=== PATIENT | male | born 1935 | race Caucasian/White ===

== ENCOUNTER 2017-05-19 14:38 | Inpatient (IN) | payer MEDICARE, OTHER ==
[~2017-05-19] VITALS: Ht 180.3 cm; Wt 90.3 kg
[2017-05-19] MEDS ORDERED: 0.9 % SODIUM CHLORIDE 10 ML DISP.SYRIN. IV PRN (15:15)
--- NOTE | 2017-05-19 15:24 | PHYS DOC ---
Past History Past Medical History: CAD, Dementia, Diabetes, High Cholesterol, Hypertension Past Surgical History: Other Additional Past Surgical Histo: AICD and pacemaker placement Alcohol Use: None Drug Use: None Adult General Chief Complaint Chief Complaint: FEVER HPI HPI This patient is a pleasant 81-year-old male with a history of diabetes, hyperlipidemia, hypertension, prior heart disease requiring pacemaker placement and dementia who presents with changes in mental status with subjective low- grade fevers at home according to family. Her last several months patient has had intermittent changes in mental status when he gets confused and starts having chills and developed a fever. He's been treated for pneumonia over last several months at a hospital facility and was sent over here today by his primary care doctor for evaluation secondary to chills decreased energy, increased sleeping, and decreased oral intake. Patient denies any UTI symptoms, abdominal pain, chest pain but has had some intermittent diarrheal stools although not new for him is becoming more frequent. Patient was exposed to children yesterday in the home with URI symptoms of cough and nose congestion of which he does not complain of that at this time. There've been no change in medications, no trauma, patient just feels unwell generally weak without appetite or energy. He denies any specific focal neurologic deficits, problems speaking with problems memory or changes in vision. Review of Systems Review of Systems Constitutional: Patient has suffered from fusion chills or last day. Eyes: Denies change in visual acuity, redness, or eye pain [] HENT: Denies nasal congestion or sore throat [] Respiratory: Denies cough or shortness of breath [] Cardiovascular: No additional information not addressed in HPI [] GI: Denies abdominal pain, vomiting, bloody stools or constipation but does complains of decreased appetite with nausea [] : Denies dysuria or hematuria [] Musculoskeletal: Denies back pain or joint pain [] Integument: Denies rash or skin lesions [] Neurologic: He does complain of a frontal headache not worsened life and sudden onset with generalized weakness but no sensory or focal changes.[] All other systems were reviewed and found to be within normal limits, except as documented in this note. Current Medications Current Medications Current Medications Medications (Trade) Dose Ordered Sig/Shira Start Time Stop Time Status Last Admin Dose Admin Sodium Chloride 2,250 ml @ 2,250 mls/hr Q1H 05/19/17 15:08 UNV Sodium Chloride (Normal Saline Flush) 10 ml QSHIFT PRN 05/19/17 15:15 UNV Physical Exam Physical Exam Of the patient's vital signs on the record patient is [place] hypertensive with borderline fever of 99.5. Constitutional: Well developed, well nourished, he seems tired but nontoxic in appearance he is pale but nondiaphoretic. HENT: Normocephalic, atraumatic, bilateral external ears normal, oropharynx is very dry with no evidence of oral lesions no erythema, no oral exudates, nose normal. [] Eyes: PERRLA, EOMI, conjunctiva normal, no discharge. [] Neck: Normal range of motion, no tenderness, supple, no stridor. [] Cardiovascular:Heart rate regular rhythm, no murmur [] Lungs & Thorax: Bilateral breath sounds clear to auscultation [] Abdomen: Bowel sounds normal, soft, no tenderness, no masses, no pulsatile masses. [] Skin: Warm, dry, no erythema, no rash. [] Back: No tenderness, Extremities: No tenderness, no cyanosis, no clubbing, ROM intact, no edema. [] Neurologic: Alert and oriented X 3, normal motor function, normal sensory function, no focal deficits noted. Patient is responsive able answer yes or no questions with no focal neurologic deficits. [] Psychologic: Patient seems tired and has a blunted affect but normal judgment Patient's stroke scale is only 1 second 2 being somewhat sedated 1 a score to 1 1a. Level of consciousness: 0 = Alert; keenly responsive. 1 = Not alert; but arousable by minor stimulation to obey, answer, or respond. 2 = Not alert; requires repeated stimulation to attend, or is obtunded and requires strong or painful stimulation to make movements (not stereotyped). 3 = Responds only with reflex motor or autonomic effects or totally unresponsive , flaccid, and areflexic. 1b. LOC questions: 0 = Answers both questions correctly. 1 = Answers one question correctly. 2 = Answers neither question correctly. 1c. LOC commands: 0 = Performs both tasks correctly. 1 = Performs one task correctly. 2 = Performs neither task correctly. 2. Best gaze: 0 = Normal. 1 = Partial gaze palsy; gaze is abnormal in one or both eyes, but forced deviation or total gaze paresis is not present. 2 = Forced deviation, or total gaze paresis not overcome by the oculocephalic maneuver. 3. Visual: 0 = No visual loss. 1 = Partial hemianopia. 2 = Complete hemianopia. 3 = Bilateral hemianopia (blind including cortical blindness). 4. Facial palsy: 0 = Normal symmetrical movements. 1 = Minor paralysis (flattened nasolabial fold, asymmetry on smiling). 2 = Partial paralysis (total or near-total paralysis of lower face). 3 = Complete paralysis of one or both sides (absence of facial movement in the upper and lower face). 5. Motor arm: 0 = No drift; limb holds 90 (or 45) degrees for full 10 seconds. 1 = Drift; limb holds 90 (or 45) degrees, but drifts down before full 10 seconds ; does not hit bed or other support. 2 = Some effort against gravity; limb cannot get to or maintain (if cued) 90 ( or 45) degrees, drifts down to bed, but has some effort against gravity. 3 = No effort against gravity; limb falls. 4 = No movement. UN = Amputation or joint fusion, explain: 5a. Left arm 5b. Right arm 6. Motor le = No drift; leg holds 30-degree position for full 5 seconds. 1 = Drift; leg falls by the end of the 5-second period but does not hit bed. 2 = Some effort against gravity; leg falls to bed by 5 seconds, but has some effort against gravity. 3 = No effort against gravity; leg falls to bed immediately. 4 = No movement. UN = Amputation or joint fusion, explain: 6a. Left leg 6b. Right leg 7. Limb ataxia: 0 = Absent. 1 = Present in one limb. 2 = Present in two limbs. UN = Amputation or joint fusion 8. Sensory: 0 = Normal; no sensory loss. 1 = Zfnk-kf-lubaurnd sensory loss; patient feels pinprick is less sharp or is dull on the affected side; or there is a loss of superficial pain with pinprick , but patient is aware of being touched. 2 = Severe to total sensory loss; patient is not aware of being touched in the face, arm, and leg. 9. Best language: 0 = No aphasia; normal. 1 = Ispf-ma-qapvxbni aphasia; some obvious loss of fluency or facility of comprehension, without significant limitation on ideas expressed or form of expression. Reduction of speech and/or comprehension, however, makes conversation about provided materials difficult or impossible. For example, in conversation about provided materials, examiner can identify picture or naming card content from patient's response. 2 = Severe aphasia; all communication is through fragmentary expression; great need for inference, questioning, and guessing by the listener. Range of information that can be exchanged is limited; listener carries burden of communication. Examiner cannot identify materials provided from patient response. 3 = Mute, global aphasia; no usable speech or auditory comprehension. 10. Dysarthria: 0 = Normal. 1 = Mchb-xp-crjepsmw dysarthria; patient slurs at least some words and, at worst , can be understood with some difficulty. 2 = Severe dysarthria; patient's speech is so slurred as to be unintelligible in the absence of or out of proportion to any dysphasia, or is mute/anarthric. UN = Intubated or other physical barrier, explain: 11. Extinction and inattention (formerly neglect): 0 = No abnormality. 1 = Visual, tactile, auditory, spatial, or personal inattention or extinction to bilateral simultaneous stimulation in one of the sensory modalities. 2 = Profound luzmaria-inattention or extinction to more than one modality; does not recognize own hand or orients to only one side of space. Current Patient Data Lab Results Laboratory Tests Test 05/19/17 15:10 05/19/17 15:35 White Blood Count 11.5 x10^3/uL (4.0-11.0) H Red Blood Count 5.45 x10^6/uL (4.30-5.70) Hemoglobin 16.3 g/dL (13.0-17.5) Hematocrit 48.8 % (39.0-53.0) Mean Corpuscular Volume 90 fL (79-100) Mean Corpuscular Hemoglobin 30 pg (25-35) Mean Corpuscular Hemoglobin Concent 34 g/dL (31-37) Red Cell Distribution Width 14.6 % (11.5-14.5) H Platelet Count 135 x10^3/uL (140-400) L Neutrophils (%) (Auto) 92 % (31-73) H Lymphocytes (%) (Auto) 5 % (24-48) L Monocytes (%) (Auto) 3 % (0-9) Eosinophils (%) (Auto) 0 % (0-3) Basophils (%) (Auto) 0 % (0-3) Neutrophils # (Auto) 10.5 x10^3uL (1.8-7.7) H Lymphocytes # (Auto) 0.6 x10^3/uL (1.0-4.8) L Monocytes # (Auto) 0.3 x10^3/uL (0.0-1.1) Eosinophils # (Auto) 0.0 x10^3/uL (0.0-0.7) Basophils # (Auto) 0.0 x10^3/uL (0.0-0.2) Lactic Acid Level 1.3 mmol/L (0.4-2.0) Sodium Level 140 mmol/L (136-145) Potassium Level 5.2 mmol/L (3.5-5.1) H Chloride Level 103 mmol/L (98-107) Carbon Dioxide Level 29 mmol/L (21-32) Anion Gap 8 (6-14) Blood Urea Nitrogen 17 mg/dL (8-26) Creatinine 1.4 mg/dL (0.7-1.3) H Estimated GFR (Cockcroft-Gault) 48.6 BUN/Creatinine Ratio 12 (6-20) Glucose Level 172 mg/dL (70-99) H Calcium Level 8.8 mg/dL (8.5-10.1) Magnesium Level 1.8 mg/dL (1.8-2.4) Total Bilirubin 0.6 mg/dL (0.2-1.0) Aspartate Amino Transferase (AST) 38 U/L (15-37) H Alanine Aminotransferase (ALT) 38 U/L (16-63) Alkaline Phosphatase 81 U/L (46-116) Creatine Kinase 76 U/L (39-308) Creatine Kinase MB (Mass) 0.7 ng/mL (0.0-3.6) Creatine Kinase MB Relative Index 0.9 % (0-4) Troponin I Quantitative < 0.017 ng/mL (0-0.055) HI-Mjz-E-Type Natriuretic Peptide 95 pg/mL (0-449) Total Protein 7.0 g/dL (6.4-8.2) Albumin 3.8 g/dL (3.4-5.0) Albumin/Globulin Ratio 1.2 (1.0-1.7) Amylase Level 40 U/L (25-115) Lipase 43 U/L (73-393) L Influenza Type A (Rapid) Negative (NEGATIVE) Influenza Type B (Rapid) Negative (NEGATIVE) EKG EKG []EKG read by me 4:02 PM 05/19/2017 this is normal sinus rhythm with a heart rate of 66 a P wave there were QRS is sinus rhythm but his SC interval elongated at 326 which is significant. Patient's QRS width is 86 which is normal , QTc is 440 which is normal, patient has T-wave abnormality with T-wave inversion in lateral leads of V4 V5 V6 Radiology/Procedures Radiology/Procedures [] [place] [address] IMAGING REPORT Signed PATIENT: MURIEL GOETZ ACCOUNT: [id number] : 1935 LOCATION: ER AGE: 81 SEX: M EXAM STATUS: REG ER ORD. PHYSICIAN: SEBASTIAN WORRELL MD REASON: mental status changes PROCEDURE: CT HEAD WO CONTRAST Clinical Indication: Mental status change. 81-year-old. Technique: Study is dated May 19, 2017. CT images of the head were obtained from the skull base to the vertex without IV contrast. Comparison is from December 15, 2008. One or more of the following individualized dose reduction techniques were utilized for this examination: 1. Automated exposure control 2. Adjustment of the mA and/or kV according to patient size 3. Use of iterative reconstruction technique Findings: There is diffuse, symmetric prominence of the ventricles and subarachnoid spaces consistent with age-related parenchymal volume loss. There are areas of scattered decreased attenuation in the supratentorial white matter. While nonspecific, findings are likely secondary to small vessel ischemic disease. There is no hemorrhage, extraaxial fluid collection, mass, or midline shift. There is no large vascular distribution infarct. The posterior fossa and brain stem are unremarkable. Orbits are normal. The visualized paranasal sinuses are clear. There is no skull fracture appreciated on bone level images. Impression: No acute intracranial findings. Brain parenchymal volume loss and probable small vessel ischemic disease. DICTATED AND SIGNED BY: REYES KINCAID MD DATE: 05/19/171533 CC: SEBASTIAN WORRELL MD; JENNIFER RANKIN MD ~ IMAGING REPORT Signed PATIENT: MURIEL GOETZ ACCOUNT: [id number] : 1935 LOCATION: ER AGE: 81 SEX: M EXAM STATUS: REG ER ORD. PHYSICIAN: SEBASTIAN WORRELL MD REASON: altered mental status fever PROCEDURE: PORTABLE CHEST 1V Portable chest, 05/19/2017: History: Altered mental status, fever Comparison is made to a study from 10/16/2009. A left-sided transvenous pacemaker has been inserted with 2 leads extending into the right heart. The heart size is normal. There is calcific plaquing of the aorta. The pulmonary vascularity is normal. No pulmonary infiltrates are seen. There is no evidence of pleural fluid. IMPRESSION: No acute cardiopulmonary abnormality is detected. DICTATED AND SIGNED BY: VANIA GALVAN MD DATE: 05/19/171540 CC: SEBASTIAN WORRELL MD; JENNIFER RANKIN MD ~ Course & Med Decision Making Course & Med Decision Making Pertinent Labs and Imaging studies reviewed. (See chart for details) []lMy syncope and weakness differential includes but not limited to: Neurally mediated vasovagal syncope, situational syncope, cardiac sinus syncope , orthostatic hypertension, medications, psychiatric interventions, neurologic syncope, cardiogenic syncopal B, to include organic heart disease congestive heart failure, cardiac dysrhythmia, seizure disorder, stroke or transient ischemic attack, bradycardia dysrhythmias, tachycardia dysrhythmias, PT, V. fib V. fib, cardiac abnormalities like first degree secondary third-degree AV blocks , prolonged QT, hypertrophic Tigre myopathy, severe pulmonic stenosis, pulmonary arterial hypertension, atrial myxomas, aortic stenosis, valvular failure, alcohol consumption, adrenal insufficiency, drug effects from things like antidepressants, antihypertensive agents like beta blockers, vasodilators including calcium channel blockers and nitrates, autonomic insufficiency. Patient presents with generalized weakness and subjective fevers at home greater 100.4 been known to be septic from various sources infection from bladder to lung. He's had sick contacts at home with exposed to grandchildren with URI-like symptoms. We will be screening for fluids, cardiac disease, stroke , pneumonia, UTI, and other source of infection. Patient did mention that he had no appetite had some loose stools so produces stool we will screen for C. difficile colitis and other infectious etiologies of diarrhea. At this point he has not produced a stool and we have not seen evidence of diarrhea. Patient has no fever at this point in time the patient was given extra fluids to include 30 mL/kg bolus to make sure that his dehydration was corrected. Patient's BUN/ creatinine are elevated on this particular admission. Patient has negative troponin, negative influenza screen at this time. Patient is afebrile. Patient is a white count 11.5 with a neutrophil predominance of 92%. His chest x-ray and CT scan of his head were reviewed by me read by radiology no acute finding in determining to his altered mental status. Senior Backup Administrator note: Medical Social Consultant hospitalist Senior Backup Administrator called at of the service internal medicine service called initially for 430 p.m. Consult called back at 431 pm Discussed the case I presented and they agreed with admission. Time of acceptance [id number] "I have assessed this patient clinically and believe that their condition requires an admission to the hospital. After consulting the admitting physician about this case, they have asked that I admit this patient to their service as an inpatient based on the clinical presentation and my impression." Dragon Disclaimer Dragon Disclaimer This electronic medical record was generated, in whole or in part, using a voice recognition dictation system. Departure Departure: Impression: Primary Impression: Mental status change Additional Impression: Fever Disposition: 09 ADMITTED INPATIENT Admitting Physician: Corine sEtevez Condition: GUARDED Referrals: JENNIFER RANKIN MD (PCP) Problem Qualifiers SEBASTIAN WORRELL MD May 19, 2017 15:24
--- NOTE | 2017-05-19 15:37 | RAD ---
Clinical Indication: Mental status change. 81-year-old. Technique: Study is dated May 19, 2017. CT images of the head were obtained from the skull base to the vertex without IV contrast. Comparison is from December 15, 2008. One or more of the following individualized dose reduction techniques were utilized for this examination: 1. Automated exposure control 2. Adjustment of the mA and/or kV according to patient size 3. Use of iterative reconstruction technique Findings: There is diffuse, symmetric prominence of the ventricles and subarachnoid spaces consistent with age-related parenchymal volume loss. There are areas of scattered decreased attenuation in the supratentorial white matter. While nonspecific, findings are likely secondary to small vessel ischemic disease. There is no hemorrhage, extraaxial fluid collection, mass, or midline shift. There is no large vascular distribution infarct. The posterior fossa and brain stem are unremarkable. Orbits are normal. The visualized paranasal sinuses are clear. There is no skull fracture appreciated on bone level images. Impression: No acute intracranial findings. Brain parenchymal volume loss and probable small vessel ischemic disease.
[2017-05-19 15:38] LABS: BASO % 0 % (0-3); EOS % 0 % (0-3); HEMATOCRIT 48.8 % (39.0-53.0); HEMOGLOBIN 16.3 g/dL (13.0-17.5); LYMPH # 0.6 x10^3/uL (1.0-4.8); LYMPH % 5 % (24-48); MEAN CORPUSCULAR HEMOGLOBIN 30 pg (25-35); MEAN CORPUSCULAR HGB CONC 34 g/dL (31-37); MEAN CORPUSCULAR VOLUME 90 fL (79-100); MONO # 0.3 x10^3/uL (0.0-1.1); MONO % 3 % (0-9); NEUT # 10.5 x10^3uL (1.8-7.7); NEUT % 92 % (31-73); PLATELET COUNT 135 x10^3/uL (140-400); RED BLOOD COUNT 5.45 x10^6/uL (4.30-5.70); RED CELL DISTRIBUTION WIDTH 14.6 % (11.5-14.5); WHITE BLOOD COUNT 11.5 x10^3/uL (4.0-11.0)
[2017-05-19] MEDS: IV NORMAL SALINE 1,000ML 2,250 ML IV SCH ×4 (15:40→21:58)
--- NOTE | 2017-05-19 15:44 | RAD ---
Portable chest, 05/19/2017: History: Altered mental status, fever Comparison is made to a study from 10/16/2009. A left-sided transvenous pacemaker has been inserted with 2 leads extending into the right heart. The heart size is normal. There is calcific plaquing of the aorta. The pulmonary vascularity is normal. No pulmonary infiltrates are seen. There is no evidence of pleural fluid. IMPRESSION: No acute cardiopulmonary abnormality is detected.
--- NOTE | 2017-05-19 15:47 | EKG ---
[address] [address] Test Date: 2017-05-19 Test Time: 16:02:04 Pat Name: MURIEL GOETZ Department: Room: Gender: M Nature Photographer: ANALILIA : 1935 Requested By: SEBASTIAN WORRELL Order Number: [id number] Reading MD: Nolan Heaton MD Measurements Intervals Elizabeth Rate: 66 P: 31 VA: 326 QRS: -13 QRSD: 86 T: -26 QT: 426 QTc: 448 Interpretive Statements SINUS RHYTHM PROLONGED VA INTERVAL NON-SPECIFIC ST/T CHANGES Electronically Signed On 05-26-2017 14:06:07 DRYWALL STRIPPER by Nolan Heaton MD
[2017-05-19 16:09] LABS: INFLUENZA A PATIENT NEGATIVE (NEGATIVE); INFLUENZA B PATIENT NEGATIVE (NEGATIVE)
[2017-05-19] MEDS ORDERED: ACETAMINOPHEN 325 MG TABLET PO PRN (16:30)
[2017-05-19] MEDS ORDERED: ONDANSETRON PF 4 MG/2 ML VIAL. IV PRN (16:30)
[2017-05-19 16:32] LABS: ALBUMIN 3.8 g/dL (3.4-5.0); ALBUMIN/GLOBULIN RATIO 1.2 (1.0-1.7); CALCIUM 8.8 mg/dL (8.5-10.1); CREATININE 1.4 mg/dL (0.7-1.3); GFR 48.6; MAGNESIUM 1.8 mg/dL (1.8-2.4); POTASSIUM 5.2 mmol/L (3.5-5.1); TOTAL BILIRUBIN 0.6 mg/dL (0.2-1.0)
[2017-05-19 19:15] VITALS: BP 98/62
[2017-05-19 19:33] LABS: BACTERIA,URINE 0 /HPF (0-FEW); BILIRUBIN,URINE NEG (NEG); CLARITY,URINE CLEAR; COLOR,URINE YELLOW; GLUCOSE,URINE NEG (NEG); NITRITE,URINE NEG (NEG); RBC,URINE RARE /HPF (0-2); SQUAMOUS EPITHELIAL CELL,UR FEW /LPF; UROBILINOGEN,URINE 0.2 mg/dL (0.2 mg/dL); WBC,URINE OCC /HPF (0-4)
[2017-05-19] MEDS ORDERED: DONE10TA7 PO (20:08)
[2017-05-19] MEDS ORDERED: DICY10CA3 PO (20:08)
[2017-05-19] MEDS ORDERED: ALBU90AE IH (20:08)
[2017-05-19] MEDS ORDERED: INSU200I SQ (20:08)
[2017-05-19] MEDS ORDERED: ONDA4TAB12 PO (20:08)
[2017-05-19] MEDS ORDERED: SIMV10TA3 PO (20:08)
[2017-05-19] MEDS ORDERED: CHOL4POW2 PO (20:08)
[2017-05-19] MEDS ORDERED: LISI10TA2 PO (20:08)
[2017-05-19] MEDS ORDERED: GABA-586 PO (20:08)
[2017-05-19] MEDS ORDERED: MEMA1CAP3 PO (20:08)
[2017-05-19] MEDS ORDERED: ASPI-630 PO (20:08)
[2017-05-19] MEDS ORDERED: OMEP40CA5 PO (20:08)
[2017-05-19] MEDS ORDERED: CHOL10003 PO (20:08)
[2017-05-19] MEDS ORDERED: INSU100I13 SQ (20:08)
[2017-05-19] MEDS: INSULIN DETEMIR 300 UNITS/3 ML INSULN.PEN. SQ SCH (21:04)
[2017-05-19 22:23] VITALS: BP 118/58
[2017-05-19] MEDS ORDERED: PNEUMOCOCCAL VAX SCREEN. MC PRN (22:30)
[2017-05-20] MEDS: IV NORMAL SALINE 1,000ML 1,000 ML IV SCH ×2 (01:36→04:57)
[2017-05-20 05:07] VITALS: BP 137/63
[2017-05-20 08:21] LABS: BASO # 0.1 x10^3/uL (0.0-0.2); BASO % 1 % (0-3); EOS # 0.1 x10^3/uL (0.0-0.7); EOS % 1 % (0-3); HEMATOCRIT 42.1 % (39.0-53.0); LYMPH % 19 % (24-48); MEAN CORPUSCULAR HEMOGLOBIN 30 pg (25-35); MEAN CORPUSCULAR HGB CONC 33 g/dL (31-37); MEAN CORPUSCULAR VOLUME 90 fL (79-100); MONO # 0.2 x10^3/uL (0.0-1.1); MONO % 3 % (0-9); NEUT # 3.8 x10^3uL (1.8-7.7); NEUT % 75 % (31-73); PLATELET COUNT 116 x10^3/uL (140-400); RED BLOOD COUNT 4.69 x10^6/uL (4.30-5.70); RED CELL DISTRIBUTION WIDTH 14.3 % (11.5-14.5)
[2017-05-20 08:37] LABS: ALBUMIN 2.9 g/dL (3.4-5.0); ALBUMIN/GLOBULIN RATIO 0.9 (1.0-1.7); GFR 71.7; MAGNESIUM 1.9 mg/dL (1.8-2.4); POTASSIUM 4.1 mmol/L (3.5-5.1); TOTAL BILIRUBIN 0.5 mg/dL (0.2-1.0); TOTAL PROTEIN 6.1 g/dL (6.4-8.2)
[2017-05-20 10:14] VITALS: BP 167/79
[2017-05-20] MEDS ORDERED: NON FORMULARY ITEM (Albuterol Sulfate (Proair Respiclick) 2 PUFF) IH PRN (11:00)
[2017-05-20] MEDS ORDERED: ONDANSETRON ODT 4 MG TAB.RAPDIS PO PRN (11:00)
[2017-05-20] MEDS ORDERED: INSULIN ASPART 300 UNITS/3 ML INSULN.PEN SQ SCH (11:30)
[2017-05-20] MEDS ORDERED: ALBUTEROL SULFATE 2.5 MG/3 ML NEBU. NEB PRN (11:30)
[2017-05-20] MEDS ORDERED: DONEPEZIL HCL 10 MG TABLET PO SCH ×2 (11:30→21:00)
[2017-05-20] MEDS: ASPIRIN 81 MG TAB.CHEW PO SCH (12:43)
[2017-05-20] MEDS: MEMANTINE 10 MG TABLET. PO SCH ×2 (12:44→20:04)
[2017-05-20] MEDS: DICYCLOMINE HCL 10 MG CAPSULE PO SCH ×3 (12:44→20:04)
[2017-05-20] MEDS: LISINOPRIL 10 MG TABLET PO SCH (12:45)
[2017-05-20] MEDS: PANTOPRAZOLE 40 MG TABLET. PO SCH (12:45)
[2017-05-20] MEDS: SIMVASTATIN 10 MG TABLET PO SCH (12:46)
[2017-05-20] MEDS: CHOLECALCIFEROL (VITAMIN D3) 1,000 UNIT TABLET PO SCH (12:46)
[2017-05-20] MEDS: GABAPENTIN 300 MG CAPSULE. PO SCH ×2 (13:56→20:04)
[2017-05-20] MEDS: CHOLESTYRAMINE/ASPARTAME 4 GM PACKET PO SCH (13:56)
[2017-05-20 14:52] VITALS: BP 159/74
[2017-05-20] MEDS: INSULIN ASPART 300 UNITS/3 ML INSULN.PEN SQ SCH (17:13)
[2017-05-20 19:17] VITALS: BP 136/74
--- NOTE | 2017-05-20 19:48 | HP ---
ADMIT DATE: 05/19/2017 REASON FOR ADMISSION: This is an 81-year-old gentleman who has had repeated admissions to the hospital for fever, altered mental status, diarrhea, chills. I discussed his case with Dr. Lucero, his primary care physician as well as reviewed his records from his admissions at [facility]. His last admission was on 05/06/2017. On this admission, he presented to the Emergency Room after stated that he just was not acting right. They felt he had a fever, although was not taken. He does have intermittent problems with confusion and agitation and some memory lapse. He has also had some admissions for pneumonia in the past. PAST MEDICAL HISTORY: Multiple admissions for diarrhea ____ poorly controlled diabetes and in 07/2016, he did have enteropathogenic E. coli that was in his stool and in 03/2017, he also had a Cryptosporidium. Recent stool cultures in 04/28/2017 were all negative. Other medical problems include pacemaker, hypertension, type 2 diabetes, hyperlipidemia, COPD, sleep apnea, skin cancer, BPH, diabetic nephropathy, history of sick sinus syndrome requiring pacemaker, encephalopathy, dementia, chronic intermittent diarrhea. ALLERGIES: BEE STINGS. MEDICATIONS: Reviewed and are available on the MAR. The patient does take some of these medicines on an empty stomach. There also is a combination of ____ as well as regular ____ prescribed, which may also be contributing to his pain in stomach, nausea and vomiting. SOCIAL HISTORY: The patient is . He is an ex-smoker, quit in 1992. He has not had any alcohol, generally since 1993. Served in the for 26 years, worked for the [employer] for 20 years, worked at [employer] for 8 years. FAMILY STRESSORS: Significant. He and his live in a very small house with one operating bedroom. Their daughter who is in her 50s, lives in another room and their granddaughter who has a 4-month-old and a 4- and 5-year-old sleeps on the couch. relates this is very stressful for him and his symptoms seem to get worse when the granddaughter who is somewhat volatile starts yelling and carrying on. They are torn between asking her to leave and keeping her in their home as they are very devoted to her. She does not have a job and they are not too fund of her current boyfriend who is the father of a 4-month-old. REVIEW OF SYSTEMS: Positive for intermittent fevers, chills, feeling cold, fluctuating blood sugars, intermittent diarrhea. Denies sore throat. Denies current diarrhea. No issues with urination. Weight is fluctuating, had lost 10 pounds and then has gained it back, and intermittent bouts of weakness. OBJECTIVE: VITAL SIGNS: Blood pressure was 137/63, pulse of 59, temperature 97.4, pulse ox was 94% on the CPAP, was 91% on room air. GENERAL: The patient is alert. HEENT: He is extremely hard of hearing. His eyes are clear. Nose is patent. Tongue is slightly dry. He has some mucous in the posterior pharynx. NECK: Supple. LUNGS: Clear. CARDIOVASCULAR: Regular rhythm and rate. Telemetry shows a paced rhythm. ABDOMEN: Soft. Bowel sounds are positive, nontender, no masses palpated. EXTREMITIES: Without edema. NEUROLOGIC: Mental Status: Cognitive Status: The patient is somewhat of a poor historian, some due to his hearing and some due to inability to recall. There are no gross tremors noted. His cranial nerves were intact except for the hearing. LABORATORY DATA: Review of other labs from his previous hospitalizations reveal ABGs, he has 5 ABGs from different times going back to 2011 showing hypoxemia on all ABGs with some hypercarbia as well. Also on review, he has had intermittent elevated lactic acids. Laboratories here: Chemistry profile, essentially normal. Glucose is ranging from 126 to 190. CBC: Initial elevated white blood count of 11.5 without a left shift and platelet count 35,000. Urinalysis is negative. Flu is negative. IMAGING DATA: Head CT: No acute intracranial findings. ASSESSMENT: 1. Recurrent fever, chills, and altered mental status, suspect intermittent hypoxia. 2. Obstructive sleep apnea. 3. History of Cryptosporidium and enterogenic Escherichia coli in the stool. He is not currently having diarrhea and the 04/28/2017 cultures were negative. 4. Extreme social stressors. I believe this is contributing to his overall mental and physical state. 5. Suspect irritable bowel syndrome related to extreme stress. 6. Type 2 diabetes with intermittent hyperglycemia. 7. Also, he has a history of gastroparesis. 8. Pacemaker status. PLAN: IV fluids. Decrease the dose of the Aricept, so that he only gets 10 mg daily. The patient may benefit from some Librax if he continues to be still having the gastrointestinal symptoms. He does have an appointment with a television tube inspector on 06/18/2017. I will discuss that with Dr. Lucero. We will monitor his saturations too during his hospitalization. THAD SOSA DO DR: SHALONDA/ana maria JOB#: [id number] / [id number]
[2017-05-20] MEDS: INSULIN DETEMIR 300 UNITS/3 ML INSULN.PEN. SQ SCH (20:09)
[2017-05-20 23:00] VITALS: BP 159/75
[2017-05-21 05:12] VITALS: BP 164/75
[2017-05-21 06:07] LABS: BASO % 1 % (0-3); EOS # 0.1 x10^3/uL (0.0-0.7); EOS % 2 % (0-3); HEMATOCRIT 39.6 % (39.0-53.0); HEMOGLOBIN 13.4 g/dL (13.0-17.5); LYMPH # 0.9 x10^3/uL (1.0-4.8); LYMPH % 22 % (24-48); MEAN CORPUSCULAR HEMOGLOBIN 30 pg (25-35); MEAN CORPUSCULAR HGB CONC 34 g/dL (31-37); MEAN CORPUSCULAR VOLUME 90 fL (79-100); MONO # 0.2 x10^3/uL (0.0-1.1); MONO % 5 % (0-9); NEUT % 71 % (31-73); PLATELET COUNT 113 x10^3/uL (140-400); RED BLOOD COUNT 4.41 x10^6/uL (4.30-5.70); RED CELL DISTRIBUTION WIDTH 14.4 % (11.5-14.5); WHITE BLOOD COUNT 4.3 x10^3/uL (4.0-11.0)
[2017-05-21 06:13] LABS: ALBUMIN 2.9 g/dL (3.4-5.0); ALBUMIN/GLOBULIN RATIO 0.9 (1.0-1.7); CALCIUM 8.2 mg/dL (8.5-10.1); GFR 71.7; MAGNESIUM 1.8 mg/dL (1.8-2.4); POTASSIUM 4.4 mmol/L (3.5-5.1); TOTAL BILIRUBIN 0.3 mg/dL (0.2-1.0); TOTAL PROTEIN 6.1 g/dL (6.4-8.2)
[2017-05-21] MEDS: INSULIN ASPART 300 UNITS/3 ML INSULN.PEN SQ SCH ×2 (08:18→12:06)
[2017-05-21] MEDS: GABAPENTIN 300 MG CAPSULE. PO SCH ×2 (08:20→14:41)
[2017-05-21] MEDS: ASPIRIN 81 MG TAB.CHEW PO SCH (08:20)
[2017-05-21] MEDS: DICYCLOMINE HCL 10 MG CAPSULE PO SCH ×2 (08:21→12:04)
[2017-05-21] MEDS: PANTOPRAZOLE 40 MG TABLET. PO SCH (08:21)
[2017-05-21] MEDS: LISINOPRIL 10 MG TABLET PO SCH (08:21)
[2017-05-21] MEDS: MEMANTINE 10 MG TABLET. PO SCH (08:21)
[2017-05-21] MEDS: SIMVASTATIN 10 MG TABLET PO SCH (08:21)
[2017-05-21] MEDS: CHOLECALCIFEROL (VITAMIN D3) 1,000 UNIT TABLET PO SCH (08:21)
[2017-05-21] MEDS ORDERED: NON FORMULARY ITEM (Memantine HCl/Donepezil HCl (Namzaric 28 mg-10 mg Capsule) 1 EACH) PO SCH (09:00)
[2017-05-21] MEDS: CHOLESTYRAMINE/ASPARTAME 4 GM PACKET PO SCH (09:54)
[2017-05-21 10:33] VITALS: BP 122/72
[2017-05-21] MEDS ORDERED: INSULIN ASPART 300 UNITS/3 ML INSULN.PEN SQ ONE (12:00)
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
--- NOTE | 2017-06-05 15:06 | CARD ---
MR#: [id number] Date of Study: 05/21/2017 Ordering Physician: THAD SOSA, Referring Physician: Rajan DUNHAM: Lawrence Caraballo [facility] APPROVED REPORT EXAM: Two-dimensional and M-mode echocardiogram with Doppler and color Doppler. Other Information Quality : GoodTechnically LimitedFairHR: 60bpm INDICATION Murmur 2D DIMENSIONS RVDd3.5 (2.9-3.5cm)Left Atrium(2D)3.7 (1.6-4.0cm) IVSd1.3 (0.7-1.1cm)Aortic Root(2D)3.4 (2.0-3.7cm) LVDd4.7 (3.9-5.9cm)LVOT Diameter2.2 (1.8-2.4cm) PWd1.4 (0.7-1.1cm)LVDs3.3 (2.5-4.0cm) FS (%) 29.0 %SV57.3 ml LVEF(%)55.6 (>50%) Aortic Valve AoV Peak Simon.96.7cm/sAoV VTI23.3cm AO Peak GR.3.7mmHgLVOT Peak Simon.70.6cm/s AO Mean GR.2mmHgAVA (VMAX)2.89cm2 Mitral Valve MV E Xrjllndd00.6cm/sMV DECEL SEXB928ii MV A Ilckuxhh46.6cm/sE/A Ratio0.7 Pulmonary Valve PV Peak Dufnmyya433.3cm/sPV Peak Grad.5mmHg Tricuspid Valve TR P. Whgugoez538nm/sTR Peak Gr.21mmHg Pulmonary Vein S1 Hjitddpn37.5cm/sD2 Exdedgzc80.7cm/s LEFT VENTRICLE The left ventricle is normal size. There is mild concentric left ventricular hypertrophy. Proximal se ptal thickening is noted. The left ventricular systolic function is normal and the ejection fraction is within normal range. There is normal LV segmental wall motion. Transmitral Doppler flow pattern is Grade I-abnormal relaxation pattern. RIGHT VENTRICLE The right ventricle is normal size. The right ventricular systolic function is normal. ATRIA The left atrium size is normal. The right atrium size is normal. There is a catheter/pacemaker lead s een in the right atrium. The interatrial septum is intact with no evidence for an atrial septal defec t or patent foramen ovale as noted on 2-D or Doppler imaging. AORTIC VALVE The aortic valve is thickened but opens well. Doppler and Color Flow revealed trace aortic regurgitat ion. There is no significant aortic valvular stenosis. There is no aortic valvular vegetation. MITRAL VALVE Mitral annular calcification is mild. The mitral valve is calcified but opens well. There is no evide nce of mitral valve prolapse. There is no mitral valve stenosis. Doppler and Color-flow revealed trac e to mild mitral regurgitation. TRICUSPID VALVE The tricuspid valve leaflets are thickened , but open well. Doppler and Color Flow revealed mild tric uspid regurgitation. There is no tricuspid valve prolapse or vegetation. There is no tricuspid valve stenosis. PULMONIC VALVE The pulmonary valve is normal in structure and function. Doppler and Color Flow revealed trace pulmon ic valvular regurgitation. There is no pulmonic valvular stenosis. GREAT VESSELS The aortic root is normal in size. IVC could not be visualized. PERICARDIAL EFFUSION There is no pleural effusion. There is no evidence of significant pericardial effusion. Critical Notification Critical Value: No <Conclusion> The left ventricular systolic function is normal and the ejection fraction is within normal range. EF is calculated to be 55-60%. Transmitral Doppler flow pattern is Grade I-abnormal relaxation pattern. The right ventricular systolic function is normal. Doppler and Color Flow revealed trace aortic regurgitation. There is no evidence of significant pericardial effusion. Signed by : Abrahan Oconnell, Electronically Approved : 06/05/2017 15:06:14
== END 2017-05-21 14:42 | disposition home or self-care (01) | DRG 682 ==
LOC: ER 14:38 → 1 SOUTH 17:25
PROVIDERS: ADMIT Family Medicine; ATTEND Family Medicine
PROC: 5A09357 Assistance with Respiratory Ventilation, Less than 24 Consecutive Hours, Continuous Positive Airway Pressure (ICD-10-PCS; principal; 2017-05-19)
PROC: 5A09357 Assistance with Respiratory Ventilation, Less than 24 Consecutive Hours, Continuous Positive Airway Pressure (ICD-10-PCS; 2017-05-20)
DX: N17.0 Acute kidney failure with tubular necrosis (principal); G93.41 Metabolic encephalopathy; E11.21 Type 2 diabetes mellitus with diabetic nephropathy; D69.6 Thrombocytopenia, unspecified; E11.65 Type 2 diabetes mellitus with hyperglycemia; E86.0 Dehydration; K58.0 Irritable bowel syndrome with diarrhea; J44.9 Chronic obstructive pulmonary disease, unspecified; R41.82 Altered mental status, unspecified; F43.9 Reaction to severe stress, unspecified; E78.5 Hyperlipidemia, unspecified; F03.90 Unspecified dementia, unspecified severity, without behavioral disturbance, psychotic disturbance, mood disturbance, and anxiety; G47.33 Obstructive sleep apnea (adult) (pediatric); I10 Essential (primary) hypertension; D72.829 Elevated white blood cell count, unspecified; I25.10 Atherosclerotic heart disease of native coronary artery without angina pectoris; N40.0 Benign prostatic hyperplasia without lower urinary tract symptoms; Z85.828 Personal history of other malignant neoplasm of skin; Z87.01 Personal history of pneumonia (recurrent); Z87.891 Personal history of nicotine dependence; Z95.0 Presence of cardiac pacemaker; Z91.030 Bee allergy status; Z79.4 Long term (current) use of insulin
CPT/HCPCS: 36415; 70450; 71010; 80053; 80061; 81001; 82150; 82553; 82947; 83605; 83690; 83735; 83880; 84443; 84484; 85025; 87040; 87641; 87804; 93005; 93306; 94620; J1815; Q0162; 99285-25; J7030

== ENCOUNTER 2017-06-05 16:16 | Inpatient (IN) | payer MEDICARE, OTHER ==
[~2017-06-05] VITALS: Ht 180.3 cm; Wt 89.4 kg
[~2017-06-05 16:16] MED LIST: ALBU90AE IH; ASPI-630 PO; CHOL10003 PO; CHOL4POW2 PO; DICY10CA3 PO; DONE10TA7 PO; GABA-586 PO; INSU100I13 SQ; INSU200I SQ; LISI10TA2 PO; MEMA1CAP3 PO; OMEP40CA5 PO; ONDA4TAB12 PO; SIMV10TA3 PO
[2017-06-05] MEDS ORDERED: IV NORMAL SALINE 500ML 500 ML IV ONE (16:30)
--- NOTE | 2017-06-05 16:34 | PHYS DOC ---
Past History Past Medical History: CAD, Dementia, Diabetes, High Cholesterol, Hypertension Past Surgical History: Other Additional Past Surgical Histo: AICD and pacemaker placement Alcohol Use: None Drug Use: None Adult General HPI HPI Patient is a 20-year-old with a history of diabetes is brought in for evaluation to the emergency department secondary to be more sleepy, less active than usual, generalized weakness. Patient is answering questions but acting sleepy. patient denies any pain, rashes, fevers, vomiting, diarrhea. EMS was called to assist on getting the patient the car because he was so weak, patient was on his way to the emergency department for evaluation. In the emergency department the patient was found to be febrile. Review of Systems Review of Systems Constitutional: Denies fever or chills [] Eyes: Denies change in visual acuity, redness, or eye pain [] HENT: Denies nasal congestion or sore throat [] Respiratory: Denies cough or shortness of breath [] Cardiovascular: No additional information not addressed in HPI [] GI: Denies abdominal pain, nausea, vomiting, bloody stools or diarrhea [] : Denies dysuria or hematuria [] Musculoskeletal: Denies back pain or joint pain [] Integument: Denies rash or skin lesions [] Neurologic: Denies headache, focal weakness or sensory changes [] Endocrine: Denies polyuria or polydipsia [] All other systems were reviewed and found to be within normal limits, except as documented in this note. Current Medications Current Medications Current Medications Medications (Trade) Dose Ordered Sig/Shira Start Time Stop Time Status Last Admin Dose Admin Acetaminophen (Tylenol) 650 mg 1X ONCE 06/05/17 16:45 06/05/17 16:46 UNV Ibuprofen (Motrin) 400 mg 1X ONCE 06/05/17 16:45 06/05/17 16:46 UNV Sodium Chloride 500 ml @ 0 mls/hr 1X ONCE 06/05/17 16:30 06/05/17 16:31 UNV Allergies Allergies Allergies Coded Allergies Type Severity Reaction Last Updated Verified I S O L A T I O N *CONTACT* Allergy Unknown 05/20/17 Yes NKMA Allergy Unknown 05/20/17 Yes Physical Exam Physical Exam Constitutional: Well developed, well nourished, no acute distress, non-toxic appearance. [] HENT: Normocephalic, atraumatic, bilateral external ears normal, oropharynx moist, no oral exudates, nose normal. [] Eyes: PERRLA, EOMI, conjunctiva normal, no discharge. [] Neck: Normal range of motion, no tenderness, supple, no stridor. [] Cardiovascular:Heart rate regular rhythm, no murmur [] Lungs & Thorax: Bilateral breath sounds clear to auscultation [] Abdomen: Bowel sounds normal, soft, no tenderness, no masses, no pulsatile masses. [] Skin: Warm, dry, no erythema, no rash. [] Back: No tenderness, no CVA tenderness. [] Extremities: No tenderness, no cyanosis, no clubbing, ROM intact, no edema. [] Neurologic: Alert and oriented X 3, normal motor function, normal sensory function, no focal deficits noted. [] Psychologic: Affect normal, judgement normal, mood normal. [] EKG EKG 1650 SR, no stemi, 72[] Radiology/Procedures Radiology/Procedures CXR: right basilar infiltrate[] Course & Med Decision Making Course & Med Decision Making Pertinent Labs and Imaging studies reviewed. (See chart for details) 1749 pt in nad, resting comfortably [] Dragon Disclaimer Dragon Disclaimer This electronic medical record was generated, in whole or in part, using a voice recognition dictation system. Departure Departure: Impression: Primary Impression: Pneumonia Additional Impressions: Dehydration Thrombocytopenia Weakness Disposition: ADMITTED INPATIENT Admitting Physician: Ezio Tucrios Condition: STABLE Referrals: JENNIFER RANKIN MD (PCP) Problem Qualifiers Dez AVILA MD Jun 05, 2017 16:34
--- NOTE | 2017-06-05 16:45 | RAD ---
Portable chest, 06/05/2017: History: Pneumonia Comparison is made to a study from 05/19/2017. A left-sided transvenous pacemaker is in place with 2 leads extending into the right heart. The heart size is normal. There is calcific plaquing of aorta. There is minimal right basilar infiltrate. The left lung is clear. There is no evidence of pleural fluid. IMPRESSION: Minimal right basilar infiltrate compatible with pneumonia.
[2017-06-05] MEDS ORDERED: ACETAMINOPHEN 325 MG TABLET PO ONE (17:00)
[2017-06-05] MEDS ORDERED: IBUPROFEN 400 MG TABLET. PO ONE (17:00)
[2017-06-05 17:08] LABS: BASO % 1 % (0-3); EOS % 1 % (0-3); HEMATOCRIT 47.4 % (39.0-53.0); HEMOGLOBIN 15.8 g/dL (13.0-17.5); LYMPH # 0.3 x10^3/uL (1.0-4.8); LYMPH % 7 % (24-48); MEAN CORPUSCULAR HEMOGLOBIN 30 pg (25-35); MEAN CORPUSCULAR HGB CONC 33 g/dL (31-37); MEAN CORPUSCULAR VOLUME 90 fL (79-100); MONO # 0.3 x10^3/uL (0.0-1.1); MONO % 7 % (0-9); NEUT # 3.3 x10^3uL (1.8-7.7); NEUT % 84 % (31-73); PLATELET COUNT 108 x10^3/uL (140-400); RED BLOOD COUNT 5.26 x10^6/uL (4.30-5.70); RED CELL DISTRIBUTION WIDTH 14.6 % (11.5-14.5); WHITE BLOOD COUNT 3.9 x10^3/uL (4.0-11.0)
[2017-06-05 17:25] LABS: ALBUMIN 3.9 g/dL (3.4-5.0); ALBUMIN/GLOBULIN RATIO 1.1 (1.0-1.7); CALCIUM 9.3 mg/dL (8.5-10.1); CREATININE 1.3 mg/dL (0.7-1.3); POTASSIUM 4.6 mmol/L (3.5-5.1); TOTAL BILIRUBIN 0.7 mg/dL (0.2-1.0); TOTAL PROTEIN 7.6 g/dL (6.4-8.2)
--- NOTE | 2017-06-05 17:29 | EKG ---
[address] [address] Test Date: 2017-06-05 Test Time: 16:49:53 Pat Name: MURIEL GOETZ Department: Room: Gender: M Field Trainer: ANALILIA : 1935 Requested By: Dez AVILA Order Number: [id number] Reading MD: Gaurav Bacon Measurements Intervals Maybee Rate: 72 P: -9 KY: 284 QRS: -16 QRSD: 94 T: -5 QT: 306 QTc: 336 Interpretive Statements SINUS RHYTHM PROLONGED [place] INTERVAL LEFTWARD AXIS T ABNORMALITY IN ANTEROLATERAL LEADS ABNORMAL ECG Electronically Signed On 06-12-2017 9:31:23 HOLIDAY DETECTOR OPERATOR by Gaurav Bacon
[2017-06-05] MEDS ORDERED: ONDANSETRON PF 4 MG/2 ML VIAL. IV PRN (18:00)
[2017-06-05] MEDS ORDERED: cefTRIAXone IV Push 1 GM VIAL. IVP ONE (18:00)
[2017-06-05] MEDS ORDERED: AZITHROMYCIN 500 MG in IV NORMAL SALINE 250ML 250 ML IV ONE (18:00)
[2017-06-05 18:06] LABS: BACTERIA,URINE 0 /HPF (0-FEW); BILIRUBIN,URINE NEG (NEG); CLARITY,URINE CLEAR; COLOR,URINE YELLOW; GLUCOSE,URINE NEG (NEG); NITRITE,URINE NEG (NEG); RBC,URINE 0 /HPF (0-2); SQUAMOUS EPITHELIAL CELL,UR OCC /LPF; UROBILINOGEN,URINE 1 mg/dL (0.2 mg/dL); WBC,URINE OCC /HPF (0-4)
[2017-06-05 18:09] LABS: INFLUENZA A PATIENT POSITIVE (NEGATIVE); INFLUENZA B PATIENT NEGATIVE (NEGATIVE)
[2017-06-05] MEDS ORDERED: AZITHROMYCIN 500 MG VIAL. IV ONE (19:04)
[2017-06-05] MEDS ORDERED: IV NORMAL SALINE 250ML 250 ML ONE (19:04)
[2017-06-05 20:51] VITALS: BP 85/54
[2017-06-05] MEDS ORDERED: INSU100V31 SQ (20:55)
[2017-06-05] MEDS ORDERED: DEXTROSE 50% 25 GM / 50ML DISP.SYRIN. IV PRN (21:15)
[2017-06-05] MEDS: INSULIN DETEMIR 300 UNITS/3 ML INSULN.PEN. SQ SCH (21:41)
[2017-06-05] MEDS: IV NORMAL SALINE 1,000ML 1,000 ML IV SCH (21:42)
[2017-06-05] MEDS: OSELTAMIVIR 75 MG CAPSULE PO SCH (21:43)
[2017-06-05 23:40] VITALS: BP 94/53
[2017-06-06] VITALS (18 sets, daily range): BP systolic 93–180; BP diastolic 44–71
[2017-06-06] MEDS: IV NORMAL SALINE 1,000ML 1,000 ML IV SCH ×3 (05:09→19:39)
[2017-06-06 06:59] LABS: CALCIUM 8.1 mg/dL (8.5-10.1); CREATININE 1.2 mg/dL (0.7-1.3); GFR 58.1; POTASSIUM 4.5 mmol/L (3.5-5.1)
[2017-06-06 07:05] LABS: BASO % 1 % (0-3); EOS % 1 % (0-3); HEMOGLOBIN 13.9 g/dL (13.0-17.5); LYMPH # 0.2 x10^3/uL (1.0-4.8); LYMPH % 7 % (24-48); MEAN CORPUSCULAR HEMOGLOBIN 30 pg (25-35); MEAN CORPUSCULAR HGB CONC 33 g/dL (31-37); MEAN CORPUSCULAR VOLUME 90 fL (79-100); MONO # 0.2 x10^3/uL (0.0-1.1); MONO % 7 % (0-9); NEUT % 85 % (31-73); PLATELET COUNT 90 x10^3/uL (140-400); RED BLOOD COUNT 4.66 x10^6/uL (4.30-5.70); RED CELL DISTRIBUTION WIDTH 14.4 % (11.5-14.5); WHITE BLOOD COUNT 3.5 x10^3/uL (4.0-11.0)
[2017-06-06] MEDS: OSELTAMIVIR 75 MG CAPSULE PO SCH ×2 (08:35→20:43)
[2017-06-06] MEDS: INSULIN ASPART 300 UNITS/3 ML INSULN.PEN SQ SCH ×4 (08:38→20:44)
[2017-06-06] MEDS: IPRATRPIUM/ALBUTEROL 0.5/2.5MG 3 ML NEBU. NEB SCH ×3 (10:22→21:12)
[2017-06-06] MEDS: ENOXAPARIN 40 MG/0.4 ML DISP.SYRIN. SQ SCH (10:48)
[2017-06-06] MEDS: AZITHROMYCIN 500 MG in IV NORMAL SALINE 250ML 250 ML IV SCH (10:48)
--- NOTE | 2017-06-06 10:54 | HP ---
ADMIT DATE: 06/05/2017 REASON FOR ADMISSION: Increased somnolence, weakness. HISTORY OF PRESENT ILLNESS: The family noticed this and EMS was called to assist to get the patient in the car because he was so weak. On arriving to the Emergency Room, the patient did have a fever. PAST MEDICAL HISTORY: The patient had an admission in early May for altered mental status and chills and diarrhea. At the time, his discharge diagnosis was viral illness. Other problems include extreme social stressors at home, irritable bowel syndrome, type 2 diabetes, intermittent history of hypoxia, pacemaker status, mild thrombocytopenia. ALLERGIES: BEE STINGS. MEDICATIONS: Reviewed and are available on the MAR. SOCIAL HISTORY: The patient is . He is an ex-smoker, quit in 1992. He has had no alcohol since 1993. 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 Family stressors were significant at the last admission as he has his daughter as well as his granddaughter and grandchildren staying in the home with them. They do not have an update as he is not able to stay awake long enough to answer questions. REVIEW OF SYSTEMS: Unable to obtain due to the patient's somnolence. OBJECTIVE: VITAL SIGNS: Blood pressure this morning 120/52, pulse 64, temperature 98.6, O2 sat was 89% on 1 liter, temperature in the Emergency Room was 100.1. GENERAL: Elderly 81-year-old who is significantly tired and impaired. Also noted that he was up most of the night in the Emergency Room. HEENT: Hearing, is mildly hard of hearing. Eyes, slightly bloodshot. Nose was patent. Throat was clear. No injection of the posterior pharynx. NECK: Supple. LUNGS: With some coarse breath sounds, diffuse scattered wheezes. CARDIOVASCULAR: Regular rhythm and rate. ABDOMEN: Soft, slightly tender, no masses palpated. Bowel sounds were positive. EXTREMITIES: Without edema. LABORATORY DATA: CBC is low, white count of 3.5, 90 platelet count, 85% neutrophils. Urinalysis is negative. Chemistry: Normal potassium, BUN 14, creatinine 1.2. Influenza positive for influenza A. Chest x-ray with right basilar infiltrate. ASSESSMENT: 1. Positive influenza A. 2. Right basilar infiltrate. 3. Mild thrombocytopenia. 4. Acute respiratory failure. We will need increase in his oxygen. 5. One episode of low blood pressure now is normalized. 6. Type 2 diabetes. We will monitor. PLAN: Started on Tamiflu, antibiotics, oxygen, breathing treatments. THAD SOSA DO DR: SHALONDA/ana maria JOB#: [id number] / [id number]
[2017-06-06] MEDS ORDERED: ACETAMINOPHEN 650 MG SUPP.RECT. PR PRN (11:00)
[2017-06-06] MEDS ORDERED: ACETAMINOPHEN 650 MG SUPP.RECT. PR ONE (11:00)
[2017-06-06] MEDS: cefTRIAXone IV Push 1 GM VIAL. IVP SCH (12:33)
[2017-06-06] MEDS ORDERED: IPRATRPIUM/ALBUTEROL 0.5/2.5MG 3 ML NEBU. NEB SCH (14:00)
[2017-06-06] MEDS: INSULIN DETEMIR 300 UNITS/3 ML INSULN.PEN. SQ SCH (20:44)
[2017-06-07] VITALS (17 sets, daily range): BP systolic 102–185; BP diastolic 47–77
[2017-06-07] MEDS: IV NORMAL SALINE 1,000ML 1,000 ML IV SCH ×2 (01:20→07:54)
[2017-06-07] MEDS: IPRATRPIUM/ALBUTEROL 0.5/2.5MG 3 ML NEBU. NEB SCH ×3 (05:07→19:54)
[2017-06-07 07:12] LABS: BASO % 1 % (0-3); EOS % 0 % (0-3); HEMATOCRIT 41.2 % (39.0-53.0); HEMOGLOBIN 13.6 g/dL (13.0-17.5); LYMPH # 0.6 x10^3/uL (1.0-4.8); LYMPH % 19 % (24-48); MEAN CORPUSCULAR HEMOGLOBIN 30 pg (25-35); MEAN CORPUSCULAR HGB CONC 33 g/dL (31-37); MEAN CORPUSCULAR VOLUME 91 fL (79-100); MONO # 0.2 x10^3/uL (0.0-1.1); MONO % 7 % (0-9); NEUT # 2.3 x10^3uL (1.8-7.7); NEUT % 73 % (31-73); PLATELET COUNT 77 x10^3/uL (140-400); RED BLOOD COUNT 4.54 x10^6/uL (4.30-5.70); RED CELL DISTRIBUTION WIDTH 14.9 % (11.5-14.5); WHITE BLOOD COUNT 3.2 x10^3/uL (4.0-11.0)
[2017-06-07 07:24] LABS: ALBUMIN 2.7 g/dL (3.4-5.0); ALBUMIN/GLOBULIN RATIO 0.9 (1.0-1.7); CALCIUM 7.6 mg/dL (8.5-10.1); CREATININE 1.1 mg/dL (0.7-1.3); GFR 64.2; POTASSIUM 3.9 mmol/L (3.5-5.1); TOTAL BILIRUBIN 0.3 mg/dL (0.2-1.0); TOTAL PROTEIN 5.7 g/dL (6.4-8.2)
[2017-06-07] MEDS: INSULIN ASPART 300 UNITS/3 ML INSULN.PEN SQ SCH ×4 (08:06→21:00)
[2017-06-07] MEDS: OSELTAMIVIR 75 MG CAPSULE PO SCH ×2 (08:30→20:55)
--- NOTE | 2017-06-07 08:39 | RAD ---
Chest radiograph 06/07/2017 9:33 AM Indication: Cough, pneumonia Comparison: Chest radiograph 06/05/2017 Technique: Single portable upright frontal view of the chest is provided. Findings: Cardiomediastinal silhouette is similar in appearance. Left chest wall cardiac device is identified with leads projecting over the right atrium and right ventricle. There are low lung volumes. There is mixed interstitial and alveolar airspace disease the left lung base suspicious for pulmonary infiltrate. No pleural effusions, pulmonary vascular congestion or pneumothorax. Impression: Increased airspace density at the left lung base is suspicious for pulmonary infiltrate. Recommend short-term follow-up chest radiograph in 4-6 weeks to ensure resolution.
[2017-06-07] MEDS: LACTOBACILLUS RHAMNOSUS GG 1 CAPSULE. PO SCH ×2 (08:44→20:55)
[2017-06-07] MEDS: ENOXAPARIN 40 MG/0.4 ML DISP.SYRIN. SQ SCH (09:53)
[2017-06-07] MEDS: AZITHROMYCIN 500 MG in IV NORMAL SALINE 250ML 250 ML IV SCH (09:53)
[2017-06-07] MEDS: cefTRIAXone IV Push 1 GM VIAL. IVP SCH (10:53)
[2017-06-07] MEDS: IV RINGERS SOLUTION,LACTATED 1,000 ML IV SCH ×2 (11:58→21:00)
[2017-06-07] MEDS: INSULIN DETEMIR 300 UNITS/3 ML INSULN.PEN. SQ SCH (21:05)
[2017-06-08] MEDS: IPRATRPIUM/ALBUTEROL 0.5/2.5MG 3 ML NEBU. NEB SCH ×3 (05:17→20:40)
[2017-06-08 06:04] VITALS: BP 138/71
[2017-06-08] MEDS: IV RINGERS SOLUTION,LACTATED 1,000 ML IV SCH ×2 (06:10→17:00)
[2017-06-08 06:16] LABS: BASO % 1 % (0-3); EOS # 0.1 x10^3/uL (0.0-0.7); EOS % 2 % (0-3); HEMATOCRIT 41.3 % (39.0-53.0); HEMOGLOBIN 13.6 g/dL (13.0-17.5); LYMPH # 0.7 x10^3/uL (1.0-4.8); LYMPH % 23 % (24-48); MEAN CORPUSCULAR HEMOGLOBIN 30 pg (25-35); MEAN CORPUSCULAR HGB CONC 33 g/dL (31-37); MEAN CORPUSCULAR VOLUME 90 fL (79-100); MONO # 0.1 x10^3/uL (0.0-1.1); MONO % 5 % (0-9); NEUT # 2.2 x10^3uL (1.8-7.7); NEUT % 70 % (31-73); PLATELET COUNT 90 x10^3/uL (140-400); RED BLOOD COUNT 4.61 x10^6/uL (4.30-5.70); RED CELL DISTRIBUTION WIDTH 14.6 % (11.5-14.5); WHITE BLOOD COUNT 3.2 x10^3/uL (4.0-11.0)
[2017-06-08 06:25] LABS: ALBUMIN 2.9 g/dL (3.4-5.0); ALBUMIN/GLOBULIN RATIO 0.8 (1.0-1.7); CALCIUM 8.2 mg/dL (8.5-10.1); CREATININE 0.9 mg/dL (0.7-1.3); POTASSIUM 3.9 mmol/L (3.5-5.1); TOTAL BILIRUBIN 0.4 mg/dL (0.2-1.0); TOTAL PROTEIN 6.4 g/dL (6.4-8.2)
[2017-06-08] MEDS: INSULIN ASPART 300 UNITS/3 ML INSULN.PEN SQ SCH ×4 (07:30→21:00)
[2017-06-08] MEDS: LACTOBACILLUS RHAMNOSUS GG 1 CAPSULE. PO SCH ×2 (08:51→21:01)
[2017-06-08] MEDS: AZITHROMYCIN 500 MG in IV NORMAL SALINE 250ML 250 ML IV SCH (08:52)
[2017-06-08] MEDS: ENOXAPARIN 40 MG/0.4 ML DISP.SYRIN. SQ SCH (08:52)
[2017-06-08] MEDS: OSELTAMIVIR 75 MG CAPSULE PO SCH ×2 (08:52→21:01)
--- NOTE | 2017-06-08 10:55 | PN ---
DATE: 06/07/2017 CURRENT PROBLEMS: 1. Influenza type A. 2. Right basilar infiltrate. 3. Mild thrombocytopenia. 4. Acute hypoxic respiratory failure. 5. Hypotension, now resolved. 6. Type 2 diabetes. SUBJECTIVE: The patient is doing remarkably better today. He is sitting up. He does not remember what happened in the last 2 days. He is able to eat now, still requiring some oxygen. Overall, he is doing much, much better. OBJECTIVE: VITAL SIGNS: Blood pressure 112/51, pulse 63, respirations 18, pulse ox 95% on 4 liters. GENERAL: Color is better. NECK: Supple. LUNGS: Actually clear. CARDIOVASCULAR: Regular rhythm and rate. He has pacemaker. ABDOMEN: Soft and nontender. EXTREMITIES: Without edema. LABORATORY DATA: Consistently low white count 3.2 consistent with influenza, platelet count 77,000. Chemistry: Sodium 146, chloride 111, albumin 2.7. PLAN: Switch IV fluids to lactated Ringer's. Continue IV antibiotics and we will monitor closely. THAD SOSA DO DR: SHALONDA/ana maria JOB#: [id number] / [id number]
[2017-06-08] MEDS: cefTRIAXone IV Push 1 GM VIAL. IVP SCH (11:35)
[2017-06-08 11:39] VITALS: BP 182/81
[2017-06-08 15:23] VITALS: BP 185/83
[2017-06-08 20:05] VITALS: BP 181/80
[2017-06-08] MEDS: INSULIN DETEMIR 300 UNITS/3 ML INSULN.PEN. SQ SCH (21:05)
[2017-06-08 22:28] VITALS: BP 183/77
--- NOTE | 2017-06-08 23:04 | PN ---
DATE: 06/08/2017 Note that the progress note from yesterday is not in the chart, but has been dictated. CURRENT PROBLEMS: 1. Influenza A. 2. Right basilar infiltrate. 3. Mild thrombocytopenia. 4. Acute hypoxic respiratory failure. 5. Hypotension, resolved. 6. Type 2 diabetes. 7. Weakness. 8. Chronic kidney disease, stage 3. SUBJECTIVE: The patient is doing much better today. We were very worried about him and almost thought that he might not survive this influenza. He spent a day in the ICU because of a high fever and hypoxia, but has really pulled out of it. He is feeling much better. I do feel that he could benefit from a swing bed or rehabilitation at some nursing facility. OBJECTIVE: VITAL SIGNS: Blood pressure 138/71, pulse 81, respirations 18, temperature 98, pulse ox has varied from 97% on 3 liters to 94% on 3 liters with one low of 91% on 3 liters. He does have sleep apnea and should be on CPAP. GENERAL: Color much better today. Tongue moist. He is alert, appropriate. NECK: Supple. LUNGS: With some coarse breath sounds, otherwise clear. CARDIOVASCULAR: Regular rhythm and rate. ABDOMEN: Soft, nontender. EXTREMITIES: Without edema. LABORATORY DATA: Chemistry profile normal with exception of the 2.9 albumin. CBC still has a low white count of 3.2, platelet count of 90,000, chronic. PLAN: Possibly swing bed tomorrow. Monitor blood sugars. Continue IV antibiotics for now and he is still on his Tamiflu. THAD SOSA DO DR: SHALONDA/ana maria JOB#: [id number] / [id number]
[2017-06-09 04:24] VITALS: BP 162/85
[2017-06-09] MEDS: IPRATRPIUM/ALBUTEROL 0.5/2.5MG 3 ML NEBU. NEB SCH ×2 (05:41→09:27)
[2017-06-09 06:28] LABS: BASO % 1 % (0-3); EOS # 0.1 x10^3/uL (0.0-0.7); EOS % 3 % (0-3); HEMATOCRIT 42.1 % (39.0-53.0); HEMOGLOBIN 14.1 g/dL (13.0-17.5); LYMPH # 0.5 x10^3/uL (1.0-4.8); LYMPH % 22 % (24-48); MEAN CORPUSCULAR HEMOGLOBIN 30 pg (25-35); MEAN CORPUSCULAR HGB CONC 34 g/dL (31-37); MEAN CORPUSCULAR VOLUME 89 fL (79-100); MONO # 0.2 x10^3/uL (0.0-1.1); MONO % 6 % (0-9); NEUT # 1.7 x10^3uL (1.8-7.7); NEUT % 68 % (31-73); PLATELET COUNT 91 x10^3/uL (140-400); RED BLOOD COUNT 4.76 x10^6/uL (4.30-5.70); RED CELL DISTRIBUTION WIDTH 14.4 % (11.5-14.5); WHITE BLOOD COUNT 2.5 x10^3/uL (4.0-11.0)
[2017-06-09 06:34] LABS: ALBUMIN 3.1 g/dL (3.4-5.0); ALBUMIN/GLOBULIN RATIO 0.9 (1.0-1.7); CALCIUM 8.6 mg/dL (8.5-10.1); CREATININE 0.8 mg/dL (0.7-1.3); GFR 92.8; MAGNESIUM 1.7 mg/dL (1.8-2.4); POTASSIUM 3.8 mmol/L (3.5-5.1); TOTAL BILIRUBIN 0.4 mg/dL (0.2-1.0); TOTAL PROTEIN 6.6 g/dL (6.4-8.2)
[2017-06-09] MEDS: LACTOBACILLUS RHAMNOSUS GG 1 CAPSULE. PO SCH (07:58)
[2017-06-09] MEDS: OSELTAMIVIR 75 MG CAPSULE PO SCH (07:59)
[2017-06-09] MEDS: INSULIN ASPART 300 UNITS/3 ML INSULN.PEN SQ SCH ×2 (08:08→12:15)
[2017-06-09] MEDS ORDERED: AZITHROMYCIN 250 MG TABLET. PO SCH (09:00)
[2017-06-09] MEDS: ENOXAPARIN 40 MG/0.4 ML DISP.SYRIN. SQ SCH (09:35)
[2017-06-09] MEDS: cefTRIAXone IV Push 1 GM VIAL. IVP SCH (11:20)
[2017-06-09 13:03] VITALS: BP 134/65
--- NOTE | 2017-06-10 10:58 | DS ---
DATE OF DISCHARGE: 06/09/2017 HOSPITAL COURSE: The patient is an 81-year-old male patient who was admitted on 06/05/2017 with increased somnolence and weakness. He apparently was so weak and by the time he arrived to the Emergency Room, he was found to be febrile and he was diagnosed with influenza A and right basilar infiltrate, and was basically started on Tamiflu as well as azithromycin and ceftriaxone. He apparently was extremely unstable and hypertensive and at one point in time, the treating physician was doubtful that the patient will get better, however, the patient did then pull through and did very well, and a decision was made to discharge him to swing bed to continue with antibiotic, Tamiflu and to start the process of physical and occupational therapy. PHYSICAL EXAMINATION: GENERAL: When I saw him this morning, he looked well and was clearly in no apparent respiratory distress, slightly pale, but no jaundice, cyanosis, or thyromegaly. No jugular venous distension. No limb edema. VITAL SIGNS: His heart rate was 66, blood pressure 134/65, temperature was 98.5, respiratory rate 20, and oxygen saturation was 92% on 2 liters of oxygen. HEAD, EYES, EARS, NOSE AND THROAT: Showed normocephalic, atraumatic. NECK: Supple. HEART: Showed normal first and second heart sounds. No gallop, rub or murmur. CHEST: Clear to auscultation. No crepitation or rhonchi. ABDOMEN: Distended, soft, nontender. No guarding or rigidity. No organomegaly. All hernial orifices intact. Bowel sounds normal. NEUROLOGIC: He was hard of hearing. Otherwise, cranial nerves are intact. EXTREMITIES: He moves extremities without difficulty, ambulates with a walker with assistance. His intake this morning over the last 24 hours was 1850, output was 4150. LABORATORY AND DIAGNOSTIC DATA: His lab work as of this morning showed a white cell count of 2500, hemoglobin 14, hematocrit 42, MCV 89 and platelet count of 91,000. His chemistry showed a serum sodium 144, potassium 3.8, chloride 105, bicarbonate 32, anion gap of 7, BUN 8, creatinine 0.8, estimated GFR was 93 mL per minute, his glucose 197, calcium was 8.56, and magnesium was 1.7. Total bilirubin, AST, ALT, alkaline phosphatase were normal. Total protein was 6.6 and albumin 3.1. Urinalysis was unremarkable. Nasal screen for MRSA by PCR was negative and the influenza A was positive, influenza B was negative. His chest x-ray showed that the patient has increased airspace density at the left lung base suspicious for pulmonary infiltrate. DISCHARGE MEDICATIONS: The patient was discharged to swing bed to continue on azithromycin 500 mg daily, lactobacillus ceruminosis 1 capsule twice a day, Tylenol 650 mg every 6 hours, ceftriaxone 1 g IV daily, Lovenox 40 mg subcutaneous daily, albuterol/Atrovent t.i.d., insulin sliding scale, detemir insulin 30 units at bedtime and oseltamivir (Tamiflu) 75 mg p.o. b.i.d. FINAL DISCHARGE DIAGNOSES: 1. Influenza A. 2. Right basilar infiltrate. 3. Mild thrombocytopenia. 4. Acute hypoxic respiratory failure. 5. Hypotension, resolved. 6. Type 2 diabetes. 7. Weakness and debility. 8. Chronic kidney disease, stage 3. JORGE BRAVO MD DR: SANDRA/ana maria JOB#: [id number] / [id number]
== END 2017-06-09 14:08 | disposition swing bed (61) | DRG 177 ==
LOC: ER 16:16 → 1 SOUTH 18:33 → ICU 06-06 11:47 → 1 SOUTH 06-07 15:42
PROVIDERS: ADMIT Family Medicine; ATTEND Family Medicine
DX: J69.0 Pneumonitis due to inhalation of food and vomit (principal); J96.01 Acute respiratory failure with hypoxia; I95.9 Hypotension, unspecified; D69.6 Thrombocytopenia, unspecified; E11.22 Type 2 diabetes mellitus with diabetic chronic kidney disease; E86.0 Dehydration; F03.90 Unspecified dementia, unspecified severity, without behavioral disturbance, psychotic disturbance, mood disturbance, and anxiety; J10.00 Influenza due to other identified influenza virus with unspecified type of pneumonia; N18.3 Chronic kidney disease, stage 3 (moderate); K58.9 Irritable bowel syndrome, unspecified; H91.90 Unspecified hearing loss, unspecified ear; I12.9 Hypertensive chronic kidney disease with stage 1 through stage 4 chronic kidney disease, or unspecified chronic kidney disease; I25.10 Atherosclerotic heart disease of native coronary artery without angina pectoris; Z87.891 Personal history of nicotine dependence; Z95.0 Presence of cardiac pacemaker; Z91.030 Bee allergy status
CPT/HCPCS: 36415; 71010; 80048; 80053; 81001; 82947; 83605; 83735; 84484; 85025; 87040; 87641; 87804; 93005; 94640; 94760; 96360; J0456; J0696; J1650; J1815; J7040; J7050; J7120; J7620; 97110; 97530; 99285-25; J7030

== ENCOUNTER 2017-06-09 15:12 | Inpatient (IN) | payer MEDICARE, OTHER ==
[~2017-06-09] VITALS: Ht 180.3 cm; Wt 81.7 kg
[~2017-06-09 15:12] MED LIST changes: +INSU100V31 SQ
[2017-06-09 15:17] VITALS: BP 162/75
[2017-06-09] MEDS ORDERED: NON FORMULARY ITEM (Albuterol Sulfate (Proair Respiclick) 2 PUFF) IH PRN (17:00)
[2017-06-09] MEDS ORDERED: DEXTROSE 50% 25 GM / 50ML DISP.SYRIN. IV PRN ×2 (17:15)
[2017-06-09] MEDS ORDERED: ACETAMINOPHEN 325 MG TABLET PO PRN (17:15)
[2017-06-09] MEDS: INSULIN ASPART 300 UNITS/3 ML INSULN.PEN SQ SCH ×2 (17:30→21:27)
[2017-06-09 17:39] VITALS: BP 146/72
[2017-06-09] MEDS ORDERED: ALBUTEROL SULFATE 2.5 MG/3 ML NEBU. NEB PRN (17:45)
--- NOTE | 2017-06-09 18:02 | NUR ---
NSG NOTE; SWING BED ADMISSION PT SWITCHED TO SWING BED STATUS
[2017-06-09] MEDS: IPRATRPIUM/ALBUTEROL 0.5/2.5MG 3 ML NEBU. NEB SCH (20:06)
[2017-06-09] MEDS: OSELTAMIVIR 75 MG CAPSULE PO SCH (21:21)
[2017-06-09] MEDS: MEMANTINE 10 MG TABLET. PO SCH (21:21)
[2017-06-09] MEDS: GABAPENTIN 300 MG CAPSULE. PO SCH (21:21)
[2017-06-09] MEDS: ONDANSETRON ODT 4 MG TAB.RAPDIS PO PRN (21:22)
[2017-06-09] MEDS: LACTOBACILLUS RHAMNOSUS GG 1 CAPSULE. PO SCH (21:22)
[2017-06-09] MEDS: DICYCLOMINE HCL 10 MG CAPSULE PO SCH (21:23)
[2017-06-09] MEDS: INSULIN DETEMIR 300 UNITS/3 ML INSULN.PEN. SQ SCH (21:26)
--- NOTE | 2017-06-09 23:00 | NUR ---
Swing Bed Admission Patient Handbook for Residential given to patient. Nursing Problem: Pt admitted 06/05/17 from Home with Resp Distress, LLL pneumonia & + Flu A. Pt received Tamiflu, Zithromax & Rocephin since admit. Pt does not wear O2 at home but is still needing oxygen to keep sats >92%, pt uses CPAP at HS only. Pt working with PT/OT for strength and conditioning and IV antibiotic therapy. Cognitive/Behavioral: Pt is A&O x4, occasional forgetful. Pt is also ABSENTEE-SHAWNEE. Pt awake in bed visiting with at change of shift. Pt is pleasant with assessment and cares. Pt stated that he likes his "new WARMER room." Pain: Currently denies pain Respiratory Status: Pt still needing 2L of O2 NC. RT treatments TID. Pt with coarse and diminished breath sounds. non-productive cough is less than the night before per pt report. CPAP at bedside but not wearing tonight. Pt with LLL pneumonia. + Flu A, in droplet precautions, receiving Tamiflu. Skin: Skin is intact. Bowel/Bladder Continence: Pt is cont of B&B. Pt uses urinal independently, clear yellow urine noted. LBM reported as 06/08/17. ADL Functional Status: Pt ambulates in room with walker and supervision. Pt able to use urinal independently. Pt takes medications whole. Pt eats independently with set-up help. Pt able to dress independently with set-up help. Fall(s) prior to admission? No Admitted from? Pt lives at home with -[place]. Also living in the house is his daughter and grandchildren.
[2017-06-10 05:27] VITALS: BP 154/74
[2017-06-10] MEDS: IPRATRPIUM/ALBUTEROL 0.5/2.5MG 3 ML NEBU. NEB SCH ×4 (05:32→20:24)
[2017-06-10] MEDS: DONEPEZIL HCL 10 MG TABLET PO SCH (07:50)
[2017-06-10] MEDS: CHOLESTYRAMINE/ASPARTAME 4 GM PACKET PO SCH (07:50)
[2017-06-10] MEDS: LISINOPRIL 10 MG TABLET PO SCH (07:50)
[2017-06-10] MEDS: OSELTAMIVIR 75 MG CAPSULE PO SCH (07:51)
[2017-06-10] MEDS: ASPIRIN 81 MG TAB.CHEW PO SCH (07:51)
[2017-06-10] MEDS: AZITHROMYCIN 250 MG TABLET. PO SCH (07:51)
[2017-06-10] MEDS: LACTOBACILLUS RHAMNOSUS GG 1 CAPSULE. PO SCH ×2 (07:51→20:22)
[2017-06-10] MEDS: SIMVASTATIN 10 MG TABLET PO SCH (07:51)
[2017-06-10] MEDS: CHOLECALCIFEROL (VITAMIN D3) 1,000 UNIT TABLET PO SCH (07:51)
[2017-06-10] MEDS: DICYCLOMINE HCL 10 MG CAPSULE PO SCH ×4 (07:51→20:23)
[2017-06-10] MEDS: MEMANTINE 10 MG TABLET. PO SCH ×2 (07:51→20:23)
[2017-06-10] MEDS: GABAPENTIN 300 MG CAPSULE. PO SCH ×3 (07:51→20:23)
[2017-06-10] MEDS: PANTOPRAZOLE 40 MG TABLET. PO SCH (07:51)
[2017-06-10] MEDS: INSULIN ASPART 300 UNITS/3 ML INSULN.PEN SQ SCH ×4 (07:55→20:26)
--- NOTE | 2017-06-10 08:40 | NUR ---
Swing bed nursing note: Nursing problem: PT admitted on 06/05/17 from home for respiratory distress.PT was found to have pneumonia and influenza. Pt was started on a tamiflu for influenza and rocephin/zithromax for pneumonia. Pt still reliant on Oxygen therapy at this time. Will try to titrate off oxygen when available. Cognitive/behavioral: PT is compliant with care and under PT/OT supervision. PT is alert and oriented x 4. PT has to be encouraged to wake up, and get dressed. PT is encouraged by PT/OT to use restroom and not urinal, and perform all hygiene on own. Pain: Pt has no complaints of pain at this time. PT has PRN medications if needed. Respirator status. PT is Receiving breathing treatments 4 times per day, and still reliant on Oxygen therapy. PT is on 2L NC. Skin: Pt skin is intact with some minor bruising and chronic skin issues. ADL: PT is a stand by assist and can perform most ADL with minimal assistance. PT is able to feed himself, and dress easily. PT ambulated with stand by assistance.PT was complaint with medications and stated that he is starting to feel better. Thalia Watters TELEVISION ENGINEER CMSRN [facility]-
[2017-06-10] MEDS: ENOXAPARIN 40 MG/0.4 ML DISP.SYRIN. SQ SCH (12:02)
[2017-06-10] MEDS: cefTRIAXone IV Push 1 GM VIAL. IVP SCH (12:02)
[2017-06-10 15:58] VITALS: BP 125/57
[2017-06-10] MEDS: ONDANSETRON ODT 4 MG TAB.RAPDIS PO PRN (20:23)
[2017-06-10] MEDS: INSULIN DETEMIR 300 UNITS/3 ML INSULN.PEN. SQ SCH (20:25)
--- NOTE | 2017-06-11 00:03 | NUR ---
Swing bed nursing note: Nursing problem: PT admitted on 06/05/17 from home for respiratory distress.PT was found to have pneumonia and influenza. Pt was started on a tamiflu for influenza and rocephin/zithromax for pneumonia. Pt still reliant on Oxygen therapy at this time. Will try to titrate off oxygen when available. Cognitive/behavioral: PT is compliant with care and under PT/OT supervision. PT is alert and oriented x 4. Patient is cooperative. Patient's family were involved in care and visit him at bed side. Pain: Pt has no complaints of pain at this time. PT has PRN medications if needed. Respirator status. PT was observed with productive cough . Nurse gave breathing treatment as ordered by MD. Patient tolerated well. No shortness of breath when performing ADL's. He is still reliant on Oxygen therapy. PT is on 2L NC. Skin: Pt skin is intact with some minor bruising and chronic skin issues. ADL: PT is a stand by assist and can perform most ADL with minimal assistance or independently . PT is able to feed himself, and dress easily. PT ambulates by himself with walker. PT was complaint with medications. Patient is pleased that he is improving.
[2017-06-11] MEDS: IPRATRPIUM/ALBUTEROL 0.5/2.5MG 3 ML NEBU. NEB SCH ×4 (05:20→21:02)
[2017-06-11 05:35] VITALS: BP 116/60
[2017-06-11] MEDS: LACTOBACILLUS RHAMNOSUS GG 1 CAPSULE. PO SCH ×2 (08:02→21:21)
[2017-06-11] MEDS: DICYCLOMINE HCL 10 MG CAPSULE PO SCH ×4 (08:02→21:21)
[2017-06-11] MEDS: CHOLECALCIFEROL (VITAMIN D3) 1,000 UNIT TABLET PO SCH (08:02)
[2017-06-11] MEDS: ASPIRIN 81 MG TAB.CHEW PO SCH (08:03)
[2017-06-11] MEDS: DONEPEZIL HCL 10 MG TABLET PO SCH (08:03)
[2017-06-11] MEDS: MEMANTINE 10 MG TABLET. PO SCH ×2 (08:04→21:21)
[2017-06-11] MEDS: AZITHROMYCIN 250 MG TABLET. PO SCH (08:05)
[2017-06-11] MEDS: GABAPENTIN 300 MG CAPSULE. PO SCH ×3 (08:05→21:21)
[2017-06-11] MEDS: SIMVASTATIN 10 MG TABLET PO SCH (08:05)
[2017-06-11] MEDS: LISINOPRIL 10 MG TABLET PO SCH (08:05)
[2017-06-11] MEDS: PANTOPRAZOLE 40 MG TABLET. PO SCH (08:06)
[2017-06-11] MEDS: INSULIN ASPART 300 UNITS/3 ML INSULN.PEN SQ SCH ×4 (08:13→21:25)
[2017-06-11] MEDS: CHOLESTYRAMINE/ASPARTAME 4 GM PACKET PO SCH (09:12)
[2017-06-11] MEDS: ENOXAPARIN 40 MG/0.4 ML DISP.SYRIN. SQ SCH (09:57)
[2017-06-11] MEDS: cefTRIAXone IV Push 1 GM VIAL. IVP SCH (11:30)
[2017-06-11 16:35] VITALS: BP 136/70
[2017-06-11] MEDS: ONDANSETRON ODT 4 MG TAB.RAPDIS PO PRN (17:14)
--- NOTE | 2017-06-11 19:49 | NUR ---
Swing Bed Nursing Note Patient Handbook for [facility] given to patient. Nursing Problem: Patient working with PT/OT on regaining strength in preparation to return home. Cognitive/Behavioral: Patient is alert and oriented. Patient refused therapy due to complaints of not feeling well. Pain: Patient denies pain. Respiratory Status: Patient is on 2L oxygen via nasal canula. Patient continues to cough occasionally. Skin: Patient's skin is intact. Bowel/Bladder Continence: Patient is continent of bowel and bladder. ADL Functional Status: Patient needs some set-up and assistance transferring and walking with the walker. He uses the toilet. He feeds himself with minimal set-up.
[2017-06-11] MEDS: INSULIN DETEMIR 300 UNITS/3 ML INSULN.PEN. SQ SCH (21:24)
[2017-06-11 22:36] VITALS: BP 182/80
[2017-06-11 23:57] VITALS: BP 123/61
--- NOTE | 2017-06-12 00:54 | NUR ---
Swing bed nursing note: Nursing problem: PT admitted on 06/05/17 from home for respiratory distress.PT was found to have pneumonia and influenza. Pt was started on a tamiflu for influenza and rocephin/zithromax for pneumonia. Pt still reliant on Oxygen therapy at this time. Will try to titrate off oxygen when available. Cognitive/behavioral: PT is compliant with care and under PT/OT supervision. PT is alert and oriented x 4. Patient is cooperative. Patient is pleasant and interactive with staff this evening. Pain: Pt was given PRN tylenol for complains of pain of generalized aches. Respirator status. PT was observed with productive cough . Patient tolerating breathing treatment given by RT. No shortness of breath when performing ADL's. He is still reliant on Oxygen therapy. PT is on 2L NC. Skin: Pt skin is intact with some minor bruising and chronic skin issues. Skin was observed dry and flacking. ADL: PT is a stand by assist and can perform most ADL with minimal assistance or independently . PT is able to feed himself, and dress easily. PT ambulates by himself with walker. PT was complaint with medications. Patient is pleased that he is improving.
[2017-06-12 05:25] VITALS: BP 117/70
[2017-06-12] MEDS: IPRATRPIUM/ALBUTEROL 0.5/2.5MG 3 ML NEBU. NEB SCH ×4 (05:48→21:46)
[2017-06-12] MEDS: PANTOPRAZOLE 40 MG TABLET. PO SCH (08:04)
[2017-06-12] MEDS: DICYCLOMINE HCL 10 MG CAPSULE PO SCH ×4 (08:04→21:24)
[2017-06-12] MEDS: MEMANTINE 10 MG TABLET. PO SCH ×2 (08:05→21:13)
[2017-06-12] MEDS: LACTOBACILLUS RHAMNOSUS GG 1 CAPSULE. PO SCH ×2 (08:05→21:13)
[2017-06-12] MEDS: SIMVASTATIN 10 MG TABLET PO SCH (08:05)
[2017-06-12] MEDS: LISINOPRIL 10 MG TABLET PO SCH (08:05)
[2017-06-12] MEDS: ASPIRIN 81 MG TAB.CHEW PO SCH (08:05)
[2017-06-12] MEDS: DONEPEZIL HCL 10 MG TABLET PO SCH (08:05)
[2017-06-12] MEDS: CHOLECALCIFEROL (VITAMIN D3) 1,000 UNIT TABLET PO SCH (08:05)
[2017-06-12] MEDS: AZITHROMYCIN 250 MG TABLET. PO SCH (08:06)
[2017-06-12] MEDS: GABAPENTIN 300 MG CAPSULE. PO SCH ×3 (08:06→21:13)
[2017-06-12] MEDS: INSULIN ASPART 300 UNITS/3 ML INSULN.PEN SQ SCH ×4 (08:11→21:00)
[2017-06-12] MEDS: CHOLESTYRAMINE/ASPARTAME 4 GM PACKET PO SCH (10:06)
[2017-06-12] MEDS: ENOXAPARIN 40 MG/0.4 ML DISP.SYRIN. SQ SCH (10:08)
[2017-06-12 11:00] VITALS: BP 129/74
[2017-06-12] MEDS: ONDANSETRON ODT 4 MG TAB.RAPDIS PO PRN (12:16)
[2017-06-12] MEDS: cefTRIAXone IV Push 1 GM VIAL. IVP SCH (12:18)
--- NOTE | 2017-06-12 14:22 | NUR ---
Swing bed nursing note: Nursing problem: Pt admitted on 06/05/17 from home for respiratory distress. Pt was found to have pneumonia and influenza. Pt was started on a Tamiflu for influenza and Rocephin/Zithromax for pneumonia. Pt still reliant on Oxygen therapy at this time. Will try to titrate off oxygen when available. Cognitive/behavioral: Pt is compliant with care and under PT/OT supervision. Pt is alert and oriented x 4. Pt is cooperative, pleasant, and interactive with staff this shift. Pain: Pt denies any pain at this time. Respirator status. Pt has a productive cough . Patient tolerating breathing treatments given by RT. No shortness of breath when performing ADLs. He is still reliant on Oxygen therapy. Pt is on 2L NC. Skin: Pt skin is intact with some minor bruising and chronic skin issues. Skin was observed dry and flaking. ADL: Pt is a stand by assist and can perform most ADL with minimal assistance or independently . Pt is able to feed himself, and dress easily. Pt ambulates by himself with walker. Pt was complaint with medications. Pt is pleased that he is improving.
[2017-06-12 19:52] VITALS: BP 137/62
[2017-06-12] MEDS: INSULIN DETEMIR 300 UNITS/3 ML INSULN.PEN. SQ SCH (21:25)
[2017-06-13 05:36] VITALS: BP 125/76
[2017-06-13] MEDS: IPRATRPIUM/ALBUTEROL 0.5/2.5MG 3 ML NEBU. NEB SCH ×4 (06:00→22:09)
[2017-06-13] MEDS: INSULIN ASPART 300 UNITS/3 ML INSULN.PEN SQ SCH ×4 (07:30→21:44)
[2017-06-13] MEDS: ONDANSETRON ODT 4 MG TAB.RAPDIS PO PRN (08:17)
[2017-06-13] MEDS: CHOLESTYRAMINE/ASPARTAME 4 GM PACKET PO SCH (09:14)
[2017-06-13] MEDS: ENOXAPARIN 40 MG/0.4 ML DISP.SYRIN. SQ SCH (09:15)
[2017-06-13] MEDS: PANTOPRAZOLE 40 MG TABLET. PO SCH (09:15)
[2017-06-13] MEDS: AZITHROMYCIN 250 MG TABLET. PO SCH (09:15)
[2017-06-13] MEDS: SIMVASTATIN 10 MG TABLET PO SCH (09:16)
[2017-06-13] MEDS: GABAPENTIN 300 MG CAPSULE. PO SCH ×3 (09:16→21:48)
[2017-06-13] MEDS: DICYCLOMINE HCL 10 MG CAPSULE PO SCH ×4 (09:16→21:47)
[2017-06-13] MEDS: CHOLECALCIFEROL (VITAMIN D3) 1,000 UNIT TABLET PO SCH (09:16)
[2017-06-13] MEDS: ASPIRIN 81 MG TAB.CHEW PO SCH (09:17)
[2017-06-13] MEDS: MEMANTINE 10 MG TABLET. PO SCH ×2 (09:17→21:48)
[2017-06-13] MEDS: DONEPEZIL HCL 10 MG TABLET PO SCH (09:17)
[2017-06-13] MEDS: LACTOBACILLUS RHAMNOSUS GG 1 CAPSULE. PO SCH ×2 (09:17→21:48)
[2017-06-13] MEDS: LISINOPRIL 10 MG TABLET PO SCH (09:17)
[2017-06-13] MEDS: cefTRIAXone IV Push 1 GM VIAL. IVP SCH (12:42)
[2017-06-13 18:36] VITALS: BP 136/77
[2017-06-13] MEDS: INSULIN DETEMIR 300 UNITS/3 ML INSULN.PEN. SQ SCH (21:46)
--- NOTE | 2017-06-13 22:24 | HP ---
ADMIT DATE: 06/09/2017 HISTORY OF PRESENT ILLNESS: The patient is an 81-year-old male patient, who was seen today as he was still complaining of chest congestion, cough with whitish to yellowish sputum. He denied any chest pain. Denied any chills, rigors or fever. He has actually continued to be treated with IV antibiotics for his community-acquired pneumonia and he was admitted to swing bed. The patient was admitted on 06/05/2017 with increased somnolence, weakness and basically the patient was brought to the emergency medical services because the patient was so weak. On arriving, he did have a fever and was basically diagnosed with influenza A, right basilar infiltrate, mild thrombocytopenia, acute hypoxic respiratory failure and type 2 diabetes and he was treated with IV antibiotic, Tamiflu and was admitted to swing bed for further rehabilitation. PAST MEDICAL HISTORY: Significant for multiple admissions for altered mental status and diarrhea. He is known to have type 2 diabetes, mild thrombocytopenia, chronic hypoxic respiratory failure, has had a pacemaker placed. PAST SURGICAL HISTORY: Pacemaker placement. ALLERGIES: BEE STINGS. MEDICATIONS: Reviewed and are available on AUG. SOCIAL HISTORY: The patient is . He is an ex-smoker, quit in 1992, had no alcohol since 1993. Served in the for 26 years, worked for the [employer] for 20 years and worked at [employer] for 8 years. REVIEW OF SYSTEMS: As per history of present illness. PHYSICAL EXAMINATION GENERAL: When I saw him today, he was resting, slightly propped up in bed, in no apparent distress. No pallor, jaundice, cyanosis, or thyromegaly. No jugular venous distension. No limb edema. VITAL SIGNS: Her heart rate was 60, blood pressure 125/76, temperature was 98.8, respiratory rate was 14 and oxygen saturation was 93% on 2 liters of oxygen. HEENT: Showed normocephalic, atraumatic. NECK: Supple. HEART: Showed normal first and second heart sounds with no gallop, rub or murmur. CHEST: Clear to auscultation. No crepitation or rhonchi. ABDOMEN: Distended, soft, nontender. NEUROLOGIC: He is awake, alert, responding appropriately. Cranial nerves intact. EXTREMITIES: He moves extremities without difficulty. He apparently ambulates with a walker. LABORATORY DATA: His most recent laboratory showed that his blood sugar is still suboptimally controlled. ASSESSMENT AND PLAN: Given that he continued to complain of congestion and cough, I will arrange for him to have a chest x-ray, PA and lateral view and also repeat his labs and we will decide on further management accordingly. JORGE BRAVO MD DR: SANDRA/ana maria JOB#: [id number] / [id number]
--- NOTE | 2017-06-14 05:37 | NUR ---
Swing bed nursing note: Nursing problem: Pt admitted on 06/05/17 from home for respiratory distress. Pt was found to have pneumonia and influenza. Pt was started on a Tamiflu for influenza and Rocephin/Zithromax for pneumonia. Cognitive/behavioral: Pt is compliant with care and under PT/OT supervision. Pt is alert and oriented x 4. Pt is cooperative, pleasant, and interactive with staff. Pain: Pt denies any pain during this shift. Respirator status. Pt has a productive cough . Patient tolerating breathing treatments given by RT. No shortness of breath when performing ADLs. He is still reliant on Oxygen therapy. Pt is on 2L NC. Skin: Pt skin is intact with some minor bruising and chronic skin issues. Skin was observed dry and flaking. ADL: Pt is a stand by assist and can perform most ADL with minimal assistance or independently . Pt is able to feed himself, and dress easily. Pt ambulates by himself with walker. Continent of bowel and bladder. LBM 06/13/17. Pt has been complaint with medications. Pt. is a diabetic HS blood glucose was 314. Pt is pleased that he is improving. No acute distress noted this shift.//
[2017-06-14 05:45] VITALS: BP 113/61
[2017-06-14] MEDS: IPRATRPIUM/ALBUTEROL 0.5/2.5MG 3 ML NEBU. NEB SCH ×3 (05:55→15:39)
[2017-06-14] MEDS: INSULIN ASPART 300 UNITS/3 ML INSULN.PEN SQ SCH ×2 (07:30→12:07)
[2017-06-14 07:41] LABS: HEMOGLOBIN 13.1 g/dL (13.0-17.5); RED BLOOD COUNT 4.48 x10^6/uL (4.30-5.70); RED CELL DISTRIBUTION WIDTH 14.2 % (11.5-14.5); WHITE BLOOD COUNT 3.8 x10^3/uL (4.0-11.0)
[2017-06-14 07:44] LABS: ALBUMIN 2.9 g/dL (3.4-5.0); ALBUMIN/GLOBULIN RATIO 0.8 (1.0-1.7); CALCIUM 8.7 mg/dL (8.5-10.1); GFR 71.7; POTASSIUM 3.7 mmol/L (3.5-5.1); TOTAL BILIRUBIN 0.3 mg/dL (0.2-1.0); TOTAL PROTEIN 6.5 g/dL (6.4-8.2)
[2017-06-14] MEDS: AZITHROMYCIN 250 MG TABLET. PO SCH (09:28)
[2017-06-14] MEDS: CHOLESTYRAMINE/ASPARTAME 4 GM PACKET PO SCH (09:28)
[2017-06-14] MEDS: GABAPENTIN 300 MG CAPSULE. PO SCH ×2 (09:28→14:11)
[2017-06-14] MEDS: DICYCLOMINE HCL 10 MG CAPSULE PO SCH ×2 (09:28→12:05)
[2017-06-14] MEDS: SIMVASTATIN 10 MG TABLET PO SCH (09:28)
[2017-06-14] MEDS: LACTOBACILLUS RHAMNOSUS GG 1 CAPSULE. PO SCH (09:29)
[2017-06-14] MEDS: DONEPEZIL HCL 10 MG TABLET PO SCH (09:29)
[2017-06-14] MEDS: LISINOPRIL 10 MG TABLET PO SCH (09:29)
[2017-06-14] MEDS: MEMANTINE 10 MG TABLET. PO SCH (09:29)
[2017-06-14] MEDS: PANTOPRAZOLE 40 MG TABLET. PO SCH (09:29)
[2017-06-14] MEDS: ASPIRIN 81 MG TAB.CHEW PO SCH (09:29)
[2017-06-14] MEDS: CHOLECALCIFEROL (VITAMIN D3) 1,000 UNIT TABLET PO SCH (09:30)
[2017-06-14] MEDS: ENOXAPARIN 40 MG/0.4 ML DISP.SYRIN. SQ SCH (09:30)
[2017-06-14] MEDS: cefTRIAXone IV Push 1 GM VIAL. IVP SCH (12:05)
[2017-06-14] MEDS ORDERED: ALBUTEROL SULFATE 2.5 MG/3 ML NEBU. NEB PRN (13:45)
--- NOTE | 2017-06-14 13:54 | RAD ---
PA and lateral views of the chest were obtained. History: Worsening dyspnea cough and congestion Comparison: June 07, 2017 The heart appears normal size. The pulmonary vessels are top normal in size. Left sided pacemaker is again seen. There is patchy and linear opacities in the lung bases left worse than right. Impression: Bilateral infiltrates could be atypical pneumonia or CHF and appears slightly worse than in the prior study.
[2017-06-14 14:38] VITALS: BP 152/65
--- NOTE | 2017-06-14 15:47 | RAD ---
Chest CT scan without contrast: Indication: Worsening cough congestion and dyspnea. Comparison: None. Procedure: Axial images are obtained of the chest without contrast material. Findings: There is patchy opacities in the lower lobes bilaterally. There is a pulmonary nodule in the right in the major fissure that measures 12 mm x 8 mm. There is significant coronary artery cast cases. Discussed patient's within the wall of the thoracic aorta without aneurysm. There is no lymphadenopathy. Impression: 1. Bilateral lower lobe infiltrates suggests pneumonia. Recommend follow-up chest x-ray to complete resolution. 2. Significant coronary artery disease and left-sided pacemaker. PQRS Compliance Statement: One or more of the following individualized dose reduction techniques were utilized for this examination: 1. Automated exposure control 2. Adjustment of the mA and/or kV according to patient size 3. Use of iterative reconstruction technique
== END 2017-06-14 16:14 | disposition short-term general hospital (02) | DRG 193 ==
LOC: 1 SOUTH 15:12
PROVIDERS: ADMIT Internal Medicine; ATTEND Internal Medicine
DX: J10.00 Influenza due to other identified influenza virus with unspecified type of pneumonia (principal); J96.21 Acute and chronic respiratory failure with hypoxia; D69.6 Thrombocytopenia, unspecified; E11.9 Type 2 diabetes mellitus without complications; Z87.891 Personal history of nicotine dependence; Z95.0 Presence of cardiac pacemaker; Z91.030 Bee allergy status
CPT/HCPCS: 36415; 71046; 71250; 80053; 82947; 83036; 85027; 94640; 94760; J0456; J0696; J1650; J7620; Q0162; 97110; 97116; 97530; 97535

== ENCOUNTER 2017-06-14 16:10 | Inpatient (IN) | payer MEDICARE, OTHER ==
[~2017-06-14] VITALS: Ht 180.3 cm; Wt 83.2 kg
[2017-06-14] MEDS ORDERED: INSULIN ASPART 300 UNITS/3 ML INSULN.PEN SQ SCH ×2 (16:40→17:30)
[2017-06-14] MEDS ORDERED: ONDANSETRON ODT 4 MG TAB.RAPDIS PO PRN (16:45)
[2017-06-14] MEDS ORDERED: ALBUTEROL SULFATE 2.5 MG/3 ML NEBU. NEB PRN ×2 (16:45)
[2017-06-14] MEDS ORDERED: DEXTROSE 50% 25 GM / 50ML DISP.SYRIN. IV PRN (16:45)
[2017-06-14] MEDS ORDERED: NON FORMULARY ITEM (Albuterol Sulfate (Proair Respiclick) 2 PUFF) IH PRN (16:45)
[2017-06-14] MEDS ORDERED: ACETAMINOPHEN 325 MG TABLET PO PRN (16:45)
[2017-06-14 17:48] VITALS: BP 138/69
--- NOTE | 2017-06-14 18:35 | NUR ---
Patient status changed from swing bed to inpatient due to current pneumonia and need for IV antibiotics.
[2017-06-14 19:39] VITALS: BP 136/69
[2017-06-14] MEDS: IPRATRPIUM/ALBUTEROL 0.5/2.5MG 3 ML NEBU. NEB SCH (19:55)
[2017-06-14] MEDS: GABAPENTIN 300 MG CAPSULE. PO SCH (20:14)
[2017-06-14] MEDS: LACTOBACILLUS RHAMNOSUS GG 1 CAPSULE. PO SCH (20:14)
[2017-06-14] MEDS: MEMANTINE 10 MG TABLET. PO SCH (20:15)
[2017-06-14] MEDS: DICYCLOMINE HCL 10 MG CAPSULE PO SCH (20:15)
[2017-06-14] MEDS ORDERED: INSULIN DETEMIR 300 UNITS/3 ML INSULN.PEN. SQ SCH (21:00)
[2017-06-14] MEDS ORDERED: LACTOBACILLUS RHAMNOSUS GG 1 CAPSULE. PO SCH (21:00)
[2017-06-14] MEDS ORDERED: PIPERACILLIN/TAZOBACTAM 3.375 GM in IV NORMAL SALINE 50ML 50 ML IV SCH (22:00)
[2017-06-14] MEDS: INSULIN DETEMIR 300 UNITS/3 ML INSULN.PEN. SQ SCH (22:09)
[2017-06-14] MEDS: PIPERACILLIN/TAZO IV Push 3.375 GM VIAL. IVP SCH (22:12)
[2017-06-14 23:02] VITALS: BP 137/74
[2017-06-15] VITALS (7 sets, daily range): BP systolic 117–152; BP diastolic 53–74
[2017-06-15] MEDS: IPRATRPIUM/ALBUTEROL 0.5/2.5MG 3 ML NEBU. NEB SCH ×4 (05:33→20:07)
[2017-06-15] MEDS: PIPERACILLIN/TAZO IV Push 3.375 GM VIAL. IVP SCH ×3 (05:50→22:07)
[2017-06-15] MEDS: DICYCLOMINE HCL 10 MG CAPSULE PO SCH ×4 (07:34→21:03)
[2017-06-15] MEDS: INSULIN ASPART 300 UNITS/3 ML INSULN.PEN SQ SCH ×3 (07:39→16:41)
[2017-06-15 07:58] LABS: BASO % 1 % (0-3); EOS # 0.1 x10^3/uL (0.0-0.7); EOS % 3 % (0-3); HEMATOCRIT 42.2 % (39.0-53.0); HEMOGLOBIN 13.8 g/dL (13.0-17.5); LYMPH # 0.7 x10^3/uL (1.0-4.8); LYMPH % 19 % (24-48); MEAN CORPUSCULAR HEMOGLOBIN 29 pg (25-35); MEAN CORPUSCULAR HGB CONC 33 g/dL (31-37); MEAN CORPUSCULAR VOLUME 89 fL (79-100); MONO # 0.2 x10^3/uL (0.0-1.1); MONO % 5 % (0-9); NEUT # 2.5 x10^3uL (1.8-7.7); NEUT % 71 % (31-73); PLATELET COUNT 138 x10^3/uL (140-400); RED BLOOD COUNT 4.72 x10^6/uL (4.30-5.70); RED CELL DISTRIBUTION WIDTH 14.2 % (11.5-14.5); WHITE BLOOD COUNT 3.5 x10^3/uL (4.0-11.0)
[2017-06-15 08:09] LABS: ALBUMIN/GLOBULIN RATIO 0.8 (1.0-1.7); CALCIUM 8.4 mg/dL (8.5-10.1); CREATININE 1.1 mg/dL (0.7-1.3); GFR 64.2; MAGNESIUM 1.9 mg/dL (1.8-2.4); POTASSIUM 4.3 mmol/L (3.5-5.1); TOTAL BILIRUBIN 0.5 mg/dL (0.2-1.0); TOTAL PROTEIN 6.9 g/dL (6.4-8.2)
[2017-06-15 08:25] LABS: INFLUENZA A PATIENT NEGATIVE (NEGATIVE); INFLUENZA B PATIENT NEGATIVE (NEGATIVE)
[2017-06-15] MEDS ORDERED: NON FORMULARY ITEM (Memantine HCl/Donepezil HCl (Namzaric 28 mg-10 mg Capsule) 1 EACH) PO SCH (09:00)
[2017-06-15] MEDS: LACTOBACILLUS RHAMNOSUS GG 1 CAPSULE. PO SCH ×2 (09:02→21:03)
[2017-06-15] MEDS: PANTOPRAZOLE 40 MG TABLET. PO SCH (09:02)
[2017-06-15] MEDS: LISINOPRIL 10 MG TABLET PO SCH (09:02)
[2017-06-15] MEDS: ASPIRIN 81 MG TAB.CHEW PO SCH (09:02)
[2017-06-15] MEDS: MEMANTINE 10 MG TABLET. PO SCH ×2 (09:02→21:03)
[2017-06-15] MEDS: DONEPEZIL HCL 10 MG TABLET PO SCH (09:02)
[2017-06-15] MEDS: GABAPENTIN 300 MG CAPSULE. PO SCH ×3 (09:02→21:03)
[2017-06-15] MEDS: CHOLECALCIFEROL (VITAMIN D3) 1,000 UNIT TABLET PO SCH (09:03)
[2017-06-15] MEDS: SIMVASTATIN 10 MG TABLET PO SCH (09:03)
[2017-06-15] MEDS: CHOLESTYRAMINE/ASPARTAME 4 GM PACKET PO SCH (09:54)
[2017-06-15] MEDS: ENOXAPARIN 40 MG/0.4 ML DISP.SYRIN. SQ SCH (10:00)
--- NOTE | 2017-06-15 13:34 | HP ---
ADMIT DATE: 06/14/2017 HISTORY OF PRESENT ILLNESS: This is an 81-year-old male who is on the swing bed for [facility] and has been there for over a week and has been doing well except that yesterday he became a little bit hypoxic and was generally not feeling well and found to have pneumonia and admitted for pneumonia. PAST MEDICAL HISTORY: Recent admission for influenza then to [facility], also admitted in 05/2017 for altered mental status with chills and diarrhea. The patient also has irritable bowel, type 2 diabetes, pacemaker, coronary artery disease, intermittent history of hypoxia, mild thrombocytopenia. ALLERGIES: BEE STINGS. MEDICATIONS: Reviewed and are available on the MAR. SOCIAL HISTORY: The patient is . Ex-smoker, quit in 1992. No alcohol since 1993, service for 26 years, worked in the [employer] for 20 years and worked on [employer] for 8 years, also has significant family stressors with multiple family generations living in the home and a recent diagnosis of neuroblastoma in a 4-month-old granddaughter. REVIEW OF SYSTEMS: The patient states he generally is not feeling as well as normal. Denies a sore throat, intermittent cough, mild shortness of breath, no chest pain. OBJECTIVE: VITAL SIGNS: Blood pressure 138/71, pulse 77, pulse ox is 92% on 3 liters. GENERAL: The patient is mildly hard of hearing. HEENT: Eyes were clear. Nose was patent. Throat was clear in the posterior pharynx. Tongue was moist. NECK: Supple, without adenopathy. LUNGS: Clear to auscultation. CARDIOVASCULAR: Regular rhythm and rate with a 2/6 systolic murmur. ABDOMEN: Soft. Bowel sounds positive, nontender. EXTREMITIES: Without edema. IMAGING: CT of the chest done yesterday shows bilateral lower lobe infiltrates and coronary artery disease with a left-sided pacemaker. LABORATORY DATA: Glucose is in the 300s, albumin 3. White blood cell count 3.5, platelet count 138,000 that has gone up some. His repeat flu is negative. ASSESSMENT: 1. Hospital-acquired pneumonia, questionable etiology, have to suspect aspiration at this point. 2. Recent history of influenza A. 3. Type 2 diabetes with hyperglycemia. Insulin has been adjusted by Dr. Nuñez. 4. Acute hypoxic respiratory failure. 5. Coronary artery disease. PLAN: IV antibiotics, breathing treatments, supportive care. THAD SOSA DO DR: Yanci JOB#: [id number] / [id number]
--- NOTE | 2017-06-15 13:54 | PDOC2 ---
LUCI MARINELLI P[employer]ER[employer]ARD BOXES ESTIMATOR 06/15/17 1354: CONSULT Date of Admission DATE: 06/15/17 TIME: 13:37 Reason for Consult: CAD History of Present Illness Mr Tee is an 81 year old male who was initially admitted in late May with influenza A, he was subsequently transferred to [facility] for rehab, was thought to have aspirated and is now readmitted with pneumonia. His CT chest revealed significant coronary artery disease so consult was called. He denies any chest pain or discomfort. He reports some increased dyspnea over the last couple weeks. He denies congestive symptoms or edema. He denies palpitations, lightheadedness or syncope. He does report difficulty with an unstable gait. Past Medical History Multiple admissions for diarrhea and poorly controlled diabetes in 2016. Enteropathogenic E. coli in his stool in early 2016 and Cryptosporidium in March, pacemaker, hypertension, type 2 diabetes, hyperlipidemia, COPD, sleep apnea, skin cancer, BPH, diabetic nephropathy, history of sick sinus syndrome requiring pacemaker, encephalopathy, dementia, chronic intermittent diarrhea. He has had recent admissions for viral illnesses and influenza a. Past Surgical History pacemaker placement Family History NC due to age Social History The patient is . He is an ex-smoker, quit in 1992. He has had no alcohol since 1993. 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 He has daughters and grandchildren living with him. Current Medications Current Medications Insulin Aspart (NovoLOG) 6 units TIDAC SQ ; Start 06/14/17 at 16:40; Stop at 17:34; Status DC Insulin Detemir (Levemir) 40 units QHS SQ ; Start 06/14/17 at 21:00; Stop at 21:00; Status DC Linezolid 300 ml @ 300 mls/hr Q12H IV Last administered on 06/15/17at 05:50; Start 06/14/17 at 18:00 Piperacillin Sod/ Tazobactam Sod 3.375 gm/Sodium Chloride 50 ml @ 100 mls/hr Q8HRS IV ; Start 06/14/17 at 22:00; Status UNV Levofloxacin/ Dextrose 100 ml @ 100 mls/hr Q24H IV Last administered on at 18:52; Start 06/14/17 at 17:00 Piperacillin Sod/ Tazobactam Sod (Zosyn) 3.375 gm Q8HRS IVP Last administered on 06/15/17at 05:50; Start 06/14/17 at 22:00 Aspirin (Children'S Aspirin) 81 mg DAILY PO Last administered on 06/15/17at 09:02 ; Start 06/15/17 at 09:00 Vitamin D (Vitamin D3) 1,000 unit DAILY PO Last administered on 06/15/17at 09:03 ; Start 06/15/17 at 09:00 Dicyclomine HCl (Bentyl) 10 mg QIDACHS PO Last administered on 06/15/17 12:01; Start 06/14/17 at 21:00 Gabapentin (Neurontin) 300 mg TID PO Last administered on 06/15/17 09:02; Start 06/14/17 at 21:00 Lisinopril (Prinivil) 10 mg DAILY PO Last administered on 06/15/17at 09:02; Start 06/15/17 at 09:00 Ondansetron HCl (Zofran Odt) 4 mg PRN Q8HRS PRN PO NAUSEA; Start 06/14/17 at 16: 45 Simvastatin (Zocor) 10 mg DAILY PO Last administered on 06/15/17at 09:03; Start 06/15/17 at 09:00 Non-Formulary Medication 2 puff PRN Q6HRS PRN IH WHEEZING; Start 06/14/17 at 16: 45; Status UNV Cholestyramine Resin (Questran Light) 4 gm DAILY PO Last administered on at 09:54; Start 06/15/17 at 09:00 Non-Formulary Medication 1 each DAILY PO ; Start 06/15/17 at 09:00; Status UNV Pantoprazole Sodium (Protonix) 40 mg DAILY PO Last administered on 06/15/17at 09: 02; Start 06/15/17 at 09:00 Lactobacillus Rhamnosus (Culturelle) 1 cap BID PO Last administered on at 09:02; Start 06/14/17 at 21:00 Albuterol Sulfate (Ventolin) 2.5 mg PRN Q6HRS PRN NEB WHEEZING; Start 06/14/17 at 16:45; Stop 06/14/17 at 16:53; Status DC Acetaminophen (Tylenol) 650 mg PRN Q4HRS PRN PO PAIN / TEMP; Start 06/14/17 at 16:45 Albuterol Sulfate (Ventolin) 2.5 mg PRN Q2HR PRN NEB SHORTNESS OF BREATH; Start 06/14/17 at 16:45 Dextrose 12.5 gm PRN Q15MIN PRN IV SEE COMMENTS; Start 06/14/17 at 16:45 Enoxaparin Sodium (Lovenox) 40 mg Q24H SQ Last administered on 06/15/17at 10:00; Start 06/15/17 at 10:00 Albuterol/ Ipratropium (Duoneb) 3 ml RTQID NEB Last administered on 06/15/17at 11 :49; Start 06/14/17 at 20:00 Lactobacillus Rhamnosus (Culturelle) 1 cap BID PO ; Start 06/14/17 at 21:00; Status UNV Donepezil HCl (Aricept) 10 mg DAILY PO Last administered on 06/15/17at 09:02; Start 06/15/17 at 09:00 Memantine (Namenda) 10 mg BID PO Last administered on 06/15/17at 09:02; Start 06/14/17 at 21:00 Insulin Aspart (NovoLOG) 16 units TIDAC SQ ; Start 06/14/17 at 17:30; Stop at 17:37; Status DC Insulin Detemir (Levemir) 30 units QHS SQ Last administered on 06/14/17at 22:09; Start 06/14/17 at 21:00 Insulin Aspart (NovoLOG) 15 units TIDAC SQ Last administered on 06/15/17at 12:10 ; Start 06/15/17 at 07:30 Active Scripts Active Reported Simvastatin 10 Mg Tablet 10 Mg PO DAILY LAST DOSE GIVEN: DATE:TODAY TIME:AM NEXT DOSE DUE: DATE:TOMORROW TIME:AM Ondansetron Odt (Ondansetron) 4 Mg Tab.rapdis 4 Mg PO PRN Q8HRS PRN NOT GIVEN TODAY IN HOSPITAL. NEXT DOSE DUE: DATE:TODAY TIME:IF AND WHEN NEEDED Omeprazole 40 Mg Capsule.dr 40 Mg PO DAILY LAST DOSE GIVEN: DATE:TODAY TIME:AM NEXT DOSE DUE: DATE:TOMORROW TIME:AM Namzaric 28 mg-10 mg Capsule (Memantine HCl/Donepezil HCl) 1 Each Cap.spr.24 1 Each PO DAILY LAST DOSE GIVEN: DATE:TODAY TIME:AM NEXT DOSE DUE: DATE:TOMORR TIME:AM Lisinopril 10 Mg Tablet 10 Mg PO DAILY LAST DOSE GIVEN: DATE:TODAY TIME:AM NEXT DOSE DUE: DATE:TOMORROW TIME:AM Gabapentin 300 Mg Capsule 300 Mg PO TID LAST DOSE GIVEN: DATE: TIME:AFTERNOON NEXT DOSE DUE: DATE:TONIGHT TIME:BEDTIME Dicyclomine Hcl 10 Mg Capsule 10 Mg PO QIDACHS LAST DOSE GIVEN: DATE: TIME:LUNCH NEXT DOSE DUE: DATE:TONIGHT TIME:DINNER Cholestyramine Packet (Cholestyramine (With Sugar)) 4 Gm Powd.pack 4 Gm PO DAILY LAST DOSE GIVEN: DATE: TIME:AM NEXT DOSE DUE: DATE:TOMORR TIME:AM Vitamin D3 (Cholecalciferol (Vitamin D3)) 1,000 Unit Tablet 1,000 Unit PO DAILY LAST DOSE GIVEN: DATE: TIME:AM NEXT DOSE DUE: DATE:TOMORR TIME:AM Aspirin 81 Mg Tab.chew 81 Mg PO DAILY LAST DOSE GIVEN: DATE:TODAY TIME:AM NEXT DOSE DUE: DATE:TOMORROW TIME:AM Proair Respiclick (Albuterol Sulfate) 90 Mcg Aer.pow.ba 2 Puff IH PRN Q6HRS PRN NOT GIVEN IN THE HOSPITAL NEXT DOSE DUE: DATE:TODAY IF AND WHEN NEEDED Allergies: Coded Allergies: NKMA (Verified Allergy, Unknown, 05/20/17) Review of System as per hPI General: Alert, Oriented X3, Cooperative, No acute distress HEENT: Atraumatic, EOMI, Mucous membr. moist/pink Lungs: Other (decreased bases bilaterally) Heart: Regular rate, Normal S1, Normal S2, Other (no significant murmurs, no gallops, clicks or rubs) Abdomen: Normal bowel sounds, Soft Extremities: No cyanosis, No edema, Normal pulses, Other (unsteady gait) Neuro: Normal speech, Strength at 5/5 X4 ext Psych/Mental Status: Mental status NL, Mood NL VITALS Vital Signs Date Time Temp Pulse Resp B/P (MAP) Pulse Ox O2 Delivery O2 Flow Rate FiO2 06/15/17 11:49 95 Nasal Cannula 3.0 06/15/17 11:19 97.5 60 18 138/74 (95) Labs Laboratory Tests Test 06/14/17 22:48 06/15/17 07:16 06/15/17 07:44 06/15/17 08:00 Glucose (Fingerstick) 325 mg/dL (70-99) 313 mg/dL (70-99) White Blood Count 3.5 x10^3/uL (4.0-11.0) Red Blood Count 4.72 x10^6/uL (4.30-5.70) Hemoglobin 13.8 g/dL (13.0-17.5) Hematocrit 42.2 % (39.0-53.0) Mean Corpuscular Volume 89 fL (79-100) Mean Corpuscular Hemoglobin 29 pg (25-35) Mean Corpuscular Hemoglobin Concent 33 g/dL (31-37) Red Cell Distribution Width 14.2 % (11.5-14.5) Platelet Count 138 x10^3/uL (140-400) Neutrophils (%) (Auto) 71 % (31-73) Lymphocytes (%) (Auto) 19 % (24-48) Monocytes (%) (Auto) 5 % (0-9) Eosinophils (%) (Auto) 3 % (0-3) Basophils (%) (Auto) 1 % (0-3) Neutrophils # (Auto) 2.5 x10^3uL (1.8-7.7) Lymphocytes # (Auto) 0.7 x10^3/uL (1.0-4.8) Monocytes # (Auto) 0.2 x10^3/uL (0.0-1.1) Eosinophils # (Auto) 0.1 x10^3/uL (0.0-0.7) Basophils # (Auto) 0.0 x10^3/uL (0.0-0.2) Sodium Level 140 mmol/L (136-145) Potassium Level 4.3 mmol/L (3.5-5.1) Chloride Level 102 mmol/L (98-107) Carbon Dioxide Level 34 mmol/L (21-32) Anion Gap 4 (6-14) Blood Urea Nitrogen 13 mg/dL (8-26) Creatinine 1.1 mg/dL (0.7-1.3) Estimated GFR (Cockcroft-Gault) 64.2 BUN/Creatinine Ratio 12 (6-20) Glucose Level 309 mg/dL (70-99) Calcium Level 8.4 mg/dL (8.5-10.1) Magnesium Level 1.9 mg/dL (1.8-2.4) Total Bilirubin 0.5 mg/dL (0.2-1.0) Aspartate Amino Transf (AST/SGOT) 14 U/L (15-37) Alanine Aminotransferase (ALT/SGPT) 17 U/L (16-63) Alkaline Phosphatase 71 U/L (46-116) Total Protein 6.9 g/dL (6.4-8.2) Albumin 3.0 g/dL (3.4-5.0) Albumin/Globulin Ratio 0.8 (1.0-1.7) Influenza Type A (Rapid) Negative (NEGATIVE) Influenza Type B (Rapid) Negative (NEGATIVE) Test 06/15/17 11:25 Glucose (Fingerstick) 288 mg/dL (70-99) Images CXR 06/13/17 Impression: Bilateral infiltrates could be atypical pneumonia or CHF and appears slightly worse than in the prior study. CT chest 06/14/17 Impression: 1. Bilateral lower lobe infiltrates suggests pneumonia. Recommend follow-up chest x-ray to complete resolution. 2. Significant coronary artery disease and left-sided pacemaker. Assessment/Plan 1. coronary disease by CT - angina free. Echo revealed normal LV function and wall motion on 05/21/17. Suggest resume home meds, RF reduction and when pneumonia resolved, FU with primary stock letterer at for MPI. 2. SSS s/p PPM - pm check revealed stable impedances, thresholds and sensing. Adequate battery life. Short episodes of atrial fibrillation in February but no new. 3. PAF - no atrial fibrillation since February. Poor candidate for full anticoagulation due to gait disturbance and fall risk. 4. pneumonia - mgmt per IM continue supportive care and suggest outpatient MPI for ischemic heart disease with primary stock letterer once pneumonia resolved. Problems: KATARINA GOEL MD 06/16/17 1505: CONSULT Allergies: Coded Allergies: NKMA (Verified Allergy, Unknown, 05/20/17) Assessment/Plan Patient seen and examined. Late entry for 06/15 2017. Agree with above nurse practitioner note. Supportive care from a cardiac standpoint. Thank you for this consultation. Problems: LUCI MARINELLI APRN Jun 15, 2017 13:54 KATARINA GOEL MD Jun 16, 2017 15:05
[2017-06-15] MEDS: INSULIN DETEMIR 300 UNITS/3 ML INSULN.PEN. SQ SCH (21:01)
[2017-06-16] MEDS: PIPERACILLIN/TAZO IV Push 3.375 GM VIAL. IVP SCH ×3 (05:44→23:15)
[2017-06-16 05:50] VITALS: BP 155/72
[2017-06-16] MEDS: IPRATRPIUM/ALBUTEROL 0.5/2.5MG 3 ML NEBU. NEB SCH ×3 (06:05→20:23)
[2017-06-16 06:54] LABS: ALBUMIN 2.9 g/dL (3.4-5.0); ALBUMIN/GLOBULIN RATIO 0.9 (1.0-1.7); CALCIUM 8.5 mg/dL (8.5-10.1); GFR 71.7; MAGNESIUM 1.9 mg/dL (1.8-2.4); POTASSIUM 4.4 mmol/L (3.5-5.1); TOTAL BILIRUBIN 0.3 mg/dL (0.2-1.0); TOTAL PROTEIN 6.2 g/dL (6.4-8.2)
[2017-06-16 07:14] LABS: HEMOGLOBIN 12.7 g/dL (13.0-17.5); RED BLOOD COUNT 4.44 x10^6/uL (4.30-5.70); WHITE BLOOD COUNT 3.5 x10^3/uL (4.0-11.0)
[2017-06-16 07:15] LABS: HEMATOCRIT 39.7 % (39.0-53.0); MEAN CORPUSCULAR HEMOGLOBIN 29 pg (25-35); MEAN CORPUSCULAR HGB CONC 32 g/dL (31-37); MEAN CORPUSCULAR VOLUME 89 fL (79-100); PLATELET COUNT 128 x10^3/uL (140-400); RED CELL DISTRIBUTION WIDTH 14.4 % (11.5-14.5)
[2017-06-16] MEDS: DICYCLOMINE HCL 10 MG CAPSULE PO SCH ×4 (07:39→21:14)
[2017-06-16] MEDS: INSULIN ASPART 300 UNITS/3 ML INSULN.PEN SQ SCH ×3 (07:50→16:53)
[2017-06-16 08:04] LABS: % BANDS 2 % (0-9); % EOS 8 % (0-5); % LYMPHS 18 % (24-48); % MONOS 9 % (0-10); % SEGS 63 % (35-66)
[2017-06-16 08:05] LABS: PLATELET CLUMP PRESENT; PLT ESTIMATE ADEQUATE (ADEQUATE)
[2017-06-16] MEDS: GABAPENTIN 300 MG CAPSULE. PO SCH ×3 (08:54→21:15)
[2017-06-16] MEDS: ASPIRIN 81 MG TAB.CHEW PO SCH (08:54)
[2017-06-16] MEDS: DONEPEZIL HCL 10 MG TABLET PO SCH (08:54)
[2017-06-16] MEDS: LISINOPRIL 10 MG TABLET PO SCH (08:54)
[2017-06-16] MEDS: LACTOBACILLUS RHAMNOSUS GG 1 CAPSULE. PO SCH ×2 (08:54→21:15)
[2017-06-16] MEDS: MEMANTINE 10 MG TABLET. PO SCH ×2 (08:55→21:15)
[2017-06-16] MEDS: CHOLECALCIFEROL (VITAMIN D3) 1,000 UNIT TABLET PO SCH (08:55)
[2017-06-16] MEDS: PANTOPRAZOLE 40 MG TABLET. PO SCH (08:55)
[2017-06-16] MEDS: SIMVASTATIN 10 MG TABLET PO SCH (08:55)
[2017-06-16] MEDS: CHOLESTYRAMINE/ASPARTAME 4 GM PACKET PO SCH (09:55)
[2017-06-16 10:54] VITALS: BP 125/69
[2017-06-16] MEDS: ENOXAPARIN 40 MG/0.4 ML DISP.SYRIN. SQ SCH (10:55)
--- NOTE | 2017-06-16 15:47 | RAD ---
Indication: Follow-up pneumonia Technique: PA and lateral views of the chest Comparison: Previous study from 06/13/2017 Findings: Heart is normal in size. Stable position of left chest wall cardiac pacer with leads projecting over the heart. Minimal improvement in left retrocardiac opacities. Round radiopacity seen in the right lower lung zone corresponds to the nodule seen in the right major fissure on CT from 06/14. No pneumothorax or pleural effusion. Visualized bony thorax is within normal limits. Impression: 1. Left basilar pneumonia not much improved when compared to previous CT from 06/14. 2. Right lower lung zone pulmonary nodule (1.2 cm). Follow-up CT chest in 6 month recommended.
[2017-06-16 15:56] VITALS: BP 149/70
--- NOTE | 2017-06-16 18:44 | PDOC ---
Exam Note: Wes Note: Please also refer to the separate dictated note~for this date of service dictated separately.~Patient seen individually. Discussed the patient with Nursing staff reviewed the chart.~Reviewed interim history and current functioning. Reviewed vital signs,~Labs/ Radiology~and current medications noted below. Continue current treatment with the changes noted in the dictated addendum note Assessment: Vital Signs: Vital Signs Date Time Temp Pulse Resp B/P (MAP) Pulse Ox O2 Delivery O2 Flow Rate FiO2 06/16/17 15:56 98.0 96 22 149/70 (96) 95 06/16/17 10:30 Simple Mask 2.0 I&O Intake and Output 06/16/17 06:59 Intake Total 1860 ml Balance 1860 ml Intake Oral 1460 ml IV Total 400 ml # Voids 6 Labs: Laboratory Tests Test 06/15/17 19:49 06/16/17 06:24 06/16/17 07:45 06/16/17 11:35 Glucose (Fingerstick) 220 mg/dL (70-99) H 287 mg/dL (70-99) H 376 mg/dL (70-99) H White Blood Count 3.5 x10^3/uL (4.0-11.0) L Red Blood Count 4.44 x10^6/uL (4.30-5.70) Hemoglobin 12.7 g/dL (13.0-17.5) L Hematocrit 39.7 % (39.0-53.0) Mean Corpuscular Volume 89 fL (79-100) Mean Corpuscular Hemoglobin 29 pg (25-35) Mean Corpuscular Hemoglobin Concent 32 g/dL (31-37) Red Cell Distribution Width 14.4 % (11.5-14.5) Platelet Count 128 x10^3/uL (140-400) L Segmented Neutrophils % 63 % (35-66) Band Neutrophils % 2 % (0-9) Lymphocytes % 18 % (24-48) L Monocytes % 9 % (0-10) Eosinophils % 8 % (0-5) H Platelet Estimate Adequate (ADEQUATE) Platelet Clumps, EDTA Present Sodium Level 140 mmol/L (136-145) Potassium Level 4.4 mmol/L (3.5-5.1) Chloride Level 102 mmol/L (98-107) Carbon Dioxide Level 31 mmol/L (21-32) Anion Gap 7 (6-14) Blood Urea Nitrogen 12 mg/dL (8-26) Creatinine 1.0 mg/dL (0.7-1.3) Estimated GFR (Cockcroft-Gault) 71.7 BUN/Creatinine Ratio 12 (6-20) Glucose Level 345 mg/dL (70-99) H Calcium Level 8.5 mg/dL (8.5-10.1) Magnesium Level 1.9 mg/dL (1.8-2.4) Total Bilirubin 0.3 mg/dL (0.2-1.0) Aspartate Amino Transferase (AST) 12 U/L (15-37) L Alanine Aminotransferase (ALT) 17 U/L (16-63) Alkaline Phosphatase 66 U/L (46-116) Total Protein 6.2 g/dL (6.4-8.2) L Albumin 2.9 g/dL (3.4-5.0) L Albumin/Globulin Ratio 0.9 (1.0-1.7) L Test 06/16/17 16:41 Glucose (Fingerstick) 262 mg/dL (70-99) H Current Medications: Meds: Current Medications Insulin Aspart (NovoLOG) 6 units TIDAC SQ ; Start 06/14/17 at 16:40; Stop at 17:34; Status DC Insulin Detemir (Levemir) 40 units QHS SQ ; Start 06/14/17 at 21:00; Stop at 21:00; Status DC Linezolid 300 ml @ 300 mls/hr Q12H IV Last administered on 06/16/17at 05:53; Start 06/14/17 at 18:00 Piperacillin Sod/ Tazobactam Sod 3.375 gm/Sodium Chloride 50 ml @ 100 mls/hr Q8HRS IV ; Start 06/14/17 at 22:00; Status UNV Levofloxacin/ Dextrose 100 ml @ 100 mls/hr Q24H IV Last administered on at 16:54; Start 06/14/17 at 17:00 Piperacillin Sod/ Tazobactam Sod (Zosyn) 3.375 gm Q8HRS IVP Last administered on 06/16/17at 14:45; Start 06/14/17 at 22:00 Aspirin (Children'S Aspirin) 81 mg DAILY PO Last administered on 06/16/17 08:54 ; Start 06/15/17 at 09:00 Vitamin D (Vitamin D3) 1,000 unit DAILY PO Last administered on 06/16/17 08:55 ; Start 06/15/17 at 09:00 Dicyclomine HCl (Bentyl) 10 mg QIDACHS PO Last administered on 06/16/17 16:48; Start 06/14/17 at 21:00 Gabapentin (Neurontin) 300 mg TID PO Last administered on 06/16/17 14:44; Start 06/14/17 at 21:00 Lisinopril (Prinivil) 10 mg DAILY PO Last administered on 06/16/17 08:54; Start 06/15/17 at 09:00 Ondansetron HCl (Zofran Odt) 4 mg PRN Q8HRS PRN PO NAUSEA; Start 06/14/17 at 16: 45 Simvastatin (Zocor) 10 mg DAILY PO Last administered on 06/16/17 08:55; Start 06/15/17 at 09:00 Non-Formulary Medication 2 puff PRN Q6HRS PRN IH WHEEZING; Start 06/14/17 at 16: 45; Status UNV Cholestyramine Resin (Questran Light) 4 gm DAILY PO Last administered on 09:55; Start 06/15/17 at 09:00 Non-Formulary Medication 1 each DAILY PO ; Start 06/15/17 at 09:00; Status UNV Pantoprazole Sodium (Protonix) 40 mg DAILY PO Last administered on 06/16/17at 08: 55; Start 06/15/17 at 09:00 Lactobacillus Rhamnosus (Culturelle) 1 cap BID PO Last administered on 08:54; Start 06/14/17 at 21:00 Albuterol Sulfate (Ventolin) 2.5 mg PRN Q6HRS PRN NEB WHEEZING; Start 06/14/17 at 16:45; Stop 06/14/17 at 16:53; Status DC Acetaminophen (Tylenol) 650 mg PRN Q4HRS PRN PO PAIN / TEMP; Start 06/14/17 at 16:45 Albuterol Sulfate (Ventolin) 2.5 mg PRN Q2HR PRN NEB SHORTNESS OF BREATH; Start 06/14/17 at 16:45 Dextrose 12.5 gm PRN Q15MIN PRN IV SEE COMMENTS; Start 06/14/17 at 16:45 Enoxaparin Sodium (Lovenox) 40 mg Q24H SQ Last administered on 06/16/17at 10:55; Start 06/15/17 at 10:00 Albuterol/ Ipratropium (Duoneb) 3 ml RTQID NEB Last administered on 06/16/17at 10 :27; Start 06/14/17 at 20:00 Lactobacillus Rhamnosus (Culturelle) 1 cap BID PO ; Start 06/14/17 at 21:00; Status UNV Donepezil HCl (Aricept) 10 mg DAILY PO Last administered on 06/16/17at 08:54; Start 06/15/17 at 09:00 Memantine (Namenda) 10 mg BID PO Last administered on 06/16/17at 08:55; Start 06/14/17 at 21:00 Insulin Aspart (NovoLOG) 16 units TIDAC SQ ; Start 06/14/17 at 17:30; Stop at 17:37; Status DC Insulin Detemir (Levemir) 30 units QHS SQ Last administered on 06/15/17at 21:01; Start 06/14/17 at 21:00 Insulin Aspart (NovoLOG) 15 units TIDAC SQ Last administered on 06/16/17at 07:50 ; Start 06/15/17 at 07:30; Stop 06/16/17 at 08:45; Status DC Insulin Aspart (NovoLOG) 18 units TIDAC SQ Last administered on 06/16/17at 16:53 ; Start 06/16/17 at 11:30 Active Scripts Active Reported Simvastatin 10 Mg Tablet 10 Mg PO DAILY LAST DOSE GIVEN: DATE:TODAY TIME:AM NEXT DOSE DUE: DATE:TOMORROW TIME:AM Ondansetron Odt (Ondansetron) 4 Mg Tab.rapdis 4 Mg PO PRN Q8HRS PRN NOT GIVEN TODAY IN HOSPITAL. NEXT DOSE DUE: DATE:TODAY TIME:IF AND WHEN NEEDED Omeprazole 40 Mg Capsule.dr 40 Mg PO DAILY LAST DOSE GIVEN: DATE:TODAY TIME:AM NEXT DOSE DUE: DATE:TOMORROW TIME:AM Namzaric 28 mg-10 mg Capsule (Memantine HCl/Donepezil HCl) 1 Each Cap.spr.24 1 Each PO DAILY LAST DOSE GIVEN: DATE:TODAY TIME:AM NEXT DOSE DUE: DATE:TOMORROW TIME:AM Lisinopril 10 Mg Tablet 10 Mg PO DAILY LAST DOSE GIVEN: DATE:TODAY TIME:AM NEXT DOSE DUE: DATE:TOMORROW TIME:AM Gabapentin 300 Mg Capsule 300 Mg PO TID LAST DOSE GIVEN: DATE: TIME:AFTERNOON NEXT DOSE DUE: DATE:TONIGHT TIME:BEDTIME Dicyclomine Hcl 10 Mg Capsule 10 Mg PO QIDACHS LAST DOSE GIVEN: DATE: TIME:LUNCH NEXT DOSE DUE: DATE:TONIGHT TIME:DINNER Cholestyramine Packet (Cholestyramine (With Sugar)) 4 Gm Powd.pack 4 Gm PO DAILY LAST DOSE GIVEN: DATE: TIME:AM NEXT DOSE DUE: DATE:TOMORROW TIME:AM Vitamin D3 (Cholecalciferol (Vitamin D3)) 1,000 Unit Tablet 1,000 Unit PO DAILY LAST DOSE GIVEN: DATE: TIME:AM NEXT DOSE DUE: DATE:TOMORR TIME:AM Aspirin 81 Mg Tab.chew 81 Mg PO DAILY LAST DOSE GIVEN: DATE:TODAY TIME:AM NEXT DOSE DUE: DATE:TOMORROW TIME:AM Proair Respiclick (Albuterol Sulfate) 90 Mcg Aer.pow.ba 2 Puff IH PRN Q6HRS PRN NOT GIVEN IN THE HOSPITAL NEXT DOSE DUE: DATE:TODAY IF AND WHEN NEEDED I have reviewed the current psychotropics carefully including drug interactions. Risk benefit ratio favors no change other than as noted in my dictated progress note. Diagnosis: Problems: (1) Major depressive disorder, recurrent episode (2) Anxiety disorder BHAKTI SHIRLEY MD Jun 16, 2017 18:44
[2017-06-16 19:53] VITALS: BP 119/72
[2017-06-16] MEDS: INSULIN DETEMIR 300 UNITS/3 ML INSULN.PEN. SQ SCH (21:16)
[2017-06-16 23:10] VITALS: BP 139/66
--- NOTE | 2017-06-17 03:37 | PN ---
DATE: CURRENT PROBLEMS: 1. Hospital-acquired pneumonia, probable aspiration. 2. Recent history of influenza type A. 3. Type 2 diabetes with hyperglycemia. 4. Acute hypoxic respiratory failure. 5. Coronary artery disease. 6. Pacemaker. 7. Paroxysmal atrial fibrillation. 8. Coronary artery disease. SUBJECTIVE: Doing better today, up in a chair, did mention to the nurse that if it was for his , he was not sure he would want to be around. He has had several admissions to the hospital, which has depressed him some, but he feels better today. OBJECTIVE: VITAL SIGNS: Blood pressure 125/69, pulse 60, respirations 20, temperature 98.2, pulse ox 99% on 2 liters. GENERAL: Color is good. HEENT: Tongue moist. NECK: Supple. LUNGS: Clear. CARDIOVASCULAR: Regular rhythm and rate, paced. ABDOMEN: Soft, slightly tender, little bit protuberant. EXTREMITIES: Without edema. DIAGNOSTIC STUDIES: Chest x-ray overread is pending. The pneumonia appears clear. LABORATORY DATA: Still has a slightly low white count 3.5, albumin is 2.9, which is improving. Glucose is still elevated. PLAN: We will adjust his insulin. Continue DVT prophylaxis. Continue IV antibiotics. Await the results of the chest x-ray. THAD SOSA DO DR: SHALONDA/ana maria JOB#: [id number] / [id number]
[2017-06-17 05:38] VITALS: BP 112/57
[2017-06-17] MEDS: IPRATRPIUM/ALBUTEROL 0.5/2.5MG 3 ML NEBU. NEB SCH ×4 (05:51→20:34)
[2017-06-17] MEDS: PIPERACILLIN/TAZO IV Push 3.375 GM VIAL. IVP SCH ×3 (06:07→21:03)
[2017-06-17 07:04] LABS: BASO % 1 % (0-3); EOS # 0.1 x10^3/uL (0.0-0.7); EOS % 3 % (0-3); HEMATOCRIT 40.9 % (39.0-53.0); HEMOGLOBIN 13.7 g/dL (13.0-17.5); LYMPH # 0.9 x10^3/uL (1.0-4.8); LYMPH % 19 % (24-48); MEAN CORPUSCULAR HEMOGLOBIN 30 pg (25-35); MEAN CORPUSCULAR HGB CONC 34 g/dL (31-37); MEAN CORPUSCULAR VOLUME 88 fL (79-100); MONO # 0.2 x10^3/uL (0.0-1.1); MONO % 4 % (0-9); NEUT # 3.4 x10^3uL (1.8-7.7); NEUT % 73 % (31-73); PLATELET COUNT 136 x10^3/uL (140-400); RED BLOOD COUNT 4.63 x10^6/uL (4.30-5.70); RED CELL DISTRIBUTION WIDTH 14.4 % (11.5-14.5); WHITE BLOOD COUNT 4.7 x10^3/uL (4.0-11.0)
[2017-06-17 07:05] LABS: ALBUMIN 3.1 g/dL (3.4-5.0); ALBUMIN/GLOBULIN RATIO 0.9 (1.0-1.7); CALCIUM 8.6 mg/dL (8.5-10.1); GFR 71.7; MAGNESIUM 1.9 mg/dL (1.8-2.4); POTASSIUM 4.4 mmol/L (3.5-5.1); TOTAL BILIRUBIN 0.5 mg/dL (0.2-1.0); TOTAL PROTEIN 6.7 g/dL (6.4-8.2)
[2017-06-17] MEDS: ASPIRIN 81 MG TAB.CHEW PO SCH (08:06)
[2017-06-17] MEDS: LACTOBACILLUS RHAMNOSUS GG 1 CAPSULE. PO SCH ×2 (08:07→20:57)
[2017-06-17] MEDS: GABAPENTIN 300 MG CAPSULE. PO SCH ×3 (08:07→20:58)
[2017-06-17] MEDS: SIMVASTATIN 10 MG TABLET PO SCH (08:07)
[2017-06-17] MEDS: CHOLECALCIFEROL (VITAMIN D3) 1,000 UNIT TABLET PO SCH (08:07)
[2017-06-17] MEDS: PANTOPRAZOLE 40 MG TABLET. PO SCH (08:07)
[2017-06-17] MEDS: DICYCLOMINE HCL 10 MG CAPSULE PO SCH ×4 (08:07→20:57)
[2017-06-17] MEDS: DONEPEZIL HCL 10 MG TABLET PO SCH (08:08)
[2017-06-17] MEDS: LISINOPRIL 10 MG TABLET PO SCH (08:08)
[2017-06-17] MEDS: MEMANTINE 10 MG TABLET. PO SCH ×2 (08:10→20:58)
[2017-06-17] MEDS: INSULIN ASPART 300 UNITS/3 ML INSULN.PEN SQ SCH ×3 (08:18→17:17)
--- NOTE | 2017-06-17 09:03 | NUR ---
SW met with pt to discuss options at discharge and barriers to discharge. Pt is a 81 year old male who is and lives at home with his , daughter, granddaughter, great-grandchildren ages 4,3, and 4 months. Pt states he his daughter has lived with them for the past 6 years and that they have raised their granddaughter since she was about 7 years old. Pt states he has been for 50 years and him and his have a great relationship. Pt reports his daughter and grand daughter do not do much around the house and that his is the main caregiver for everyone. Pt is concerned about his as her mother is ill and currently on hospice services. Pt reports she has been going to see her and then coming to see him daily and he fears it has been taking a toll on her. Pt states he has not had home health prior and stated he doesn't want it, as he will not be forced to stay at home. Pt stated he has two sons who visit daily and would help him out if needed. Pt has a walker at home, states he only uses it on bad days, but uses a cane daily. Pt does not have oxygen at home, stated he has only used it in the hospital. Pt reports he has support system through his sons, he states they have enough income to cover all of the bills coming in with extra left over each month.
--- NOTE | 2017-06-17 09:41 | RAD ---
Dysphagia study Indication: Pneumonia. Abnormal findings on bedside swallow study. Technique: Fluoroscopy-guided video swallow study. The study was performed by speech pathologist with radiologist present. Comparison: None Findings: Transient Aspiration was observed with thin liquids. Occasional penetration was observed with thin liquids likely from piriform sinus residual. The honey thick and solid consistencies demonstrated no aspiration or penetration. Impression: As above. Please see notes by speech pathologist in patient chart for full information.
[2017-06-17] MEDS: CHOLESTYRAMINE/ASPARTAME 4 GM PACKET PO SCH (10:13)
[2017-06-17] MEDS: ENOXAPARIN 40 MG/0.4 ML DISP.SYRIN. SQ SCH (10:13)
--- NOTE | 2017-06-17 10:53 | NUR ---
Videoswallow Evaluation completed. Impressions: Moderate oropharyngeal dysphagia w/ frequent deep penetration and/or aspiration of thin liquids r/t delayed swallow initiation, decreased hyolaryngeal excursion and decreased airway protection. Aspiration of thin liquids frequently occurred from pyriform sinus residue of thin liquids prior to and during swallow. No aspiration was observed w/ honey thick liquids, puree and solids. Diet modification and swallow strategies appear to eliminate aspiration. Recommendations: 1. Dysphagia III diet w/ honey thick liquids, NO straws 2. ST f/u for dysphagia 3. Swallow strategies posted in room, education w/ pt and RN 4. Home health or out pt dysphagia therapy at discharge
[2017-06-17 11:17] VITALS: BP 109/59
[2017-06-17 15:32] VITALS: BP 127/67
--- NOTE | 2017-06-17 17:46 | PDOC ---
Exam Note: Wes Note: Please also refer to the separate dictated note~for this date of service dictated separately.~Patient seen individually. Discussed the patient with Nursing staff reviewed the chart.~Reviewed interim history and current functioning. Reviewed vital signs,~Labs/ Radiology~and current medications noted below. Continue current treatment with the changes noted in the dictated addendum note Assessment: Vital Signs: Vital Signs Date Time Temp Pulse Resp B/P (MAP) Pulse Ox O2 Delivery O2 Flow Rate FiO2 06/17/17 16:04 96 Nasal Cannula 2.0 06/17/17 15:32 97.8 61 20 127/67 (87) I&O Intake and Output 06/17/17 07:00 Intake Total 1895 ml Balance 1895 ml Intake Oral 1445 ml IV Total 450 ml # Voids 3 Labs: Laboratory Tests Test 06/16/17 20:16 06/17/17 06:14 06/17/17 07:33 06/17/17 11:32 Glucose (Fingerstick) 109 mg/dL (70-99) H 300 mg/dL (70-99) H 312 mg/dL (70-99) H White Blood Count 4.7 x10^3/uL (4.0-11.0) Red Blood Count 4.63 x10^6/uL (4.30-5.70) Hemoglobin 13.7 g/dL (13.0-17.5) Hematocrit 40.9 % (39.0-53.0) Mean Corpuscular Volume 88 fL (79-100) Mean Corpuscular Hemoglobin 30 pg (25-35) Mean Corpuscular Hemoglobin Concent 34 g/dL (31-37) Red Cell Distribution Width 14.4 % (11.5-14.5) Platelet Count 136 x10^3/uL (140-400) L Neutrophils (%) (Auto) 73 % (31-73) Lymphocytes (%) (Auto) 19 % (24-48) L Monocytes (%) (Auto) 4 % (0-9) Eosinophils (%) (Auto) 3 % (0-3) Basophils (%) (Auto) 1 % (0-3) Neutrophils # (Auto) 3.4 x10^3uL (1.8-7.7) Lymphocytes # (Auto) 0.9 x10^3/uL (1.0-4.8) L Monocytes # (Auto) 0.2 x10^3/uL (0.0-1.1) Eosinophils # (Auto) 0.1 x10^3/uL (0.0-0.7) Basophils # (Auto) 0.0 x10^3/uL (0.0-0.2) Sodium Level 141 mmol/L (136-145) Potassium Level 4.4 mmol/L (3.5-5.1) Chloride Level 103 mmol/L (98-107) Carbon Dioxide Level 30 mmol/L (21-32) Anion Gap 8 (6-14) Blood Urea Nitrogen 9 mg/dL (8-26) Creatinine 1.0 mg/dL (0.7-1.3) Estimated GFR (Cockcroft-Gault) 71.7 BUN/Creatinine Ratio 9 (6-20) Glucose Level 249 mg/dL (70-99) H Calcium Level 8.6 mg/dL (8.5-10.1) Magnesium Level 1.9 mg/dL (1.8-2.4) Total Bilirubin 0.5 mg/dL (0.2-1.0) # Aspartate Amino Transferase (AST) 17 U/L (15-37) Alanine Aminotransferase (ALT) 19 U/L (16-63) Alkaline Phosphatase 70 U/L (46-116) Total Protein 6.7 g/dL (6.4-8.2) Albumin 3.1 g/dL (3.4-5.0) L Albumin/Globulin Ratio 0.9 (1.0-1.7) L Test 06/17/17 16:24 Glucose (Fingerstick) 317 mg/dL (70-99) H Current Medications: Meds: Current Medications Insulin Aspart (NovoLOG) 6 units TIDAC SQ ; Start 06/14/17 at 16:40; Stop at 17:34; Status DC Insulin Detemir (Levemir) 40 units QHS SQ ; Start 06/14/17 at 21:00; Stop at 21:00; Status DC Linezolid 300 ml @ 300 mls/hr Q12H IV Last administered on 06/17/17at 06:07; Start 06/14/17 at 18:00 Piperacillin Sod/ Tazobactam Sod 3.375 gm/Sodium Chloride 50 ml @ 100 mls/hr Q8HRS IV ; Start 06/14/17 at 22:00; Status UNV Levofloxacin/ Dextrose 100 ml @ 100 mls/hr Q24H IV Last administered on at 17:37; Start 06/14/17 at 17:00 Piperacillin Sod/ Tazobactam Sod (Zosyn) 3.375 gm Q8HRS IVP Last administered on 06/17/17at 14:53; Start 06/14/17 at 22:00 Aspirin (Children'S Aspirin) 81 mg DAILY PO Last administered on 06/17/17 08: 06; Start 06/15/17 at 09:00 Vitamin D (Vitamin D3) 1,000 unit DAILY PO Last administered on 06/17/17at 08:07 ; Start 06/15/17 at 09:00 Dicyclomine HCl (Bentyl) 10 mg QIDACHS PO Last administered on 06/17/17at 17:15 ; Start 06/14/17 at 21:00 Gabapentin (Neurontin) 300 mg TID PO Last administered on 06/17/17at 14:53; Start 06/14/17 at 21:00 Lisinopril (Prinivil) 10 mg DAILY PO Last administered on 06/17/17at 08:08; Start 06/15/17 at 09:00 Ondansetron HCl (Zofran Odt) 4 mg PRN Q8HRS PRN PO NAUSEA; Start 06/14/17 at 16: 45 Simvastatin (Zocor) 10 mg DAILY PO Last administered on 06/17/17at 08:07; Start 06/15/17 at 09:00 Non-Formulary Medication 2 puff PRN Q6HRS PRN IH WHEEZING; Start 06/14/17 at 16: 45; Status UNV Cholestyramine Resin (Questran Light) 4 gm DAILY PO Last administered on at 10:13; Start 06/15/17 at 09:00 Non-Formulary Medication 1 each DAILY PO ; Start 06/15/17 at 09:00; Status UNV Pantoprazole Sodium (Protonix) 40 mg DAILY PO Last administered on 06/17/17at 08 :07; Start 06/15/17 at 09:00 Lactobacillus Rhamnosus (Culturelle) 1 cap BID PO Last administered on at 08:07; Start 06/14/17 at 21:00 Albuterol Sulfate (Ventolin) 2.5 mg PRN Q6HRS PRN NEB WHEEZING; Start 06/14/17 at 16:45; Stop 06/14/17 at 16:53; Status DC Acetaminophen (Tylenol) 650 mg PRN Q4HRS PRN PO PAIN / TEMP; Start 06/14/17 at 16:45 Albuterol Sulfate (Ventolin) 2.5 mg PRN Q2HR PRN NEB SHORTNESS OF BREATH; Start 06/14/17 at 16:45 Dextrose 12.5 gm PRN Q15MIN PRN IV SEE COMMENTS; Start 06/14/17 at 16:45 Enoxaparin Sodium (Lovenox) 40 mg Q24H SQ Last administered on 06/17/17at 10:13 ; Start 06/15/17 at 10:00 Albuterol/ Ipratropium (Duoneb) 3 ml RTQID NEB Last administered on 06/17/17at 16:04; Start 06/14/17 at 20:00 Lactobacillus Rhamnosus (Culturelle) 1 cap BID PO ; Start 06/14/17 at 21:00; Status UNV Donepezil HCl (Aricept) 10 mg DAILY PO Last administered on 06/17/17at 08:08; Start 06/15/17 at 09:00 Memantine (Namenda) 10 mg BID PO Last administered on 06/17/17at 08:10; Start at 21:00 Insulin Aspart (NovoLOG) 16 units TIDAC SQ ; Start 06/14/17 at 17:30; Stop at 17:37; Status DC Insulin Detemir (Levemir) 30 units QHS SQ Last administered on 06/16/17at 21:16; Start 06/14/17 at 21:00; Stop 06/17/17 at 14:30; Status DC Insulin Aspart (NovoLOG) 15 units TIDAC SQ Last administered on 06/16/17at 07:50 ; Start 06/15/17 at 07:30; Stop 06/16/17 at 08:45; Status DC Insulin Aspart (NovoLOG) 18 units TIDAC SQ Last administered on 06/17/17at 12:44 ; Start 06/16/17 at 11:30; Stop 06/17/17 at 14:30; Status DC Insulin Aspart (NovoLOG) 20 units TIDAC SQ Last administered on 06/17/17at 17:17 ; Start 06/17/17 at 16:30 Insulin Detemir (Levemir) 35 units QHS SQ ; Start 06/17/17 at 21:00 Active Scripts Active Reported Simvastatin 10 Mg Tablet 10 Mg PO DAILY LAST DOSE GIVEN: DATE:TODAY TIME:AM NEXT DOSE DUE: DATE:TOMORROW TIME:AM Ondansetron Odt (Ondansetron) 4 Mg Tab.rapdis 4 Mg PO PRN Q8HRS PRN NOT GIVEN TODAY IN HOSPITAL. NEXT DOSE DUE: DATE:TODAY TIME:IF AND WHEN NEEDED Omeprazole 40 Mg Capsule.dr 40 Mg PO DAILY LAST DOSE GIVEN: DATE:TODAY TIME:AM NEXT DOSE DUE: DATE:TOMORROW TIME:AM Namzaric 28 mg-10 mg Capsule (Memantine HCl/Donepezil HCl) 1 Each Cap.spr.24 1 Each PO DAILY LAST DOSE GIVEN: DATE:TODAY TIME:AM NEXT DOSE DUE: DATE:TOMORROW TIME:AM Lisinopril 10 Mg Tablet 10 Mg PO DAILY LAST DOSE GIVEN: DATE:TODAY TIME:AM NEXT DOSE DUE: DATE:TOMORROW TIME:AM Gabapentin 300 Mg Capsule 300 Mg PO TID LAST DOSE GIVEN: DATE:TODAY TIME:AFTERNOON NEXT DOSE DUE: DATE:TONIGHT TIME:BEDTIME Dicyclomine Hcl 10 Mg Capsule 10 Mg PO QIDACHS LAST DOSE GIVEN: DATE:TODAY TIME:LUNCH NEXT DOSE DUE: DATE:TONIGHT TIME:DINNER Cholestyramine Packet (Cholestyramine (With Sugar)) 4 Gm Powd.pack 4 Gm PO DAILY LAST DOSE GIVEN: DATE:TODAY TIME:AM NEXT DOSE DUE: DATE:TOMORROW TIME:AM Vitamin D3 (Cholecalciferol (Vitamin D3)) 1,000 Unit Tablet 1,000 Unit PO DAILY LAST DOSE GIVEN: DATE:TODAY TIME:AM NEXT DOSE DUE: DATE:TOMORROW TIME:AM Aspirin 81 Mg Tab.chew 81 Mg PO DAILY LAST DOSE GIVEN: DATE:TODAY TIME:AM NEXT DOSE DUE: DATE:TOMORROW TIME:AM Proair Respiclick (Albuterol Sulfate) 90 Mcg Aer.pow.ba 2 Puff IH PRN Q6HRS PRN NOT GIVEN IN THE HOSPITAL NEXT DOSE DUE: DATE:TODAY IF AND WHEN NEEDED I have reviewed the current psychotropics carefully including drug interactions. Risk benefit ratio favors no change other than as noted in my dictated progress note. Diagnosis: Problems: (1) Major depressive disorder, recurrent episode (2) Anxiety disorder BHAKTI SHIRLEY MD Jun 17, 2017 17:46
[2017-06-17 19:42] VITALS: BP 141/67
[2017-06-17] MEDS ORDERED: INSULIN DETEMIR 300 UNITS/3 ML INSULN.PEN. SQ SCH (21:00)
[2017-06-17] MEDS ORDERED: INSULIN ASPART 300 UNITS/3 ML INSULN.PEN SQ ONE (21:00)
--- NOTE | 2017-06-18 04:22 | CONS ---
DATE OF CONSULTATION: 06/16/2017 PSYCHIATRIC CONSULTAION This late entry, date of service, 06/16/2017 covers elements not covered in my initial note 06/16/2017. The patient was seen individually evening of 06/16/2017. Discussed with nursing staff, reviewed the chart. IDENTIFYING DATA: The patient is an 81-year-old male seen in bed [address] [facility] for a psychiatric consult requested by Dr. Nuñez on account of the patient's symptoms of depression, worsening anxiety, and "tired of being sick." Reportedly, the patient has been hospitalized several times over the past 2 or 3 months with repeated episodes of pneumonia and he has expressed helplessness, frustration with his medical condition, made vague statements of giving up on life, but no active suicidal ideation. I have been asked to consult from a psychiatric standpoint. CHIEF COMPLAINT: "No, I am not depressed. I get frustrated with getting sick again and again, and having to come to the hospital." HISTORY OF PRESENT ILLNESS: Reportedly, the patient admits to repeated hospitalizations for his pneumonia and feels somewhat despondent about this, but denies that he is depressed. No suicidal or homicidal ideation. He has grandchildren in the home. Reportedly, they get sick and he falls sick thereafter fairly quickly. No symptoms of bipolar disorder. Cognitively, he is reasonably intact. PAST PSYCHIATRIC HISTORY: As above. MEDICAL HISTORY: CHF, aspiration pneumonia, community-acquired pneumonia, history of influenza, irritable bowel, diabetes mellitus, pacemaker, coronary artery disease, mild thrombocytopenia, hyperlipidemia. ALLERGIES: BEE STINGS. CURRENT MEDICATIONS: Electronic medical record was reviewed from a psychiatric standpoint. The patient is on Aricept 10 mg a day, Namenda 10 mg b.i.d. DRUG ALLERGIES: Negative. CODE STATUS: DNR. FAMILY HISTORY: Noncontributory. SOCIAL HISTORY: No alcohol or drug abuse history noted. MENTAL STATUS EXAMINATION: The patient was seen individually evening of 06/16/2017. He is reasonably oriented. Speech has some latency, coherent, often responses monosyllabic, somewhat defensive when questioned about being depressed, minimizes memory problems, but does have short-term memory deficits. Intellect average. Insight fair. Judgment intact to standard questioning. Mood is somewhat dysphoric, though he minimizes this. Affect is mood congruent. LABORATORIES: Reviewed. IMPRESSION: Adjustment disorder with depressed mood versus major depressive disorder, cognitive disorder; unspecified. Rest as above. PLAN: I had a lengthy discussion with the patient about treatment options. Consideration of starting an antidepressant, but he is not wanting any specific treatment as he minimizes his depressive symptoms. I would be happy to follow the patient from a psychiatric standpoint while he is here and if symptoms worsen, we will reassess. Dr. Nuñez, thank you for the opportunity to participate in your patient's care. We will follow with you. MAN Jayce SHIRLEY MD DR: JW/ana maria JOB#: [id number] / [id number]
[2017-06-18] MEDS: IPRATRPIUM/ALBUTEROL 0.5/2.5MG 3 ML NEBU. NEB SCH ×4 (05:23→20:49)
[2017-06-18] MEDS: PIPERACILLIN/TAZO IV Push 3.375 GM VIAL. IVP SCH ×3 (05:23→21:53)
[2017-06-18 06:01] VITALS: BP 110/57
--- NOTE | 2017-06-18 06:29 | PN ---
DATE: 06/17/2017 CURRENT PROBLEMS: 1. Hospital-acquired pneumonia, aspiration. 2. Recent history of influenza type A. 3. Type 2 diabetes with hyperglycemia. 4. Acute hypoxic respiratory failure. 5. Coronary artery disease. 6. Pacemaker. 7. Paroxysmal atrial fibrillation. 8. Abnormal video swallow showing transient aspiration with occasional penetration with thin liquids. SUBJECTIVE: The patient is doing a little bit better today, but speech therapist reviewed his findings and the new diet. He had a lot of questions, especially if he would have to have thickened water as well, which he does. He is close to being ready to go home. I do hear him coughing in there sometimes where he is getting adequate rest. PT and OT is working with him. OBJECTIVE: VITAL SIGNS: Blood pressure 101/59, pulse 65, respirations 20, pulse ox 96% on room air, temperature 97.4. GENERAL: Slightly hard of hearing. Color is better. HEENT: Throat is clear. LUNGS: With few crackles in the bases. CARDIOVASCULAR: Regular rhythm and rate. ABDOMEN: Soft, nontender. EXTREMITIES: Without edema. LABORATORY DATA: White count coming back with 4.7, platelet count 136,000. Chemistry: Glucose is still quite, fasting today was 300. PLAN: Continue to adjust his insulin, now will be on honey thickened liquids that was explained to him and we will start planning for discharge. THAD SOSA DO DR: SHALONDA/ana maria JOB#: [id number] / [id number]
[2017-06-18] MEDS: CHOLECALCIFEROL (VITAMIN D3) 1,000 UNIT TABLET PO SCH (08:12)
[2017-06-18] MEDS: DICYCLOMINE HCL 10 MG CAPSULE PO SCH ×4 (08:12→20:12)
[2017-06-18] MEDS: LACTOBACILLUS RHAMNOSUS GG 1 CAPSULE. PO SCH ×2 (08:12→20:12)
[2017-06-18] MEDS: PANTOPRAZOLE 40 MG TABLET. PO SCH (08:13)
[2017-06-18] MEDS: SIMVASTATIN 10 MG TABLET PO SCH (08:13)
[2017-06-18] MEDS: LISINOPRIL 10 MG TABLET PO SCH (08:13)
[2017-06-18] MEDS: ASPIRIN 81 MG TAB.CHEW PO SCH (08:14)
[2017-06-18] MEDS: MEMANTINE 10 MG TABLET. PO SCH ×2 (08:14→20:12)
[2017-06-18] MEDS: DONEPEZIL HCL 10 MG TABLET PO SCH (08:14)
[2017-06-18] MEDS: INSULIN ASPART 300 UNITS/3 ML INSULN.PEN SQ SCH ×3 (08:16→16:30)
[2017-06-18] MEDS: GABAPENTIN 300 MG CAPSULE. PO SCH ×3 (08:18→20:12)
[2017-06-18] MEDS: CHOLESTYRAMINE/ASPARTAME 4 GM PACKET PO SCH (10:07)
[2017-06-18] MEDS: ENOXAPARIN 40 MG/0.4 ML DISP.SYRIN. SQ SCH (10:10)
--- NOTE | 2017-06-18 10:16 | PDOC ---
SUBJECTIVE: Doing better today. Started on this dysphagia 3 diet. He has lots of questions regarding this diet. Hopefully this will help him not have recurrent aspiration pneumonia. This was explained to him. He was ambulated in the [facility] by physical therapy and maintained his sat at 91-92%. OBJECTIVE: Problems: CURRENT PROBLEMS: 1. Hospital-acquired pneumonia, aspiration. 2. Recent history of influenza type A. 3. Type 2 diabetes with hyperglycemia. 4. Acute hypoxic respiratory failure. 5. Coronary artery disease. 6. Pacemaker. 7. Paroxysmal atrial fibrillation. 8. Abnormal video swallow showing transient aspiration with occasional penetration with thin liquids. Vital Signs: Vital Signs Date Time Temp Pulse Resp B/P (MAP) Pulse Ox O2 Delivery O2 Flow Rate FiO2 06/18/17 08:13 62 110/57 06/18/17 06:01 97.8 16 95 Room Air 2.5 I & O Intake and Output 06/18/17 07:00 Intake Total 1174.6 ml Balance 1174.6 ml Intake Oral 480 ml IV Total 694.6 ml # Voids 3 Labs: Laboratory Tests Test 06/16/17 11:35 06/16/17 16:41 06/16/17 20:16 06/17/17 06:14 Glucose (Fingerstick) 376 mg/dL (70-99) 262 mg/dL (70-99) 109 mg/dL (70-99) White Blood Count 4.7 x10^3/uL (4.0-11.0) Red Blood Count 4.63 x10^6/uL (4.30-5.70) Hemoglobin 13.7 g/dL (13.0-17.5) Hematocrit 40.9 % (39.0-53.0) Mean Corpuscular Volume 88 fL (79-100) Mean Corpuscular Hemoglobin 30 pg (25-35) Mean Corpuscular Hemoglobin Concent 34 g/dL (31-37) Red Cell Distribution Width 14.4 % (11.5-14.5) Platelet Count 136 x10^3/uL (140-400) Neutrophils (%) (Auto) 73 % (31-73) Lymphocytes (%) (Auto) 19 % (24-48) Monocytes (%) (Auto) 4 % (0-9) Eosinophils (%) (Auto) 3 % (0-3) Basophils (%) (Auto) 1 % (0-3) Neutrophils # (Auto) 3.4 x10^3uL (1.8-7.7) Lymphocytes # (Auto) 0.9 x10^3/uL (1.0-4.8) Monocytes # (Auto) 0.2 x10^3/uL (0.0-1.1) Eosinophils # (Auto) 0.1 x10^3/uL (0.0-0.7) Basophils # (Auto) 0.0 x10^3/uL (0.0-0.2) Sodium Level 141 mmol/L (136-145) Potassium Level 4.4 mmol/L (3.5-5.1) Chloride Level 103 mmol/L (98-107) Carbon Dioxide Level 30 mmol/L (21-32) Anion Gap 8 (6-14) Blood Urea Nitrogen 9 mg/dL (8-26) Creatinine 1.0 mg/dL (0.7-1.3) Estimated GFR (Cockcroft-Gault) 71.7 BUN/Creatinine Ratio 9 (6-20) Glucose Level 249 mg/dL (70-99) Calcium Level 8.6 mg/dL (8.5-10.1) Magnesium Level 1.9 mg/dL (1.8-2.4) Total Bilirubin 0.5 mg/dL (0.2-1.0) Aspartate Amino Transf (AST/SGOT) 17 U/L (15-37) Alanine Aminotransferase (ALT/SGPT) 19 U/L (16-63) Alkaline Phosphatase 70 U/L (46-116) Total Protein 6.7 g/dL (6.4-8.2) Albumin 3.1 g/dL (3.4-5.0) Albumin/Globulin Ratio 0.9 (1.0-1.7) Test 06/17/17 07:33 06/17/17 11:32 06/17/17 16:24 06/17/17 19:47 Glucose (Fingerstick) 300 mg/dL (70-99) 312 mg/dL (70-99) 317 mg/dL (70-99) 421 mg/dL (70-99) Test 06/18/17 07:37 Glucose (Fingerstick) 242 mg/dL (70-99) Physical Exam: Color is good HEENT tongue is moist throat is clear Lungs clear to auscultation: No cough this morning Cardiovascular: Regular rhythm and rate Extremities without edema ASSESSMENT: CURRENT PROBLEMS: 1. Hospital-acquired pneumonia, aspiration. 2. Recent history of influenza type A. 3. Type 2 diabetes with hyperglycemia. 4. Acute hypoxic respiratory failure. 5. Coronary artery disease. 6. Pacemaker. 7. Paroxysmal atrial fibrillation. 8. Abnormal video swallow showing transient aspiration with occasional penetration with thin liquids. PLAN: Transition to po antibiotics. PT and OT. Will do 6 minute walk tomorrow. THAD SOSA DO Jun 18, 2017 10:16
[2017-06-18 11:18] VITALS: BP 117/64
--- NOTE | 2017-06-18 11:24 | PDOC ---
Exam Note: Wes Note: Please also refer to the separate dictated note~for this date of service dictated separately.~Patient seen individually. Discussed the patient with Nursing staff reviewed the chart.~Reviewed interim history and current functioning. Reviewed vital signs,~Labs/ Radiology~and current medications noted below. Continue current treatment with the changes noted in the dictated addendum note Assessment: Vital Signs: Vital Signs Date Time Temp Pulse Resp B/P (MAP) Pulse Ox O2 Delivery O2 Flow Rate FiO2 06/18/17 11:18 97.5 62 18 117/64 (81) 93 Room Air 2.5 I&O Intake and Output 06/18/17 06:59 Intake Total 1174.6 ml Balance 1174.6 ml Intake Oral 480 ml IV Total 694.6 ml # Voids 3 Labs: Laboratory Tests Test 06/17/17 11:32 06/17/17 16:24 06/17/17 19:47 06/18/17 07:37 Glucose (Fingerstick) 312 mg/dL (70-99) H 317 mg/dL (70-99) H 421 mg/dL (70-99) H 242 mg/dL (70-99) H Current Medications: Meds: Current Medications Insulin Aspart (NovoLOG) 6 units TIDAC SQ ; Start 06/14/17 at 16:40; Stop at 17:34; Status DC Insulin Detemir (Levemir) 40 units QHS SQ ; Start 06/14/17 at 21:00; Stop at 21:00; Status DC Linezolid 300 ml @ 300 mls/hr Q12H IV Last administered on 06/18/17at 05:24; Start 06/14/17 at 18:00 Piperacillin Sod/ Tazobactam Sod 3.375 gm/Sodium Chloride 50 ml @ 100 mls/hr Q8HRS IV ; Start 06/14/17 at 22:00; Status UNV Levofloxacin/ Dextrose 100 ml @ 100 mls/hr Q24H IV Last administered on at 17:37; Start 06/14/17 at 17:00 Piperacillin Sod/ Tazobactam Sod (Zosyn) 3.375 gm Q8HRS IVP Last administered on 06/18/17at 05:23; Start 06/14/17 at 22:00 Aspirin (Children'S Aspirin) 81 mg DAILY PO Last administered on 06/18/17at 08: 14; Start 06/15/17 at 09:00 Vitamin D (Vitamin D3) 1,000 unit DAILY PO Last administered on 06/18/17at 08:12 ; Start 06/15/17 at 09:00 Dicyclomine HCl (Bentyl) 10 mg QIDACHS PO Last administered on 06/18/17at 08:12 ; Start 06/14/17 at 21:00 Gabapentin (Neurontin) 300 mg TID PO Last administered on 06/18/17at 08:18; Start 06/14/17 at 21:00 Lisinopril (Prinivil) 10 mg DAILY PO Last administered on 06/18/17at 08:13; Start 06/15/17 at 09:00 Ondansetron HCl (Zofran Odt) 4 mg PRN Q8HRS PRN PO NAUSEA; Start 06/14/17 at 16: 45 Simvastatin (Zocor) 10 mg DAILY PO Last administered on 06/18/17at 08:13; Start 06/15/17 at 09:00 Non-Formulary Medication 2 puff PRN Q6HRS PRN IH WHEEZING; Start 06/14/17 at 16: 45; Status UNV Cholestyramine Resin (Questran Light) 4 gm DAILY PO Last administered on at 10:07; Start 06/15/17 at 09:00 Non-Formulary Medication 1 each DAILY PO ; Start 06/15/17 at 09:00; Status UNV Pantoprazole Sodium (Protonix) 40 mg DAILY PO Last administered on 06/18/17at 08 :13; Start 06/15/17 at 09:00 Lactobacillus Rhamnosus (Culturelle) 1 cap BID PO Last administered on at 08:12; Start 06/14/17 at 21:00 Albuterol Sulfate (Ventolin) 2.5 mg PRN Q6HRS PRN NEB WHEEZING; Start 06/14/17 at 16:45; Stop 06/14/17 at 16:53; Status DC Acetaminophen (Tylenol) 650 mg PRN Q4HRS PRN PO PAIN / TEMP; Start 06/14/17 at 16:45 Albuterol Sulfate (Ventolin) 2.5 mg PRN Q2HR PRN NEB SHORTNESS OF BREATH; Start 06/14/17 at 16:45 Dextrose 12.5 gm PRN Q15MIN PRN IV SEE COMMENTS; Start 06/14/17 at 16:45 Enoxaparin Sodium (Lovenox) 40 mg Q24H SQ Last administered on 06/18/17at 10:10 ; Start 06/15/17 at 10:00 Albuterol/ Ipratropium (Duoneb) 3 ml RTQID NEB Last administered on 06/18/17at 05:23; Start 06/14/17 at 20:00 Lactobacillus Rhamnosus (Culturelle) 1 cap BID PO ; Start 06/14/17 at 21:00; Status UNV Donepezil HCl (Aricept) 10 mg DAILY PO Last administered on 06/18/17at 08:14; Start 06/15/17 at 09:00 Memantine (Namenda) 10 mg BID PO Last administered on 06/18/17at 08:14; Start at 21:00 Insulin Aspart (NovoLOG) 16 units TIDAC SQ ; Start 06/14/17 at 17:30; Stop at 17:37; Status DC Insulin Detemir (Levemir) 30 units QHS SQ Last administered on 06/16/17at 21:16; Start 06/14/17 at 21:00; Stop 06/17/17 at 14:30; Status DC Insulin Aspart (NovoLOG) 15 units TIDAC SQ Last administered on 06/16/17at 07:50 ; Start 06/15/17 at 07:30; Stop 06/16/17 at 08:45; Status DC Insulin Aspart (NovoLOG) 18 units TIDAC SQ Last administered on 06/17/17at 12:44 ; Start 06/16/17 at 11:30; Stop 06/17/17 at 14:30; Status DC Insulin Aspart (NovoLOG) 20 units TIDAC SQ Last administered on 06/18/17at 08:16 ; Start 06/17/17 at 16:30; Stop 06/18/17 at 10:12; Status DC Insulin Detemir (Levemir) 35 units QHS SQ Last administered on 06/17/17at 21:05 ; Start 06/17/17 at 21:00; Stop 06/18/17 at 10:12; Status DC Insulin Aspart (NovoLOG) 15 units 1X ONCE SQ Last administered on 06/17/17at 21 :01; Start 06/17/17 at 21:00; Stop 06/17/17 at 21:01; Status DC Insulin Aspart (NovoLOG) 24 units TIDAC SQ ; Start 06/18/17 at 11:30 Insulin Detemir (Levemir) 37 units QHS SQ ; Start 06/18/17 at 21:00 Active Scripts Active Reported Simvastatin 10 Mg Tablet 10 Mg PO DAILY LAST DOSE GIVEN: DATE:TODAY TIME:AM NEXT DOSE DUE: DATE:TOMORROW TIME:AM Ondansetron Odt (Ondansetron) 4 Mg Tab.rapdis 4 Mg PO PRN Q8HRS PRN NOT GIVEN TODAY IN HOSPITAL. NEXT DOSE DUE: DATE:TODAY TIME:IF AND WHEN NEEDED Omeprazole 40 Mg Capsule.dr 40 Mg PO DAILY LAST DOSE GIVEN: DATE:TODAY TIME:AM NEXT DOSE DUE: DATE:TOMORROW TIME:AM Namzaric 28 mg-10 mg Capsule (Memantine HCl/Donepezil HCl) 1 Each Cap.spr.24 1 Each PO DAILY LAST DOSE GIVEN: DATE:TODAY TIME:AM NEXT DOSE DUE: DATE:TOMORR TIME:AM Lisinopril 10 Mg Tablet 10 Mg PO DAILY LAST DOSE GIVEN: DATE:TODAY TIME:AM NEXT DOSE DUE: DATE:TOMORROW TIME:AM Gabapentin 300 Mg Capsule 300 Mg PO TID LAST DOSE GIVEN: DATE:TODAY TIME:AFTERNOON NEXT DOSE DUE: DATE:TONIGHT TIME:BEDTIME Dicyclomine Hcl 10 Mg Capsule 10 Mg PO QIDACHS LAST DOSE GIVEN: DATE:TODAY TIME:LUNCH NEXT DOSE DUE: DATE:TONIGHT TIME:DINNER Cholestyramine Packet (Cholestyramine (With Sugar)) 4 Gm Powd.pack 4 Gm PO DAILY LAST DOSE GIVEN: DATE:TODAY TIME:AM NEXT DOSE DUE: DATE:TOMORROW TIME:AM Vitamin D3 (Cholecalciferol (Vitamin D3)) 1,000 Unit Tablet 1,000 Unit PO DAILY LAST DOSE GIVEN: DATE:TODAY TIME:AM NEXT DOSE DUE: DATE:TOMORROW TIME:AM Aspirin 81 Mg Tab.chew 81 Mg PO DAILY LAST DOSE GIVEN: DATE:TODAY TIME:AM NEXT DOSE DUE: DATE:TOMORROW TIME:AM Proair Respiclick (Albuterol Sulfate) 90 Mcg Aer.pow.ba 2 Puff IH PRN Q6HRS PRN NOT GIVEN IN THE HOSPITAL NEXT DOSE DUE: DATE:TODAY IF AND WHEN NEEDED I have reviewed the current psychotropics carefully including drug interactions. Risk benefit ratio favors no change other than as noted in my dictated progress note. Diagnosis: Problems: (1) Major depressive disorder, recurrent episode (2) Anxiety disorder BHAKTI SHIRLEY MD Jun 18, 2017 11:24
[2017-06-18 14:22] VITALS: BP 109/61
[2017-06-18 19:28] VITALS: BP 113/63
[2017-06-18] MEDS ORDERED: INSULIN DETEMIR 300 UNITS/3 ML INSULN.PEN. SQ SCH (21:00)
[2017-06-18 23:04] VITALS: BP 137/73
--- NOTE | 2017-06-19 00:02 | NUR ---
Patient alert x4. Cooperative. Denied any pain at this time. Oxygen in place. Patient denied any shortness of breath at this time. patient observed coughing at times. Antibiotic administrated as per MD orders. Tolerated well. BS 275 MG/DL. Levemir 37 units administrated as per MD orders. Patient educated about importance of eating protein and importance of thickening water to prevent aspiration. Will continue monitoring.
[2017-06-19] MEDS: PIPERACILLIN/TAZO IV Push 3.375 GM VIAL. IVP SCH (05:46)
[2017-06-19] MEDS: IPRATRPIUM/ALBUTEROL 0.5/2.5MG 3 ML NEBU. NEB SCH ×2 (06:09→10:09)
[2017-06-19 06:11] VITALS: BP 133/74
[2017-06-19 06:48] LABS: BASO % 1 % (0-3); EOS # 0.1 x10^3/uL (0.0-0.7); EOS % 3 % (0-3); HEMATOCRIT 41.6 % (39.0-53.0); HEMOGLOBIN 13.9 g/dL (13.0-17.5); LYMPH # 0.9 x10^3/uL (1.0-4.8); LYMPH % 22 % (24-48); MEAN CORPUSCULAR HEMOGLOBIN 30 pg (25-35); MEAN CORPUSCULAR HGB CONC 34 g/dL (31-37); MEAN CORPUSCULAR VOLUME 89 fL (79-100); MONO # 0.2 x10^3/uL (0.0-1.1); MONO % 5 % (0-9); NEUT # 2.7 x10^3uL (1.8-7.7); NEUT % 69 % (31-73); PLATELET COUNT 142 x10^3/uL (140-400); RED BLOOD COUNT 4.69 x10^6/uL (4.30-5.70); RED CELL DISTRIBUTION WIDTH 14.3 % (11.5-14.5); WHITE BLOOD COUNT 3.9 x10^3/uL (4.0-11.0)
[2017-06-19 07:06] LABS: ALBUMIN/GLOBULIN RATIO 0.8 (1.0-1.7); CALCIUM 8.6 mg/dL (8.5-10.1); CREATININE 1.1 mg/dL (0.7-1.3); GFR 64.2; POTASSIUM 4.5 mmol/L (3.5-5.1); TOTAL BILIRUBIN 0.4 mg/dL (0.2-1.0); TOTAL PROTEIN 6.8 g/dL (6.4-8.2)
[2017-06-19] MEDS: CHOLECALCIFEROL (VITAMIN D3) 1,000 UNIT TABLET PO SCH (08:03)
[2017-06-19] MEDS: INSULIN ASPART 300 UNITS/3 ML INSULN.PEN SQ SCH (08:04)
[2017-06-19] MEDS: SIMVASTATIN 10 MG TABLET PO SCH (08:05)
[2017-06-19] MEDS: DICYCLOMINE HCL 10 MG CAPSULE PO SCH (08:05)
[2017-06-19] MEDS: DONEPEZIL HCL 10 MG TABLET PO SCH (08:05)
[2017-06-19 08:06] VITALS: BP 133/74
[2017-06-19] MEDS: PANTOPRAZOLE 40 MG TABLET. PO SCH (08:06)
[2017-06-19] MEDS: GABAPENTIN 300 MG CAPSULE. PO SCH (08:06)
[2017-06-19] MEDS: MEMANTINE 10 MG TABLET. PO SCH (08:06)
[2017-06-19] MEDS: LISINOPRIL 10 MG TABLET PO SCH (08:06)
[2017-06-19] MEDS: LACTOBACILLUS RHAMNOSUS GG 1 CAPSULE. PO SCH (08:06)
[2017-06-19] MEDS: ASPIRIN 81 MG TAB.CHEW PO SCH (08:06)
[2017-06-19] MEDS: ENOXAPARIN 40 MG/0.4 ML DISP.SYRIN. SQ SCH (10:00)
[2017-06-19] MEDS: CHOLESTYRAMINE/ASPARTAME 4 GM PACKET PO SCH (10:23)
--- NOTE | 2017-06-19 10:47 | NUR ---
Nursing Note: Alma held d/t pt preparing to discharge home. Discussed with Dr. Estevez.
[2017-06-19] MEDS ORDERED: LACT1CAP19 PO (11:02)
[2017-06-19] MEDS ORDERED: IPRA3AMP NEB (11:02)
[2017-06-19] MEDS ORDERED: LEVO500T59 PO (11:02)
[2017-06-19] MEDS ORDERED: INSU100I27 SQ (11:02)
[2017-06-19] MEDS ORDERED: INSU100I17 SQ (11:02)
--- NOTE | 2017-06-19 12:26 | NUR ---
Discharge Note: MURIEL GOETZ [facility] Discharge instructions and discharge home medications reviewed with PATIENT AND FAMILY and a copy given. All questions have been answered and understanding verbalized. The following instructions and handouts were given: MEDICATIONS, FOLLOW UP INSTRUCTIONS, OXYGEN INSTRUCTIONS, AND EDUCATIONAL HANDOUTS GIVEN. Discontinued lines and drains: PERIPHERAL IV DISCONTINUED WITH NO COMPLICATIONS Patient discharged to HOME with via PRIVATE FAMILY VEHICLE.
[2017-06-19] MEDS ORDERED: levoFLOXacin 500 MG TABLET PO SCH (17:00)
[2017-06-19] MEDS ORDERED: LINEZOLID 600 MG TABLET PO SCH (18:00)
--- NOTE | 2017-06-19 18:59 | PDOC3 ---
Discharge Summary Visit Information Date of Admission: Jun 14, 2017 Date of Discharge: Jun 19, 2017 Final Diagnosis MS: 1. Hospital-acquired pneumonia, aspiration. 2. Recent history of influenza type A. 3. Type 2 diabetes with hyperglycemia. 4. Acute hypoxic respiratory failure. 5. Coronary artery disease. 6. Pacemaker. 7. Paroxysmal atrial fibrillation. 8. Abnormal video swallow showing transient aspiration with occasional penetration with thin liquids. Problems: Brief Hospital Course Allergies Allergies Coded Allergies Type Severity Reaction Last Updated Verified NKMA Allergy Unknown 05/20/17 Yes Vital Signs Vital Signs Date Time Temp Pulse Resp B/P (MAP) Pulse Ox O2 Delivery O2 Flow Rate FiO2 06/19/17 10:13 93 Room Air 06/19/17 08:06 63 133/74 06/19/17 08:00 3.0 06/19/17 06:11 97.6 18 Lab Results Laboratory Tests Test 06/17/17 19:47 06/18/17 07:37 06/18/17 11:52 06/18/17 16:27 Glucose (Fingerstick) 421 mg/dL (70-99) 242 mg/dL (70-99) 260 mg/dL (70-99) 76 mg/dL (70-99) Test 06/18/17 20:57 06/19/17 06:23 06/19/17 07:42 Glucose (Fingerstick) 275 mg/dL (70-99) 309 mg/dL (70-99) White Blood Count 3.9 x10^3/uL (4.0-11.0) Red Blood Count 4.69 x10^6/uL (4.30-5.70) Hemoglobin 13.9 g/dL (13.0-17.5) Hematocrit 41.6 % (39.0-53.0) Mean Corpuscular Volume 89 fL (79-100) Mean Corpuscular Hemoglobin 30 pg (25-35) Mean Corpuscular Hemoglobin Concent 34 g/dL (31-37) Red Cell Distribution Width 14.3 % (11.5-14.5) Platelet Count 142 x10^3/uL (140-400) Neutrophils (%) (Auto) 69 % (31-73) Lymphocytes (%) (Auto) 22 % (24-48) Monocytes (%) (Auto) 5 % (0-9) Eosinophils (%) (Auto) 3 % (0-3) Basophils (%) (Auto) 1 % (0-3) Neutrophils # (Auto) 2.7 x10^3uL (1.8-7.7) Lymphocytes # (Auto) 0.9 x10^3/uL (1.0-4.8) Monocytes # (Auto) 0.2 x10^3/uL (0.0-1.1) Eosinophils # (Auto) 0.1 x10^3/uL (0.0-0.7) Basophils # (Auto) 0.0 x10^3/uL (0.0-0.2) Sodium Level 139 mmol/L (136-145) Potassium Level 4.5 mmol/L (3.5-5.1) Chloride Level 103 mmol/L (98-107) Carbon Dioxide Level 30 mmol/L (21-32) Anion Gap 6 (6-14) Blood Urea Nitrogen 11 mg/dL (8-26) Creatinine 1.1 mg/dL (0.7-1.3) Estimated GFR (Cockcroft-Gault) 64.2 BUN/Creatinine Ratio 10 (6-20) Glucose Level 337 mg/dL (70-99) Calcium Level 8.6 mg/dL (8.5-10.1) Magnesium Level 2.0 mg/dL (1.8-2.4) Total Bilirubin 0.4 mg/dL (0.2-1.0) Aspartate Amino Transf (AST/SGOT) 13 U/L (15-37) Alanine Aminotransferase (ALT/SGPT) 18 U/L (16-63) Alkaline Phosphatase 68 U/L (46-116) Total Protein 6.8 g/dL (6.4-8.2) Albumin 3.0 g/dL (3.4-5.0) Albumin/Globulin Ratio 0.8 (1.0-1.7) Brief Hospital Course Mr. Tee is a 81 old [sex] who presented with [ ] HISTORY OF PRESENT ILLNESS: This is an 81-year-old male who is on the swing bed for long term services and has been there for over a week and has been doing well except that yesterday he became a little bit hypoxic and was generally not feeling well and found to have pneumonia and admitted for pneumonia.HE WAS TREATED WITH IV ANTIBIOTICS. A VIDEO SWALLOW WAS DONE BECAUSE OF THE RECURRENT PNEUMONIA AND HE HAS TRANSIENT ASPIRATION. HE ALSO FAILED HIS 6 MINUTE WALK WITH DESATURATIONS AND WILL REQUIRE OXYGEN AT HOME. HE RECOVERED NICELY OVER THE COURSE OF SEVERAL DAYS. Discharge Information Condition at Discharge: Improved, Stable Disposition/Orders: D/C to Home w/ HH Dischare Medications Current Medications Insulin Aspart (NovoLOG) 6 units TIDAC SQ ; Start 06/14/17 at 16:40; Stop at 17:34; Status DC Insulin Detemir (Levemir) 40 units QHS SQ ; Start 06/14/17 at 21:00; Stop at 21:00; Status DC Linezolid 300 ml @ 300 mls/hr Q12H IV Last administered on 06/19/17at 05:46; Start 06/14/17 at 18:00; Stop 06/19/17 at 08:29; Status DC Piperacillin Sod/ Tazobactam Sod 3.375 gm/Sodium Chloride 50 ml @ 100 mls/hr Q8HRS IV ; Start 06/14/17 at 22:00; Status UNV Levofloxacin/ Dextrose 100 ml @ 100 mls/hr Q24H IV Last administered on at 17:03; Start 06/14/17 at 17:00; Stop 06/19/17 at 08:27; Status DC Piperacillin Sod/ Tazobactam Sod (Zosyn) 3.375 gm Q8HRS IVP Last administered on 06/19/17at 05:46; Start 06/14/17 at 22:00; Stop 06/19/17 at 12:29; Status DC Aspirin (Children'S Aspirin) 81 mg DAILY PO Last administered on 06/19/17at 08: 06; Start 06/15/17 at 09:00; Stop 06/19/17 at 12:29; Status DC Vitamin D (Vitamin D3) 1,000 unit DAILY PO Last administered on 06/19/17at 08:03 ; Start 06/15/17 at 09:00; Stop 06/19/17 at 12:29; Status DC Dicyclomine HCl (Bentyl) 10 mg QIDACHS PO Last administered on 06/19/17at 08:05 ; Start 06/14/17 at 21:00; Stop 06/19/17 at 12:29; Status DC Gabapentin (Neurontin) 300 mg TID PO Last administered on 06/19/17at 08:06; Start 06/14/17 at 21:00; Stop 06/19/17 at 12:29; Status DC Lisinopril (Prinivil) 10 mg DAILY PO Last administered on 06/19/17at 08:06; Start 06/15/17 at 09:00; Stop 06/19/17 at 12:29; Status DC Ondansetron HCl (Zofran Odt) 4 mg PRN Q8HRS PRN PO NAUSEA; Start 06/14/17 at 16: 45; Stop 06/19/17 at 12:29; Status DC Simvastatin (Zocor) 10 mg DAILY PO Last administered on 06/19/17at 08:05; Start 06/15/17 at 09:00; Stop 06/19/17 at 12:29; Status DC Non-Formulary Medication 2 puff PRN Q6HRS PRN IH WHEEZING; Start 06/14/17 at 16: 45; Status UNV Cholestyramine Resin (Questran Light) 4 gm DAILY PO Last administered on at 10:23; Start 06/15/17 at 09:00; Stop 06/19/17 at 12:29; Status DC Non-Formulary Medication 1 each DAILY PO ; Start 06/15/17 at 09:00; Status UNV Pantoprazole Sodium (Protonix) 40 mg DAILY PO Last administered on 06/19/17at 08 :06; Start 06/15/17 at 09:00; Stop 06/19/17 at 12:29; Status DC Lactobacillus Rhamnosus (Culturelle) 1 cap BID PO Last administered on at 08:06; Start 06/14/17 at 21:00; Stop 06/19/17 at 12:29; Status DC Albuterol Sulfate (Ventolin) 2.5 mg PRN Q6HRS PRN NEB WHEEZING; Start 06/14/17 at 16:45; Stop 06/14/17 at 16:53; Status DC Acetaminophen (Tylenol) 650 mg PRN Q4HRS PRN PO PAIN / TEMP; Start 06/14/17 at 16:45; Stop 06/19/17 at 12:29; Status DC Albuterol Sulfate (Ventolin) 2.5 mg PRN Q2HR PRN NEB SHORTNESS OF BREATH; Start 06/14/17 at 16:45; Stop 06/19/17 at 12:29; Status DC Dextrose 12.5 gm PRN Q15MIN PRN IV SEE COMMENTS; Start 06/14/17 at 16:45; Stop 06/19/17 at 12:29; Status DC Enoxaparin Sodium (Lovenox) 40 mg Q24H SQ Last administered on 06/18/17at 10:10 ; Start 06/15/17 at 10:00; Stop 06/19/17 at 12:29; Status DC Albuterol/ Ipratropium (Duoneb) 3 ml RTQID NEB Last administered on 06/19/17at 10:09; Start 06/14/17 at 20:00; Stop 06/19/17 at 12:29; Status DC Lactobacillus Rhamnosus (Culturelle) 1 cap BID PO ; Start 06/14/17 at 21:00; Status UNV Donepezil HCl (Aricept) 10 mg DAILY PO Last administered on 06/19/17at 08:05; Start 06/15/17 at 09:00; Stop 06/19/17 at 12:29; Status DC Memantine (Namenda) 10 mg BID PO Last administered on 06/19/17at 08:06; Start at 21:00; Stop 06/19/17 at 12:29; Status DC Insulin Aspart (NovoLOG) 16 units TIDAC SQ ; Start 06/14/17 at 17:30; Stop at 17:37; Status DC Insulin Detemir (Levemir) 30 units QHS SQ Last administered on 06/16/17at 21:16; Start 06/14/17 at 21:00; Stop 06/17/17 at 14:30; Status DC Insulin Aspart (NovoLOG) 15 units TIDAC SQ Last administered on 06/16/17at 07:50 ; Start 06/15/17 at 07:30; Stop 06/16/17 at 08:45; Status DC Insulin Aspart (NovoLOG) 18 units TIDAC SQ Last administered on 06/17/17at 12:44 ; Start 06/16/17 at 11:30; Stop 06/17/17 at 14:30; Status DC Insulin Aspart (NovoLOG) 20 units TIDAC SQ Last administered on 06/18/17at 08:16 ; Start 06/17/17 at 16:30; Stop 06/18/17 at 10:12; Status DC Insulin Detemir (Levemir) 35 units QHS SQ Last administered on 06/17/17at 21:05 ; Start 06/17/17 at 21:00; Stop 06/18/17 at 10:12; Status DC Insulin Aspart (NovoLOG) 15 units 1X ONCE SQ Last administered on 06/17/17at 21 :01; Start 06/17/17 at 21:00; Stop 06/17/17 at 21:01; Status DC Insulin Aspart (NovoLOG) 24 units TIDAC SQ Last administered on 06/19/17at 08:04 ; Start 06/18/17 at 11:30; Stop 06/19/17 at 12:29; Status DC Insulin Detemir (Levemir) 37 units QHS SQ Last administered on 06/18/17at 21:54 ; Start 06/18/17 at 21:00; Stop 06/19/17 at 12:29; Status DC Levofloxacin (Levaquin) 500 mg DAILYWSUP PO ; Start 06/19/17 at 17:00; Stop 05/25 at 17:00; Status DC Linezolid (Zyvox) 600 mg BID66 PO ; Start 06/19/17 at 18:00; Stop 06/19/17 at 18 :00; Status DC Active Scripts Active Duoneb 0.5-3(2.5) Mg/3 Ml (Albuterol/Ipratropium) 3 Ml Ampul.neb 3 Ml NEB RTBID 7 Days Levaquin (Levofloxacin) 500 Mg Tablet 500 Mg PO DAILYWSUP 7 Days Culturelle (Lactobacillus Rhamnosus Gg) 1 Each Cap.sprink 1 Cap PO BID 30 Days Levemir Flextouch (Insulin Detemir) 100 Unit/1 Ml Insuln.pen 37 Units SQ QHS 30 Days Novolog Flexpen (Insulin Aspart) 100 Unit/1 Ml Insuln.pen 24 Units SQ TIDAC 30 Days Reported Simvastatin 10 Mg Tablet 10 Mg PO DAILY LAST DOSE GIVEN: DATE: TODAY TIME: AM NEXT DOSE DUE: DATE: TOMORROW TIME: AM Ondansetron Odt (Ondansetron) 4 Mg Tab.rapdis 4 Mg PO PRN Q8HRS PRN NOT GIVEN TODAY IN HOSPITAL. NEXT DOSE DUE: DATE: TODAY TIME: IF AND WHEN NEEDED TIME:IF AND WHEN NEEDED Omeprazole 40 Mg Capsule.dr 40 Mg PO DAILY LAST DOSE GIVEN: DATE: TIME: AM NEXT DOSE DUE: DATE: TOMORROW TIME: AM Namzaric 28 mg-10 mg Capsule (Memantine HCl/Donepezil HCl) 1 Each Cap.spr.24 1 Each PO DAILY LAST DOSE GIVEN: DATE: TIME: AM NEXT DOSE DUE: DATE: TOMORROW TIME: AM Lisinopril 10 Mg Tablet 10 Mg PO DAILY LAST DOSE GIVEN: DATE: TIME: AM NEXT DOSE DUE: DATE: TOMORROW TIME: AM Gabapentin 300 Mg Capsule 300 Mg PO TID LAST DOSE GIVEN: DATE: TIME: AM NEXT DOSE DUE: DATE: TIME: AFTERNOON Dicyclomine Hcl 10 Mg Capsule 10 Mg PO QIDACHS LAST DOSE GIVEN: DATE: TIME: BREAKFAST NEXT DOSE DUE: DATE: TIME: LUNCH Cholestyramine Packet (Cholestyramine (With Sugar)) 4 Gm Powd.pack 4 Gm PO DAILY LAST DOSE GIVEN: DATE: TIME: AM NEXT DOSE DUE: DATE: ORR TIME: AM Vitamin D3 (Cholecalciferol (Vitamin D3)) 1,000 Unit Tablet 1,000 Unit PO DAILY LAST DOSE GIVEN: DATE: TIME: AM NEXT DOSE DUE: DATE: ORR TIME: AM Aspirin 81 Mg Tab.chew 81 Mg PO DAILY LAST DOSE GIVEN: DATE: TIME: AM NEXT DOSE DUE: DATE: TOMORROW TIME: AM Proair Respiclick (Albuterol Sulfate) 90 Mcg Aer.pow.ba 2 Puff IH PRN Q6HRS PRN NOT GIVEN IN THE HOSPITAL NEXT DOSE DUE: DATE: TODAY IF AND WHEN NEEDED DATE:TODAY IF AND WHEN NEEDED Patient Instructions Patient Instuctions WILL BE ON A HONEY THICKENED LIQUIDS DIET. HE WILL BE ON NEBULIZER TREATMENTS AND OXYGEN AT HOME. HE WILL BE RECEIVING HOME HEALTH. THAD SOSA DO Jun 19, 2017 18:59
--- NOTE | 2017-06-21 22:32 | PN ---
DATE: 06/17/2017 This is a late entry 06/17/2017 covers elements not covered in my initial note on 06/17/2017. SUBJECTIVE: I met with the patient evening of 06/17/2017, discussed with nursing staff. This note covers elements not covered in my initial note on 06/17/2017. Overall, the patient remains somewhat forgetful for short-term memory deficits, but otherwise pleasant. Denies being depressed. No psychotic symptoms, suicidal or homicidal ideation. He still admits to being overwhelmed with his medical condition. MENTAL STATUS EXAMINATION: Oriented to himself, situation aware of the year, and name of the hospital, able to do one step on serial sevens, able to spell world forward no error, backward 3 errors. Speech coherent, abstraction fair, computation impaired. Mood somewhat dysphoric, he minimizes this. Affect is mood is congruent. IMPRESSION: Adjustment disorder with depressed mood, major neurocognitive disorder, early Alzheimer, vascular with depression. Rest unchanged. PLAN: The patient is quite clear, he does not want any psychotropics, does not feel he is depressed. He is functioning reasonably well despite being overwhelmed by his medical condition. We processed this. We will reassess in the next day or so. BHAKTI SHIRLEY MD DR: JW/ana maria JOB#: [id number] / [id number]
--- NOTE | 2017-06-21 22:41 | PN ---
DATE: 06/18/2017 This note covers elements not covered in my initial note on 06/18/2017. SUBJECTIVE: I met with the patient morning of 06/18/2017. This note covers elements not covered in my initial note 06/18/2017. Overall, the patient is doing reasonably well. He does have short term memory deficits, able to do one step on serial sevens as the day before and able to spell world backwards with just one error. He denies being depressed, does not want any antidepressants, which may actually benefit him. He does have short term memory deficits. REVIEW OF SYSTEMS: No CV, , pulmonary, eye system symptoms on review. Some shortness of breath. MENTAL STATUS EXAMINATION: Oriented to himself and situation. Speech is coherent, abstraction fair, computation impaired, language function intact, attention span short. Mood and affect somewhat withdrawn. IMPRESSION: Adjustment disorder with depressed mood and anxiety, major neurocognitive disorder, early Alzheimer, vascular with depression. Rest unchanged. PLAN: Continue current psychotropics, adjust further as clinically indicated. MAN Jayce SHIRLEY MD DR: JW/ana maria JOB#: [id number] / [id number]
== END 2017-06-19 12:00 | disposition home health service (06) | DRG 177 ==
LOC: 1 SOUTH 16:10
PROVIDERS: ADMIT Internal Medicine; ATTEND Internal Medicine
DX: J69.0 Pneumonitis due to inhalation of food and vomit (principal); J96.01 Acute respiratory failure with hypoxia; F33.9 Major depressive disorder, recurrent, unspecified; E11.21 Type 2 diabetes mellitus with diabetic nephropathy; E11.65 Type 2 diabetes mellitus with hyperglycemia; E78.5 Hyperlipidemia, unspecified; F41.9 Anxiety disorder, unspecified; G47.30 Sleep apnea, unspecified; I11.0 Hypertensive heart disease with heart failure; I25.10 Atherosclerotic heart disease of native coronary artery without angina pectoris; I48.0 Paroxysmal atrial fibrillation; I50.9 Heart failure, unspecified; Z87.01 Personal history of pneumonia (recurrent); J44.9 Chronic obstructive pulmonary disease, unspecified; K58.9 Irritable bowel syndrome, unspecified; F43.23 Adjustment disorder with mixed anxiety and depressed mood; F02.80 Dementia in other diseases classified elsewhere, unspecified severity, without behavioral disturbance, psychotic disturbance, mood disturbance, and anxiety; G30.9 Alzheimer's disease, unspecified; N40.0 Benign prostatic hyperplasia without lower urinary tract symptoms; Y95 Nosocomial condition; H91.90 Unspecified hearing loss, unspecified ear; Z66 Do not resuscitate; Z79.4 Long term (current) use of insulin; Z79.82 Long term (current) use of aspirin; Z79.899 Other long term (current) drug therapy; Z85.828 Personal history of other malignant neoplasm of skin; Z87.891 Personal history of nicotine dependence; Z95.0 Presence of cardiac pacemaker; Z91.030 Bee allergy status; J10.1 Influenza due to other identified influenza virus with other respiratory manifestations
CPT/HCPCS: 36415; 71046; 74230; 80053; 82947; 83735; 85007; 85025; 87804; 94618; 94640; J1650; J1815; J1956; J2020; J2543; J7620; 92610; 92611

== ENCOUNTER 2017-06-20 15:06 | Inpatient (IN) | payer MEDICARE, OTHER ==
[~2017-06-20] VITALS: Ht 180.3 cm; Wt 87.6 kg
[~2017-06-20 15:06] MED LIST changes: +INSU100I17 SQ; +INSU100I27 SQ; +IPRA3AMP NEB; +LACT1CAP19 PO; +LEVO500T59 PO
[2017-06-20 16:27] LABS: BASO % 1 % (0-3); EOS # 0.1 x10^3/uL (0.0-0.7); EOS % 2 % (0-3); HEMOGLOBIN 14.8 g/dL (13.0-17.5); LYMPH # 0.8 x10^3/uL (1.0-4.8); LYMPH % 18 % (24-48); MEAN CORPUSCULAR HEMOGLOBIN 30 pg (25-35); MEAN CORPUSCULAR HGB CONC 34 g/dL (31-37); MEAN CORPUSCULAR VOLUME 89 fL (79-100); MONO # 0.2 x10^3/uL (0.0-1.1); MONO % 5 % (0-9); NEUT # 3.2 x10^3uL (1.8-7.7); NEUT % 74 % (31-73); PLATELET COUNT 155 x10^3/uL (140-400); RED BLOOD COUNT 4.92 x10^6/uL (4.30-5.70); RED CELL DISTRIBUTION WIDTH 14.6 % (11.5-14.5); WHITE BLOOD COUNT 4.3 x10^3/uL (4.0-11.0)
[2017-06-20 16:35] LABS: CALCIUM 9.4 mg/dL (8.5-10.1); CREATININE 1.2 mg/dL (0.7-1.3); GFR 58.1; POTASSIUM 4.3 mmol/L (3.5-5.1)
--- NOTE | 2017-06-20 17:14 | PHYS DOC ---
Past History Past Medical History: Diabetes, Pneumonia Past Surgical History: Other Additional Past Surgical Histo: AICD and pacemaker placement Alcohol Use: None Drug Use: None Adult General Chief Complaint Chief Complaint: DIFFICULTY SWALLOWING HPI HPI Patient is a 81 year old M who presents with difficulty breathing, chills and generally worsening symptoms since yesterday. Shiv has had multiple recent hospitalizations associated with what is thought to be aspiration pneumonia. His last admission started on June 05 and he was discharged yesterday on June 19. During his last hospitalization he was found to have difficulty swallowing and was placed on a thickened liquids. He has had difficulty tolerating thickened liquids and both he and his feel that he is dehydrated. He was also started on supplemental oxygen after his last discharge. He also describes more frequent cough today as compared to yesterday and the days just prior to discharge. They both state that these symptoms are similar to previous symptoms at the beginning of his pneumonia. He states that he does not tell comfortable being discharged home. Review of Systems Review of Systems Constitutional: Denies fever Eyes: Denies change in visual acuity, redness, or eye pain [] HENT: Denies nasal congestion or sore throat [] Respiratory: Negative except history of present illness Cardiovascular: No additional information not addressed in HPI [] GI: Denies abdominal pain, nausea, vomiting, bloody stools or diarrhea [] : Denies dysuria or hematuria [] Musculoskeletal: Denies back pain or joint pain [] Integument: Denies rash or skin lesions [] Neurologic: Denies headache, focal weakness or sensory changes [] Endocrine: Denies polyuria or polydipsia [] All other systems were reviewed and found to be within normal limits, except as documented in this note. Family History Family History No pertinent family medical history was reported Current Medications Current Medications Current medications were reviewed Allergies Allergies Allergies Coded Allergies Type Severity Reaction Last Updated Verified NKMA Allergy Unknown 05/20/17 Yes Physical Exam Physical Exam Constitutional: Well developed, well nourished, no acute distress, non-toxic appearance. [] HENT: Normocephalic, atraumatic, dry mucous membranes Eyes: EOMI, conjunctiva normal, no discharge. [] Neck: Normal range of motion, no tenderness, supple, no stridor. [] Cardiovascular:Heart rate regular rhythm, no murmur [] Lungs & Thorax: Diminished breath sounds coarse breath sounds noted bilaterally with minimal rhonchi noted in the lower lobes bilaterally Abdomen: Bowel sounds normal, soft, no tenderness, no masses, no pulsatile masses. [] Skin: Warm, dry, no erythema, no rash. [] Extremities: No tenderness, no cyanosis, no clubbing, ROM intact, no edema. [] Neurologic: Alert and oriented X 3, normal motor function, normal sensory function, no focal deficits noted. [] Psychologic: Affect normal, judgement normal, mood normal. [] Current Patient Data Vital Signs Vital Signs Date Time Temp Pulse Resp B/P (MAP) Pulse Ox O2 Delivery O2 Flow Rate FiO2 06/20/17 15:22 97.9 60 16 93 Room Air Lab Results Laboratory Tests Test 06/20/17 16:18 White Blood Count 4.3 x10^3/uL (4.0-11.0) Red Blood Count 4.92 x10^6/uL (4.30-5.70) Hemoglobin 14.8 g/dL (13.0-17.5) Hematocrit 44.0 % (39.0-53.0) Mean Corpuscular Volume 89 fL (79-100) Mean Corpuscular Hemoglobin 30 pg (25-35) Mean Corpuscular Hemoglobin Concent 34 g/dL (31-37) Red Cell Distribution Width 14.6 % (11.5-14.5) H Platelet Count 155 x10^3/uL (140-400) Neutrophils (%) (Auto) 74 % (31-73) H Lymphocytes (%) (Auto) 18 % (24-48) L Monocytes (%) (Auto) 5 % (0-9) Eosinophils (%) (Auto) 2 % (0-3) Basophils (%) (Auto) 1 % (0-3) Neutrophils # (Auto) 3.2 x10^3uL (1.8-7.7) Lymphocytes # (Auto) 0.8 x10^3/uL (1.0-4.8) L Monocytes # (Auto) 0.2 x10^3/uL (0.0-1.1) Eosinophils # (Auto) 0.1 x10^3/uL (0.0-0.7) Basophils # (Auto) 0.0 x10^3/uL (0.0-0.2) Sodium Level 145 mmol/L (136-145) Potassium Level 4.3 mmol/L (3.5-5.1) Chloride Level 107 mmol/L (98-107) Carbon Dioxide Level 34 mmol/L (21-32) H Anion Gap 4 (6-14) L Blood Urea Nitrogen 16 mg/dL (8-26) Creatinine 1.2 mg/dL (0.7-1.3) Estimated GFR (Cockcroft-Gault) 58.1 Glucose Level 275 mg/dL (70-99) H Lactic Acid Level 1.1 mmol/L (0.4-2.0) Calcium Level 9.4 mg/dL (8.5-10.1) EKG EKG [] Radiology/Procedures Radiology/Procedures Chest x-ray Impressions: Possible left lower lobe infiltrate Course & Med Decision Making Course & Med Decision Making Pertinent Labs and Imaging studies reviewed. (See chart for details) More then 45 minutes was spent caring education about swallowing difficulties including management. Family would like further education regarding indications and specifics around a feeding tube. Dragon Disclaimer Dragon Disclaimer This electronic medical record was generated, in whole or in part, using a voice recognition dictation system. Departure Departure: Impression: Primary Impression: Aspiration pneumonia Additional Impression: Weakness Disposition: ADMITTED INPATIENT Condition: STABLE Referrals: JENNIFER RANKIN MD (PCP) Problem Qualifiers Primary Impression: Aspiration pneumonia Aspiration pneumonia type: unspecified Laterality: left Lung location: lower lobe of lung Qualified Codes: J69.0 - Pneumonitis due to inhalation of food and vomit GRIS TELLEZ MD Jun 20, 2017 17:14
[2017-06-20] MEDS ORDERED: ONDANSETRON PF 4 MG/2 ML VIAL. IV PRN (17:45)
[2017-06-20 19:10] VITALS: BP 169/67
[2017-06-20 19:23] VITALS: BP 135/70
[2017-06-20] MEDS ORDERED: PIP/TAZO PER PHARMACY MC PRN (20:15)
[2017-06-20] MEDS ORDERED: ALBUTEROL SULFATE 2.5 MG/3 ML NEBU. NEB PRN (20:30)
[2017-06-20] MEDS: GABAPENTIN 300 MG CAPSULE. PO SCH (20:51)
[2017-06-20] MEDS: DICYCLOMINE HCL 10 MG CAPSULE PO SCH (20:51)
[2017-06-20] MEDS: MEMANTINE 10 MG TABLET. PO SCH (20:51)
[2017-06-20] MEDS: SIMVASTATIN 10 MG TABLET PO SCH (20:51)
[2017-06-20] MEDS: LACTOBACILLUS RHAMNOSUS GG 1 CAPSULE. PO SCH (20:51)
[2017-06-20] MEDS: ENOXAPARIN 40 MG/0.4 ML DISP.SYRIN. SQ SCH (20:54)
[2017-06-20 21:01] LABS: INFLUENZA A PATIENT NEGATIVE (NEGATIVE); INFLUENZA B PATIENT NEGATIVE (NEGATIVE)
[2017-06-20] MEDS: IPRATRPIUM/ALBUTEROL 0.5/2.5MG 3 ML NEBU. NEB SCH (21:03)
[2017-06-20] MEDS ORDERED: PIPERACILLIN/TAZOBACTAM 4.5 GM in IV NORMAL SALINE 50ML 50 ML IV ONE (21:30)
[2017-06-20] MEDS: INSULIN DETEMIR 300 UNITS/3 ML INSULN.PEN. SQ SCH (21:37)
[2017-06-20 22:32] VITALS: BP 126/71
[2017-06-21] MEDS: PIPERACILLIN/TAZO IV Push 4.5 GM VIAL. IVP SCH ×2 (05:46→12:18)
[2017-06-21 05:52] VITALS: BP 140/65
[2017-06-21 06:51] LABS: BASO % 2 % (0-3); EOS # 0.1 x10^3/uL (0.0-0.7); EOS % 2 % (0-3); HEMATOCRIT 41.2 % (39.0-53.0); HEMOGLOBIN 13.7 g/dL (13.0-17.5); LYMPH # 0.8 x10^3/uL (1.0-4.8); LYMPH % 29 % (24-48); MEAN CORPUSCULAR HEMOGLOBIN 30 pg (25-35); MEAN CORPUSCULAR HGB CONC 33 g/dL (31-37); MEAN CORPUSCULAR VOLUME 89 fL (79-100); MONO # 0.2 x10^3/uL (0.0-1.1); MONO % 6 % (0-9); NEUT # 1.7 x10^3uL (1.8-7.7); NEUT % 61 % (31-73); PLATELET COUNT 136 x10^3/uL (140-400); RED BLOOD COUNT 4.65 x10^6/uL (4.30-5.70); RED CELL DISTRIBUTION WIDTH 14.4 % (11.5-14.5); WHITE BLOOD COUNT 2.7 x10^3/uL (4.0-11.0)
[2017-06-21 06:59] LABS: CALCIUM 8.6 mg/dL (8.5-10.1); CREATININE 1.3 mg/dL (0.7-1.3); POTASSIUM 4.3 mmol/L (3.5-5.1)
[2017-06-21] MEDS: DICYCLOMINE HCL 10 MG CAPSULE PO SCH ×4 (07:30→21:00)
[2017-06-21] MEDS ORDERED: PANTOPRAZOLE 40 MG TABLET. PO SCH (07:30)
[2017-06-21] MEDS: INSULIN ASPART 300 UNITS/3 ML INSULN.PEN SQ SCH ×3 (07:30→18:00)
--- NOTE | 2017-06-21 07:45 | RAD ---
2 view chest 06/20/2017 Clinical indication: Shortness of breath. Comparison: 2 view chest 06/16/2017. Findings: Dual lead left chest wall cardiac conduction device in similar position. Cardiac and mediastinal silhouettes are unremarkable. Improved aeration in the left lung base with mild residual patchy opacities. Persistent nodular opacity in the right midlung measuring approximately 1.0 cm. No pleural effusion or pneumothorax. Impression: 1. Improved aeration in the left lung base with mild residual patchy opacities. 2. Persistent nodular opacity in the right midlung. Follow-up CT chest in 6 months is recommended.
[2017-06-21] MEDS: LACTOBACILLUS RHAMNOSUS GG 1 CAPSULE. PO SCH ×2 (08:28→21:00)
[2017-06-21] MEDS: LISINOPRIL 10 MG TABLET PO SCH (08:28)
[2017-06-21] MEDS: MEMANTINE 10 MG TABLET. PO SCH ×2 (08:28→21:00)
[2017-06-21] MEDS: ASPIRIN 81 MG TAB.CHEW PO SCH (08:28)
[2017-06-21] MEDS: GABAPENTIN 300 MG CAPSULE. PO SCH ×3 (08:28→21:00)
[2017-06-21] MEDS: CHOLESTYRAMINE/ASPARTAME 4 GM PACKET PO SCH (08:29)
[2017-06-21] MEDS: CHOLECALCIFEROL (VITAMIN D3) 1,000 UNIT TABLET PO SCH (08:29)
[2017-06-21] MEDS ORDERED: POTASSIUM CL 20MEQ-0.45% NACL 1,000 ML IV SCH (09:00)
[2017-06-21] MEDS ORDERED: DONEPEZIL HCL 10 MG TABLET PO SCH (09:00)
[2017-06-21] MEDS ORDERED: NON FORMULARY ITEM (Memantine HCl/Donepezil HCl (Namzaric 28 mg-10 mg Capsule) 1 EACH) PO SCH (09:00)
[2017-06-21 11:23] VITALS: BP 160/82
[2017-06-21] MEDS: IPRATRPIUM/ALBUTEROL 0.5/2.5MG 3 ML NEBU. NEB SCH ×3 (12:22→20:11)
--- NOTE | 2017-06-21 14:52 | PDOC1 ---
History of Present Illness Reason for Visit: Ill History of Present Illness Pt recently discharged from [facility] where he was being treated for presumed aspiration pneumonia. Swallow study showed pt could only tolerate thickened liquids and pureed food. Pt went home and family reported that he was starting to "chill" and "feel even worse," so he was brought back to the ER. Nursing staff states that pt is "choking on everything" and was made NPO last night due to failing a bedside swallow study. The etiology of swallowing difficulty is unclear. I spoke to his PCP Dr. Lucero this morning, who states pt had not previously had that problem. Per staff, pt's memory seems to be worse than he was last month. Pt was admitted last month for altered mental status, then again for influenza. He was placed on long term unit, then sent back to med/surg for treatment of pneumonia. Pt is a pretty poor historian, and ROS is unobtainable due to that. Chief Complaint: DIFFICULTY SWALLOWING Allergies: Coded Allergies: NKMA (Verified Allergy, Unknown, 05/20/17) Past Medical History Cardiac: CAD, HTN, hyperipidemia Endocrine: Diabetes Past Surgical History: Pacemaker Family History: No pertinent hx Past Social History Smoke: Quit (1992) Alcohol: none Lives: with Family Review of Systems Review Of Systems ROS unobtainable/unreliable due to pt's current memory issues. Allergies: Coded Allergies: NKMA (Verified Allergy, Unknown, 05/20/17) Medications Current Medications Ceftriaxone Sodium 1 gm/ Sodium Chloride 50 ml @ 100 mls/hr 1X ONCE IV Last administered on 06/20/17at 20:10; Start 06/20/17 at 17:45; Stop 06/20/17 at 20:10 ; Status DC Ondansetron HCl (Zofran) 4 mg PRN Q4HRS PRN IV NAUSEA/VOMITING; Start 06/20/17 at 17:45; Stop 06/21/17 at 17:44 Piperacillin Sod/ Tazobactam Sod (Zosyn Per Pharmacy) 1 each PRN DAILY PRN MC SEE COMMENTS; Start 06/20/17 at 20:15 Aspirin (Children'S Aspirin) 81 mg DAILY PO ; Start 06/21/17 at 09:00 Vitamin D (Vitamin D3) 1,000 unit DAILY PO ; Start 06/21/17 at 09:00 Dicyclomine HCl (Bentyl) 10 mg QIDACHS PO ; Start 06/20/17 at 21:00 Gabapentin (Neurontin) 300 mg TID PO ; Start 06/20/17 at 21:00 Insulin Aspart (NovoLOG) 24 units TIDAC SQ ; Start 06/21/17 at 07:30 Insulin Detemir (Levemir) 37 units QHS SQ Last administered on 06/20/17at 21:37 ; Start 06/20/17 at 21:00 Albuterol/ Ipratropium (Duoneb) 3 ml RTBID NEB Last administered on 06/21/17at 12:22; Start 06/20/17 at 21:00 Lactobacillus Rhamnosus (Culturelle) 1 cap BID PO ; Start 06/20/17 at 21:00 Lisinopril (Prinivil) 10 mg DAILY PO ; Start 06/21/17 at 09:00 Simvastatin (Zocor) 10 mg QHS PO ; Start 06/20/17 at 21:00 Albuterol Sulfate (Ventolin) 2.5 mg PRN Q6HRS PRN NEB WHEEZING; Start 06/20/17 at 20:30 Cholestyramine Resin (Questran Light) 4 gm DAILY PO ; Start 06/21/17 at 09:00 Non-Formulary Medication 1 each DAILY PO ; Start 06/21/17 at 09:00; Status UNV Pantoprazole Sodium (Protonix) 40 mg DAILYAC PO ; Start 06/21/17 at 07:30 Enoxaparin Sodium (Lovenox) 40 mg Q24H SQ Last administered on 06/20/17at 20:54 ; Start 06/20/17 at 21:00 Memantine (Namenda) 10 mg BID PO ; Start 06/20/17 at 21:00 Donepezil HCl (Aricept) 10 mg DAILY PO ; Start 06/21/17 at 09:00 Piperacillin Sod/ Tazobactam Sod 4.5 gm/Sodium Chloride 50 ml @ 100 mls/hr 1X ONCE IV Last administered on 06/20/17at 21:20; Start 06/20/17 at 21:30; Stop at 21:59; Status DC Piperacillin Sod/ Tazobactam Sod (Zosyn) 4.5 gm Q6HRS IVP Last administered on 1/14/18at 12:18; Start 06/21/17 at 06:00 Potassium Chloride/Sodium Chloride 1,000 ml @ 100 mls/hr Q10H IV Last administered on 06/21/17at 09:25; Start 06/21/17 at 09:00 Active Scripts Active Duoneb 0.5-3(2.5) Mg/3 Ml (Albuterol/Ipratropium) 3 Ml Ampul.neb 3 Ml NEB RTBID 7 Days Levaquin (Levofloxacin) 500 Mg Tablet 500 Mg PO DAILYWSUP 7 Days Culturelle (Lactobacillus Rhamnosus Gg) 1 Each Cap.sprink 1 Cap PO BID 30 Days Levemir Flextouch (Insulin Detemir) 100 Unit/1 Ml Insuln.pen 37 Units SQ QHS 30 Days Novolog Flexpen (Insulin Aspart) 100 Unit/1 Ml Insuln.pen 24 Units SQ TIDAC 30 Days Reported Simvastatin 10 Mg Tablet 10 Mg PO DAILY LAST DOSE GIVEN: DATE: TODAY TIME: AM NEXT DOSE DUE: DATE: TOMORROW TIME: AM Ondansetron Odt (Ondansetron) 4 Mg Tab.rapdis 4 Mg PO PRN Q8HRS PRN NOT GIVEN TODAY IN HOSPITAL. NEXT DOSE DUE: DATE: TODAY TIME: IF AND WHEN NEEDED TIME:IF AND WHEN NEEDED Omeprazole 40 Mg Capsule.dr 40 Mg PO DAILY LAST DOSE GIVEN: DATE: TODAY TIME: AM NEXT DOSE DUE: DATE: TOMORROW TIME: AM Namzaric 28 mg-10 mg Capsule (Memantine HCl/Donepezil HCl) 1 Each Cap.spr.24 1 Each PO DAILY LAST DOSE GIVEN: DATE: TODAY TIME: AM NEXT DOSE DUE: DATE: TOMORROW TIME: AM Lisinopril 10 Mg Tablet 10 Mg PO DAILY LAST DOSE GIVEN: DATE: TODAY TIME: AM NEXT DOSE DUE: DATE: TOMORROW TIME: AM Gabapentin 300 Mg Capsule 300 Mg PO TID LAST DOSE GIVEN: DATE: TODAY TIME: AM NEXT DOSE DUE: DATE: TODAY TIME: AFTERNOON Dicyclomine Hcl 10 Mg Capsule 10 Mg PO QIDACHS LAST DOSE GIVEN: DATE: TODAY TIME: BREAKFAST NEXT DOSE DUE: DATE: TODAY TIME: LUNCH Cholestyramine Packet (Cholestyramine (With Sugar)) 4 Gm Powd.pack 4 Gm PO DAILY LAST DOSE GIVEN: DATE: TODAY TIME: AM NEXT DOSE DUE: DATE: TOMORROW TIME: AM Vitamin D3 (Cholecalciferol (Vitamin D3)) 1,000 Unit Tablet 1,000 Unit PO DAILY LAST DOSE GIVEN: DATE: TODAY TIME: AM NEXT DOSE DUE: DATE: TOMORR TIME: AM Aspirin 81 Mg Tab.chew 81 Mg PO DAILY LAST DOSE GIVEN: DATE: TODAY TIME: AM NEXT DOSE DUE: DATE: TOMORROW TIME: AM Proair Respiclick (Albuterol Sulfate) 90 Mcg Aer.pow.ba 2 Puff IH PRN Q6HRS PRN NOT GIVEN IN THE HOSPITAL NEXT DOSE DUE: DATE: TODAY IF AND WHEN NEEDED DATE:TODAY IF AND WHEN NEEDED Exam Vital Signs Vital Signs Date Time Temp Pulse Resp B/P (MAP) Pulse Ox O2 Delivery O2 Flow Rate FiO2 06/21/17 13:01 97 Nasal Cannula 2.0 06/21/17 11:23 97.5 60 18 160/82 (108) General Appearance: Alert, Cooperative, No acute distress, Other (Oriented x 1 (person), knows he is in a hospital, but not which one. Pt defers questions to his ) HEENT: Atraumatic, PERRLA, EOMI, Mucous membr. moist/pink, Other (Adentulous. Neck supple. Full ROM. NO JVD. NO LAD. NO thyromegaly) Respiratory: Other (Coarse breath sounds in both bases. No wheezes or crackles. Resp effort normal and symmetric.) Heart: Regular rate, No murmurs Abdominal: Soft, No tenderness, No hepatospenomegaly Extremities: No edema, Normal pulses, No tenderness/swelling Skin: No rashes, No breakdown Neuro: Normal speech, Strength at 5/5 X4 ext, Normal tone, Sensation intact, Cranial nerves 3-12 NL, Reflexes 2+ Psych/Mental Status: Mood NL, Other (Pt seems a bit forgetful. He does not seem to completely understand the complexity of his condition.) Assessment/Plan Assessment/Plan 1. Aspiration pneumonia: Pt put back on Zosyn. Xray and WBC ok. Will continue pending further workup for aspiration. 2. Aspiration: Etiology unclear. Check CT head. Will need transfer to [facility] or other facility for EGD if stroke workup negative. Pt NPO. Continue IVF. Hold off on Procalamine until we know if pt will be transferred. Monitor sugars q 6 hrs. 3. DM2: See above. COntinue insulin. 4. DVT proph: Lovenox. 5. HTN: Give PRN IV meds. Pt NPO. 6. Disp: See above. COURSE Allergies Coded Allergies Type Severity Reaction Last Updated Verified NKMA Allergy Unknown 05/20/17 Yes Laboratory Tests Test 06/20/17 16:18 06/20/17 19:57 06/20/17 20:25 06/21/17 06:40 White Blood Count 4.3 x10^3/uL (4.0-11.0) 2.7 x10^3/uL (4.0-11.0) Red Blood Count 4.92 x10^6/uL (4.30-5.70) 4.65 x10^6/uL (4.30-5.70) Hemoglobin 14.8 g/dL (13.0-17.5) 13.7 g/dL (13.0-17.5) Hematocrit 44.0 % (39.0-53.0) 41.2 % (39.0-53.0) Mean Corpuscular Volume 89 fL (79-100) 89 fL (79-100) Mean Corpuscular Hemoglobin 30 pg (25-35) 30 pg (25-35) Mean Corpuscular Hemoglobin Concent 34 g/dL (31-37) 33 g/dL (31-37) Red Cell Distribution Width 14.6 % (11.5-14.5) 14.4 % (11.5-14.5) Platelet Count 155 x10^3/uL (140-400) 136 x10^3/uL (140-400) Neutrophils (%) (Auto) 74 % (31-73) 61 % (31-73) Lymphocytes (%) (Auto) 18 % (24-48) 29 % (24-48) Monocytes (%) (Auto) 5 % (0-9) 6 % (0-9) Eosinophils (%) (Auto) 2 % (0-3) 2 % (0-3) Basophils (%) (Auto) 1 % (0-3) 2 % (0-3) Neutrophils # (Auto) 3.2 x10^3uL (1.8-7.7) 1.7 x10^3uL (1.8-7.7) Lymphocytes # (Auto) 0.8 x10^3/uL (1.0-4.8) 0.8 x10^3/uL (1.0-4.8) Monocytes # (Auto) 0.2 x10^3/uL (0.0-1.1) 0.2 x10^3/uL (0.0-1.1) Eosinophils # (Auto) 0.1 x10^3/uL (0.0-0.7) 0.1 x10^3/uL (0.0-0.7) Basophils # (Auto) 0.0 x10^3/uL (0.0-0.2) 0.0 x10^3/uL (0.0-0.2) Sodium Level 145 mmol/L (136-145) 146 mmol/L (136-145) Potassium Level 4.3 mmol/L (3.5-5.1) 4.3 mmol/L (3.5-5.1) Chloride Level 107 mmol/L (98-107) 108 mmol/L (98-107) Carbon Dioxide Level 34 mmol/L (21-32) 31 mmol/L (21-32) Anion Gap 4 (6-14) 7 (6-14) Blood Urea Nitrogen 16 mg/dL (8-26) 15 mg/dL (8-26) Creatinine 1.2 mg/dL (0.7-1.3) 1.3 mg/dL (0.7-1.3) Estimated GFR (Cockcroft-Gault) 58.1 53.0 Glucose Level 275 mg/dL (70-99) 274 mg/dL (70-99) Lactic Acid Level 1.1 mmol/L (0.4-2.0) Calcium Level 9.4 mg/dL (8.5-10.1) 8.6 mg/dL (8.5-10.1) Glucose (Fingerstick) 212 mg/dL (70-99) Influenza Type A (Rapid) Negative (NEGATIVE) Influenza Type B (Rapid) Negative (NEGATIVE) Test 06/21/17 07:58 06/21/17 11:53 Glucose (Fingerstick) 224 mg/dL (70-99) 247 mg/dL (70-99) Current Medications Medications (Trade) Dose Ordered Sig/Shira Route PRN Reason Start Time Stop Time Status Last Admin Dose Admin Ceftriaxone Sodium 1 gm/ Sodium Chloride 50 ml @ 100 mls/hr 1X ONCE IV 06/20/17 17:45 06/20/17 20:10 DC 06/20/17 20:10 Ondansetron HCl (Zofran) 4 mg PRN Q4HRS PRN IV NAUSEA/VOMITING 06/20/17 17:45 06/21/17 17:44 Piperacillin Sod/ Tazobactam Sod (Zosyn Per Pharmacy) 1 each PRN DAILY PRN MC SEE COMMENTS 06/20/17 20:15 Aspirin (Children'S Aspirin) 81 mg DAILY PO 06/21/17 09:00 Vitamin D (Vitamin D3) 1,000 unit DAILY PO 06/21/17 09:00 Dicyclomine HCl (Bentyl) 10 mg QIDACHS PO 06/20/17 21:00 Gabapentin (Neurontin) 300 mg TID PO 06/20/17 21:00 Insulin Aspart (NovoLOG) 24 units TIDAC SQ 06/21/17 07:30 Insulin Detemir (Levemir) 37 units QHS SQ 06/20/17 21:00 06/20/17 21:37 Albuterol/ Ipratropium (Duoneb) 3 ml RTBID NEB 06/20/17 21:00 06/21/17 12:22 Lactobacillus Rhamnosus (Culturelle) 1 cap BID PO 06/20/17 21:00 Lisinopril (Prinivil) 10 mg DAILY PO 06/21/17 09:00 Simvastatin (Zocor) 10 mg QHS PO 06/20/17 21:00 Albuterol Sulfate (Ventolin) 2.5 mg PRN Q6HRS PRN NEB WHEEZING 06/20/17 20:30 Cholestyramine Resin (Questran Light) 4 gm DAILY PO 06/21/17 09:00 Non-Formulary Medication 1 each DAILY PO 06/21/17 09:00 UNV Pantoprazole Sodium (Protonix) 40 mg DAILYAC PO 06/21/17 07:30 Enoxaparin Sodium (Lovenox) 40 mg Q24H SQ 06/20/17 21:00 06/20/17 20:54 Memantine (Namenda) 10 mg BID PO 06/20/17 21:00 Donepezil HCl (Aricept) 10 mg DAILY PO 06/21/17 09:00 Piperacillin Sod/ Tazobactam Sod 4.5 gm/Sodium Chloride 50 ml @ 100 mls/hr 1X ONCE IV 06/20/17 21:30 06/20/17 21:59 DC 06/20/17 21:20 Piperacillin Sod/ Tazobactam Sod (Zosyn) 4.5 gm Q6HRS IVP 06/21/17 06:00 06/21/17 12:18 Potassium Chloride/Sodium Chloride 1,000 ml @ 100 mls/hr Q10H IV 06/21/17 09:00 06/21/17 09:25 I & O 06/21/17 00:00 Intake Total 204 ml Output Total 150 ml Balance 54 ml Vital Signs Date Time Temp Pulse Resp B/P (MAP) Pulse Ox O2 Delivery O2 Flow Rate FiO2 06/21/17 13:01 97 Nasal Cannula 2.0 06/21/17 11:23 97.5 60 18 160/82 (108) 2 view chest 06/20/2017 Clinical indication: Shortness of breath. Comparison: 2 view chest 06/16/2017. Findings: Dual lead left chest wall cardiac conduction device in similar position. Cardiac and mediastinal silhouettes are unremarkable. Improved aeration in the left lung base with mild residual patchy opacities. Persistent nodular opacity in the right midlung measuring approximately 1.0 cm. No pleural effusion or pneumothorax. Impression: 1. Improved aeration in the left lung base with mild residual patchy opacities. 2. Persistent nodular opacity in the right midlung. Follow-up CT chest in 6 months is recommended. STEFFANY WARD MD Jun 21, 2017 14:52
[2017-06-21] MEDS ORDERED: hydrALAZINE 20 MG/ML VIAL. IV PRN (15:45)
[2017-06-21] MEDS: POTASSIUM CL 20MEQ D5-0.45NACL 1,000 ML IV SCH ×2 (15:45→21:01)
[2017-06-21] MEDS ORDERED: DEXTROSE 50% 25 GM / 50ML DISP.SYRIN. IV PRN (15:45)
[2017-06-21 16:36] VITALS: BP 186/76
--- NOTE | 2017-06-21 17:11 | RAD ---
CT head without contrast 06/21/2017 CLINICAL INDICATION: Mental status change. COMPARISON: None. TECHNIQUE: Multiple CT images of the head were obtained without contrast. *One or more of the following individualized dose reduction techniques were utilized for this examination: 1. Automated exposure control. 2. Adjustment of the mA and/or kV according to patient size. 3. Use of iterative reconstruction technique. FINDINGS: There is prominence of the subarachnoid spaces and ventricles, however the lateral ventricles are slightly discordant to degree of sulcal prominence. No midline shift. No acute intracranial hemorrhage. Mild periventricular white matter low attenuation. IMPRESSION: 1. No acute intracranial hemorrhage. 2. Ventricular distention slightly discordant to degree of sulcal prominence. Communicating hydrocephalus such as normal pressure hydrocephalus cannot be excluded. Electronically signed by: Ravinder Hudson MD (06/21/2017 5:08 PM) [id number]
[2017-06-21 19:14] VITALS: BP 167/77
[2017-06-21] MEDS: INSULIN DETEMIR 300 UNITS/3 ML INSULN.PEN. SQ SCH (20:49)
[2017-06-21] MEDS: ENOXAPARIN 40 MG/0.4 ML DISP.SYRIN. SQ SCH (20:50)
[2017-06-21] MEDS: SIMVASTATIN 10 MG TABLET PO SCH (21:00)
[2017-06-21 22:53] VITALS: BP 165/80
[2017-06-22] MEDS: INSULIN ASPART 300 UNITS/3 ML INSULN.PEN SQ SCH ×4 (00:41→17:33)
[2017-06-22 05:17] VITALS: BP 135/74
[2017-06-22 06:12] LABS: CALCIUM 8.4 mg/dL (8.5-10.1); CREATININE 1.2 mg/dL (0.7-1.3); GFR 58.1; POTASSIUM 3.9 mmol/L (3.5-5.1)
[2017-06-22 06:29] LABS: BASO % 1 % (0-3); EOS # 0.1 x10^3/uL (0.0-0.7); EOS % 2 % (0-3); HEMATOCRIT 40.7 % (39.0-53.0); HEMOGLOBIN 13.7 g/dL (13.0-17.5); LYMPH # 0.8 x10^3/uL (1.0-4.8); LYMPH % 28 % (24-48); MEAN CORPUSCULAR HEMOGLOBIN 30 pg (25-35); MEAN CORPUSCULAR HGB CONC 34 g/dL (31-37); MEAN CORPUSCULAR VOLUME 88 fL (79-100); MONO # 0.2 x10^3/uL (0.0-1.1); MONO % 6 % (0-9); NEUT # 1.8 x10^3uL (1.8-7.7); NEUT % 62 % (31-73); PLATELET COUNT 141 x10^3/uL (140-400); RED CELL DISTRIBUTION WIDTH 14.1 % (11.5-14.5); WHITE BLOOD COUNT 2.9 x10^3/uL (4.0-11.0)
[2017-06-22] MEDS: DICYCLOMINE HCL 10 MG CAPSULE PO SCH ×4 (08:25→21:29)
[2017-06-22] MEDS: LACTOBACILLUS RHAMNOSUS GG 1 CAPSULE. PO SCH ×2 (09:08→21:29)
[2017-06-22] MEDS: MEMANTINE 10 MG TABLET. PO SCH ×2 (09:08→21:28)
[2017-06-22] MEDS: CHOLECALCIFEROL (VITAMIN D3) 1,000 UNIT TABLET PO SCH (09:09)
[2017-06-22] MEDS: CHOLESTYRAMINE/ASPARTAME 4 GM PACKET PO SCH (09:09)
[2017-06-22] MEDS: ASPIRIN 81 MG TAB.CHEW PO SCH (09:09)
[2017-06-22] MEDS: GABAPENTIN 300 MG CAPSULE. PO SCH ×3 (09:09→21:29)
[2017-06-22] MEDS: LISINOPRIL 10 MG TABLET PO SCH (09:09)
[2017-06-22] MEDS: PANTOPRAZOLE IV 40 MG VIAL. IVP SCH (09:11)
[2017-06-22 10:35] VITALS: BP 162/83
[2017-06-22] MEDS: IPRATRPIUM/ALBUTEROL 0.5/2.5MG 3 ML NEBU. NEB SCH ×2 (10:44→19:59)
[2017-06-22 14:50] VITALS: BP 154/93
[2017-06-22] MEDS: POTASSIUM CL 20MEQ D5-0.45NACL 1,000 ML IV SCH ×2 (17:35→23:03)
[2017-06-22 19:20] VITALS: BP 126/61
[2017-06-22] MEDS: SIMVASTATIN 10 MG TABLET PO SCH (21:29)
[2017-06-22] MEDS: ENOXAPARIN 40 MG/0.4 ML DISP.SYRIN. SQ SCH (21:30)
[2017-06-22] MEDS ORDERED: INSULIN ASPART 300 UNITS/3 ML INSULN.PEN SQ ONE (21:30)
[2017-06-22] MEDS: INSULIN DETEMIR 300 UNITS/3 ML INSULN.PEN. SQ SCH (21:31)
[2017-06-22 22:43] VITALS: BP 159/84
[2017-06-23] MEDS: INSULIN ASPART 300 UNITS/3 ML INSULN.PEN SQ SCH ×2 (05:53)
[2017-06-23 05:54] VITALS: BP 134/78
[2017-06-23 07:05] LABS: HEMATOCRIT 40.1 % (39.0-53.0); HEMOGLOBIN 13.4 g/dL (13.0-17.5); RED BLOOD COUNT 4.44 x10^6/uL (4.30-5.70); RED CELL DISTRIBUTION WIDTH 14.7 % (11.5-14.5); WHITE BLOOD COUNT 3.1 x10^3/uL (4.0-11.0)
[2017-06-23 07:14] LABS: CALCIUM 8.5 mg/dL (8.5-10.1); CREATININE 1.1 mg/dL (0.7-1.3); GFR 64.2; POTASSIUM 3.9 mmol/L (3.5-5.1)
[2017-06-23] MEDS: GABAPENTIN 300 MG CAPSULE. PO SCH (09:29)
[2017-06-23] MEDS: ASPIRIN 81 MG TAB.CHEW PO SCH (09:29)
[2017-06-23] MEDS: LISINOPRIL 10 MG TABLET PO SCH (09:29)
[2017-06-23] MEDS: CHOLESTYRAMINE/ASPARTAME 4 GM PACKET PO SCH (09:29)
[2017-06-23] MEDS: CHOLECALCIFEROL (VITAMIN D3) 1,000 UNIT TABLET PO SCH (09:29)
[2017-06-23] MEDS: LACTOBACILLUS RHAMNOSUS GG 1 CAPSULE. PO SCH (09:30)
[2017-06-23] MEDS: DICYCLOMINE HCL 10 MG CAPSULE PO SCH (09:30)
[2017-06-23] MEDS: MEMANTINE 10 MG TABLET. PO SCH (09:30)
[2017-06-23] MEDS: PANTOPRAZOLE IV 40 MG VIAL. IVP SCH (09:34)
[2017-06-23 10:17] VITALS: BP 148/68
== END 2017-06-23 11:31 | disposition short-term general hospital (02) | DRG 177 ==
LOC: ER 15:06 → 1 SOUTH 18:05 → ICU 06-21 13:54 → 1 SOUTH 06-22 06:35
PROVIDERS: ADMIT Family Medicine; ATTEND Family Medicine
DX: J69.0 Pneumonitis due to inhalation of food and vomit (principal); J96.00 Acute respiratory failure, unspecified whether with hypoxia or hypercapnia; E11.9 Type 2 diabetes mellitus without complications; E78.5 Hyperlipidemia, unspecified; I10 Essential (primary) hypertension; I25.10 Atherosclerotic heart disease of native coronary artery without angina pectoris; Z95.810 Presence of automatic (implantable) cardiac defibrillator; Z87.891 Personal history of nicotine dependence
CPT/HCPCS: 36415; 70450; 71046; 80048; 82947; 83605; 85025; 85027; 87040; 87804; 94640; 94760; C9113; J0696; J1650; J1815; J1956; J2543; J7620; 92610; 99291-25

== ENCOUNTER 2017-07-05 15:30 | Inpatient (IN) | payer MEDICARE, OTHER ==
[~2017-07-05] VITALS: Ht 180.3 cm; Wt 83.0 kg
[2017-07-05] MEDS ORDERED: IV NORMAL SALINE 500ML 500 ML IV ONE (16:00)
[2017-07-05 16:15] LABS: BASO % 1 % (0-3); EOS # 0.1 x10^3/uL (0.0-0.7); EOS % 2 % (0-3); HEMATOCRIT 44.2 % (39.0-53.0); HEMOGLOBIN 14.8 g/dL (13.0-17.5); LYMPH # 0.6 x10^3/uL (1.0-4.8); LYMPH % 18 % (24-48); MEAN CORPUSCULAR HEMOGLOBIN 30 pg (25-35); MEAN CORPUSCULAR HGB CONC 33 g/dL (31-37); MEAN CORPUSCULAR VOLUME 89 fL (79-100); MONO # 0.3 x10^3/uL (0.0-1.1); MONO % 8 % (0-9); NEUT # 2.5 x10^3uL (1.8-7.7); NEUT % 71 % (31-73); PLATELET COUNT 83 x10^3/uL (140-400); RED BLOOD COUNT 4.95 x10^6/uL (4.30-5.70); WHITE BLOOD COUNT 3.5 x10^3/uL (4.0-11.0)
[2017-07-05] MEDS ORDERED: ONDANSETRON PF 4 MG/2 ML VIAL. IV ONE (16:15)
--- NOTE | 2017-07-05 16:16 | RAD ---
Clinical Indication: Weakness for 2 days. Technique: Study is dated July 05, 2017. CT images of the head were obtained from the skull base to the vertex without IV contrast. There are no comparison studies available. One or more of the following individualized dose reduction techniques were utilized for this examination: 1. Automated exposure control 2. Adjustment of the mA and/or kV according to patient size 3. Use of iterative reconstruction technique Findings: There is diffuse, symmetric prominence of the ventricles and subarachnoid spaces consistent with age-related parenchymal volume loss. There are areas of scattered decreased attenuation in the supratentorial white matter. While nonspecific, findings are likely secondary to small vessel ischemic disease. There is no hemorrhage, extraaxial fluid collection, mass, or midline shift. There is no large vascular distribution infarct. The posterior fossa and brain stem are unremarkable. Orbits are normal. There is a small retention cyst partially included in the left maxillary sinus. There is no skull fracture appreciated on bone level images. Impression: No acute intracranial findings. Brain parenchymal volume loss and probable small vessel ischemic disease.
[2017-07-05 16:25] LABS: ALBUMIN 3.4 g/dL (3.4-5.0); ALBUMIN/GLOBULIN RATIO 1.1 (1.0-1.7); CALCIUM 8.2 mg/dL (8.5-10.1); CREATININE 2.1 mg/dL (0.7-1.3); GFR 30.5; TOTAL BILIRUBIN 0.4 mg/dL (0.2-1.0); TOTAL PROTEIN 6.4 g/dL (6.4-8.2)
[2017-07-05 16:26] LABS: MAGNESIUM 1.8 mg/dL (1.8-2.4); POTASSIUM 4.1 mmol/L (3.5-5.1)
--- NOTE | 2017-07-05 16:27 | RAD ---
Indication: Nausea and vomiting for 2 days. Weakness. Technique: AP portable chest radiograph was obtained. Comparison is from June 20, 2017. Findings: The lungs are clear. The heart is not enlarged and there is no heart failure. Pacemaker is noted. There is atheromatous disease in the thoracic aorta. Impression: No acute thoracic findings.
--- NOTE | 2017-07-05 16:49 | PHYS DOC ---
Past History Past Medical History: CAD, Diabetes, High Cholesterol, Hypertension, Pneumonia Past Surgical History: Other Additional Past Surgical Histo: AICD and pacemaker placement Smoking: Non-smoker Alcohol Use: None Drug Use: None Adult General Chief Complaint Chief Complaint: WEAKNESS/GENERALIZED HPI HPI 81-year-old male patient with history of multiple hospitalization because of aspiration pneumonia and problem with swallowing was discharged from Hospital one week ago on a mechanical soft diet. Patient had frequent episodes of nausea and vomiting and diarrhea for the last 4 days with your 4 episodes of vomiting and diarrhea every day with crampy abdominal pain during episodes of vomiting and diarrhea. Patient had generalized weakness and had a fall 4 days ago without loss of consciousness. Patient had decrease of appetite and urine output and did not urinate today. Patient did not have fever, chest pain, shortness of breath, focal neuro deficit. Review of Systems Review of Systems Constitutional: Denies fever or chills , reports generalized[] Eyes: Denies change in visual acuity, redness, or eye pain [] HENT: Denies nasal congestion or sore throat [] Respiratory: Denies cough or shortness of breath [] Cardiovascular: No additional information not addressed in HPI [] GI: Reports abdominal pain, nausea, vomiting, diarrhea [] : Denies dysuria or hematuria [] Musculoskeletal: Denies back pain or joint pain [] Integument: Denies rash or skin lesions [] Neurologic: Denies headache, focal weakness or sensory changes [] Endocrine: Denies polyuria or polydipsia [] All other systems were reviewed and found to be within normal limits, except as documented in this note. Current Medications Current Medications Current Medications Medications (Trade) Dose Ordered Sig/Shira Start Time Stop Time Status Last Admin Dose Admin Ondansetron HCl (Zofran) 4 mg 1X ONCE 07/05/17 16:15 07/05/17 16:16 DC Sodium Chloride 500 ml @ 0 mls/hr 1X ONCE 07/05/17 16:00 07/05/17 16:01 DC Allergies Allergies Allergies Coded Allergies Type Severity Reaction Last Updated Verified NKMA Allergy Unknown 05/20/17 Yes Physical Exam Physical Exam Constitutional: Ill looking, mild distress, non-toxic appearance. [] HENT: Normocephalic, atraumatic, bilateral external ears normal, oropharynx dry , no oral exudates, nose normal. [] Eyes: PERRLA, EOMI, conjunctiva normal, no discharge. [] Neck: Normal range of motion, no tenderness, supple, no stridor. [] Cardiovascular:Heart rate regular rhythm, no murmur [] Lungs & Thorax: Bilateral breath sounds clear to auscultation [] Abdomen: Bowel sounds normal, soft, no tenderness, no masses, no pulsatile masses. [] Skin: Warm, dry, no erythema, no rash. [] Back: No tenderness, no CVA tenderness. [] Extremities: No tenderness, no cyanosis, no clubbing, ROM intact, no edema. [] Neurologic: Alert and oriented X 3, normal motor function, normal sensory function, no focal deficits noted. [] Psychologic: Affect normal, judgement normal, mood normal. [] Current Patient Data Lab Results Laboratory Tests Test 07/05/17 15:45 White Blood Count 3.5 x10^3/uL (4.0-11.0) L Red Blood Count 4.95 x10^6/uL (4.30-5.70) Hemoglobin 14.8 g/dL (13.0-17.5) Hematocrit 44.2 % (39.0-53.0) Mean Corpuscular Volume 89 fL (79-100) Mean Corpuscular Hemoglobin 30 pg (25-35) Mean Corpuscular Hemoglobin Concent 33 g/dL (31-37) Red Cell Distribution Width 15.0 % (11.5-14.5) H Platelet Count 83 x10^3/uL (140-400) L Neutrophils (%) (Auto) 71 % (31-73) Lymphocytes (%) (Auto) 18 % (24-48) L Monocytes (%) (Auto) 8 % (0-9) Eosinophils (%) (Auto) 2 % (0-3) Basophils (%) (Auto) 1 % (0-3) Neutrophils # (Auto) 2.5 x10^3uL (1.8-7.7) Lymphocytes # (Auto) 0.6 x10^3/uL (1.0-4.8) L Monocytes # (Auto) 0.3 x10^3/uL (0.0-1.1) Eosinophils # (Auto) 0.1 x10^3/uL (0.0-0.7) Basophils # (Auto) 0.0 x10^3/uL (0.0-0.2) Prothrombin Time 12.7 SEC (9.4-11.4) H Prothrombin Time INR 1.2 (0.9-1.1) H PTT 26 SEC (23-33) Sodium Level 136 mmol/L (136-145) Potassium Level 4.1 mmol/L (3.5-5.1) Chloride Level 99 mmol/L (98-107) Carbon Dioxide Level 28 mmol/L (21-32) Anion Gap 9 (6-14) Blood Urea Nitrogen 41 mg/dL (8-26) H Creatinine 2.1 mg/dL (0.7-1.3) H Estimated GFR (Cockcroft-Gault) 30.5 BUN/Creatinine Ratio 20 (6-20) Glucose Level 391 mg/dL (70-99) H Lactic Acid Level 1.5 mmol/L (0.4-2.0) Calcium Level 8.2 mg/dL (8.5-10.1) L Magnesium Level 1.8 mg/dL (1.8-2.4) Total Bilirubin 0.4 mg/dL (0.2-1.0) Aspartate Amino Transferase (AST) 11 U/L (15-37) L Alanine Aminotransferase (ALT) 14 U/L (16-63) L Alkaline Phosphatase 73 U/L (46-116) Creatine Kinase 31 U/L (39-308) L Creatine Kinase MB (Mass) 0.6 ng/mL (0.0-3.6) Creatine Kinase MB Relative Index 1.9 % (0-4) Troponin I Quantitative < 0.017 ng/mL (0-0.055) EK-Gss-Y-Type Natriuretic Peptide 115 pg/mL (0-449) Total Protein 6.4 g/dL (6.4-8.2) Albumin 3.4 g/dL (3.4-5.0) Albumin/Globulin Ratio 1.1 (1.0-1.7) Lipase 43 U/L (73-393) L EKG EKG EKG interpreted by me. EKG at 1717 showed sinus rhythm at rate of 60, prolonged [place] interval, left hewitt axis deviation, no acute ST and T wave abnormality[] Radiology/Procedures Radiology/Procedures [[address] [address] IMAGING REPORT Signed PATIENT: MURIEL GOETZ ACCOUNT: [id number] : 1935 LOCATION: ER AGE: 81 SEX: M EXAM STATUS: REG ER ORD. PHYSICIAN: PARAG WALKER MD REASON: weakness and nausea and vomiting PROCEDURE: PORTABLE CHEST 1V Indication: Nausea and vomiting for 2 days. Weakness. Technique: AP portable chest radiograph was obtained. Comparison is from June 20, 2017. Findings: The lungs are clear. The heart is not enlarged and there is no heart failure. Pacemaker is noted. There is atheromatous disease in the thoracic aorta. Impression: No acute thoracic findings. DICTATED AND SIGNED BY: REYES KINCAID MD DATE: 07/05/17 0153 CC: PARAG WALKER MD; JENNIFER RANKIN MD ~ ] [address] [address] IMAGING REPORT Signed PATIENT: MURIEL GOETZ ACCOUNT: [id number] : 1935 LOCATION: ER AGE: 81 SEX: M EXAM STATUS: REG ER ORD. PHYSICIAN: PARAG WALKER MD REASON: nausea and vomiting and weakness PROCEDURE: CT HEAD WO CONTRAST Clinical Indication: Weakness for 2 days. Technique: Study is dated July 05, 2017. CT images of the head were obtained from the skull base to the vertex without IV contrast. There are no comparison studies available. One or more of the following individualized dose reduction techniques were utilized for this examination: 1. Automated exposure control 2. Adjustment of the mA and/or kV according to patient size 3. Use of iterative reconstruction technique Findings: There is diffuse, symmetric prominence of the ventricles and subarachnoid spaces consistent with age-related parenchymal volume loss. There are areas of scattered decreased attenuation in the supratentorial white matter. While nonspecific, findings are likely secondary to small vessel ischemic disease. There is no hemorrhage, extraaxial fluid collection, mass, or midline shift. There is no large vascular distribution infarct. The posterior fossa and brain stem are unremarkable. Orbits are normal. There is a small retention cyst partially included in the left maxillary sinus. There is no skull fracture appreciated on bone level images. Impression: No acute intracranial findings. Brain parenchymal volume loss and probable small vessel ischemic disease. DICTATED AND SIGNED BY: REYES KINCAID MD DATE: 07/05/17 1613 CC: PARAG WALKER MD; JENNIFER RANKIN MD ~ Course & Med Decision Making Course & Med Decision Making Pertinent Labs and Imaging studies reviewed. (See chart for details) Evaluation of patient in ER showed 81-year-old male patient with complaining of generalized weakness and nausea and vomiting and diarrhea for the last few days. Patient had dry oral mucosa without hypertension or fever or tachycardia. Patient had increase of BUN/creatinine and blood sugar of 391. Patient started on IV fluid. Dr. Estevez informed at 1710 and agreed with plan of admission of patient to telemetry bed. [] Dragon Disclaimer Dragon Disclaimer This electronic medical record was generated, in whole or in part, using a voice recognition dictation system. Departure Departure: Impression: Primary Impression: Acute renal failure Additional Impressions: Acute gastroenteritis Uncontrolled diabetes mellitus Dehydration Fall at home Disposition: 09 ADMITTED INPATIENT (At 1710) Admitting Physician: Corine Estevez Condition: IMPROVED Referrals: JENNIFER RANKIN MD (PCP) Problem Qualifiers PARAG WALKER MD Jul 05, 2017 16:49
[2017-07-05] MEDS ORDERED: ONDANSETRON PF 4 MG/2 ML VIAL. IV PRN (17:15)
[2017-07-05 17:34] LABS: BACTERIA,URINE 0 /HPF (0-FEW); BILIRUBIN,URINE NEG (NEG); CLARITY,URINE CLEAR; COLOR,URINE YELLOW; GLUCOSE,URINE >=1000 mg/dL (NEG); NITRITE,URINE NEG (NEG); SQUAMOUS EPITHELIAL CELL,UR MOD /LPF; UROBILINOGEN,URINE 0.2 mg/dL (0.2 mg/dL)
[2017-07-05 17:35] LABS: HYALINE CASTS, URINE MOD /HPF
--- NOTE | 2017-07-05 17:53 | EKG ---
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
[2017-07-05] MEDS: IV NORMAL SALINE 1,000ML 1,000 ML IV SCH (18:00)
[2017-07-05] MEDS ORDERED: INSU100C4 SQ (18:27)
[2017-07-05 18:29] VITALS: BP 141/71
[2017-07-05] MEDS ORDERED: DEXTROSE 50% 25 GM / 50ML DISP.SYRIN. IV PRN (19:45)
[2017-07-05] MEDS: ENOXAPARIN 40 MG/0.4 ML DISP.SYRIN. SQ SCH (21:41)
[2017-07-05] MEDS: INSULIN ASPART 300 UNITS/3 ML INSULN.PEN SQ SCH (21:57)
[2017-07-05 23:04] LABS: PLT ESTIMATE DECREASED (ADEQUATE)
[2017-07-05 23:20] VITALS: BP 111/66
[2017-07-06] MEDS: IV NORMAL SALINE 1,000ML 1,000 ML IV SCH ×2 (04:25→14:25)
[2017-07-06 05:23] VITALS: BP 149/83
[2017-07-06] MEDS: INSULIN ASPART 300 UNITS/3 ML INSULN.PEN SQ SCH ×5 (07:30→20:26)
[2017-07-06 10:54] VITALS: BP 153/77
[2017-07-06] MEDS ORDERED: NON FORMULARY ITEM (Albuterol Sulfate (Proair Respiclick) 2 PUFF) IH PRN (15:00)
[2017-07-06] MEDS ORDERED: ONDANSETRON ODT 4 MG TAB.RAPDIS PO PRN (15:00)
[2017-07-06 15:12] VITALS: BP 159/73
[2017-07-06] MEDS ORDERED: ALBUTEROL SULFATE 2.5 MG/3 ML NEBU. NEB PRN (16:30)
[2017-07-06] MEDS: DICYCLOMINE HCL 10 MG CAPSULE PO SCH ×2 (17:48→20:23)
[2017-07-06] MEDS: IPRATRPIUM/ALBUTEROL 0.5/2.5MG 3 ML NEBU. NEB SCH (20:00)
[2017-07-06] MEDS: LACTOBACILLUS RHAMNOSUS GG 1 CAPSULE. PO SCH (20:23)
[2017-07-06] MEDS: ENOXAPARIN 40 MG/0.4 ML DISP.SYRIN. SQ SCH (20:23)
[2017-07-06] MEDS: GABAPENTIN 300 MG CAPSULE. PO SCH (20:23)
--- NOTE | 2017-07-06 20:35 | HP ---
ADMIT DATE: 07/06/2017 HISTORY OF PRESENT ILLNESS: The patient is an 81-year-old male patient who was discharged about a week ago from [facility] where he was admitted for evaluation and possible PEG tube placement. He and his made the decision to continue with thickened liquid and were discharged home. Apparently, he had frequent episodes of nausea, vomiting and diarrhea for the last 4 days, for episode of vomiting and diarrhea every day with crampy abdominal pain during episode of vomiting and diarrhea. The patient also has generalized weakness, had a fall 4 days ago without loss of consciousness. He has decreased appetite and urine output and did not urinate yesterday; however, he denied any fever, chest pain, shortness of breath, focal neurological deficit. He was extensively investigated and was basically admitted with acute renal failure, acute gastroenteritis, poorly controlled type 2 diabetes, dehydration, and fall at home. He was started on IV fluid as his creatinine has dramatically risen to 2.1 from baseline of 1.2. PAST MEDICAL HISTORY: His past medical history is significant for hypertension, hyperlipidemia, type 2 diabetes mellitus, coronary artery disease. PAST SURGICAL HISTORY: Past surgical history is significant for permanent pacemaker placement. He has also mild thrombocytopenia and multiple admissions for dysphagia and aspiration pneumonia. ALLERGIES: He is allergic to BEE STINGS. MEDICATIONS: He is currently on following medications: Albuterol sulfate 2 puffs every 6 hours, aspirin 81 mg once a day, cholecalciferol 1000 international unit once a day, cholestyramine 4 grams powder daily, dicyclomine 10 mg 4 times a day before meals and bedtime, gabapentin 300 mg 3 times a day. He is on NovoLog 15 units subcutaneously before meals and Levemir insulin 37 units at bedtime. He is on DuoNeb 0.5-2.5 mg in 3 mL twice a day, lactobacillus, rhamnosus 1 capsule twice a day, lisinopril 10 mg daily, Namenda for anxiety 1 tablet daily. He is on omeprazole 40 mg daily, ondansetron 4 mg q. every 8 hours, and simvastatin 10 mg at bedtime. FAMILY HISTORY: Unremarkable. SOCIAL HISTORY: He is , an ex-smoker, quit in 1992. He does not drink alcohol. 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 REVIEW OF SYSTEMS: As per history of present illness. PHYSICAL EXAMINATION: GENERAL: On examining him, he looked well on arrival to the Emergency Room, and was clearly in no apparent respiratory distress, pale, but no jaundice, cyanosis or thyromegaly. No jugular venous distention. No limb edema. VITAL SIGNS: Her heart rate was 71, blood pressure was 110/60, temperature was 98.6, respiratory rate was 16, and oxygen saturation was 90% on room air. HEAD, EYES, EARS, NOSE, AND THROAT: Showed normocephalic, atraumatic. NECK: Supple. HEART: Showed normal first and second heart sounds with no gallop, rub, or murmur. CHEST: Clear to auscultation. No crepitation or rhonchi. ABDOMEN: Distended, soft, nontender. No guarding or rigidity. No organomegaly. Hernial orifice is intact. Bowel sound is normal. NEUROLOGIC: He was awake, alert, responding appropriately. Cranial nerves are intact. EXTREMITIES: She moves extremities without difficulty. He normally ambulates without assistance or assistive devices. LABORATORY AND DIAGNOSTIC DATA: His lab work in the Emergency Room showed a white cell count of 3500, hemoglobin 14.8, hematocrit 44.2, MCV 89, and platelet count of 83,000. His chemistry showed a serum sodium of 136, potassium 4.1, chloride 99, bicarbonate 28, anion gap of 9, BUN 41, creatinine 4.1, estimated GFR was 30 mL per minute. His glucose was 391. His lactic acid was 1.5, calcium was 8.2, magnesium was 1.8. Total bilirubin, AST, ALT, alkaline phosphatase were normal. His total protein was 6.4, albumin 3.4, and lipase was 43. His prothrombin time was 12.7, INR 1.2, PTT was 26. Her urinalysis showed the urine was yellow, clear with the pH of 5, specific gravity 1.020. The urine was negative for protein. There was large amount of glucose, small amount of ketones, negative for blood, nitrite, and leukocyte esterase with 3-5 RBCs, 5-10 WBCs, no bacteria. He has had the CT scan of the head, which basically showed no acute intracranial finding brain, parenchyma volume loss, and probable small vessel ischemic disease. His chest x-ray showed that the lungs are clear, the heart is not enlarged, and there is no heart failure, pacemaker is noted. There is atheromatous disease in the thoracic aorta. ASSESSMENT AND PLAN: So, in summary, this is an 81-year-old who was yet again admitted this time with acute gastroenteritis, and uncontrolled type 2 diabetes mellitus, acute renal failure, and dehydration, and fall at home. We will continue with IV fluid, repeat his labs, and decide the further management. I have again a lengthy discussion with him as he has a problem with thickened liquid, this makes him nauseous and he agreed to go ahead and have the percutaneous endoscopic colostomy tube placed. So, once his kidney function returned back to baseline, we will transfer him to [facility] and consult the gastroenterology for PEG tube placement. JORGE BRAVO MD DR: SANDRA/ana maria JOB#: [id number] / [id number]
[2017-07-06] MEDS ORDERED: INSULIN DETEMIR 300 UNITS/3 ML INSULN.PEN. SQ SCH (21:00)
[2017-07-06 21:26] VITALS: BP 151/71
[2017-07-07 00:07] VITALS: BP 123/75
[2017-07-07 06:24] VITALS: BP 150/77
[2017-07-07 07:16] LABS: ALBUMIN 2.8 g/dL (3.4-5.0); ALBUMIN/GLOBULIN RATIO 0.9 (1.0-1.7); CALCIUM 8.1 mg/dL (8.5-10.1); CREATININE 1.1 mg/dL (0.7-1.3); GFR 64.2; HEMOGLOBIN 12.8 g/dL (13.0-17.5); POTASSIUM 3.9 mmol/L (3.5-5.1); RED BLOOD COUNT 4.28 x10^6/uL (4.30-5.70); TOTAL BILIRUBIN 0.3 mg/dL (0.2-1.0); TOTAL PROTEIN 5.8 g/dL (6.4-8.2); WHITE BLOOD COUNT 2.8 x10^3/uL (4.0-11.0)
[2017-07-07] MEDS: INSULIN ASPART 300 UNITS/3 ML INSULN.PEN SQ SCH ×4 (07:30→12:49)
[2017-07-07] MEDS ORDERED: PANTOPRAZOLE 40 MG TABLET. PO SCH (07:30)
[2017-07-07] MEDS ORDERED: CHOLESTYRAMINE/ASPARTAME 4 GM PACKET PO SCH (09:00)
[2017-07-07] MEDS ORDERED: DONEPEZIL HCL 10 MG TABLET PO SCH (09:00)
[2017-07-07] MEDS ORDERED: CHOLECALCIFEROL (VITAMIN D3) 1,000 UNIT TABLET PO SCH (09:00)
[2017-07-07] MEDS ORDERED: ASPIRIN 81 MG TAB.CHEW PO SCH (09:00)
[2017-07-07] MEDS ORDERED: LISINOPRIL 10 MG TABLET PO SCH (09:00)
[2017-07-07] MEDS ORDERED: SIMVASTATIN 10 MG TABLET PO SCH (09:00)
[2017-07-07] MEDS ORDERED: MEMANTINE 10 MG TABLET. PO SCH (09:00)
[2017-07-07] MEDS: IPRATRPIUM/ALBUTEROL 0.5/2.5MG 3 ML NEBU. NEB SCH (09:26)
[2017-07-07] MEDS: LACTOBACILLUS RHAMNOSUS GG 1 CAPSULE. PO SCH (09:38)
[2017-07-07] MEDS: DICYCLOMINE HCL 10 MG CAPSULE PO SCH ×2 (09:38→12:44)
[2017-07-07] MEDS: GABAPENTIN 300 MG CAPSULE. PO SCH ×2 (09:38→14:20)
[2017-07-07 11:40] VITALS: BP 119/65
[2017-07-07 14:45] VITALS: BP 99/56
--- NOTE | 2017-07-07 23:20 | DS ---
DATE OF DISCHARGE: 07/07/2017 HISTORY OF PRESENT ILLNESS: The patient is an 81-year-old male patient who yet again came with complaint of frequent episodes of nausea, vomiting, and diarrhea for the last 4 days. His episodes are precipitated by a thickened liquid. He also complained of generalized weakness. He had a fall 4 days ago without loss of consciousness. He has had decreased appetite and urine output and did not urinate the day before admission. He was evaluated and was found to have acute kidney injury. His BUN and creatinine has improved. His sodium is 145. His BUN and creatinine were 41 and 2.1 and this morning they are 18 and 1.1 which is normalized. Blood sugars seemed to be much better controlled and the patient expressed desire to go ahead and get the gastrostomy tube placed and therefore the patient will be transferred to [facility]. We will consult Dr. Asher for placement of a gastrostomy tube. PHYSICAL EXAMINATION: GENERAL: On examining him today, he looked well and was clearly in no apparent respiratory distress, pale, but no jaundice, cyanosis, or thyromegaly. No jugular venous distension. No edema. VITAL SIGNS: Her heart rate was 61, blood pressure was 99/56, temperature was 97.4, respiratory rate 20, and oxygen saturation was 96% on 2 liters of oxygen. HEAD, EYES, EARS, NOSE, AND THROAT: Normocephalic, atraumatic. NECK: Supple. HEART: Showed normal first and second heart sounds with no gallop, rub, or murmur. CHEST: Clear to auscultation. No crepitation or rhonchi. ABDOMEN: Distended, soft, nontender. No guarding or rigidity. No organomegaly. All hernial orifice intact. Bowel sounds normal. NEUROLOGIC: He is awake, alert, responding appropriately. Cranial nerves are intact. He moves extremities without difficulty. His intake was 2961. Output was 1700. His lab work as of this morning showed serum sodium of 141, potassium 3.9, chloride 110, bicarbonate 29, anion gap of 6, BUN 18, creatinine 1.1, estimated GFR was 64 mL per minute, his glucose 168, calcium was 8.1. Total bilirubin, AST, ALT, alkaline phosphatase were normal. Total protein was 5.8, albumin 2.8. His white cell count was 2800, hemoglobin 12.8, hematocrit 38, MCV 89, and platelet count of 73,000. He will be discharged to [facility] to continue on albuterol sulfate 2 puffs every 6 hours, aspirin 81 mg once a day, ergocalciferol, vitamin D 1000 international units once a day, cholestyramine 4 grams daily, dicyclomine 10 mg 4 times a day, gabapentin 300 mg 3 times a day, NovoLog insulin 15 units subcutaneously before meals and detemir insulin 37 units at bedtime. He is on DuoNeb twice a day, lactobacillus rhamnosus 1 capsule twice a day, lisinopril 10 mg once a day, Namenda once a day, omeprazole 40 mg once a day, ondansetron 4 mg every 8 hours, simvastatin 10 mg at bedtime. FINAL DISCHARGE DIAGNOSES: 1. Acute gastroenteritis. 2. Acute kidney injury, resolved. 3. Dysphagia with recurrent aspiration pneumonia. 4. Hypertension. 5. Hyperlipidemia. 6. Type 2 diabetes mellitus. 7. Coronary artery disease. JORGE BRAVO MD DR: SANDRA/ana maria JOB#: [id number] / [id number]
== END 2017-07-07 16:50 | disposition short-term general hospital (02) | DRG 682 ==
LOC: ER 15:30 → 1 SOUTH 17:14
PROVIDERS: ADMIT Family Medicine; ATTEND Family Medicine
DX: N17.0 Acute kidney failure with tubular necrosis (principal); J69.0 Pneumonitis due to inhalation of food and vomit; E11.65 Type 2 diabetes mellitus with hyperglycemia; W18.30XA Fall on same level, unspecified, initial encounter; E86.0 Dehydration; R13.10 Dysphagia, unspecified; K52.9 Noninfective gastroenteritis and colitis, unspecified; E78.5 Hyperlipidemia, unspecified; I10 Essential (primary) hypertension; I25.10 Atherosclerotic heart disease of native coronary artery without angina pectoris; Z87.891 Personal history of nicotine dependence; Z95.0 Presence of cardiac pacemaker; Z87.01 Personal history of pneumonia (recurrent); Z91.030 Bee allergy status; Y93.89 Activity, other specified; Y92.89 Other specified places as the place of occurrence of the external cause; Y99.8 Other external cause status
CPT/HCPCS: 36415; 70450; 71045; 80053; 81001; 82553; 82947; 83605; 83690; 83735; 83880; 84484; 85025; 85027; 85610; 85730; 87086; 93005; 94640; 94760; 96361; 96374; J1650; J1815; J2405; J7040; J7620; 99285-25; J7030

== ENCOUNTER 2017-07-23 11:14 | Emergency (ER) | payer MEDICARE, OTHER ==
[~2017-07-23] VITALS: Ht 332.7 cm; Wt 83.0 kg
[~2017-07-23 11:14] MED LIST changes: +INSU100C4 SQ
[2017-07-23 11:43] LABS: BASO % 1 % (0-3); EOS # 0.1 x10^3/uL (0.0-0.7); EOS % 3 % (0-3); HEMATOCRIT 39.4 % (39.0-53.0); LYMPH # 0.6 x10^3/uL (1.0-4.8); LYMPH % 18 % (24-48); MEAN CORPUSCULAR HEMOGLOBIN 30 pg (25-35); MEAN CORPUSCULAR HGB CONC 33 g/dL (31-37); MEAN CORPUSCULAR VOLUME 90 fL (79-100); MONO # 0.2 x10^3/uL (0.0-1.1); MONO % 5 % (0-9); NEUT # 2.6 x10^3uL (1.8-7.7); NEUT % 73 % (31-73); PLATELET COUNT 153 x10^3/uL (140-400); RED BLOOD COUNT 4.39 x10^6/uL (4.30-5.70); RED CELL DISTRIBUTION WIDTH 15.9 % (11.5-14.5); WHITE BLOOD COUNT 3.6 x10^3/uL (4.0-11.0)
[2017-07-23 11:52] LABS: CREATININE 1.2 mg/dL (0.7-1.3); GFR 58.1; POTASSIUM 4.5 mmol/L (3.5-5.1)
--- NOTE | 2017-07-23 11:52 | PHYS DOC ---
Past History Past Medical History: CAD, Diabetes, High Cholesterol, Hypertension, Pneumonia Past Surgical History: Pacemaker Additional Past Surgical Histo: AICD and pacemaker placement Smoking: Non-smoker Alcohol Use: None Drug Use: None Adult General Chief Complaint Chief Complaint: cough and shortness of breath [facility] HPI Patient is a 81 year old M who presents with cough and mild shortness of breath this started just prior to arrival. Shiv was discharged from the hospital 3 days ago after being treated for recurrent pneumonia associated with aspiration. He does feel that his symptoms have been controlled since discharge until this morning. He states that he has not used reading treatments since discharged. He has no other associated symptoms at this time. He has no exacerbating or alleviating factors Review of Systems Review of Systems Constitutional: Denies fever or chills [] Eyes: Denies change in visual acuity, redness, or eye pain [] HENT: Denies nasal congestion or sore throat [] Respiratory: Negative except history of present illness Cardiovascular: No additional information not addressed in HPI [] GI: Denies abdominal pain, nausea, vomiting, bloody stools or diarrhea [] : Denies dysuria or hematuria [] Musculoskeletal: Denies back pain or joint pain [] Integument: Denies rash or skin lesions [] Neurologic: Denies headache, focal weakness or sensory changes [] Endocrine: Denies polyuria or polydipsia [] All other systems were reviewed and found to be within normal limits, except as documented in this note. Family History Family History No pertinent family medical history was reported Current Medications Current Medications Current medications were reviewed Allergies Allergies Allergies Coded Allergies Type Severity Reaction Last Updated Verified No Known Drug Allergies 07/05/17 No Physical Exam Physical Exam Constitutional: Well developed, well nourished, no acute distress, non-toxic appearance. [] HENT: Normocephalic, atraumatic, Eyes: EOMI, conjunctiva normal, no discharge. [] Neck: Normal range of motion, no tenderness, supple, no stridor. [] Cardiovascular:Heart rate regular rhythm, Lungs & Thorax: Moderately diminished without significant wheezing or rhonchi noted Abdomen: Bowel sounds normal, soft, no tenderness, no masses, no pulsatile masses. [] Skin: Warm, dry, no erythema, no rash. [] Back: No tenderness, no CVA tenderness. [] Extremities: No tenderness, no cyanosis, no clubbing, ROM intact, no edema. [] Neurologic: Alert and oriented X 3, normal motor function, normal sensory function, no focal deficits noted. [] Psychologic: Affect normal, judgement normal, mood normal. [] Current Patient Data Vital Signs Vital Signs Date Time Temp Pulse Resp B/P (MAP) Pulse Ox O2 Delivery O2 Flow Rate FiO2 07/23/17 12:01 68 20 140/68 (92) 95 Room Air 07/23/17 11:34 97.7 60 20 96 Room Air Lab Results Laboratory Tests Test 07/23/17 11:26 White Blood Count 3.6 x10^3/uL (4.0-11.0) Red Blood Count 4.39 x10^6/uL (4.30-5.70) Hemoglobin 13.0 g/dL (13.0-17.5) Hematocrit 39.4 % (39.0-53.0) Mean Corpuscular Volume 90 fL (79-100) Mean Corpuscular Hemoglobin 30 pg (25-35) Mean Corpuscular Hemoglobin Concent 33 g/dL (31-37) Red Cell Distribution Width 15.9 % (11.5-14.5) Platelet Count 153 x10^3/uL (140-400) Neutrophils (%) (Auto) 73 % (31-73) Lymphocytes (%) (Auto) 18 % (24-48) Monocytes (%) (Auto) 5 % (0-9) Eosinophils (%) (Auto) 3 % (0-3) Basophils (%) (Auto) 1 % (0-3) Neutrophils # (Auto) 2.6 x10^3uL (1.8-7.7) Lymphocytes # (Auto) 0.6 x10^3/uL (1.0-4.8) Monocytes # (Auto) 0.2 x10^3/uL (0.0-1.1) Eosinophils # (Auto) 0.1 x10^3/uL (0.0-0.7) Basophils # (Auto) 0.0 x10^3/uL (0.0-0.2) Sodium Level 136 mmol/L (136-145) Potassium Level 4.5 mmol/L (3.5-5.1) Chloride Level 98 mmol/L (98-107) Carbon Dioxide Level 33 mmol/L (21-32) Anion Gap 5 (6-14) Blood Urea Nitrogen 29 mg/dL (8-26) Creatinine 1.2 mg/dL (0.7-1.3) Estimated GFR (Cockcroft-Gault) 58.1 Glucose Level 349 mg/dL (70-99) Lactic Acid Level 1.0 mmol/L (0.4-2.0) Calcium Level 9.0 mg/dL (8.5-10.1) EKG EKG [] Radiology/Procedures Radiology/Procedures Chest x-ray Impressions: Mild right lobe atelectasis as compared with previous x-ray significant improvement was noted Course & Med Decision Making Course & Med Decision Making Pertinent Labs and Imaging studies reviewed. (See chart for details) Shiv states that his symptoms have almost completely resolved after one breathing treatment. Again he states that he has not used his breathing treatments since he was discharged. He plans to use his breathing treatments more often when he become short of breath. Dragon Disclaimer Dragon Disclaimer This electronic medical record was generated, in whole or in part, using a voice recognition dictation system. Departure Departure: Impression: Primary Impression: Encounter for medical screening examination Disposition: HOME, SELF-CARE Condition: STABLE Referrals: JENNIFER RANKIN MD (PCP) Patient Instructions: Bronchiolitis Additional Instructions: Shiv was seen in the emergency department for cough and shortness breath. No emergency medical condition was found on history or physical exam. He had normal imaging and labs. His symptoms improved with one breathing treatment. He is encouraged to use his breathing treatments at home as needed and follow-up with his primary care doctor in the next 3-5 days for further management. He was also advised to return the emergency room if she develops new or worsening symptoms. GRIS TELLEZ MD Jul 23, 2017 11:52
--- NOTE | 2017-07-23 11:57 | RAD ---
CHEST PA LATERAL History: Cough, shortness of breath Comparison: July 05, 2017 Findings: Single lateral view and 2 PA views of the chest are submitted. There again is dual lead left electronic cardiac device. Heart size is unchanged, within normal limits. There is no significant pleural fluid or pneumothorax. There is mild likely atelectasis right lung base. Impression: 1. There is mild atelectasis right lung base. Electronically signed by: Sánchez Barraza MD (07/23/2017 11:54 AM) [id number]
[2017-07-23] MEDS ORDERED: IPRATRPIUM/ALBUTEROL 0.5/2.5MG 3 ML NEBU. NEB ONE (12:00)
[2017-07-23 12:01] VITALS: BP 140/68
== END 2017-07-23 12:26 | disposition home or self-care (01) ==
LOC: ER 11:14
DX: R06.02 Shortness of breath (principal); R05 Cough; E11.9 Type 2 diabetes mellitus without complications; E78.00 Pure hypercholesterolemia, unspecified; I10 Essential (primary) hypertension; I25.10 Atherosclerotic heart disease of native coronary artery without angina pectoris; Z95.810 Presence of automatic (implantable) cardiac defibrillator
CPT/HCPCS: 36415; 71046; 80048; 83605; 85025; 87040; 94640; 99285; J7620

== ENCOUNTER 2017-08-06 21:23 | Emergency (ER) | payer MEDICARE, OTHER ==
[~2017-08-06] VITALS: Ht 180.3 cm; Wt 80.7 kg
--- NOTE | 2017-08-06 22:25 | PHYS DOC ---
General Chief Complaint: BLOOD SUGAR PROBLEM Stated Complaint: BLOOD SUGAR CHECK Time Seen by MD: 21:29 Source: patient, family Exam Limitations: no limitations Problems: History of Present Illness Initial Comments 81-year-old male who comes private auto for glucose check. Patient is insulin-dependent diabetic and has taken insulin for years. Had a feeding tube placed this past week and his Lantus dosing has been adjusted. He states that tonight he was talking to his and administered a Lantus dose, he is uncertain how many units. He thinks he kale up the correct dose but is uncertain. He last ate via feeding tube at 1999, Lantus was administered at approximately 2009. He hasn't had any symptoms of hypoglycemia and blood sugar checks at home have been stable, he called "ask a nurse" and they referred him to the emergency department. Timing/Duration: other Severity: mild Modifying Factors: improves with medication Associated Symptoms: denies symptoms Allergies: Coded Allergies: No Known Drug Allergies (Unverified , 07/05/17) Past Medical History Medical History: other (coronary artery disease, diabetes, hyperlipidemia, hypertension, pneumonia) Surgical History: other (pacemaker, feeding tube) Social History Smoker: quit greater than 1 year Alcohol: none Drugs: none Review of Systems Constitutional: denies chills, denies fever, denies malaise Respiratory: denies cough, denies shortness of breath Cardiovascular: denies chest pain, denies palpitations Gastrointestinal: denies abdominal pain, denies diarrhea, denies nausea, denies vomiting Genitourinary: denies dysuria, denies frequency, denies hematuria Musculoskeletal: denies back pain, denies joint swelling, denies neck pain Psychiatric/Neurological: denies headache, denies numbness, denies paresthesia , denies weakness Hematologic/Lymphatic: denies blood clots, denies easy bleeding, denies easy bruising Physical Exam General Appearance: WD/WN, no apparent distress Ear, Nose, Throat: hearing grossly normal, normal ENT inspection Neck: non-tender, supple Respiratory: normal breath sounds, no respiratory distress Cardiovascular: normal peripheral pulses, regular rate, rhythm Gastrointestinal: normal bowel sounds, non tender, soft Back: no CVA tenderness, no vertebral tenderness Extremities: non-tender, normal inspection 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 As we are only at the two-hour jessa any potential extra Lantus taken would not yet be at peak effectiveness. I discussed options, I offered observation admission to monitor glucose. I also discussed close glucose monitoring overnight with hourly glucose checks, and airflow administered juice. If unable to increased glucose call 911 or return to the ED. After thorough discussion of options the patient and his family would like to monitor his sugar closely at home and avoid inpatient treatment at this time. They agreed to comply with departure instructions and will return to the emergency department as needed. Patient denies any complaints or symptoms at this time. Departure Time of Disposition: 22:21 Disposition: 01 HOME, SELF-CARE Diagnosis: Possible accidental overmedication Condition: STABLE Patient Instructions: How to Avoid Diabetes Problems Additional Instructions: As discussed, for now you would like to try to monitor your glucose at home and have declined observation admission. Check your blood sugar hourly tonight or if you develops symptoms, if it gets low and you are unable to increase it with juice return to the ED. Take care in administering insulin moving forward. Return to ED as needed. MECHELLE MAURICIO DO Aug 06, 2017 22:25
[2017-08-06 23:00] VITALS: BP 104/51
== END 2017-08-06 23:00 | disposition home or self-care (01) ==
LOC: ER 21:23
DX: Z03.89 Encounter for observation for other suspected diseases and conditions ruled out (principal); E11.9 Type 2 diabetes mellitus without complications; E78.5 Hyperlipidemia, unspecified; I10 Essential (primary) hypertension; I25.10 Atherosclerotic heart disease of native coronary artery without angina pectoris; Z79.4 Long term (current) use of insulin; Z87.891 Personal history of nicotine dependence; Z95.0 Presence of cardiac pacemaker
CPT/HCPCS: 82947; 99284

== ENCOUNTER 2017-08-16 08:53 | Emergency (ER) | payer MEDICARE, OTHER ==
[2017-08-16 09:00] VITALS: BP 160/80
--- NOTE | 2017-08-16 09:26 | PHYS DOC ---
Past History Past Medical History: CAD, Diabetes, High Cholesterol, Hypertension, Pneumonia Past Surgical History: Pacemaker Additional Past Surgical Histo: AICD and pacemaker placement Smoking: Non-smoker Alcohol Use: None Drug Use: None Adult General Chief Complaint Chief Complaint: feeding tube malfunction HPI HPI patient is a pleasant 81 yo male with feeding tube disfunction. Family noted that they could not flush tube this morning with the AM feeds. They used coke in an effort to open tube to no avail. no other complaints of ab pain or fever Review of Systems Review of Systems Constitutional: Denies fever or chills [] Eyes: Denies change in visual acuity, redness, or eye pain [] HENT: Denies nasal congestion or sore throat [] Respiratory: Denies cough or shortness of breath [] Cardiovascular: No additional information not addressed in HPI [] GI: Denies abdominal pain, nausea, vomiting, bloody stools or diarrhea [] : Denies dysuria or hematuria [] Musculoskeletal: Denies back pain or joint pain [] Integument: Denies rash or skin lesions [] Neurologic: Denies headache, focal weakness or sensory changes [] Endocrine: Denies polyuria or polydipsia [] All other systems were reviewed and found to be within normal limits, except as documented in this note. Allergies Allergies Allergies Coded Allergies Type Severity Reaction Last Updated Verified No Known Drug Allergies 07/05/17 No Physical Exam Physical Exam Constitutional: Well developed, well nourished, no acute distress, non-toxic appearance. [] Abdomen: Bowel sounds normal, soft, no tenderness, clean site at feeding tube Skin: Warm, dry, no erythema, no rash. [] Neurologic: Alert and oriented X 3, normal motor function, normal sensory function, no focal deficits noted. [] Psychologic: Affect normal, judgement normal, mood normal. [] EKG EKG [] Radiology/Procedures Radiology/Procedures [] Course & Med Decision Making Course & Med Decision Making Pertinent Labs and Imaging studies reviewed. (See chart for details) []using coke, feeding tube opened and flushed without issue. discharged home with precautions. discharge: I've spoken with the patient and/or caregivers. I've explained the patient's condition, diagnosis and treatment plan based on information available to me at this time. I've answered the patient's and/or caregivers questions and addressed any concerns. The patient and/or caregivers have a good understanding the patient's diagnosis, condition and treatment plan as can be expected at this point. Vital signs have been stabilized. The patient's condition is stable for discharge from the emergency department. The patient will pursue further outpatient evaluation with her primary care provider or other designated consulting physician as outlined in the discharge instructions. Patient and/or caregivers are agreeable to this plan of care and follow-up instructions have been explained in detail. The patient and/or caregivers have received these instructions in written format and expressed understanding of these discharge instructions. The patient and her caregivers are aware that if any significant change in condition or worsening of symptoms should prompt him to immediately return to this of the closest emergency department. If an emergent department is not readily available I would encourage him to call 911. Dragon Disclaimer Dragon Disclaimer This electronic medical record was generated, in whole or in part, using a voice recognition dictation system. Departure Departure: Impression: Primary Impression: Feeding tube obstruction Disposition: HOME, SELF-CARE Condition: STABLE Referrals: JENNIFER RANKIN MD (PCP) Patient Instructions: Care of a Feeding Tube Site Additional Instructions: discharge: I've spoken with the patient and/or caregivers. I've explained the patient's condition, diagnosis and treatment plan based on information available to me at this time. I've answered the patient's and/or caregivers questions and addressed any concerns. The patient and/or caregivers have a good understanding the patient's diagnosis, condition and treatment plan as can be expected at this point. Vital signs have been stabilized. The patient's condition is stable for discharge from the emergency department. The patient will pursue further outpatient evaluation with her primary care provider or other designated consulting physician as outlined in the discharge instructions. Patient and/or caregivers are agreeable to this plan of care and follow-up instructions have been explained in detail. The patient and/or caregivers have received these instructions in written format and expressed understanding of these discharge instructions. The patient and her caregivers are aware that if any significant change in condition or worsening of symptoms should prompt him to immediately return to this of the closest emergency department. If an emergent department is not readily available I would encourage him to call 911. SEBASTIAN WORRELL MD Aug 16, 2017 09:26
== END 2017-08-16 09:33 | disposition home or self-care (01) ==
LOC: ER 08:53
DX: K94.23 Gastrostomy malfunction (principal); I25.10 Atherosclerotic heart disease of native coronary artery without angina pectoris; E11.9 Type 2 diabetes mellitus without complications; E78.00 Pure hypercholesterolemia, unspecified; Z95.810 Presence of automatic (implantable) cardiac defibrillator
CPT/HCPCS: 99284

== ENCOUNTER 2017-08-20 10:26 | Emergency (ER) | payer MEDICARE, OTHER ==
[~2017-08-20] VITALS: Ht 180.3 cm; Wt 80.7 kg
[2017-08-20 11:43] LABS: BASO % 1 % (0-3); EOS # 0.1 x10^3/uL (0.0-0.7); EOS % 2 % (0-3); HEMATOCRIT 44.1 % (39.0-53.0); HEMOGLOBIN 14.8 g/dL (13.0-17.5); LYMPH % 24 % (24-48); MEAN CORPUSCULAR HEMOGLOBIN 30 pg (25-35); MEAN CORPUSCULAR HGB CONC 34 g/dL (31-37); MEAN CORPUSCULAR VOLUME 89 fL (79-100); MONO # 0.3 x10^3/uL (0.0-1.1); MONO % 6 % (0-9); NEUT # 2.7 x10^3uL (1.8-7.7); NEUT % 66 % (31-73); PLATELET COUNT 117 x10^3/uL (140-400); RED BLOOD COUNT 4.98 x10^6/uL (4.30-5.70); RED CELL DISTRIBUTION WIDTH 15.7 % (11.5-14.5)
[2017-08-20] MEDS ORDERED: IOHEXOL 300 MG/ML 75 ML VIAL. IV ONE (11:45)
--- NOTE | 2017-08-20 11:45 | PHYS DOC ---
General Chief Complaint: ABDOMINAL PAIN Stated Complaint: WEAKNESS Time Seen by MD: 10:59 Source: patient, old records Exam Limitations: no limitations Problems: History of Present Illness Initial Comments 81-year-old male to the emergency department with spouse complaining of severe abdominal pain and weakness. Patient had a feeding tube placed due to recurrent aspiration pneumonia at [facility] in July surgeon was Dr. Asher. Patient has been nothing by mouth since that time all nourishment from feeding tube. He states that at midnight today he had sudden onset severe sharp abdominal discomfort located periumbilically. The pain has been constant since that time described as severe worse with movements and certain posture. He had no nausea vomiting no fever chills no cough. His last bowel movement was yesterday described as normal. Vital signs are stable labs and imaging studies initiated. Timing/Duration: other Severity: severe Modifying Factors: improves with other Associated Symptoms: weakness, other Allergies: Coded Allergies: No Known Drug Allergies (Unverified , 07/05/17) Past Medical History Medical History: other (recurrent dysphasia with aspiration pneumonia, dementia , hypertension, hyperlipidemia, diabetes, coronary artery disease, arrhythmia, thrombocytopenia) Surgical History: other (pacemaker, feeding tube) Social History Smoker: non-smoker Alcohol: none Drugs: none Review of Systems Constitutional: denies chills, denies diaphoresis, denies fever Respiratory: denies cough, denies shortness of breath Cardiovascular: denies chest pain, denies palpitations Gastrointestinal: see HPI Genitourinary: denies dysuria, denies frequency, denies hematuria Musculoskeletal: denies back pain, denies joint swelling, denies neck pain Psychiatric/Neurological: denies headache, denies numbness, denies paresthesia Physical Exam General Appearance: WD/WN, mild distress Ear, Nose, Throat: normal ENT inspection, normal pharynx Neck: non-tender, supple Respiratory: normal breath sounds, no respiratory distress Cardiovascular: normal peripheral pulses, regular rate, rhythm Gastrointestinal: normal bowel sounds, other (mildly distended, diffusely tender with rebound no palpable masses) Back: no CVA tenderness, no vertebral tenderness Extremities: non-tender, normal inspection 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 Interpreted by me. Labs and urine workup unremarkable PATIENT: MURIEL GOETZ ACCOUNT: [id number] : 1935 LOCATION: ER AGE: 81 SEX: M EXAM STATUS: REG ER ORD. PHYSICIAN: MECHELLE MAURICIO DO REASON: abdominal pain - PENDING LABS PROCEDURE: CT ABD PELV W/ IV CONTRST ONLY PQRS Compliance Statement: One or more of the following individualized dose reduction techniques were utilized for this examination: 1. Automated exposure control 2. Adjustment of the mA and/or kV according to patient size 3. Use of iterative reconstruction technique CT ABD PELV W/ IV CONTRST ONLY Clinical Indication: ABDOMINAL PAIN WITH NAUSEA Comparison: None. Technique: Helical CT imaging of the abdomen and pelvis is performed after 75 cc Omnipaque 300 IV contrast. Oral contrast not given. Findings: Cardiac pacer wires. Coronary artery disease. Cardiac size normal. Mild atelectasis or scarring in the lower lobes. Cholecystectomy. Liver, spleen, pancreas, and adrenal glands are normal. Atherosclerotic abdominal aorta. Scattered mural thrombus. Ectatic right common iliac artery measures up to 2.2 cm. Right kidney is normal. Small left renal cysts. 8 mm nonobstructing calculus in the lower pole of the left kidney. No hydronephrosis. Gastrostomy tube is in appropriate position. No dilated small bowel. There is severe sigmoid colon diverticulosis. Small partially calcified soft tissue nodule lateral to the descending colon is likely incidental and may be sequela of old diverticulitis or epiploic appendagitis. No secondary signs of appendicitis. No colon wall thickening is identified. No intraperitoneal free air. There is mild pelvic free fluid. Density of the fluid measures 67 Hounsfield units suggesting hemoperitoneum. Prostate is heterogeneous and mildly enlarged. Urinary bladder is normal. Inferior most pelvis is not imaged. Mild grade 1 anterolisthesis of L3 on L4. Mild grade 1 retrolisthesis of L2 on L3. IMPRESSION: 1. Small-volume pelvic hemoperitoneum. Source is unclear. 2. Severe sigmoid colon diverticulosis without evidence of diverticulitis. 3. Prostate is heterogeneous and mildly enlarged. 4. Small left renal cysts. Nonobstructing left renal calculus. 5. Ectatic right common iliac artery. Electronically signed by: Zain Andujar MD (08/20/2017 12:41 PM) [id number] DICTATED AND SIGNED BY: AZIN ANDUJAR MD DATE: 08/20/17 1229 CC: MECHELLE MAURICIO DO; JENNIFER RANKIN MD ~ Impressions: Postoperative abdominal pain Hemoperitoneum Diverticulosis without diverticulitis Hypovolemia 1310: Dr. Fan accepts patient for transfer to [facility] for further evaluation, pain control, and reevaluation by GI Dr. Asher. Departure Time of Disposition: 13:15 Disposition: 02 XFER SHT-TRM HOSP Diagnosis: feeding tube problem, hemoperitoneum, Condition: STABLE Additional Instructions: EMS transfer to [facility] Dr. Fan is accepting. MECHELLE MAURICIO DO Aug 20, 2017 11:45
[2017-08-20 11:47] LABS: ALBUMIN 3.4 g/dL (3.4-5.0); CALCIUM 9.3 mg/dL (8.5-10.1); GFR 71.7; POTASSIUM 4.1 mmol/L (3.5-5.1); TOTAL BILIRUBIN 0.3 mg/dL (0.2-1.0); TOTAL PROTEIN 6.9 g/dL (6.4-8.2)
[2017-08-20 12:00] LABS: BACTERIA,URINE 0 /HPF (0-FEW); BILIRUBIN,URINE NEG (NEG); CLARITY,URINE CLEAR; COLOR,URINE YELLOW; GLUCOSE,URINE NEG (NEG); NITRITE,URINE NEG (NEG); RBC,URINE 0 /HPF (0-2); SQUAMOUS EPITHELIAL CELL,UR OCC /LPF; UROBILINOGEN,URINE 0.2 mg/dL (0.2 mg/dL); WBC,URINE 0 /HPF (0-4)
[2017-08-20] MEDS ORDERED: IV NORMAL SALINE 1,000ML 1,000 ML IV SCH (12:07)
--- NOTE | 2017-08-20 12:44 | RAD ---
PQRS Compliance Statement: One or more of the following individualized dose reduction techniques were utilized for this examination: 1. Automated exposure control 2. Adjustment of the mA and/or kV according to patient size 3. Use of iterative reconstruction technique CT ABD PELV W/ IV CONTRST ONLY Clinical Indication: ABDOMINAL PAIN WITH NAUSEA Comparison: None. Technique: Helical CT imaging of the abdomen and pelvis is performed after 75 cc Omnipaque 300 IV contrast. Oral contrast not given. Findings: Cardiac pacer wires. Coronary artery disease. Cardiac size normal. Mild atelectasis or scarring in the lower lobes. Cholecystectomy. Liver, spleen, pancreas, and adrenal glands are normal. Atherosclerotic abdominal aorta. Scattered mural thrombus. Ectatic right common iliac artery measures up to 2.2 cm. Right kidney is normal. Small left renal cysts. 8 mm nonobstructing calculus in the lower pole of the left kidney. No hydronephrosis. Gastrostomy tube is in appropriate position. No dilated small bowel. There is severe sigmoid colon diverticulosis. Small partially calcified soft tissue nodule lateral to the descending colon is likely incidental and may be sequela of old diverticulitis or epiploic appendagitis. No secondary signs of appendicitis. No colon wall thickening is identified. No intraperitoneal free air. There is mild pelvic free fluid. Density of the fluid measures 67 Hounsfield units suggesting hemoperitoneum. Prostate is heterogeneous and mildly enlarged. Urinary bladder is normal. Inferior most pelvis is not imaged. Mild grade 1 anterolisthesis of L3 on L4. Mild grade 1 retrolisthesis of L2 on L3. IMPRESSION: 1. Small-volume pelvic hemoperitoneum. Source is unclear. 2. Severe sigmoid colon diverticulosis without evidence of diverticulitis. 3. Prostate is heterogeneous and mildly enlarged. 4. Small left renal cysts. Nonobstructing left renal calculus. 5. Ectatic right common iliac artery. Electronically signed by: Zain Andujar MD (08/20/2017 12:41 PM) [id number]
[2017-08-20] MEDS ORDERED: IV DEXTROSE 5 %-0.45 % NACL 1,000 ML IV ONE (13:15)
[2017-08-20] MEDS ORDERED: IV DEXTROSE 5 %-0.45 % NACL 500 ML IV ONE (13:15)
[2017-08-20 14:53] VITALS: BP 122/64
--- NOTE | 2017-08-21 09:19 | EKG ---
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
== END 2017-08-20 14:38 | disposition short-term general hospital (02) ==
LOC: ER 10:26
DX: K94.23 Gastrostomy malfunction (principal); K66.1 Hemoperitoneum; E86.1 Hypovolemia; K57.30 Diverticulosis of large intestine without perforation or abscess without bleeding; I10 Essential (primary) hypertension; E78.5 Hyperlipidemia, unspecified; E11.9 Type 2 diabetes mellitus without complications; I25.10 Atherosclerotic heart disease of native coronary artery without angina pectoris; Z95.0 Presence of cardiac pacemaker; D69.6 Thrombocytopenia, unspecified
CPT/HCPCS: 36415; 74177; 80053; 81001; 82550; 82947; 83690; 84484; 85025; 93005; 96360; 99285; Q9967; 96361; J7030

== ENCOUNTER 2017-08-29 11:24 | Inpatient (IN) | payer MEDICARE, OTHER ==
[2017-08-29] VITALS (9 sets, daily range): BP systolic 83–113; BP diastolic 47–55
[~2017-08-29] VITALS: Ht 180.3 cm; Wt 84.1 kg
[2017-08-29] MEDS ORDERED: 0.9 % SODIUM CHLORIDE 10 ML DISP.SYRIN. IV PRN (11:30)
[2017-08-29] MEDS ORDERED: IV NORMAL SALINE 1,000ML 1,000 ML IV SCH (11:30)
[2017-08-29 12:00] LABS: BASO % 1 % (0-3); EOS % 1 % (0-3); HEMATOCRIT 46.8 % (39.0-53.0); HEMOGLOBIN 15.5 g/dL (13.0-17.5); LYMPH # 0.4 x10^3/uL (1.0-4.8); LYMPH % 5 % (24-48); MEAN CORPUSCULAR HEMOGLOBIN 30 pg (25-35); MEAN CORPUSCULAR HGB CONC 33 g/dL (31-37); MEAN CORPUSCULAR VOLUME 90 fL (79-100); MONO # 0.3 x10^3/uL (0.0-1.1); MONO % 4 % (0-9); NEUT # 5.8 x10^3uL (1.8-7.7); NEUT % 89 % (31-73); PLATELET COUNT 103 x10^3/uL (140-400); RED BLOOD COUNT 5.22 x10^6/uL (4.30-5.70); RED CELL DISTRIBUTION WIDTH 16.3 % (11.5-14.5); WHITE BLOOD COUNT 6.5 x10^3/uL (4.0-11.0)
[2017-08-29 12:18] LABS: INFLUENZA A PATIENT NEGATIVE (NEGATIVE); INFLUENZA B PATIENT NEGATIVE (NEGATIVE)
[2017-08-29 12:18] LABS: BGAS PH 7.41 (7.35-7.46)
--- NOTE | 2017-08-29 12:23 | RAD ---
Portable chest, 08/29/2017: History: Fever with nausea and vomiting Comparison is made to a study from 07/23/2017. A left-sided transvenous pacemaker remains in place with 2 leads extending into the right heart. The heart size is normal. There is calcific plaquing and tortuosity of the thoracic aorta. Attenuation of the upper lobe pulmonary vessels suggests the presence of emphysema. There is mild relative prominence of the basilar pulmonary markings suggesting atelectasis and/or scarring. No pulmonary consolidation is seen. There is no evidence of pleural fluid. IMPRESSION: Mild basilar atelectasis or scarring.
[2017-08-29 12:29] LABS: ALBUMIN 3.3 g/dL (3.4-5.0); ALBUMIN/GLOBULIN RATIO 0.9 (1.0-1.7); CALCIUM 8.8 mg/dL (8.5-10.1); CREATININE 1.2 mg/dL (0.7-1.3); GFR 58.1; POTASSIUM 4.8 mmol/L (3.5-5.1); TOTAL BILIRUBIN 0.6 mg/dL (0.2-1.0); TOTAL PROTEIN 6.9 g/dL (6.4-8.2)
[2017-08-29] MEDS ORDERED: IOHEXOL 300 MG/ML 75 ML VIAL. IV ONE (12:30)
[2017-08-29] MEDS ORDERED: ACETAMINOPHEN 650 MG/20.3 ML SOLUTION. PO ONE (12:30)
--- NOTE | 2017-08-29 13:08 | RAD ---
CT of the abdomen and pelvis with contrast, 08/29/2017: History: Abdominal pain with vomiting nausea and vomiting Multidetector CT imaging was performed following an IV bolus injection of iodinated contrast material. No oral contrast material was administered as requested. Comparison is made to a study from 08/20/2017. There is mild streaky atelectasis and/or scarring in both lung bases. The gallbladder is surgically absent. No hepatic abnormality is seen. The pancreas is unremarkable. The spleen is of normal size. There is an 8 mm intrarenal calculus on the left. There is also a vascular calcification in the left renal hilum. Two small left renal cysts are present. No right renal calculi are seen. The renal collecting systems and ureters are not dilated. No ureteral calculus is evident. There is moderate calcific plaquing of the abdominal aorta and its branches there is slight dilatation of the right common iliac artery. No abdominal or pelvic adenopathy is seen. The prostate gland is mildly enlarged. A gastrostomy tube extends into the body of the stomach. The bowel loops are not dilated. Colonic diverticula are present, most numerous in the sigmoid region. No paracolonic inflammatory process is seen. There is a moderate collection of stool in the rectum. No free air is present in the abdomen. High density fluid seen in the pelvis on the 08/20/2017 exam has nearly completely resolved. There is only a trace amount residual pelvic fluid, best seen on coronal image 48. IMPRESSION: 1. Extensive sigmoid diverticulosis. 2. Mild fecal impaction the rectum. 3. Mild nonspecific prostatic enlargement. 4. Nearly complete clearing of the previously seen small pelvic hemoperitoneum. 5. Nonobstructing left intrarenal calculus. 6. The gastrostomy tube is in satisfactory position. PQRS Compliance Statement: One or more of the following individualized dose reduction techniques were utilized for this examination: 1. Automated exposure control 2. Adjustment of the mA and/or kV according to patient size 3. Use of iterative reconstruction technique
[2017-08-29] MEDS ORDERED: PIPERACILLIN/TAZOBACTAM 3.375 GM in IV NORMAL SALINE 50ML 50 ML IV ONE (13:15)
[2017-08-29] MEDS ORDERED: VANCOMYCIN 1 GM in IV NORMAL SALINE 250ML 250 ML IV ONE ×2 (13:15→17:30)
--- NOTE | 2017-08-29 13:17 | PHYS DOC ---
Past History Past Medical History: Arthritis, CAD, Dementia, GERD, High Cholesterol, MRSA, Pneumonia, Other Past Surgical History: Pacemaker Additional Past Surgical Histo: AICD and pacemaker placement Smoking: Non-smoker Alcohol Use: None Drug Use: None Adult General Chief Complaint Chief Complaint: NAUSEA/VOMITING/[facility] 81-year-old male patient with history of indwelling PEG tube because of frequent aspiration pneumonia and multiple emergency room visits and hospitalization brought in by EMS because of 3 episodes of vomiting since this morning associated with urinary incontinence without abdominal pain or diarrhea. Patient denies fever and chills, flank congestion, chest pain, shortness of breath, earache and sore throat. Patient had a resent hospitalization on August 20 with abdominal pain and hemoperitoneum that was treated medically. Review of Systems Review of Systems Constitutional: Denies fever or chills [] Eyes: Denies change in visual acuity, redness, or eye pain [] HENT: Denies nasal congestion or sore throat [] Respiratory: Denies cough or shortness of breath [] Cardiovascular: No additional information not addressed in HPI [] GI: Reports nausea, vomiting, denies abdominal pain and bloody stools or diarrhea [] : Denies dysuria or hematuria [] Musculoskeletal: Denies back pain or joint pain [] Integument: Denies rash or skin lesions [] Neurologic: Denies headache, focal weakness or sensory changes [] Endocrine: Denies polyuria or polydipsia [] All other systems were reviewed and found to be within normal limits, except as documented in this note. Current Medications Current Medications Current Medications Medications (Trade) Dose Ordered Sig/Shira Start Time Stop Time Status Last Admin Dose Admin Acetaminophen (Tylenol) 650 mg 1X ONCE 08/29/17 12:30 08/29/17 12:31 DC 08/29/17 12:52 650 MG Iohexol (Omnipaque 300 Mg/ml) 75 ml 1X ONCE 08/29/17 12:30 08/29/17 12:31 DC Piperacillin Sod/ Tazobactam Sod 3.375 gm/Sodium Chloride 50 ml @ 100 mls/hr 1X ONCE 08/29/17 12:45 08/29/17 13:14 UNV Sodium Chloride (Normal Saline Flush) 10 ml QSHIFT PRN 08/29/17 11:30 Vancomycin HCl 1 gm/Sodium Chloride 250 ml @ 250 mls/hr 1X ONCE 08/29/17 12:45 08/29/17 13:44 UNV Allergies Allergies Allergies Coded Allergies Type Severity Reaction Last Updated Verified No Known Drug Allergies 07/05/17 No Physical Exam Physical Exam Constitutional: Mild distress, non-toxic appearance, ill looking, febrile, temperature 101.2. [] HENT: Normocephalic, atraumatic, bilateral external ears normal, oropharynx moist, no oral exudates, nose normal. [] Eyes: PERRLA, EOMI, conjunctiva normal, no discharge. [] Neck: Normal range of motion, no tenderness, supple, no stridor. [] Cardiovascular:Heart rate regular rhythm, no murmur [] Lungs & Thorax: Bilateral breath sounds clear to auscultation [] Abdomen: Bowel sounds normal, soft, no tenderness, no masses, no pulsatile masses, PEG tube in place with mild guarding around PEG tube area. [] Skin: Warm, dry, no erythema, no rash. [] Back: No tenderness, no CVA tenderness. [] Extremities: No tenderness, no cyanosis, no clubbing, ROM intact, no edema. [] Neurologic: Alert and oriented X 3, normal motor function, normal sensory function, no focal deficits noted. [] Psychologic: Affect normal, judgement normal, mood normal. [] Current Patient Data Vital Signs Vital Signs Date Time Temp Pulse Resp B/P (MAP) Pulse Ox O2 Delivery O2 Flow Rate FiO2 08/29/17 11:24 101.2 81 16 88 Room Air Lab Results Laboratory Tests Test 08/29/17 11:40 08/29/17 12:00 White Blood Count 6.5 x10^3/uL (4.0-11.0) Red Blood Count 5.22 x10^6/uL (4.30-5.70) Hemoglobin 15.5 g/dL (13.0-17.5) Hematocrit 46.8 % (39.0-53.0) Mean Corpuscular Volume 90 fL (79-100) Mean Corpuscular Hemoglobin 30 pg (25-35) Mean Corpuscular Hemoglobin Concent 33 g/dL (31-37) Red Cell Distribution Width 16.3 % (11.5-14.5) H Platelet Count 103 x10^3/uL (140-400) L Neutrophils (%) (Auto) 89 % (31-73) H Lymphocytes (%) (Auto) 5 % (24-48) L Monocytes (%) (Auto) 4 % (0-9) Eosinophils (%) (Auto) 1 % (0-3) Basophils (%) (Auto) 1 % (0-3) Neutrophils # (Auto) 5.8 x10^3uL (1.8-7.7) Lymphocytes # (Auto) 0.4 x10^3/uL (1.0-4.8) L Monocytes # (Auto) 0.3 x10^3/uL (0.0-1.1) Eosinophils # (Auto) 0.0 x10^3/uL (0.0-0.7) Basophils # (Auto) 0.0 x10^3/uL (0.0-0.2) Prothrombin Time 10.4 SEC (9.4-11.4) Prothrombin Time INR 1.0 (0.9-1.1) Sodium Level 139 mmol/L (136-145) Potassium Level 4.8 mmol/L (3.5-5.1) Chloride Level 101 mmol/L (98-107) Carbon Dioxide Level 29 mmol/L (21-32) Anion Gap 9 (6-14) Blood Urea Nitrogen 28 mg/dL (8-26) H Creatinine 1.2 mg/dL (0.7-1.3) Estimated GFR (Cockcroft-Gault) 58.1 BUN/Creatinine Ratio 23 (6-20) H Glucose Level 285 mg/dL (70-99) H Lactic Acid Level 2.1 mmol/L (0.4-2.0) H Calcium Level 8.8 mg/dL (8.5-10.1) Total Bilirubin 0.6 mg/dL (0.2-1.0) Aspartate Amino Transferase (AST) 28 U/L (15-37) Alanine Aminotransferase (ALT) 27 U/L (16-63) Alkaline Phosphatase 77 U/L (46-116) Creatine Kinase 44 U/L (39-308) Creatine Kinase MB (Mass) 0.5 ng/mL (0.0-3.6) Creatine Kinase MB Relative Index 1.1 % (0-4) Troponin I Quantitative < 0.017 ng/mL (0-0.055) Total Protein 6.9 g/dL (6.4-8.2) Albumin 3.3 g/dL (3.4-5.0) L Albumin/Globulin Ratio 0.9 (1.0-1.7) L Lipase 43 U/L (73-393) L Influenza Type A (Rapid) Negative (NEGATIVE) Influenza Type B (Rapid) Negative (NEGATIVE) Blood pH 7.41 (7.35-7.46) Blood Gas PCO2 45 mmHg (35-46) Blood Gas PO2 59 mmHg (71-100) L Blood Gas HCO3 28 mmol/L (21-28) Arterial Bld O2 Saturation (Calc) 88 % (92-99) L FiO2 28 % EKG EKG [] Radiology/Procedures Radiology/Procedures [] Course & Med Decision Making Course & Med Decision Making Pertinent Labs and Imaging studies reviewed. (See chart for details) Evaluation of patient in ER showed 81-year-old female patient brought in by EMS because of 3 episodes of vomiting since this morning. Patient had temperature of 101.2 without hypotension or tachycardia or confusion. Patient treated with IV fluid and Tylenol via PEG tube and temperature gradually dropped to 98.2. Patient had unremarkable evaluation for source of infection and fever. Lactic acid was 2.1 and Zosyn and vancomycin was started in ER. Dr. Turcios informed at 1320 and agreed with admitting patient of sepsis without known source of infection. 1415: Patient had drop of blood pressure to 76/39 without tachycardia and a liter of IV fluid bolus was ordered. Plan to inform hospitalist about new change of blood pressure. Dragon Disclaimer Dragon Disclaimer This electronic medical record was generated, in whole or in part, using a voice recognition dictation system. Departure Departure: Impression: Primary Impression: Sepsis Additional Impressions: Nausea and vomiting Fever S/P percutaneous endoscopic gastrostomy (PEG) tube placement Dehydration Disposition: 09 ADMITTED INPATIENT (At 1320) Admitting Physician: Ezio Turcios Condition: IMPROVED Referrals: JENNIFER RANKIN MD (PCP) Critical Care Time Critical care time was [70] minutes exclusive of procedures. Problem Qualifiers PARAG WALKER MD Aug 29, 2017 13:17
[2017-08-29] MEDS ORDERED: IV NORMAL SALINE 50ML 50 ML ONE (13:19)
[2017-08-29] MEDS ORDERED: PIPERACILLIN/TAZOBACTAM 3.375 GM VIAL IV ONE (13:19)
[2017-08-29] MEDS ORDERED: IV NORMAL SALINE 250ML 250 ML ONE (13:19)
[2017-08-29] MEDS ORDERED: VANCOMYCIN 1 GM VIAL. ONE (13:20)
[2017-08-29 13:21] LABS: BILIRUBIN,URINE NEG (NEG); CLARITY,URINE CLEAR; COLOR,URINE YELLOW; GLUCOSE,URINE 500 mg/dL (NEG); UROBILINOGEN,URINE 1 mg/dL (0.2 mg/dL)
[2017-08-29 13:22] LABS: AMORPHOUS SEDIMENT,UR PRESENT /HPF; BACTERIA,URINE 0 /HPF (0-FEW); NITRITE,URINE NEG (NEG); RBC,URINE 0 /HPF (0-2); SQUAMOUS EPITHELIAL CELL,UR OCC /LPF; WBC,URINE 0 /HPF (0-4)
[2017-08-29] MEDS ORDERED: ONDANSETRON PF 4 MG/2 ML VIAL. IV PRN (13:30)
[2017-08-29] MEDS ORDERED: IV NORMAL SALINE 1,000ML 1,000 ML IV ONE (14:15)
[2017-08-29] MEDS: IV NORMAL SALINE 1,000ML 1,000 ML IV SCH ×3 (15:15→22:11)
--- NOTE | 2017-08-29 16:28 | EKG ---
[address] [address] Test Date: 2017-08-29 Test Time: 14:29:51 Pat Name: MURIEL GOETZ Department: Room: Gender: M [employer] Supervisor: ANALILIA : [id number] Requested By: PARAG WALKER Order Number: [id number] Reading MD: Measurements Intervals Miles Rate: 61 P: 34 GA: 360 QRS: -7 QRSD: 82 T: 11 QT: 474 QTc: 484 Interpretive Statements SINUS RHYTHM PROLONGED GA INTERVAL LEFTWARD AXIS T ABNORMALITY IN ANTERIOR LEADS PROLONGED QT ABNORMAL ECG RI6.01 No previous ECG available for comparison
[2017-08-29] MEDS ORDERED: INSU100I27 SQ (16:40)
[2017-08-29] MEDS ORDERED: DEXTROSE 50% 25 GM / 50ML DISP.SYRIN. IV PRN (17:15)
[2017-08-29] MEDS: VANCOMYCIN PER PHARMACY MC PRN (17:21)
[2017-08-29] MEDS: PIPERACILLIN/TAZOBACTAM 3.375 GM in IV NORMAL SALINE 50ML 50 ML IV SCH ×2 (18:07→23:42)
--- NOTE | 2017-08-29 20:11 | RAD ---
Portable chest, 08/29/2017: HISTORY: Check PICC placement Comparison is made to a study from 07/23/2017. A right PICC has been inserted extending into the inferior aspect of the superior vena cava. A left-sided transvenous pacemaker remains in place with 2 leads extending into the right heart. The heart size and pulmonary vascularity are normal. There is calcific plaquing of the aorta. There is minimal bibasilar atelectasis and/or scarring. No pulmonary consolidation is seen. There is no evidence of pleural fluid. IMPRESSION: The right PICC is in satisfactory position. Electronically signed by: Curry Perales MD (08/29/2017 8:08 PM) [facility]
[2017-08-29] MEDS ORDERED: IPRATRPIUM/ALBUTEROL 0.5/2.5MG 3 ML NEBU. ONE (20:27)
[2017-08-29] MEDS: INSULIN ASPART 300 UNITS/3 ML INSULN.PEN SQ SCH (20:38)
[2017-08-29] MEDS ORDERED: ALBUTEROL SULFATE 2.5 MG/3 ML NEBU. NEB PRN (22:15)
[2017-08-29] MEDS ORDERED: NON FORMULARY ITEM (Albuterol Sulfate (Proair Respiclick) 2 PUFF) IH PRN (22:15)
[2017-08-30] VITALS (24 sets, daily range): BP systolic 98–159; BP diastolic 49–78
[2017-08-30] MEDS ORDERED: IV NORMAL SALINE 500ML 500 ML IV PRN
[2017-08-30 05:40] LABS: BASO % 1 % (0-3); EOS # 0.1 x10^3/uL (0.0-0.7); EOS % 1 % (0-3); HEMATOCRIT 38.6 % (39.0-53.0); HEMOGLOBIN 12.7 g/dL (13.0-17.5); LYMPH # 0.9 x10^3/uL (1.0-4.8); LYMPH % 16 % (24-48); MEAN CORPUSCULAR HEMOGLOBIN 30 pg (25-35); MEAN CORPUSCULAR HGB CONC 33 g/dL (31-37); MEAN CORPUSCULAR VOLUME 91 fL (79-100); MONO # 0.2 x10^3/uL (0.0-1.1); MONO % 4 % (0-9); NEUT # 4.7 x10^3uL (1.8-7.7); NEUT % 79 % (31-73); PLATELET COUNT 83 x10^3/uL (140-400); RED BLOOD COUNT 4.23 x10^6/uL (4.30-5.70); RED CELL DISTRIBUTION WIDTH 16.2 % (11.5-14.5)
[2017-08-30 05:52] LABS: ALBUMIN 2.4 g/dL (3.4-5.0); ALBUMIN/GLOBULIN RATIO 0.8 (1.0-1.7); CALCIUM 7.5 mg/dL (8.5-10.1); GFR 71.7; POTASSIUM 4.6 mmol/L (3.5-5.1); TOTAL BILIRUBIN 0.7 mg/dL (0.2-1.0); TOTAL PROTEIN 5.4 g/dL (6.4-8.2)
[2017-08-30] MEDS: PIPERACILLIN/TAZOBACTAM 3.375 GM in IV NORMAL SALINE 50ML 50 ML IV SCH ×3 (06:06→18:00)
[2017-08-30] MEDS: IV NORMAL SALINE 1,000ML 1,000 ML IV SCH (06:06)
[2017-08-30] MEDS: INSULIN ASPART 300 UNITS/3 ML INSULN.PEN SQ SCH ×4 (07:50→22:14)
--- NOTE | 2017-08-30 08:49 | PDOC1 ---
History of Present Illness Reason for Visit: Fever, vomiting History of Present Illness Pt presented to ER yesterday w/ c/o fever, vomiting, abd pain, diarrhea. Had recently been hospitalized at [facility], suffered a retroperitoneal bleed. Chief Complaint: NAUSEA/VOMITING/DIARRHEA Allergies: Coded Allergies: No Known Drug Allergies (Unverified , 07/05/17) Past Medical History Cardiac: CAD, HTN, hyperipidemia Endocrine: Diabetes Past Surgical History: Pacemaker, Other (PEG placement) Family History: No pertinent hx Past Social History Smoke: Quit (1992 (35 pack/yr hx)) Alcohol: none Drugs: None Lives: with Family Review of Systems Review Of Systems Fourteen system , review of systems has been reviewed. See HPI for pertinent positives and negative responses, other ghotra all other systems are negative, non pertinent or non contributory Allergies: Coded Allergies: No Known Drug Allergies (Unverified , 07/05/17) Medications Current Medications Sodium Chloride 1,000 ml @ 1,000 mls/hr Q1H IV Last administered on 08/29/17at 12:00; Start 08/29/17 at 11:30; Stop 08/29/17 at 12:29; Status DC Sodium Chloride (Normal Saline Flush) 10 ml QSHIFT PRN IV AFTER MEDS AND BLOOD DRAWS; Start 08/29/17 at 11:30 Acetaminophen (Tylenol) 650 mg 1X ONCE PO Last administered on 08/29/17at 12:52 ; Start 08/29/17 at 12:30; Stop 08/29/17 at 12:31; Status DC Iohexol (Omnipaque 300 Mg/ml) 75 ml 1X ONCE IV ; Start 08/29/17 at 12:30; Stop 08/29/17 at 12:31; Status DC Vancomycin HCl 1 gm/Sodium Chloride 250 ml @ 250 mls/hr 1X ONCE IV Last administered on 08/29/17at 14:06; Start 08/29/17 at 13:15; Stop 08/29/17 at 14:14 ; Status DC Piperacillin Sod/ Tazobactam Sod 3.375 gm/Sodium Chloride 50 ml @ 100 mls/hr 1X ONCE IV Last administered on 08/29/17at 13:25; Start 08/29/17 at 13:15; Stop 08/29/17 at 13:45; Status DC Sodium Chloride 250 ml @ As Directed STK-MED ONCE .ROUTE ; Start 08/29/17 at 13 :19; Stop 08/29/17 at 13:20; Status DC Sodium Chloride 50 ml @ As Directed STK-MED ONCE .ROUTE ; Start 08/29/17 at 13: 19; Stop 08/29/17 at 13:20; Status DC Piperacillin Sod/ Tazobactam Sod (Zosyn) 3.375 gm STK-MED ONCE IV ; Start at 13:19; Stop 08/29/17 at 13:20; Status DC Vancomycin HCl (Vancomycin) 1 gm STK-MED ONCE .ROUTE ; Start 08/29/17 at 13:20; Stop 08/29/17 at 13:21; Status DC Ondansetron HCl (Zofran) 4 mg PRN Q4HRS PRN IV NAUSEA/VOMITING; Start 08/29/17 at 13:30; Stop 08/30/17 at 13:29 Sodium Chloride 1,000 ml @ 125 mls/hr Q8H IV Last administered on 08/30/17at 06 :06; Start 08/29/17 at 13:20; Stop 08/30/17 at 13:19 Sodium Chloride 1,000 ml @ 1,000 mls/hr 1X ONCE IV Last administered on at 14:10; Start 08/29/17 at 14:15; Stop 08/29/17 at 15:15; Status DC Insulin Aspart (NovoLOG) 0-7 UNITS QIDACHS SQ Last administered on 08/30/17at 07 :50; Start 08/29/17 at 21:00 Dextrose 12.5 gm PRN Q15MIN PRN IV SEE COMMENTS; Start 08/29/17 at 17:15 Piperacillin Sod/ Tazobactam Sod 3.375 gm/Sodium Chloride 50 ml @ 100 mls/hr Q6HRS IV Last administered on 08/30/17at 06:06; Start 08/29/17 at 18:00 Vancomycin HCl (Vanco Per Pharmacy) 1 each PRN DAILY PRN MC SEE COMMENTS Last administered on 08/29/17at 17:21; Start 08/29/17 at 17:30 Vancomycin HCl 1 gm/Sodium Chloride 250 ml @ 250 mls/hr 1X ONCE IV ; Start at 17:30; Stop 08/29/17 at 18:29; Status DC Vancomycin HCl 1.25 gm/Sodium Chloride 250 ml @ 167 mls/hr Q24H IV ; Start at 13:00 Vancomycin HCl (Vancomycin Trough Level) 1 each 1X ONCE MC ; Start 08/31/17 at 12:30; Stop 08/31/17 at 12:31 Albuterol/ Ipratropium (Duoneb) 3 ml STK-MED ONCE .ROUTE Last administered on at 21:45; Start 08/29/17 at 20:27; Stop 08/29/17 at 20:28; Status DC Aspirin (Children'S Aspirin) 81 mg DAILY PO ; Start 08/30/17 at 09:00 Gabapentin (Neurontin) 300 mg TID PO ; Start 08/30/17 at 09:00 Insulin Detemir (Levemir) 15 units HS SQ ; Start 08/30/17 at 21:00 Albuterol/ Ipratropium (Duoneb) 3 ml RTBID NEB ; Start 08/30/17 at 08:00 Lisinopril (Prinivil) 10 mg DAILY PO ; Start 08/30/17 at 09:00 Simvastatin (Zocor) 10 mg HS PO ; Start 08/30/17 at 21:00 Non-Formulary Medication (Albuterol Sulfate (Proair Respiclick)) 2 puff PRN Q6HRS PRN IH WHEEZING; Start 08/29/17 at 22:15; Status UNV Albuterol Sulfate (Ventolin) 2.5 mg PRN Q6HRS PRN NEB SHORTNESS OF BREATH; Start 08/29/17 at 22:15 Sodium Chloride 500 ml @ 0 mls/hr PRN Q1HR PRN IV PER PROTOCOL; Start 08/30/17 at 00:00 Active Scripts Active Duoneb 0.5-3(2.5) Mg/3 Ml (Albuterol/Ipratropium) 3 Ml Ampul.neb 3 Ml NEB RTBID 7 Days Reported Levemir Flextouch (Insulin Detemir) 100 Unit/1 Ml Insuln.pen 30 Unit SQ HS Novolog (Insulin Aspart) 100 Unit/1 Ml Cartridge 0-7 Unit SQ QIDACHS LAST DOSE GIVEN: DATE: TIME: NEXT DOSE DUE: DATE: TIME: Simvastatin 10 Mg Tablet 10 Mg PO DAILY LAST DOSE GIVEN: DATE: TODAY TIME: AM NEXT DOSE DUE: DATE: TOMORROW TIME: AM Ondansetron Odt (Ondansetron) 4 Mg Tab.rapdis 4 Mg PO PRN Q8HRS PRN NOT GIVEN TODAY IN HOSPITAL. NEXT DOSE DUE: DATE: TODAY TIME: IF AND WHEN NEEDED TIME:IF AND WHEN NEEDED Namzaric 28 mg-10 mg Capsule (Memantine HCl/Donepezil HCl) 1 Each Cap.spr.24 1 Each PO DAILY LAST DOSE GIVEN: DATE: TODAY TIME: AM NEXT DOSE DUE: DATE: TOMORROW TIME: AM Lisinopril 10 Mg Tablet 10 Mg PO DAILY LAST DOSE GIVEN: DATE: TODAY TIME: AM NEXT DOSE DUE: DATE: ORROW TIME: AM Gabapentin 300 Mg Capsule 300 Mg PO TID LAST DOSE GIVEN: DATE: TIME: AM NEXT DOSE DUE: DATE: TODAY TIME: AFTERNOON Vitamin D3 (Cholecalciferol (Vitamin D3)) 1,000 Unit Tablet 2,000 Unit PO DAILY LAST DOSE GIVEN: DATE: TIME: AM NEXT DOSE DUE: DATE: ORR TIME: AM Aspirin 81 Mg Tab.chew 81 Mg PO DAILY LAST DOSE GIVEN: DATE: TODAY TIME: AM NEXT DOSE DUE: DATE: TOMORROW TIME: AM Proair Respiclick (Albuterol Sulfate) 90 Mcg Aer.pow.ba 2 Puff IH PRN Q6HRS PRN NOT GIVEN IN THE HOSPITAL NEXT DOSE DUE: DATE: TODAY IF AND WHEN NEEDED DATE:TODAY IF AND WHEN NEEDED Exam Vital Signs Vital Signs Date Time Temp Pulse Resp B/P (MAP) Pulse Ox O2 Delivery O2 Flow Rate FiO2 08/30/17 08:10 60 14 131/62 (85) 93 Nasal Cannula 2.0 08/30/17 07:10 97.7 General Appearance: Alert, Oriented X3, Cooperative, No acute distress HEENT: Atraumatic, PERRLA, EOMI, Mucous membr. moist/pink, Other (OP clear w/o ulceration; neck supple, no JVD, no LAD) Respiratory: Other (Faint crackles in the bases, otherwise CTAB, resp effort is non-labored.) Heart: Other (Paced rhythm, rate in 60's, no murmur) Abdominal: Normal bowel sounds, Soft, No hepatospenomegaly, No masses, Other ( Mild TTP in RLQ/right groin without rebound, guarding, or mass noted.) Extremities: No edema, Normal pulses, No tenderness/swelling Skin: No rashes, No breakdown Neuro: Normal speech, Normal tone, Cranial nerves 3-12 NL Psych/Mental Status: Mental status NL, Mood NL Assessment/Plan Assessment/Plan 1. Abd pain w/ n/v: NO vomiting since admission. Pt c/o RLQ pain. CT showed resolving hemoperitoneum, just as it did last week prior to admission to [facility]. Will continue to observe. Pt had large BM last night per nursing, should have cleared mild rectal fecal impaction. Advance diet to home PEG feedings. 2. SIRS without source: Pt on Vanc/Zosyn given recent hospitalization. UA neg. CXR neg. CT neg. BC's pending. Pt afebrile, WBC normal. Influenza neg. Will continue w/ abx, cannot r/o aspiration pneumonia as CXR may lag behind clinical symptoms. Pt has right PICC, continue PRN fluid boluses. Last lactate was normal. 3. Acute hypoxic respiratory failure: Pt on 2 liters O2, cannot r/o aspiration. COnt abx, nebs, O2. 4. Thrombocytopenia: Chronic. Avoid anticoagulation due to recent abd bleed and low platelets. 5. DM2: Restarted Levemir, increase back to normal dose while pt taking tube feeds. Cont SSI. 6. DVT proph: See above, SCD's only. 7. Disp: Plan for minimum 2 midnights due to uncertainty of course of illness and complexity of comorbid conditions. COURSE Allergies Coded Allergies Type Severity Reaction Last Updated Verified No Known Drug Allergies 07/05/17 No Laboratory Tests Test 08/29/17 11:40 08/29/17 12:00 08/29/17 13:10 08/29/17 16:08 White Blood Count 6.5 x10^3/uL (4.0-11.0) Red Blood Count 5.22 x10^6/uL (4.30-5.70) Hemoglobin 15.5 g/dL (13.0-17.5) Hematocrit 46.8 % (39.0-53.0) Mean Corpuscular Volume 90 fL (79-100) Mean Corpuscular Hemoglobin 30 pg (25-35) Mean Corpuscular Hemoglobin Concent 33 g/dL (31-37) Red Cell Distribution Width 16.3 % (11.5-14.5) Platelet Count 103 x10^3/uL (140-400) Neutrophils (%) (Auto) 89 % (31-73) Lymphocytes (%) (Auto) 5 % (24-48) Monocytes (%) (Auto) 4 % (0-9) Eosinophils (%) (Auto) 1 % (0-3) Basophils (%) (Auto) 1 % (0-3) Neutrophils # (Auto) 5.8 x10^3uL (1.8-7.7) Lymphocytes # (Auto) 0.4 x10^3/uL (1.0-4.8) Monocytes # (Auto) 0.3 x10^3/uL (0.0-1.1) Eosinophils # (Auto) 0.0 x10^3/uL (0.0-0.7) Basophils # (Auto) 0.0 x10^3/uL (0.0-0.2) Prothrombin Time 10.4 SEC (9.4-11.4) Prothromb Time International Ratio 1.0 (0.9-1.1) Sodium Level 139 mmol/L (136-145) Potassium Level 4.8 mmol/L (3.5-5.1) Chloride Level 101 mmol/L (98-107) Carbon Dioxide Level 29 mmol/L (21-32) Anion Gap 9 (6-14) Blood Urea Nitrogen 28 mg/dL (8-26) Creatinine 1.2 mg/dL (0.7-1.3) Estimated GFR (Cockcroft-Gault) 58.1 BUN/Creatinine Ratio 23 (6-20) Glucose Level 285 mg/dL (70-99) Lactic Acid Level 2.1 mmol/L (0.4-2.0) 1.9 mmol/L (0.4-2.0) Calcium Level 8.8 mg/dL (8.5-10.1) Total Bilirubin 0.6 mg/dL (0.2-1.0) Aspartate Amino Transf (AST/SGOT) 28 U/L (15-37) Alanine Aminotransferase (ALT/SGPT) 27 U/L (16-63) Alkaline Phosphatase 77 U/L (46-116) Creatine Kinase 44 U/L (39-308) Creatine Kinase MB (Mass) 0.5 ng/mL (0.0-3.6) Creatine Kinase MB Relative Index 1.1 % (0-4) Troponin I Quantitative < 0.017 ng/mL (0-0.055) Total Protein 6.9 g/dL (6.4-8.2) Albumin 3.3 g/dL (3.4-5.0) Albumin/Globulin Ratio 0.9 (1.0-1.7) Lipase 43 U/L (73-393) Influenza Type A (Rapid) Negative (NEGATIVE) Influenza Type B (Rapid) Negative (NEGATIVE) Blood Gas pH 7.41 (7.35-7.46) Blood Gas PCO2 45 mmHg (35-46) Blood Gas PO2 59 mmHg (71-100) Blood Gas HCO3 28 mmol/L (21-28) Arterial Bld O2 Saturation (Calc) 88 % (92-99) FiO2 28 % Urine Collection Type U cath Urine Color Yellow Urine Clarity Clear Urine pH 8.5 Urine Specific [place] 1.010 Urine Protein Neg (NEG-TRACE) Urine Glucose (UA) 500 mg/dL (NEG) Urine Ketones (Stick) Neg mg/dL (NEG) Urine Blood Trace (NEG) Urine Nitrite Neg (NEG) Urine Bilirubin Neg (NEG) Urine Urobilinogen Dipstick 1 mg/dL (0.2 mg/dL) Urine Leukocyte Esterase Neg (NEG) Urine RBC 0 /HPF (0-2) Urine WBC 0 /HPF (0-4) Urine Squamous Epithelial Cells Occ /LPF Urine Amorphous Sediment Present /HPF Urine Bacteria 0 /HPF (0-FEW) Test 08/29/17 16:16 08/29/17 20:37 08/29/17 23:46 08/30/17 05:15 Glucose (Fingerstick) 225 mg/dL (70-99) 189 mg/dL (70-99) 184 mg/dL (70-99) White Blood Count 6.0 x10^3/uL (4.0-11.0) Red Blood Count 4.23 x10^6/uL (4.30-5.70) Hemoglobin 12.7 g/dL (13.0-17.5) Hematocrit 38.6 % (39.0-53.0) Mean Corpuscular Volume 91 fL (79-100) Mean Corpuscular Hemoglobin 30 pg (25-35) Mean Corpuscular Hemoglobin Concent 33 g/dL (31-37) Red Cell Distribution Width 16.2 % (11.5-14.5) Platelet Count 83 x10^3/uL (140-400) Neutrophils (%) (Auto) 79 % (31-73) Lymphocytes (%) (Auto) 16 % (24-48) Monocytes (%) (Auto) 4 % (0-9) Eosinophils (%) (Auto) 1 % (0-3) Basophils (%) (Auto) 1 % (0-3) Neutrophils # (Auto) 4.7 x10^3uL (1.8-7.7) Lymphocytes # (Auto) 0.9 x10^3/uL (1.0-4.8) Monocytes # (Auto) 0.2 x10^3/uL (0.0-1.1) Eosinophils # (Auto) 0.1 x10^3/uL (0.0-0.7) Basophils # (Auto) 0.0 x10^3/uL (0.0-0.2) Sodium Level 143 mmol/L (136-145) Potassium Level 4.6 mmol/L (3.5-5.1) Chloride Level 107 mmol/L (98-107) Carbon Dioxide Level 28 mmol/L (21-32) Anion Gap 8 (6-14) Blood Urea Nitrogen 18 mg/dL (8-26) Creatinine 1.0 mg/dL (0.7-1.3) Estimated GFR (Cockcroft-Gault) 71.7 BUN/Creatinine Ratio 18 (6-20) Glucose Level 242 mg/dL (70-99) Calcium Level 7.5 mg/dL (8.5-10.1) Total Bilirubin 0.7 mg/dL (0.2-1.0) Aspartate Amino Transf (AST/SGOT) 21 U/L (15-37) Alanine Aminotransferase (ALT/SGPT) 22 U/L (16-63) Alkaline Phosphatase 53 U/L (46-116) Total Protein 5.4 g/dL (6.4-8.2) Albumin 2.4 g/dL (3.4-5.0) Albumin/Globulin Ratio 0.8 (1.0-1.7) Current Medications Medications (Trade) Dose Ordered Sig/Shira Route PRN Reason Start Time Stop Time Status Last Admin Dose Admin Sodium Chloride 1,000 ml @ 1,000 mls/hr Q1H IV 08/29/17 11:30 08/29/17 12:29 DC 08/29/17 12:00 Sodium Chloride (Normal Saline Flush) 10 ml QSHIFT PRN IV AFTER MEDS AND BLOOD DRAWS 08/29/17 11:30 Acetaminophen (Tylenol) 650 mg 1X ONCE PO 08/29/17 12:30 08/29/17 12:31 DC 08/29/17 12:52 Iohexol (Omnipaque 300 Mg/ml) 75 ml 1X ONCE IV 08/29/17 12:30 08/29/17 12:31 DC Vancomycin HCl 1 gm/Sodium Chloride 250 ml @ 250 mls/hr 1X ONCE IV 08/29/17 13:15 08/29/17 14:14 DC 08/29/17 14:06 Piperacillin Sod/ Tazobactam Sod 3.375 gm/Sodium Chloride 50 ml @ 100 mls/hr 1X ONCE IV 08/29/17 13:15 08/29/17 13:45 DC 08/29/17 13:25 Sodium Chloride 250 ml @ As Directed STK-MED ONCE .ROUTE 08/29/17 13:19 08/29/17 13:20 DC Sodium Chloride 50 ml @ As Directed STK-MED ONCE .ROUTE 08/29/17 13:19 08/29/17 13:20 DC Piperacillin Sod/ Tazobactam Sod (Zosyn) 3.375 gm STK-MED ONCE IV 08/29/17 13:19 08/29/17 13:20 DC Vancomycin HCl (Vancomycin) 1 gm STK-MED ONCE .ROUTE 08/29/17 13:20 08/29/17 13:21 DC Ondansetron HCl (Zofran) 4 mg PRN Q4HRS PRN IV NAUSEA/VOMITING 08/29/17 13:30 08/30/17 13:29 Sodium Chloride 1,000 ml @ 125 mls/hr Q8H IV 08/29/17 13:20 08/30/17 13:19 08/30/17 06:06 Sodium Chloride 1,000 ml @ 1,000 mls/hr 1X ONCE IV 08/29/17 14:15 08/29/17 15:15 DC 08/29/17 14:10 Insulin Aspart (NovoLOG) 0-7 UNITS QIDACHS SQ 08/29/17 21:00 08/30/17 07:50 Dextrose 12.5 gm PRN Q15MIN PRN IV SEE COMMENTS 08/29/17 17:15 Piperacillin Sod/ Tazobactam Sod 3.375 gm/Sodium Chloride 50 ml @ 100 mls/hr Q6HRS IV 08/29/17 18:00 08/30/17 06:06 Vancomycin HCl (Vanco Per Pharmacy) 1 each PRN DAILY PRN MC SEE COMMENTS 08/29/17 17:30 08/29/17 17:21 Vancomycin HCl 1 gm/Sodium Chloride 250 ml @ 250 mls/hr 1X ONCE IV 08/29/17 17:30 08/29/17 18:29 DC Vancomycin HCl 1.25 gm/Sodium Chloride 250 ml @ 167 mls/hr Q24H IV 08/30/17 13:00 Vancomycin HCl (Vancomycin Trough Level) 1 each 1X ONCE MC 08/31/17 12:30 08/31/17 12:31 Albuterol/ Ipratropium (Duoneb) 3 ml STK-MED ONCE .ROUTE 08/29/17 20:27 08/29/17 20:28 DC 08/29/17 21:45 Aspirin (Children'S Aspirin) 81 mg DAILY PO 08/30/17 09:00 Gabapentin (Neurontin) 300 mg TID PO 08/30/17 09:00 Insulin Detemir (Levemir) 15 units HS SQ 08/30/17 21:00 Albuterol/ Ipratropium (Duoneb) 3 ml RTBID NEB 08/30/17 08:00 Lisinopril (Prinivil) 10 mg DAILY PO 08/30/17 09:00 Simvastatin (Zocor) 10 mg HS PO 08/30/17 21:00 Non-Formulary Medication (Albuterol Sulfate (Proair Respiclick)) 2 puff PRN Q6HRS PRN IH WHEEZING 08/29/17 22:15 UNV Albuterol Sulfate (Ventolin) 2.5 mg PRN Q6HRS PRN NEB SHORTNESS OF BREATH 08/29/17 22:15 Sodium Chloride 500 ml @ 0 mls/hr PRN Q1HR PRN IV PER PROTOCOL 08/30/17 00:00 I & O 08/30/17 00:00 Intake Total 5110 ml Output Total 700 ml Balance 4410 ml Vital Signs Date Time Temp Pulse Resp B/P (MAP) Pulse Ox O2 Delivery O2 Flow Rate FiO2 08/30/17 08:10 60 14 131/62 (85) 93 Nasal Cannula 2.0 08/30/17 07:10 97.7 Portable chest, 08/29/2017: History: Fever with nausea and vomiting Comparison is made to a study from 07/23/2017. A left-sided transvenous pacemaker remains in place with 2 leads extending into the right heart. The heart size is normal. There is calcific plaquing and tortuosity of the thoracic aorta. Attenuation of the upper lobe pulmonary vessels suggests the presence of emphysema. There is mild relative prominence of the basilar pulmonary markings suggesting atelectasis and/or scarring. No pulmonary consolidation is seen. There is no evidence of pleural fluid. IMPRESSION: Mild basilar atelectasis or scarring. CT of the abdomen and pelvis with contrast, 08/29/2017: History: Abdominal pain with vomiting nausea and vomiting Multidetector CT imaging was performed following an IV bolus injection of iodinated contrast material. No oral contrast material was administered as requested. Comparison is made to a study from 08/20/2017. There is mild streaky atelectasis and/or scarring in both lung bases. The gallbladder is surgically absent. No hepatic abnormality is seen. The pancreas is unremarkable. The spleen is of normal size. There is an 8 mm intrarenal calculus on the left. There is also a vascular calcification in the left renal hilum. Two small left renal cysts are present. No right renal calculi are seen. The renal collecting systems and ureters are not dilated. No ureteral calculus is evident. There is moderate calcific plaquing of the abdominal aorta and its branches there is slight dilatation of the right common iliac artery. No abdominal or pelvic adenopathy is seen. The prostate gland is mildly enlarged. A gastrostomy tube extends into the body of the stomach. The bowel loops are not dilated. Colonic diverticula are present, most numerous in the sigmoid region. No paracolonic inflammatory process is seen. There is a moderate collection of stool in the rectum. No free air is present in the abdomen. High density fluid seen in the pelvis on the 08/20/2017 exam has nearly completely resolved. There is only a trace amount residual pelvic fluid, best seen on coronal image 48. IMPRESSION: 1. Extensive sigmoid diverticulosis. 2. Mild fecal impaction the rectum. 3. Mild nonspecific prostatic enlargement. 4. Nearly complete clearing of the previously seen small pelvic hemoperitoneum. 5. Nonobstructing left intrarenal calculus. 6. The gastrostomy tube is in satisfactory position. STEFFANY WARD MD Aug 30, 2017 08:49
[2017-08-30] MEDS: LISINOPRIL 10 MG TABLET PO SCH (09:00)
[2017-08-30] MEDS: GABAPENTIN 300 MG CAPSULE. PO SCH ×3 (09:00→21:55)
[2017-08-30] MEDS: ASPIRIN 81 MG TAB.CHEW PO SCH (09:00)
[2017-08-30] MEDS: IPRATRPIUM/ALBUTEROL 0.5/2.5MG 3 ML NEBU. NEB SCH ×2 (09:21→21:09)
[2017-08-30] MEDS: VANCOMYCIN PER PHARMACY MC PRN (09:38)
[2017-08-30] MEDS ORDERED: VANCOMYCIN 2 GM in IV NORMAL SALINE 500ML 500 ML IV ONE (10:00)
[2017-08-30] MEDS ORDERED: VANCOMYCIN 1.25 GM in IV NORMAL SALINE 250ML 250 ML IV SCH (13:00)
[2017-08-30] MEDS ORDERED: INSULIN ASPART 300 UNITS/3 ML INSULN.PEN SQ ONE (15:15)
[2017-08-30] MEDS ORDERED: INSULIN DETEMIR 300 UNITS/3 ML INSULN.PEN. SQ SCH (21:00)
[2017-08-30] MEDS: SIMVASTATIN 10 MG TABLET PO SCH (21:55)
[2017-08-30] MEDS: VANCOMYCIN 1.25 GM in IV NORMAL SALINE 250ML 250 ML IV SCH (21:57)
[2017-08-30] MEDS: INSULIN DETEMIR 300 UNITS/3 ML INSULN.PEN. SQ SCH (22:14)
[2017-08-31] VITALS (14 sets, daily range): BP systolic 108–168; BP diastolic 56–85
[2017-08-31] MEDS: PIPERACILLIN/TAZOBACTAM 3.375 GM in IV NORMAL SALINE 50ML 50 ML IV SCH ×5 (06:22→17:52)
[2017-08-31 07:18] LABS: BASO % 1 % (0-3); EOS # 0.1 x10^3/uL (0.0-0.7); EOS % 2 % (0-3); HEMATOCRIT 39.5 % (39.0-53.0); HEMOGLOBIN 12.9 g/dL (13.0-17.5); LYMPH # 0.9 x10^3/uL (1.0-4.8); LYMPH % 20 % (24-48); MEAN CORPUSCULAR HEMOGLOBIN 30 pg (25-35); MEAN CORPUSCULAR HGB CONC 33 g/dL (31-37); MEAN CORPUSCULAR VOLUME 90 fL (79-100); MONO # 0.2 x10^3/uL (0.0-1.1); MONO % 5 % (0-9); NEUT # 3.4 x10^3uL (1.8-7.7); NEUT % 72 % (31-73); PLATELET COUNT 86 x10^3/uL (140-400); RED BLOOD COUNT 4.38 x10^6/uL (4.30-5.70); RED CELL DISTRIBUTION WIDTH 15.9 % (11.5-14.5); WHITE BLOOD COUNT 4.7 x10^3/uL (4.0-11.0)
[2017-08-31] MEDS: INSULIN ASPART 300 UNITS/3 ML INSULN.PEN SQ SCH ×4 (07:30→21:03)
[2017-08-31 07:31] LABS: ALBUMIN 2.4 g/dL (3.4-5.0); ALBUMIN/GLOBULIN RATIO 0.8 (1.0-1.7); CALCIUM 8.3 mg/dL (8.5-10.1); CREATININE 0.9 mg/dL (0.7-1.3); POTASSIUM 4.1 mmol/L (3.5-5.1); TOTAL BILIRUBIN 0.5 mg/dL (0.2-1.0); TOTAL PROTEIN 5.6 g/dL (6.4-8.2)
[2017-08-31] MEDS: LISINOPRIL 10 MG TABLET PO SCH (08:53)
[2017-08-31] MEDS: GABAPENTIN 300 MG CAPSULE. PO SCH ×3 (08:54→20:46)
[2017-08-31] MEDS: ASPIRIN 81 MG TAB.CHEW PO SCH (08:54)
[2017-08-31] MEDS: IPRATRPIUM/ALBUTEROL 0.5/2.5MG 3 ML NEBU. NEB SCH ×2 (10:48→21:01)
[2017-08-31] MEDS: VANCOMYCIN 1.25 GM in IV NORMAL SALINE 250ML 250 ML IV SCH ×2 (13:02→22:00)
[2017-08-31] MEDS: SIMVASTATIN 10 MG TABLET PO SCH (20:46)
[2017-08-31] MEDS: INSULIN DETEMIR 300 UNITS/3 ML INSULN.PEN. SQ SCH (21:00)
[2017-08-31 22:01] LABS: VANC TR 21.1 mcg/mL (10.0-20.0)
--- NOTE | 2017-08-31 23:07 | PN ---
DATE: 08/31/2017 SUBJECTIVE: The patient is resting slightly propped up in bed, in his recliner in no apparent distress. On questioning him, he denied any complaint. Nursing staff stated that he has been afebrile and hemodynamically stable. His white cell count is normal and so far his blood cultures are negative. The nursing staff did not voice any concerns. OBJECTIVE: GENERAL: When I examined him, he looked pale, no jaundice, cyanosis, lymphadenopathy or thyromegaly. No jugular venous distension. No limb edema. VITAL SIGNS: Her heart rate was 60, blood pressure was 114/57, temperature was 98.4, respiratory rate 20, and oxygen saturation was 95% on 1.5 liters of oxygen. HEENT: Showed he is normocephalic, atraumatic. NECK: Supple. HEART: Showed normal first and second sounds. No gallop, rub or murmur. CHEST: Shows central trachea, equal bilateral chest expansion, air entry, vesicular sounds. No crepitation or rhonchi. ABDOMEN: Distended, soft with gastrostomy tube in place. There is no guarding or rigidity. No organomegaly. Hernial orifices intact. Bowel sounds normal. NEUROLOGIC: He was awake, alert, responding appropriately, at time he seems to be very forgetful. All his cranial nerves are intact. He moves extremities without difficulty, apparently ambulates with a cane or assistance with his . His intake over the last 24 hours was 6975, output was 1250. LABORATORY DATA: As of this morning showed a white cell count 4700, hemoglobin 13, hematocrit 39, MCV 90 and platelet count of 86,000. His chemistry showed a serum sodium 141, potassium 4.1, chloride 106, bicarbonate 28, anion gap of 7, BUN 14, creatinine was 0.9, estimated GFR was 81 mL per minute. His glucose was 101, calcium was 8.3. Total bilirubin, AST, ALT, alkaline phosphatase normal. Total protein was 5.6, albumin 2.4. His blood gases showed that his pH was normal at 7.41, pCO2 of 45, pO2 of 59, oxygen saturation was 88% and FiO2 of 28%. His urinalysis was essentially negative. The urine was negative for nitrites and leukocyte esterase. There are no bacteria. His nasal screen for MRSA by PCR was negative. His Influenza A and B were negative. His chest x-ray was unremarkable as well as CT scan. PLAN: My plan is to continue with the IV fluid, continue with IV antibiotic for now. If there is no growth from the urine culture tomorrow, we can discharge him home to continue on perhaps oral Augmentin as aspiration is still highly likely. JORGE BRAVO MD DR: SANDRA/ana maria JOB#: [id number] / [id number]
[2017-09-01] MEDS: PIPERACILLIN/TAZOBACTAM 3.375 GM in IV NORMAL SALINE 50ML 50 ML IV SCH ×3 (00:11→11:59)
[2017-09-01] MEDS: INSULIN ASPART 300 UNITS/3 ML INSULN.PEN SQ SCH ×4 (04:09→12:17)
[2017-09-01 05:03] VITALS: BP 134/71
[2017-09-01 06:06] LABS: HEMATOCRIT 41.1 % (39.0-53.0); HEMOGLOBIN 13.6 g/dL (13.0-17.5); RED BLOOD COUNT 4.58 x10^6/uL (4.30-5.70); RED CELL DISTRIBUTION WIDTH 16.2 % (11.5-14.5); WHITE BLOOD COUNT 3.6 x10^3/uL (4.0-11.0)
[2017-09-01 06:14] LABS: CALCIUM 8.9 mg/dL (8.5-10.1); GFR 71.7; POTASSIUM 3.8 mmol/L (3.5-5.1)
[2017-09-01] MEDS: GABAPENTIN 300 MG CAPSULE. PO SCH ×2 (07:52→12:03)
[2017-09-01] MEDS: ASPIRIN 81 MG TAB.CHEW PO SCH (07:52)
[2017-09-01] MEDS: LISINOPRIL 10 MG TABLET PO SCH (07:53)
[2017-09-01] MEDS: IPRATRPIUM/ALBUTEROL 0.5/2.5MG 3 ML NEBU. NEB SCH (09:50)
[2017-09-01] MEDS: VANCOMYCIN 1.25 GM in IV NORMAL SALINE 250ML 250 ML IV SCH (10:00)
[2017-09-01 10:57] VITALS: BP 113/66
[2017-09-01] MEDS ORDERED: AMOX250S20 PO (12:01)
--- NOTE | 2017-09-01 13:13 | DS ---
DATE OF DISCHARGE: 09/01/2017 HOSPITAL COURSE: The patient is sitting comfortably in his chair, in no apparent distress. On questioning him, he denied any complaint. The nursing staff did not voice any concern and stated that he has an eventful night. The patient has been afebrile, hemodynamically stable with no evidence of postural hypertension. His white cell count has been consistently normal. So far, his blood culture showed no growth for more than 2 days. His chest x-ray was unremarkable, showed no evidence of any pulmonary consolidation is seen. No evidence of pleural fluid, and urinalysis was unremarkable. As he remained stable, a decision was made to discharge him home to continue antibiotic treatment in the form of Augmentin 500 mg feeding tube twice a day for 7 days. When I transpired that the patient was eating regular food including cookies and apple pies, and probably that is the reason why he presented and probably have aspiration aspirated. I explained to the patient that he can puree this, as the speech therapist said that he can have pureed diet. PHYSICAL EXAMINATION: GENERAL: When I examined him this afternoon, he looked well and was clearly in no apparent respiratory distress, pale, but no jaundice, cyanosis, or thyromegaly. No jugular venous distension. No limb edema. VITAL SIGNS: His heart rate was 61, blood pressure was 113/66, temperature was 97.5, respiratory rate was 18 and oxygen saturation was 93% on room air. HEAD, EYES, EARS, NOSE, AND THROAT: Showed normocephalic, atraumatic. NECK: Supple. HEART: Showed normal first and second heart sounds with no gallop, rub or murmur. CHEST: Clear to auscultation. No crepitation or rhonchi. ABDOMEN: Distended, soft, nontender. No guarding or rigidity. No organomegaly. Hernial orifice intact. Bowel sounds normal. NEUROLOGIC: He was awake, alert, forgetful at times, but all his cranial nerves are intact. He moves extremities without difficulty, ambulates with a walker. His intake over the last 24 hours was 1170, output was 4000. LABORATORY DATA: As of this morning, his serum sodium was 142, potassium 3.8, chloride 105, bicarbonate 30, anion gap of 7, BUN 12, creatinine 1, estimated GFR was 72 mL per minute, his glucose at 214, calcium was 8.9. His white cell count was 3600, hemoglobin 13.6, hematocrit 41, MCV 90, and platelet count of 98,000. DISCHARGE MEDICATIONS: The patient will be discharged home to continue on amoxicillin/potassium clavulanic acid 250 mL per 5 mL, he takes 10 mL twice a day for 7 days. Continue with albuterol sulfate for ProAir 2 puffs every 6 hours, aspirin 81 mg once a day, cholecalciferol 2000 international units once a day, gabapentin 300 mg 3 times a day, NovoLog insulin as insulin sliding scale, detemir insulin 30 units at bedtime, ipratropium bromide, albuterol inhaler, albuterol sulfate for DuoNeb twice a day, lisinopril 10 mg daily, Namenda/donepezil for Namzaric 1 capsule daily and ondansetron 4 mg every 8 hours, simvastatin 10 mg daily. FINAL DISCHARGE DIAGNOSES: 1. Sepsis-induced hypotension, resolved. 2. Abdominal pain with nausea and vomiting, resolved. The patient has SIRS without source. He was treated with vancomycin and Zosyn. He will be discharged to continue treatment on Augmentin. 3. Acute hypoxic respiratory failure, currently on 2 liters of oxygen by nasal cannula. 4. Thrombocytopenia, chronic. 5. Type 2 diabetes, reasonably controlled on Levemir and NovoLog insulin. The patient will be discharged home with home health for physical and occupational therapy and speech therapy. JORGE BRAVO MD DR: SANDRA/ana maria JOB#: [id number] / [id number]
== END 2017-09-01 13:15 | disposition home health service (06) | DRG 871 ==
LOC: ER 11:24 → 1 SOUTH 16:07 → ICU 18:19 → 1 SOUTH 08-31 15:28
PROVIDERS: ADMIT Family Medicine; ATTEND Internal Medicine
DX: A41.9 Sepsis, unspecified organism (principal); J96.01 Acute respiratory failure with hypoxia; I95.9 Hypotension, unspecified; D69.6 Thrombocytopenia, unspecified; Z93.1 Gastrostomy status; E11.9 Type 2 diabetes mellitus without complications; F03.90 Unspecified dementia, unspecified severity, without behavioral disturbance, psychotic disturbance, mood disturbance, and anxiety; I44.0 Atrioventricular block, first degree; I10 Essential (primary) hypertension; I25.10 Atherosclerotic heart disease of native coronary artery without angina pectoris; K21.9 Gastro-esophageal reflux disease without esophagitis; K56.41 Fecal impaction; R32 Unspecified urinary incontinence; Z90.49 Acquired absence of other specified parts of digestive tract; Z95.0 Presence of cardiac pacemaker; Z87.01 Personal history of pneumonia (recurrent); Z86.14 Personal history of Methicillin resistant Staphylococcus aureus infection
CPT/HCPCS: 36415; 36569; 71045; 74177; 80048; 80053; 80202; 81001; 82553; 82803; 82947; 83605; 83690; 84484; 85025; 85027; 85610; 87040; 87641; 87804; 93005; 94640; 96361; 96365; J1815; J2543; J3370; J7040; J7050; J7620; 99291-25; J7030

== ENCOUNTER 2017-10-10 12:19 | Emergency (ER) | payer MEDICARE, OTHER ==
[~2017-10-10] VITALS: Ht 180.3 cm; Wt 85.5 kg
[~2017-10-10 12:19] MED LIST changes: +AMOX250S20 PO
--- NOTE | 2017-10-10 12:58 | RAD ---
Exam: AP portable chest History: Shortness of breath for 3 days. Comparison: August 29, 2017. Findings: The heart and mediastinal structures are within normal limits for size. Lungs are without infiltrate. No pleural effusion or pneumothorax is identified. A dual-lead pacemaker by left subclavian approach is present. Arterial calcifications are present. Right-sided PICC line has been removed in the interval. Impression: 1. No acute cardiopulmonary process. Electronically signed by: Rojelio Bunch MD (10/10/2017 12:55 PM) [facility] [place]
--- NOTE | 2017-10-10 13:14 | EKG ---
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
[2017-10-10 13:30] LABS: BASO % 1 % (0-3); EOS # 0.1 x10^3/uL (0.0-0.7); EOS % 2 % (0-3); HEMATOCRIT 45.6 % (39.0-53.0); HEMOGLOBIN 15.3 g/dL (13.0-17.5); LYMPH # 0.8 x10^3/uL (1.0-4.8); LYMPH % 23 % (24-48); MEAN CORPUSCULAR HEMOGLOBIN 30 pg (25-35); MEAN CORPUSCULAR HGB CONC 34 g/dL (31-37); MEAN CORPUSCULAR VOLUME 90 fL (79-100); MONO # 0.2 x10^3/uL (0.0-1.1); MONO % 5 % (0-9); NEUT # 2.4 x10^3uL (1.8-7.7); NEUT % 70 % (31-73); PLATELET COUNT 105 x10^3/uL (140-400); RED BLOOD COUNT 5.08 x10^6/uL (4.30-5.70); RED CELL DISTRIBUTION WIDTH 15.4 % (11.5-14.5); WHITE BLOOD COUNT 3.5 x10^3/uL (4.0-11.0)
[2017-10-10 13:45] LABS: ALBUMIN 3.2 g/dL (3.4-5.0); ALBUMIN/GLOBULIN RATIO 0.9 (1.0-1.7); CALCIUM 8.6 mg/dL (8.5-10.1); CREATININE 1.1 mg/dL (0.7-1.3); GFR 64.2; POTASSIUM 4.5 mmol/L (3.5-5.1); TOTAL BILIRUBIN 0.5 mg/dL (0.2-1.0); TOTAL PROTEIN 6.8 g/dL (6.4-8.2)
[2017-10-10 13:52] LABS: BILIRUBIN,URINE NEG (NEG); CLARITY,URINE CLEAR; COLOR,URINE YELLOW; GLUCOSE,URINE >=1000 mg/dL (NEG)
[2017-10-10 13:53] LABS: BACTERIA,URINE 0 /HPF (0-FEW); NITRITE,URINE NEG (NEG); RBC,URINE 0 /HPF (0-2); SQUAMOUS EPITHELIAL CELL,UR OCC /LPF; UROBILINOGEN,URINE 0.2 mg/dL (0.2 mg/dL); WBC,URINE 0 /HPF (0-4)
[2017-10-10 14:03] VITALS: BP 132/67
--- NOTE | 2017-10-10 15:05 | ED.ADGEN ---
Past History Past Medical History: Arthritis, CAD, Dementia, Diabetes, GERD, High Cholesterol, MRSA, Pneumonia, Other Past Surgical History: Pacemaker Additional Past Surgical Histo: AICD and pacemaker placement Smoking: Non-smoker Alcohol Use: None Drug Use: None Adult General Chief Complaint Chief Complaint Cough HPI HPI Patient is a 81 year old male with history of dementia, recurrent aspiration, diabetes who presents with productive cough and generalized weakness. Symptom onset 2-3 days ago. No documented fever, chills, sweats, vomiting. Patient receives most of this evening per PEG tube but is able to the thickened liquid diet. Patient also reports some stomach upset after taking dietary drink and feeding tube Patient's blood sugars have also been running high over the past 10 days with a typical blood sugar greater than 200 according to spouse who is the chief historian. States he typically gets it comes more weak and cough when he develops pneumonia. No urinary frequency urgency. No treatment of UTIs. No other acute symptoms or complaints. History is limited due to the patient's of dementia.[] Review of Systems Review of Systems Review symptoms as per history of present illness. All other review symptoms are negative. All other systems were reviewed and found to be within normal limits, except as documented in this note. Allergies Allergies Allergies Coded Allergies Type Severity Reaction Last Updated Verified No Known Drug Allergies 07/05/17 No Physical Exam Physical Exam Constitutional: Well developed, well nourished, no acute distress, non-toxic appearance. [] HENT: Normocephalic, atraumatic, bilateral external ears normal, oropharynx moist, no oral exudates, nose normal. [] Eyes: PERRLA, EOMI, conjunctiva normal, no discharge. [] Neck: Normal range of motion, no tenderness, supple, no stridor. [] Cardiovascular:Heart rate regular rhythm, no murmur [] Lungs & Thorax: Bilateral breath sounds clear to auscultation [] Abdomen: Bowel sounds normal, soft, tenderness, PEG tube in place. [] Skin: Warm, dry, no erythema, no rash. [] Back: No tenderness. [] Extremities: No tenderness, no cyanosis, no clubbing, ROM intact, no edema. [] Neurologic: Alert and oriented X 1, normal motor function, normal sensory function, no focal deficits noted. [] Current Patient Data Vital Signs Vital Signs Date Time Temp Pulse Resp B/P (MAP) Pulse Ox O2 Delivery O2 Flow Rate FiO2 10/10/17 12:19 97.9 62 16 98 Room Air Lab Results Laboratory Tests Test 10/10/17 13:18 10/10/17 13:35 White Blood Count 3.5 x10^3/uL (4.0-11.0) L Red Blood Count 5.08 x10^6/uL (4.30-5.70) Hemoglobin 15.3 g/dL (13.0-17.5) Hematocrit 45.6 % (39.0-53.0) Mean Corpuscular Volume 90 fL (79-100) Mean Corpuscular Hemoglobin 30 pg (25-35) Mean Corpuscular Hemoglobin Concent 34 g/dL (31-37) Red Cell Distribution Width 15.4 % (11.5-14.5) H Platelet Count 105 x10^3/uL (140-400) L Neutrophils (%) (Auto) 70 % (31-73) Lymphocytes (%) (Auto) 23 % (24-48) L Monocytes (%) (Auto) 5 % (0-9) Eosinophils (%) (Auto) 2 % (0-3) Basophils (%) (Auto) 1 % (0-3) Neutrophils # (Auto) 2.4 x10^3uL (1.8-7.7) Lymphocytes # (Auto) 0.8 x10^3/uL (1.0-4.8) L Monocytes # (Auto) 0.2 x10^3/uL (0.0-1.1) Eosinophils # (Auto) 0.1 x10^3/uL (0.0-0.7) Basophils # (Auto) 0.0 x10^3/uL (0.0-0.2) Sodium Level 139 mmol/L (136-145) Potassium Level 4.5 mmol/L (3.5-5.1) Chloride Level 102 mmol/L (98-107) Carbon Dioxide Level 30 mmol/L (21-32) Anion Gap 7 (6-14) Blood Urea Nitrogen 19 mg/dL (8-26) Creatinine 1.1 mg/dL (0.7-1.3) Estimated GFR (Cockcroft-Gault) 64.2 BUN/Creatinine Ratio 17 (6-20) Glucose Level 324 mg/dL (70-99) H Calcium Level 8.6 mg/dL (8.5-10.1) Total Bilirubin 0.5 mg/dL (0.2-1.0) Aspartate Amino Transferase (AST) 32 U/L (15-37) Alanine Aminotransferase (ALT) 34 U/L (16-63) Alkaline Phosphatase 66 U/L (46-116) Troponin I Quantitative < 0.017 ng/mL (0-0.055) Total Protein 6.8 g/dL (6.4-8.2) Albumin 3.2 g/dL (3.4-5.0) L Albumin/Globulin Ratio 0.9 (1.0-1.7) L Urine Collection Type Unknown Urine Color Yellow Urine Clarity Clear Urine pH 7.5 Urine Specific [place] 1.015 Urine Protein Neg (NEG-TRACE) Urine Glucose (UA) >=1000 mg/dL (NEG) Urine Ketones (Stick) Neg mg/dL (NEG) Urine Blood Neg (NEG) Urine Nitrite Neg (NEG) Urine Bilirubin Neg (NEG) Urine Urobilinogen Dipstick 0.2 mg/dL (0.2 mg/dL) Urine Leukocyte Esterase Neg (NEG) Urine RBC 0 /HPF (0-2) Urine WBC 0 /HPF (0-4) Urine Squamous Epithelial Cells Occ /LPF Urine Bacteria 0 /HPF (0-FEW) EKG EKG [EKG: inverted T waves present on previous EKG] Radiology/Procedures Radiology/Procedures CXR: NAD per radiology report. [] Impressions: h Course & Med Decision Making Course & Med Decision Making Pertinent Labs and Imaging studies reviewed. (See chart for details) [Benign exam and with elevated glucose. Cough, clear lungs, no hypoxia, CXR clear. Will tx for empirically for positive pneumonia. PCP f/u Thursday as scheduled. Return precautions reviewed. ] Final Impression Final Impression [1. Aspiration of stomach contents 2. Cough] Problems: Dragon Disclaimer Dragon Disclaimer This electronic medical record was generated, in whole or in part, using a voice recognition dictation system. JENSEN MORRISON DO October 10, 2017 15:05
== END 2017-10-10 14:14 | disposition home or self-care (01) ==
LOC: ER 12:19
DX: T17.810A Gastric contents in other parts of respiratory tract causing asphyxiation, initial encounter (principal); M19.90 Unspecified osteoarthritis, unspecified site; I25.10 Atherosclerotic heart disease of native coronary artery without angina pectoris; E11.9 Type 2 diabetes mellitus without complications; K21.9 Gastro-esophageal reflux disease without esophagitis; E78.00 Pure hypercholesterolemia, unspecified; Z86.14 Personal history of Methicillin resistant Staphylococcus aureus infection; Z95.810 Presence of automatic (implantable) cardiac defibrillator; X58.XXXA Exposure to other specified factors, initial encounter; Y93.89 Activity, other specified; Y92.89 Other specified places as the place of occurrence of the external cause; Y99.8 Other external cause status
CPT/HCPCS: 36415; 71045; 80053; 81001; 84484; 85025; 87040; 93005; 99285-25

== ENCOUNTER 2017-10-19 08:47 | Emergency (ER) | payer MEDICARE, OTHER ==
[2017-10-19] MEDS ORDERED: IV NORMAL SALINE 1,000ML 1,000 ML IV SCH (09:27)
[2017-10-19] MEDS ORDERED: PROCHLORPERAZINE 10 MG/2 ML VIAL. IV ONE (10:00)
[2017-10-19] MEDS ORDERED: IOHEXOL 300 MG/ML 75 ML VIAL. IV ONE (10:10)
[2017-10-19 10:11] LABS: BASO % 1 % (0-3); EOS # 0.1 x10^3/uL (0.0-0.7); EOS % 2 % (0-3); HEMATOCRIT 48.4 % (39.0-53.0); HEMOGLOBIN 16.2 g/dL (13.0-17.5); LYMPH # 0.7 x10^3/uL (1.0-4.8); LYMPH % 20 % (24-48); MEAN CORPUSCULAR HEMOGLOBIN 30 pg (25-35); MEAN CORPUSCULAR HGB CONC 34 g/dL (31-37); MEAN CORPUSCULAR VOLUME 90 fL (79-100); MONO # 0.2 x10^3/uL (0.0-1.1); MONO % 5 % (0-9); NEUT # 2.5 x10^3uL (1.8-7.7); NEUT % 72 % (31-73); PLATELET COUNT 118 x10^3/uL (140-400); RED BLOOD COUNT 5.35 x10^6/uL (4.30-5.70); RED CELL DISTRIBUTION WIDTH 15.5 % (11.5-14.5); WHITE BLOOD COUNT 3.5 x10^3/uL (4.0-11.0)
[2017-10-19 10:13] LABS: BACTERIA,URINE 0 /HPF (0-FEW); BILIRUBIN,URINE NEG (NEG); CLARITY,URINE CLEAR; COLOR,URINE YELLOW; GLUCOSE,URINE >=1000 mg/dL (NEG); NITRITE,URINE NEG (NEG); RBC,URINE 0 /HPF (0-2); SQUAMOUS EPITHELIAL CELL,UR OCC /LPF; UROBILINOGEN,URINE 0.2 mg/dL (0.2 mg/dL); WBC,URINE 0 /HPF (0-4)
[2017-10-19 10:16] LABS: ALBUMIN 3.4 g/dL (3.4-5.0); ALBUMIN/GLOBULIN RATIO 0.9 (1.0-1.7); CALCIUM 8.8 mg/dL (8.5-10.1); CREATININE 1.1 mg/dL (0.7-1.3); GFR 64.2; TOTAL BILIRUBIN 0.6 mg/dL (0.2-1.0)
--- NOTE | 2017-10-19 10:39 | RAD ---
CT Abdomen and Pelvis With Intravenous Contrast: History: PEG tube placement July 2017. Abdominal pain. Nausea and vomiting. Comparison: CT abdomen pelvis August 29, 2017. Technique: After administration of intravenous contrast, 75 mL Omnipaque-300, CT of the abdomen and pelvis was performed. Exposure: One or more of the following individualized dose reduction techniques were utilized for this examination: 1. Automated exposure control 2. Adjustment of the mA and/or kV according to patient size 3. Use of iterative reconstruction technique Findings: Evaluation of enteric structures may be warranted by lack of oral contrast. Images of lower chest demonstrate portions of pacemaker leads. Liver, spleen, pancreas, and bilateral adrenal glands are unremarkable. Gallbladder is absent. Aortic atherosclerosis is seen. 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 Bilateral kidneys enhance symmetrically. Left kidney demonstrates several nonobstructing nephroliths with the largest measuring 5 mm. Small left renal cyst is seen. Urinary bladder is unremarkable. Prostate is mildly enlarged. Extensive colonic diverticulosis is noted, but no diverticulitis appreciated. No free air or free fluid is seen in the abdomen or pelvis. Percutaneous gastrostomy tube is seen with appropriate location in the lumen of the stomach. Degenerative changes are present in the spine. Impression: 1. No acute abnormality identified in the abdomen or pelvis. Electronically signed by: Rojelio Bunch MD (10/19/2017 10:36 AM) [place] [id number]
[2017-10-19] MEDS ORDERED: INSULIN LISPRO 300 UNITS/3 ML INSULN.PEN. SQ SCH (11:30)
--- NOTE | 2017-10-19 11:58 | PHYS DOC ---
Past History Past Medical History: Arthritis, CAD, Dementia, Diabetes, GERD, High Cholesterol, MRSA, Pneumonia, Other Past Surgical History: Pacemaker Additional Past Surgical Histo: AICD and pacemaker placement Smoking: Non-smoker Alcohol Use: None Drug Use: None Adult General Chief Complaint Chief Complaint: GI PROBLEM HPI HPI 81-year-old male presents with epigastric abdominal pain and generalized fatigue. The patient states that for the last 2 days he has had a dull ache just below his umbilicus. He has had intermittent abdominal pain for the last couple weeks. He is been recently diagnosed and treated for pneumonia and is taking antibiotics. The patient has nausea but denies vomiting. He has not had diarrhea or constipation. He has a feeding tube due to swallowing dysfunction. He states that his blood sugars have been 200s to 400s lately. His PCP is attempting to adjust this. Review of Systems Review of Systems Constitutional: Denies fever or chills [] Eyes: Denies change in visual acuity, redness, or eye pain [] HENT: Denies nasal congestion or sore throat [] Respiratory: Denies cough or shortness of breath [] Cardiovascular: No additional information not addressed in HPI [] GI: Periumbilical abdominal pain and nausea[] : Denies dysuria or hematuria [] Musculoskeletal: Denies back pain or joint pain [] Integument: Denies rash or skin lesions [] Neurologic: Denies headache, focal weakness or sensory changes [] Endocrine: Denies polyuria or polydipsia [] All other systems were reviewed and found to be within normal limits, except as documented in this note. Current Medications Current Medications Current Medications Medications (Trade) Dose Ordered Sig/Shira Start Time Stop Time Status Last Admin Dose Admin Insulin Human Lispro (HumaLOG) 10 units TIDAC 10/19/17 11:30 10/19/17 11:06 10 UNITS Iohexol (Omnipaque 300 Mg/ml) 75 ml 1X ONCE 10/19/17 10:10 10/19/17 10:11 DC 10/19/17 10:07 75 ML Prochlorperazine Edisylate (Compazine) 5 mg 1X ONCE 10/19/17 10:00 10/19/17 10:01 DC 10/19/17 09:55 10 MG Sodium Chloride 1,000 ml @ 1,000 mls/hr Q1H 10/19/17 09:27 10/19/17 10:26 DC 10/19/17 09:55 1,000 MLS/HR Allergies Allergies Allergies Coded Allergies Type Severity Reaction Last Updated Verified No Known Drug Allergies 07/05/17 No Physical Exam Physical Exam Constitutional: Well developed, well nourished, no acute distress, non-toxic appearance. [] HENT: Normocephalic, atraumatic, bilateral external ears normal, oropharynx moist, no oral exudates, nose normal. [] Eyes: PERRLA, EOMI, conjunctiva normal, no discharge. [] Neck: Normal range of motion, no tenderness, supple, no stridor. [] Cardiovascular:Heart rate regular rhythm, no murmur [] Lungs & Thorax: Bilateral breath sounds clear to auscultation [] Abdomen: Bowel sounds normal, soft, no tenderness, no masses, no pulsatile masses. Feeding tube present.[] Skin: Warm, dry, no erythema, no rash. [] Back: No tenderness, no CVA tenderness. [] Extremities: No tenderness, no cyanosis, no clubbing, ROM intact, no edema. [] Neurologic: Alert and oriented X 3, normal motor function, normal sensory function, no focal deficits noted. [] Psychologic: Affect normal, judgement normal, mood normal. [] Current Patient Data Vital Signs Vital Signs Date Time Temp Pulse Resp B/P (MAP) Pulse Ox O2 Delivery O2 Flow Rate FiO2 10/19/17 09:20 97.7 61 14 96 Room Air Lab Results Laboratory Tests Test 10/19/17 09:35 10/19/17 09:40 Urine Collection Type Unknown Urine Color Yellow Urine Clarity Clear Urine pH 6.5 Urine Specific [place] 1.010 Urine Protein Neg (NEG-TRACE) Urine Glucose (UA) >=1000 mg/dL (NEG) Urine Ketones (Stick) Neg mg/dL (NEG) Urine Blood Neg (NEG) Urine Nitrite Neg (NEG) Urine Bilirubin Neg (NEG) Urine Urobilinogen Dipstick 0.2 mg/dL (0.2 mg/dL) Urine Leukocyte Esterase Neg (NEG) Urine RBC 0 /HPF (0-2) Urine WBC 0 /HPF (0-4) Urine Squamous Epithelial Cells Occ /LPF Urine Bacteria 0 /HPF (0-FEW) White Blood Count 3.5 x10^3/uL (4.0-11.0) L Red Blood Count 5.35 x10^6/uL (4.30-5.70) Hemoglobin 16.2 g/dL (13.0-17.5) Hematocrit 48.4 % (39.0-53.0) Mean Corpuscular Volume 90 fL (79-100) Mean Corpuscular Hemoglobin 30 pg (25-35) Mean Corpuscular Hemoglobin Concent 34 g/dL (31-37) Red Cell Distribution Width 15.5 % (11.5-14.5) H Platelet Count 118 x10^3/uL (140-400) L Neutrophils (%) (Auto) 72 % (31-73) Lymphocytes (%) (Auto) 20 % (24-48) L Monocytes (%) (Auto) 5 % (0-9) Eosinophils (%) (Auto) 2 % (0-3) Basophils (%) (Auto) 1 % (0-3) Neutrophils # (Auto) 2.5 x10^3uL (1.8-7.7) Lymphocytes # (Auto) 0.7 x10^3/uL (1.0-4.8) L Monocytes # (Auto) 0.2 x10^3/uL (0.0-1.1) Eosinophils # (Auto) 0.1 x10^3/uL (0.0-0.7) Basophils # (Auto) 0.0 x10^3/uL (0.0-0.2) Sodium Level 135 mmol/L (136-145) L Potassium Level 5.0 mmol/L (3.5-5.1) Chloride Level 98 mmol/L (98-107) Carbon Dioxide Level 29 mmol/L (21-32) Anion Gap 8 (6-14) Blood Urea Nitrogen 23 mg/dL (8-26) Creatinine 1.1 mg/dL (0.7-1.3) Estimated GFR (Cockcroft-Gault) 64.2 BUN/Creatinine Ratio 21 (6-20) H Glucose Level 435 mg/dL (70-99) H Calcium Level 8.8 mg/dL (8.5-10.1) Total Bilirubin 0.6 mg/dL (0.2-1.0) Aspartate Amino Transferase (AST) 22 U/L (15-37) Alanine Aminotransferase (ALT) 28 U/L (16-63) Alkaline Phosphatase 72 U/L (46-116) Total Protein 7.0 g/dL (6.4-8.2) Albumin 3.4 g/dL (3.4-5.0) Albumin/Globulin Ratio 0.9 (1.0-1.7) L Lipase 64 U/L (73-393) L EKG EKG [] Radiology/Procedures Radiology/Procedures CT Abdomen and Pelvis With Intravenous Contrast: History: PEG tube placement July 2017. Abdominal pain. Nausea and vomiting. Comparison: CT abdomen pelvis August 29, 2017. Technique: After administration of intravenous contrast, 75 mL Omnipaque-300, CT of the abdomen and pelvis was performed. Exposure: One or more of the following individualized dose reduction techniques were utilized for this examination: 1. Automated exposure control 2. Adjustment of the mA and/or kV according to patient size 3. Use of iterative reconstruction technique Findings: Evaluation of enteric structures may be warranted by lack of oral contrast. Images of lower chest demonstrate portions of pacemaker leads. Liver, spleen, pancreas, and bilateral adrenal glands are unremarkable. Gallbladder is absent. Aortic atherosclerosis is seen. 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 Bilateral kidneys enhance symmetrically. Left kidney demonstrates several nonobstructing nephroliths with the largest measuring 5 mm. Small left renal cyst is seen. Urinary bladder is unremarkable. Prostate is mildly enlarged. Extensive colonic diverticulosis is noted, but no diverticulitis appreciated. No free air or free fluid is seen in the abdomen or pelvis. Percutaneous gastrostomy tube is seen with appropriate location in the lumen of the stomach. Degenerative changes are present in the spine. Impression: 1. No acute abnormality identified in the abdomen or pelvis. Electronically signed by: Rojelio Bunch MD (10/19/2017 10:36 AM) [id number][] Course & Med Decision Making Course & Med Decision Making Pertinent Labs and Imaging studies reviewed. (See chart for details) The patient's CT scan is unremarkable for acute findings. His blood sugar was over 400. Anion gap is normal. Given him 10 of lispro. His repeat blood sugar is 394. I will give him an additional 10. The patient's Myles could be related to his diabetes. He does feel generally ill and nauseous due to high blood sugar. I discussed this with the patient and the importance of getting his blood sugar under control. The patient stated that he was feeling a bit better. He feels like he is ready to go home. [] Dragon Disclaimer Dragon Disclaimer This electronic medical record was generated, in whole or in part, using a voice recognition dictation system. Departure Departure: Referrals: JENNIFER RANKIN MD (PCP) JENSEN JIN DO October 19, 2017 11:58
[2017-10-19] MEDS ORDERED: INSULIN LISPRO 300 UNITS/3 ML INSULN.PEN. SQ ONE (13:45)
[2017-10-19 15:27] VITALS: BP 128/67
== END 2017-10-19 13:50 | disposition home or self-care (01) ==
LOC: ER 08:47
DX: R10.13 Epigastric pain (principal); R10.33 Periumbilical pain; R53.83 Other fatigue; R11.0 Nausea; I25.10 Atherosclerotic heart disease of native coronary artery without angina pectoris; E11.65 Type 2 diabetes mellitus with hyperglycemia; E78.00 Pure hypercholesterolemia, unspecified; F03.90 Unspecified dementia, unspecified severity, without behavioral disturbance, psychotic disturbance, mood disturbance, and anxiety; K21.9 Gastro-esophageal reflux disease without esophagitis; M19.90 Unspecified osteoarthritis, unspecified site; Z95.810 Presence of automatic (implantable) cardiac defibrillator
CPT/HCPCS: 36415; 74177; 80053; 81001; 82947; 83690; 85025; 96372; 96374; 99285; J0780; J1815; Q9967; J7030

== ENCOUNTER 2017-11-04 13:30 | Emergency (ER) | payer MEDICARE, OTHER ==
[~2017-11-04] VITALS: Ht 180.3 cm; Wt 85.5 kg
[2017-11-04] MEDS ORDERED: ONDANSETRON ODT 4 MG TAB.RAPDIS PO ONE (13:45)
[2017-11-04] MEDS ORDERED: IV NORMAL SALINE 500ML 500 ML IV ONE (13:45)
--- NOTE | 2017-11-04 13:50 | PHYS DOC ---
Past History Past Medical History: Arthritis, CAD, Dementia, Diabetes, GERD, High Cholesterol, MRSA, Pneumonia, Other Past Surgical History: Pacemaker Additional Past Surgical Histo: AICD and pacemaker placement Smoking: Non-smoker Alcohol Use: None Drug Use: None Adult General Chief Complaint Chief Complaint: n/v HPI HPI 81-year-old male presenting the emergency department today with nausea and vomiting over the past 3-4 days. He also complains of an epigastric abdominal pain. He denies any fevers at home but endorses feeling mildly chilled intermittently. The pain is nonradiating mild to moderate. It was not sudden in onset. He has a history of aspiration pneumonia, high cholesterol and diabetes. Review of systems is negative for chest pain shortness of breath fevers. Negative for headache neck stiffness. Positive for vomiting. He denies any blood in his stools. All other review of systems is negative unless otherwise noted in history of present illness. ED course: 81-year-old male presenting the emergency department today with epigastric abdominal pain along with nausea and vomiting. On arrival vitals nl temp, nl hr. On physical exam the patient is nontoxic appearing, alert. His abdomen is mildly distended, mildly tender to palpation. No guarding. No rebound tenderness. Lungs are clear bilaterally. Otherwise unremarkable examination. Blood work sent. EKG shows sinus rhythm with a regular rate. ST segments show mild T-wave inversions in the anterior lateral leads and inferior leads. Troponin negative. No previous EKG available to me at this time. IV fluids nausea and pain medications administered. CBC shows mildly low platelets. Urinalysis shows glucose urea. Gastric occult blood test positive. Chemistry panel shows hyperglycemia without evidence of acidosis. Troponin negative. Lipase normal. CT shows faint mesenteric stranding nonspecific. Otherwise no acute pathology on CT noted. Given the GI bleeding we will transfer the patient to [facility] for GI consultation. Dr. Fan accepts the patient for admission. I discussed case with Dr. Asher. Review of Systems Review of Systems SEE ABOVE. Allergies Allergies Allergies Coded Allergies Type Severity Reaction Last Updated Verified No Known Drug Allergies 07/05/17 No Physical Exam Physical Exam SEE ABOVE Constitutional: Well developed, well nourished, no acute distress, non-toxic appearance. HENT: Normocephalic, atraumatic, bilateral external ears normal, oropharynx moist, no oral exudates, nose normal. [] Eyes: PERRLA, EOMI, conjunctiva normal, no discharge. [] Neck: Normal range of motion, no tenderness, supple, no stridor. Cardiovascular:Heart rate regular rhythm, no murmur Lungs & Thorax: Bilateral breath sounds clear to auscultation [] Abdomen: Bowel sounds normal, soft, no masses, no pulsatile masses. see above. Skin: Warm, dry, no erythema, no rash. [] Back: No tenderness, no CVA tenderness. [] Extremities: No tenderness, no cyanosis, no clubbing, ROM intact, no edema. [] Neurologic: Alert and oriented X 3, normal motor function, normal sensory function, no focal deficits noted. [] Psychologic: Affect normal, judgement normal, mood normal. [] Current Patient Data Lab Results Laboratory Tests Test 11/04/17 13:38 Glucose (Fingerstick) 274 mg/dL (70-99) H EKG EKG [] Radiology/Procedures Radiology/Procedures [] Course & Med Decision Making Course & Med Decision Making Pertinent Labs and Imaging studies reviewed. (See chart for details) [] Dragon Disclaimer Dragon Disclaimer This electronic medical record was generated, in whole or in part, using a voice recognition dictation system. Departure Departure: Impression: Primary Impression: Nausea & vomiting Additional Impressions: Abdominal pain Weakness GI bleed Disposition: 02 XFER [facility] Condition: STABLE Referrals: JENNIFER RANKIN MD (PCP) Problem Qualifiers TUCKER HENSON MD November 04, 2017 13:50
[2017-11-04 13:56] LABS: BASO % 1 % (0-3); EOS % 0 % (0-3); HEMATOCRIT 49.8 % (39.0-53.0); HEMOGLOBIN 17.1 g/dL (13.0-17.5); LYMPH # 0.6 x10^3/uL (1.0-4.8); LYMPH % 8 % (24-48); MEAN CORPUSCULAR HEMOGLOBIN 31 pg (25-35); MEAN CORPUSCULAR HGB CONC 34 g/dL (31-37); MEAN CORPUSCULAR VOLUME 90 fL (79-100); MONO # 0.4 x10^3/uL (0.0-1.1); MONO % 5 % (0-9); NEUT # 7.4 x10^3uL (1.8-7.7); NEUT % 87 % (31-73); PLATELET COUNT 110 x10^3/uL (140-400); RED BLOOD COUNT 5.56 x10^6/uL (4.30-5.70); RED CELL DISTRIBUTION WIDTH 15.1 % (11.5-14.5); WHITE BLOOD COUNT 8.5 x10^3/uL (4.0-11.0)
--- NOTE | 2017-11-04 14:08 | RAD ---
EXAM: CHEST 1 VIEW History: Nausea, vomiting, cough COMPARISON: 10/10/2017 TECHNIQUE: Single portable radiograph of the chest FINDINGS: The cardiac silhouette is unremarkable. The lungs are clear bilaterally. The costophrenic sulci are clear and well demarcated. IMPRESSION: No radiographic evidence of an acute cardiopulmonary process. Electronically signed by: Jose Underwood MD (11/04/2017 2:05 PM) [id number]
[2017-11-04 14:10] LABS: ALBUMIN 3.6 g/dL (3.4-5.0); CALCIUM 8.8 mg/dL (8.5-10.1); CREATININE 1.2 mg/dL (0.7-1.3); DIRECT BILIRUBIN 0.2 mg/dL (0.0-0.2); GFR 58.1; POTASSIUM 4.2 mmol/L (3.5-5.1); TOTAL BILIRUBIN 0.7 mg/dL (0.2-1.0); TOTAL PROTEIN 7.7 g/dL (6.4-8.2)
--- NOTE | 2017-11-04 14:27 | EKG ---
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
[2017-11-04] MEDS ORDERED: IOHEXOL 300 MG/ML 75 ML VIAL. IV ONE (14:30)
[2017-11-04 14:45] LABS: GASTRIC OB PAT POSITIVE (NEG)
[2017-11-04 14:55] LABS: BILIRUBIN,URINE NEG (NEG); CLARITY,URINE CLEAR; COLOR,URINE YELLOW; GLUCOSE,URINE >=1000 mg/dL (NEG); NITRITE,URINE NEG (NEG); UROBILINOGEN,URINE 0.2 mg/dL (0.2 mg/dL)
[2017-11-04 14:56] LABS: BACTERIA,URINE 0 /HPF (0-FEW); SQUAMOUS EPITHELIAL CELL,UR FEW /LPF
--- NOTE | 2017-11-04 15:07 | RAD ---
Examination: CT of the abdomen pelvis with IV contrast HISTORY: History of nausea, vomiting COMPARISON: 10/19/2017 TECHNIQUE: Axial CT images of the abdomen pelvis performed without contrast. Coronal and sagittal reformats are performed Exposure: One or more of the following individualized dose reduction techniques were utilized for this examination: 1. Automated exposure control 2. Adjustment of the mA and/or kV according to patient size 3. Use of iterative reconstruction technique FINDINGS: Patchy bibasilar lung airspace opacities likely atelectasis. No evidence of free air identified in the abdomen. There is mild decreased attenuation noted throughout the liver likely hepatic steatosis. The visualized spleen, adrenals grossly appears unremarkable Cholecystectomy clips identified. A PEG tube identified in the distal stomach. The small bowel is nondilated. Feces and gas noted in the colon. Numerous colon diverticula identified throughout the colon. Bilateral kidneys enhance symmetrically. Multiple nonobstructing intrarenal collecting system calculi identified in the left kidney grossly similar to prior exam. Small left renal cyst is unchanged. Urinary bladder is mildly distended. The prostate is mildly enlarged. Moderate degenerative changes lumbar spine. The right iliac artery aneurysm measuring 2 cm grossly similar to prior exam. There is faint mesenteric stranding identified in the abdomen. IMPRESSION: 1. Faint mesenteric stranding, nonspecific etiology. 2. Numerous colonic diverticulosis. 3. Left renal nephrolithiasis. 4. Cholecystectomy changes. Hepatic steatosis. Electronically signed by: Jose Underwood MD (11/04/2017 3:04 PM) [id number]
[2017-11-04] MEDS ORDERED: PANTOPRAZOLE IV 40 MG VIAL. IVP ONE (15:45)
[2017-11-04 15:49] VITALS: BP 135/64
== END 2017-11-04 16:28 | disposition short-term general hospital (02) ==
LOC: ER 13:30
DX: K92.2 Gastrointestinal hemorrhage, unspecified (principal); R53.1 Weakness; M19.90 Unspecified osteoarthritis, unspecified site; I25.10 Atherosclerotic heart disease of native coronary artery without angina pectoris; K21.9 Gastro-esophageal reflux disease without esophagitis; E78.00 Pure hypercholesterolemia, unspecified; E11.65 Type 2 diabetes mellitus with hyperglycemia; F03.90 Unspecified dementia, unspecified severity, without behavioral disturbance, psychotic disturbance, mood disturbance, and anxiety; Z95.0 Presence of cardiac pacemaker
CPT/HCPCS: 36415; 71045; 74177; 80048; 80076; 81001; 82271; 82947; 83690; 84484; 85025; 93005; 96361; 96374; 96375; 99285; C9113; J3010; J7040; Q0162; Q9967

== ENCOUNTER 2017-11-10 20:26 | Inpatient (IN) | payer MEDICARE, OTHER ==
[~2017-11-10] VITALS: Ht 180.3 cm; Wt 78.5 kg
[~2017-11-10 20:26] MED LIST changes: +ASPI-630 PEG; -ASPI-630 PO; +CHOL10003 PEG; -CHOL10003 PO; +GABA-586 PEG; -GABA-586 PO; -IPRA3AMP NEB; +IPRA3AMP29 NEB; +LISI10TA2 PEG; -LISI10TA2 PO; -ONDA4TAB12 PO; +ONDA4TAB12 SL; +SIMV10TA3 PEG; -SIMV10TA3 PO
--- NOTE | 2017-11-10 20:35 | ED.ADGEN ---
Past History Past Medical History: Arthritis, CAD, COPD, Dementia, Diabetes, GERD, High Cholesterol, MRSA, Pneumonia, Other Past Surgical History: Pacemaker Additional Past Surgical Histo: AICD and pacemaker placement Smoking: Non-smoker Alcohol Use: None Drug Use: None Adult General Chief Complaint Chief Complaint ".. I just could not catch my breath.. I just got out of [place] on Thursday... ".. " I just could not breath..." HPI HPI Patient is a 81 year old male who presents with above hx and complaints severe dyspnea and hypoxia. Pt. denies any changes in meds or recent travel or specific ill contacts. Pt. recent admitted for GI bleed in [facility]. Pt. 80 % on initial Sats. but rapidly increase to 90% on arrival. Pt. has extensive tobacco use hx. but has not smoked for years. Pt. hx. coughing spasms. Pt. follows with Dr. Lucero. Review of Systems Review of Systems Constitutional: Denies fever or chills [] Eyes: Denies change in visual acuity, redness, or eye pain [] HENT: Denies nasal congestion or sore throat [] Respiratory: Hx of cough and acute shortness of breath [] Cardiovascular: No additional information not addressed in HPI [] GI: Denies abdominal pain, nausea, vomiting, bloody stools or diarrhea [] : Denies dysuria or hematuria [] Musculoskeletal: Denies back pain or joint pain [] Integument: Denies rash or skin lesions [] Neurologic: Denies headache, focal weakness or sensory changes [] Endocrine: Denies polyuria or polydipsia [] All other systems were reviewed and found to be within normal limits, except as documented in this note. Family History Family History Non-contributory Current Medications Current Medications Current Medications Medications (Trade) Dose Ordered Sig/Shira Start Time Stop Time Status Last Admin Dose Admin Azithromycin (Zithromax) 500 mg 1X ONCE 11/11/17 00:30 11/11/17 00:33 DC 11/11/17 01:08 500 MG Enoxaparin Sodium (Lovenox 100mg Syringe) 90 mg BID 11/11/17 02:30 11/11/17 03:08 90 MG Info (Do NOT chart on this entry -- for MONITORING) 1 each PRN DAILY PRN 11/10/17 23:00 11/12/17 22:59 Iohexol (Omnipaque 300 Mg/ml) 75 ml 1X ONCE 11/10/17 23:00 11/10/17 23:01 DC 11/10/17 23:30 75 ML Methylprednisolone Sodium Succinate (SOLU-Medrol 40MG VIAL) 40 mg 1X ONCE 11/11/17 00:30 11/11/17 00:34 DC Methylprednisolone Sodium Succinate (SOLU-Medrol 125MG VIAL) 40 mg 1X ONCE 11/11/17 00:30 11/11/17 00:34 DC Allergies Allergies Allergies Coded Allergies Type Severity Reaction Last Updated Verified No Known Drug Allergies 11/10/17 No Physical Exam Physical Exam Constitutional: In acute distress, very anxious in appearance. [] HENT: Normocephalic, atraumatic, bilateral external ears normal, oropharynx moist, no oral exudates, nose normal. [] Eyes: PERRLA, EOMI, conjunctiva normal, no discharge. [] Neck: Normal range of motion, no tenderness, supple, no stridor. [] Cardiovascular: Bradycardia Heart rate regular rhythm, no murmur [Pacer Lt. Lungs & Thorax: Bilateral breath sounds scattered wheezing on auscultation [] Abdomen: Bowel sounds normal, soft, no tenderness, no masses, no pulsatile masses. [] Skin: Warm, dry, no erythema, no rash. Poor turgor. Back: No tenderness, no CVA tenderness. [] Extremities: No tenderness, no cyanosis, no clubbing, ROM intact, no edema. [] No cording appreciated in legs. Neurologic: Alert and oriented X 3, normal motor function, normal sensory function, no focal deficits noted. [] Psychologic: Affect very anxious, judgement normal, mood depressed. Current Patient Data Vital Signs Vital Signs Date Time Temp Pulse Resp B/P (MAP) Pulse Ox O2 Delivery O2 Flow Rate FiO2 11/11/17 02:04 60 20 136/73 (94) 97 Room Air 11/10/17 20:43 98.4 Lab Results Laboratory Tests Test 11/10/17 21:06 11/10/17 21:50 White Blood Count 3.5 x10^3/uL (4.0-11.0) #L Red Blood Count 5.32 x10^6/uL (4.30-5.70) Hemoglobin 16.5 g/dL (13.0-17.5) Hematocrit 47.7 % (39.0-53.0) Mean Corpuscular Volume 90 fL (79-100) Mean Corpuscular Hemoglobin 31 pg (25-35) Mean Corpuscular Hemoglobin Concent 35 g/dL (31-37) Red Cell Distribution Width 14.8 % (11.5-14.5) H Platelet Count 127 x10^3/uL (140-400) L Neutrophils (%) (Auto) 66 % (31-73) Lymphocytes (%) (Auto) 25 % (24-48) Monocytes (%) (Auto) 6 % (0-9) Eosinophils (%) (Auto) 2 % (0-3) Basophils (%) (Auto) 1 % (0-3) Neutrophils # (Auto) 2.3 x10^3uL (1.8-7.7) Lymphocytes # (Auto) 0.9 x10^3/uL (1.0-4.8) L Monocytes # (Auto) 0.2 x10^3/uL (0.0-1.1) Eosinophils # (Auto) 0.1 x10^3/uL (0.0-0.7) Basophils # (Auto) 0.0 x10^3/uL (0.0-0.2) Prothrombin Time 10.5 SEC (9.4-11.4) Prothrombin Time INR 1.0 (0.9-1.1) PTT 25 SEC (23-33) D-Dimer ([place]) 1.15 mg/L (0.00-0.50) H Sodium Level 137 mmol/L (136-145) Potassium Level 4.3 mmol/L (3.5-5.1) Chloride Level 100 mmol/L (98-107) Carbon Dioxide Level 30 mmol/L (21-32) Anion Gap 7 (6-14) Blood Urea Nitrogen 19 mg/dL (8-26) Creatinine 1.2 mg/dL (0.7-1.3) Estimated GFR (Cockcroft-Gault) 58.1 Glucose Level 257 mg/dL (70-99) H Calcium Level 8.8 mg/dL (8.5-10.1) Magnesium Level 2.1 mg/dL (1.8-2.4) Total Bilirubin 0.6 mg/dL (0.2-1.0) Direct Bilirubin 0.2 mg/dL (0.0-0.2) Aspartate Amino Transferase (AST) 32 U/L (15-37) Alanine Aminotransferase (ALT) 52 U/L (16-63) Alkaline Phosphatase 89 U/L (46-116) Creatine Kinase 64 U/L (39-308) Creatine Kinase MB (Mass) 1.2 ng/mL (0.0-3.6) Creatine Kinase MB Relative Index 1.9 % (0-4) Troponin I Quantitative < 0.017 ng/mL (0-0.055) PN-Iag-P-Type Natriuretic Peptide 202 pg/mL (0-449) Total Protein 7.4 g/dL (6.4-8.2) Albumin 3.5 g/dL (3.4-5.0) Lipase 56 U/L (73-393) L Urine Collection Type Unknown Urine Color Straw Urine Clarity Clear Urine pH 5.5 Urine Specific [place] 1.010 Urine Protein Neg (NEG-TRACE) Urine Glucose (UA) 250 mg/dL (NEG) Urine Ketones (Stick) 15 mg/dL (NEG) Urine Blood Neg (NEG) Urine Nitrite Neg (NEG) Urine Bilirubin Neg (NEG) Urine Urobilinogen Dipstick 0.2 mg/dL (0.2 mg/dL) Urine Leukocyte Esterase Neg (NEG) Urine RBC 0 /HPF (0-2) Urine WBC Occ /HPF (0-4) Urine Squamous Epithelial Cells Occ /LPF Urine Bacteria 0 /HPF (0-FEW) Urine Opiates Screen Neg (NEG) Urine Methadone Screen Neg (NEG) Urine Barbiturates Neg (NEG) Urine Phencyclidine Screen Neg (NEG) Urine Amphetamine/Methamphetamine Neg (NEG) Urine Benzodiazepines Screen Neg (NEG) Urine Cocaine Screen Neg (NEG) Urine Cannabinoids Screen Neg (NEG) Urine Ethyl Alcohol Neg (NEG) EKG EKG My interpretation of EKG shows sinus 62, Prolonged WI interval[] Radiology/Procedures Radiology/Procedures My interpretation of CXR shows COPD/Emphysema patter, pacer, CT pending at time of discharged. [] Course & Med Decision Making Course & Med Decision Making Pertinent Labs and Imaging studies reviewed. (See chart for details) Discussed presentation, testing and tx. plan with Dr. Nuñez- will admit for further eval. and tx. [] Final Impression Final Impression 1. Dyspnea[]- Hypoxia 2. COPD/Emphysema Exacerbation 3. Thrombocytopenia 4. Elevated D-dimer 5 DM Salvador Disclaimer Dragon Disclaimer This electronic medical record was generated, in whole or in part, using a voice recognition dictation system. FATMATA REESE MD Nov 10, 2017 20:35
[2017-11-10 21:24] LABS: BASO % 1 % (0-3); EOS # 0.1 x10^3/uL (0.0-0.7); EOS % 2 % (0-3); HEMATOCRIT 47.7 % (39.0-53.0); HEMOGLOBIN 16.5 g/dL (13.0-17.5); LYMPH # 0.9 x10^3/uL (1.0-4.8); LYMPH % 25 % (24-48); MEAN CORPUSCULAR HEMOGLOBIN 31 pg (25-35); MEAN CORPUSCULAR HGB CONC 35 g/dL (31-37); MEAN CORPUSCULAR VOLUME 90 fL (79-100); MONO # 0.2 x10^3/uL (0.0-1.1); MONO % 6 % (0-9); NEUT # 2.3 x10^3uL (1.8-7.7); NEUT % 66 % (31-73); PLATELET COUNT 127 x10^3/uL (140-400); RED BLOOD COUNT 5.32 x10^6/uL (4.30-5.70); RED CELL DISTRIBUTION WIDTH 14.8 % (11.5-14.5); WHITE BLOOD COUNT 3.5 x10^3/uL (4.0-11.0)
--- NOTE | 2017-11-10 21:35 | EKG ---
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
[2017-11-10 22:04] LABS: ALBUMIN 3.5 g/dL (3.4-5.0); CALCIUM 8.8 mg/dL (8.5-10.1); CREATININE 1.2 mg/dL (0.7-1.3); DIRECT BILIRUBIN 0.2 mg/dL (0.0-0.2); GFR 58.1; MAGNESIUM 2.1 mg/dL (1.8-2.4); POTASSIUM 4.3 mmol/L (3.5-5.1); TOTAL BILIRUBIN 0.6 mg/dL (0.2-1.0); TOTAL PROTEIN 7.4 g/dL (6.4-8.2)
[2017-11-10 22:12] LABS: BACTERIA,URINE 0 /HPF (0-FEW); BILIRUBIN,URINE NEG (NEG); CLARITY,URINE CLEAR; COLOR,URINE STRAW; GLUCOSE,URINE 250 mg/dL (NEG); NITRITE,URINE NEG (NEG); RBC,URINE 0 /HPF (0-2); SQUAMOUS EPITHELIAL CELL,UR OCC /LPF; UROBILINOGEN,URINE 0.2 mg/dL (0.2 mg/dL); WBC,URINE OCC /HPF (0-4)
--- NOTE | 2017-11-10 22:13 | RAD ---
EXAM: Chest, single view. HISTORY: Shortness of breath. COMPARISON: 10/18/2017 FINDINGS: A frontal view of the chest is obtained. There is no infiltrate, effusion or pneumothorax. The heart is normal in size. There is a cardiac pacemaker with leads in expected position. IMPRESSION: No acute pulmonary finding. Electronically signed by: Gabby Singletary MD (11/10/2017 10:09 PM) [facility]
[2017-11-10 22:19] LABS: AMPHETAMINE/METHAMPHETAMINE NEG (NEG); BARBITURATES NEG (NEG); BENZODIAZEPINES NEG (NEG); CANNABINOIDS NEG (NEG); COCAINE NEG (NEG); METHADONE NEG (NEG); OPIATES NEG (NEG); PHENCYCLIDINE NEG (NEG)
[2017-11-10] MEDS ORDERED: CONTRAST GIVEN MC PRN (23:00)
[2017-11-10] MEDS ORDERED: IOHEXOL 300 MG/ML 75 ML VIAL. IV ONE (23:00)
--- NOTE | 2017-11-10 23:54 | RAD ---
EXAM: CT ANGIOGRAPHY OF THE CHEST WITH AND WITHOUT INTRAVENOUS CONTRAST. HISTORY: Dyspnea, hypoxia, elevated d-dimer. TECHNIQUE: Computed tomographic angiography of the chest was performed before and after the intravenous administration of 60 mL Omnipaque 300. 3-D maximum intensity projections were also performed. COMPARISON: None. FINDINGS: Images of the upper abdomen reveal changes of cholecystectomy. A gastrostomy tube is noted. Bone windows reveal no suspicious lesions. No pulmonary emboli are identified. There is no aortic dissection or aneurysm. There are no pathologically enlarged mediastinal or axillary lymph nodes. There is no pleural or pericardial effusion. The heart is mildly enlarged. There are atherosclerotic calcifications of the coronary arteries. A left-sided pacemaker has its leads in the right atrium and right ventricle. The ascending aorta is mildly ectatic at 4.2 cm. The arch measures 3.3 cm. A nodule within the right major fissure measures 1.0 x 0.8 cm. A groundglass opacity in the left upper lobe measures 6 mm. A spiculated density in the right apex is contiguous with scarring but is indeterminate. It measures 1.1 x 0.7 cm. Centrilobular emphysema is mild to moderate. A small pleural-based nodule on the left on image 35 measures 4 mm. There is mild diffuse bronchial wall thickening. IMPRESSION: 1. No pulmonary embolism. 2. Multiple bilateral pulmonary nodules measure up to 1.0 cm and are indeterminate. A follow-up is recommended in 3 months if long-term stability is not already known. Comparison with older studies is recommended if available. 3. Mild to moderate centrilobular emphysema. 4. Cardiomegaly. *One or more of the following individualized dose reduction techniques were utilized for this examination: 1. Automated exposure control. 2. Adjustment of the mA and/or kV according to patient size. 3. Use of iterative reconstruction technique. Electronically signed by: Jenelle Ordoñez MD (11/10/2017 11:50 PM) [facility]
[2017-11-11] MEDS ORDERED: ENOXAPARIN ** NOTE DOSE ** SYRINGE SQ ONE ×2 (00:30)
[2017-11-11] MEDS ORDERED: methylPREDNISolone SOD SUCC PF 125 MG/2 ML VIAL. IV ONE (00:30)
[2017-11-11] MEDS ORDERED: AZITHROMYCIN 250 MG TABLET. PO ONE (00:30)
[2017-11-11] MEDS ORDERED: methylPREDNISolone SOD SUCC PF 40 MG/ML VIAL. IV ONE ×2 (00:30→02:45)
[2017-11-11 02:43] VITALS: BP 148/77
[2017-11-11] MEDS: ENOXAPARIN ** NOTE DOSE ** SYRINGE SQ SCH ×3 (03:08→20:25)
[2017-11-11] MEDS ORDERED: LANS30CA66 PEG (03:53)
[2017-11-11] MEDS ORDERED: IPRA3AMP29 NEB (03:53)
[2017-11-11] MEDS ORDERED: MEMA28CA5 PEG (03:53)
[2017-11-11] MEDS ORDERED: INSU100I11 SQ (03:53)
[2017-11-11] MEDS ORDERED: DONE10TA7 PEG (03:53)
[2017-11-11] MEDS ORDERED: METO10TA81 PEG (03:53)
[2017-11-11] MEDS ORDERED: NON FORMULARY ITEM (Albuterol Sulfate (Proair Respiclick) 1 PUFF) IH PRN (05:30)
[2017-11-11 07:22] VITALS: BP 124/67
[2017-11-11] MEDS ORDERED: PANTOPRAZOLE 40 MG TABLET. PO SCH (07:30)
[2017-11-11] MEDS ORDERED: ALBUTEROL SULFATE 2.5 MG/3 ML NEBU. NEB PRN (07:45)
[2017-11-11] MEDS ORDERED: IPRATRPIUM/ALBUTEROL 0.5/2.5MG 3 ML NEBU. NEB SCH (08:00)
[2017-11-11] MEDS: IPRATRPIUM/ALBUTEROL 0.5/2.5MG 3 ML NEBU. NEB SCH ×2 (08:00→20:50)
[2017-11-11] MEDS: METOCLOPRAMIDE HCL 10 MG/10 ML SOLUTION. PEG SCH ×4 (08:20→20:25)
[2017-11-11] MEDS: PANTOPRAZOLE 40 MG PACKET. PEG SCH (08:25)
[2017-11-11] MEDS: GABAPENTIN 300 MG CAPSULE. PO SCH ×3 (08:29→20:25)
[2017-11-11] MEDS: DONEPEZIL HCL 10 MG TABLET PO SCH (08:29)
[2017-11-11] MEDS: AZITHROMYCIN 250 MG TABLET. PO SCH (08:30)
[2017-11-11] MEDS: MEMANTINE 10 MG TABLET. PO SCH ×2 (08:30→20:25)
[2017-11-11] MEDS: LISINOPRIL 10 MG TABLET PO SCH (08:30)
[2017-11-11] MEDS: ASPIRIN 81 MG TAB.CHEW PO SCH (08:31)
[2017-11-11] MEDS: CHOLECALCIFEROL (VITAMIN D3) 1,000 UNIT TABLET PO SCH (08:31)
[2017-11-11] MEDS: INSULIN LISPRO 300 UNITS/3 ML INSULN.PEN. SQ SCH ×3 (08:51→17:53)
[2017-11-11 11:00] VITALS: BP 104/53
--- NOTE | 2017-11-11 14:53 | RAD ---
Bilateral Lower Extremity Venous Doppler Ultrasound Indication: Dyspnea, elevated d-dimer. Comparison: None. Procedure: Color Doppler, spectral Doppler, and grayscale images with and without compression are obtained in the area of the common femoral vein, superficial femoral vein - femoral vein junction, main femoral vein (superficial femoral vein) and popliteal vein. Veins of the proximal calf are also imaged. Findings: There is normal duplex flow, color flow and compressibility of all visualized vein segments. There is no evidence of deep venous thrombosis. Impression: No evidence of lower extremity deep venous thrombosis. Electronically signed by: Rojelio Bunch MD (11/11/2017 2:49 PM) [place] [id number]
[2017-11-11 15:00] VITALS: BP 125/67
--- NOTE | 2017-11-11 15:44 | HP ---
ADMIT DATE: 11/11/2017 HISTORY OF PRESENT ILLNESS: The patient is an 81-year-old male patient, who came to the Emergency Room with sudden onset of severe shortness of breath which started when he was sitting in a couch. He denied any chest pain. Denied any nausea, vomiting. Denied any diaphoresis. He was extensively investigated and was found to have elevated D-dimer for which he has had a CT angio of the chest, which basically showed no pulmonary embolism. He has multiple bilateral pulmonary nodules measuring up to 1 cm and are indeterminate. He has also mild to moderate centrilobular emphysema and cardiomegaly. His chest x-ray was unremarkable. No acute pulmonary finding and he has had an order for bilateral lower extremity Doppler ultrasound. The result of which is still pending at the time of this dictation. He has 1 set of cardiac enzymes, which was negative and they showed troponin to be less than 0.017. His EKG apparently showed sinus tachycardia and the patient was admitted for further evaluation and treatment. PAST MEDICAL HISTORY: Significant for coronary artery disease, hypertension, hyperlipidemia, type 2 diabetes. He has also type 2 diabetes mellitus, COPD, dysphagia with recurrent aspiration pneumonia, status post percutaneous gastrostomy tube placement. He has also chronic thrombocytopenia. PAST SURGICAL HISTORY: Significant for permanent pacemaker placement and multiple EGDs. He has also gastrostomy tube placement. ALLERGIES: He is allergic to BEE STINGS. MEDICATIONS: He is currently on following medications: He is on Aricept 10 mg per feeding tube daily, ipratropium bromide, albuterol sulfate 0.5/2.5 mg in 3 mL by nebulizer twice a day, albuterol sulfate for ProAir 1 puff every 6 hours, simvastatin 10 mg at bedtime, lisinopril 10 mg once a day, aspirin 81 mg once a day, gabapentin 300 mg 3 times a day, Namenda extended release 28 mg once a day, ondansetron 4 mg ODT per feeding tube every 8 hours, lansoprazole 30 mg for Prevacid per feeding tube daily, metoclopramide 10 mg 3 times a day with meals. He is on Levemir insulin 30 units at bedtime and Humalog insulin 10 units 3 times a day before meals, cholecalciferol vitamin D3 2000 units per feeding tube daily. FAMILY HISTORY: Unremarkable. SOCIAL HISTORY: He is . He is an ex-smoker, used to smoke 2-2 packs a day, smoked for more than 40 years. He does not drink alcohol. He has been in the service for 26 years. 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 REVIEW OF SYSTEMS: As per history of present illness. PHYSICAL EXAMINATION: GENERAL: On arrival to the Emergency Room, apparently the patient was somewhat slightly pale, but no jaundice, cyanosis, or thyromegaly. No jugular venous distension. No lower limb edema. VITAL SIGNS: His heart rate was 71, blood pressure was 110/60, temperature was 98.6, respiratory rate was 16 and oxygen saturation was 90%, although on arrival he was only 80%. HEAD, EYES, EARS, NOSE AND THROAT: Showed normocephalic, atraumatic. NECK: Supple. HEART: Showed normal first and second sounds. No gallop, rub or murmur. CHEST: Clear to auscultation. No crepitation or rhonchi. ABDOMEN: Distended, soft, nontender. No guarding or rigidity. No organomegaly. All hernial orifice intact. Bowel sounds normal. NEUROLOGIC: He is very hard of hearing, but otherwise all cranial nerves intact. EXTREMITIES: He moves extremities without difficulty. He apparently ambulates with a walker, although he is unsteady according to his family. LABORATORY DATA: On arrival showed his white cell count to be 3500, hemoglobin 16.5, hematocrit 47.7, MCV 90 and platelet count of 127,000. His chemistry showed a serum sodium 137, potassium 4.3, chloride 100, bicarbonate 30, anion gap of 7, BUN 19, creatinine 1.2, estimated GFR was 58 mL per minute. His glucose was , calcium was 8.8, magnesium 2.1. Total bilirubin, AST, ALT, alkaline phosphatase were normal. Total protein was 7.4, albumin was 3.5. Lipase was 56. TSH was 2.215 and his first set of cardiac enzyme showed troponin to be less than 0.017. His prothrombin time was 10.5, INR of 1, aPTT 25. D-dimer was 1.15. Urinalysis was essentially unremarkable. The urine was straw colored, clear with a pH of 5.5, specific gravity of 1.010. The urine protein was negative. There was large amount of glucose, trace amount of ketones. The urine was negative for blood, nitrite and leukocyte esterase. There are no rbc's, occasional wbc's and no bacteria. His urine toxicology screen was negative. The chest x-ray was unremarkable. CT angio showed no evidence of pulmonary emboli, but he had centrilobular emphysema as well as multiple nodules. PLAN: We did order bilateral lower extremity Doppler ultrasound, the result of which is still pending at the time of this dictation. We will do 2 more sets of cardiac enzyme, consult the Cardiology and decide on further management accordingly. JORGE BRAVO MD DR: SANDRA/ana maria JOB#: [id number] / [id number]
[2017-11-11] MEDS ORDERED: SIMVASTATIN 10 MG TABLET PO SCH (21:00)
[2017-11-11] MEDS ORDERED: INSULIN GLARGINE 300 UNITS/3 ML INSULN.PEN. SQ SCH (21:00)
[2017-11-11 21:19] VITALS: BP 96/56
--- NOTE | 2017-11-11 23:19 | PDOC ---
PROVIDER NOTE PROVIDER NOTE PROVIDER NOTE CC: Shortness of breath HPI 81 y.o man with possible dementia, coronary calcifications by CT without documented CAD, PAF and SSS s/p dual chamber pacer presenting for dyspnea. He states that he had dyspnea in the setting of anxiety when his left the house for 4 hours and stated that he honestly otherwise has not had any issues. Last time he was advised to obtain an MPI for very atypical chest pain. Pmhx: as above Soc hx: Lives with his . Retired. NKDA Meds: see MAR ROS: Unable to be obtained due to patient's limited history Famhx - NC Exam: Constitutional: Well developed, well nourished, no acute distress, non-toxic appearance. [] HENT: Normocephalic, atraumatic, Eyes: PERRLA, EOMI, conjunctiva normal, no discharge. [] Neck: Normal range of motion, no tenderness, supple, no stridor. [] Cardiovascular:Heart rate regular rhythm, no murmur [] Lungs & Thorax: Bilateral breath sounds decreased. Abdomen: Bowel sounds normal, soft, no tenderness, no masses, no pulsatile masses. [] Skin: Warm, dry, no erythema, no rash. [] Back: No tenderness, no CVA tenderness. [] Extremities: No tenderness, no cyanosis, no clubbing, ROM intact, no edema. [] Neurologic: Alert and oriented X 3, normal motor function, normal sensory function, no focal deficits noted. [] Psychologic: Affect normal, judgement normal, mood normal. [] Labs reviewed: Trop negative Diag Tests: 1. CT PE negative 2. EKG negative. Impression: 1. Dyspnea - atypical 2. SSS with pacer 3. HTN - MILD well controlled 4. Dyslipidemia Recs 1. Given his poor history, coronary calc by CT, ? dyspnea and prior atypical chest pain - plan to rule out ischemia with MPI. Await [facility] records for any further insight. Thanks Will follow up in [email or web address]. KATARINA GOEL MD Nov 11, 2017 23:19
[2017-11-11 23:24] VITALS: BP 104/60
[2017-11-12 05:06] VITALS: BP 125/78
[2017-11-12 06:45] LABS: BASO % 1 % (0-3); EOS % 1 % (0-3); HEMATOCRIT 43.2 % (39.0-53.0); HEMOGLOBIN 14.7 g/dL (13.0-17.5); LYMPH # 1.2 x10^3/uL (1.0-4.8); LYMPH % 33 % (24-48); MEAN CORPUSCULAR HEMOGLOBIN 31 pg (25-35); MEAN CORPUSCULAR HGB CONC 34 g/dL (31-37); MEAN CORPUSCULAR VOLUME 90 fL (79-100); MONO # 0.2 x10^3/uL (0.0-1.1); MONO % 6 % (0-9); NEUT # 2.2 x10^3uL (1.8-7.7); NEUT % 60 % (31-73); PLATELET COUNT 129 x10^3/uL (140-400); RED BLOOD COUNT 4.81 x10^6/uL (4.30-5.70); WHITE BLOOD COUNT 3.6 x10^3/uL (4.0-11.0)
[2017-11-12 06:46] LABS: CALCIUM 8.4 mg/dL (8.5-10.1); CREATININE 1.2 mg/dL (0.7-1.3); GFR 58.1; MAGNESIUM 2.3 mg/dL (1.8-2.4); POTASSIUM 4.3 mmol/L (3.5-5.1)
[2017-11-12] MEDS: INSULIN LISPRO 300 UNITS/3 ML INSULN.PEN. SQ SCH ×2 (07:30→14:07)
[2017-11-12] MEDS: METOCLOPRAMIDE HCL 10 MG/10 ML SOLUTION. PEG SCH ×2 (08:00→15:04)
--- NOTE | 2017-11-12 09:03 | CARD ---
MR#: [id number] Date of Study: 11/11/2017 Ordering Physician: JORGE BRAVO, Referring Physician: JORGE BRAVO, Tech: TERRY Bridges APPROVED REPORT EXAM: Two-dimensional and M-mode echocardiogram with Doppler and color Doppler. Other Information Quality : Poor Technically limited study due to severe COPD and very limited windows. INDICATION COPD Dyspnea 2D DIMENSIONS IVSd1.1 (0.7-1.1cm)LVDd3.5 (3.9-5.9cm) PWd1.0 (0.7-1.1cm)LVDs1.7 (2.5-4.0cm) LVEF(%)60.0 (>50%) Mitral Valve MV E Impzcsnz38.0cm/sMV DECEL [id number] MV A Lejpwlsp39.0cm/sE/A Ratio0.8 LEFT VENTRICLE The left ventricle is normal size. There is normal left ventricular wall thickness. The left ventricu lar systolic function is normal. The Ejection Fraction is 60-65%. There is normal LV segmental wall m otion. RIGHT VENTRICLE The right ventricle is not well visualized. ATRIA The left atrium size is normal. The right atrium size is normal. Interatrial septum not well visualiz ed. AORTIC VALVE The aortic valve is not well visualized. MITRAL VALVE There is no mitral valve stenosis. Doppler and Color-flow revealed trace mitral regurgitation. TRICUSPID VALVE The tricuspid valve is not well visualized. There is no tricuspid valve stenosis. PULMONIC VALVE The pulmonic valve is not well visualized. GREAT VESSELS The aortic root is not well visualized. The IVC was not visualized. There are no subcostal views. PERICARDIAL EFFUSION There is no pleural effusion. There is no evidence of significant pericardial effusion. Critical Notification Critical Value: No <Conclusion> Technically very difficult study. Valves not well visualized. The left ventricular systolic function is normal. The Ejection Fraction is 60-65%. There is normal LV segmental wall motion. Trace mitral regurgitation. There is no evidence of significant pericardial effusion. Signed by : Gaurav Bacon, Electronically Approved : 11/12/2017 09:02:02
[2017-11-12] MEDS ORDERED: REGADENOSON 0.4 MG/5 ML DISP.SYRIN. IV ONE (09:30)
--- NOTE | 2017-11-12 09:43 | PDOC ---
PROGRESS NOTES Assessment 1. Dyspnea - atypical, possible anginal equivalent. LVEF and wall motion normal by echo. await MPI results this am. 2. SSS with pacer - request records for manufactured and interrogate device if possible 3. HTN - MILD well controlled on current therapy. 4. Dyslipidemia - continue statin therapy. Subjective no chest pain, no dyspnea, no palpitations. "Ready for stress test" Objective Vital Signs Date Time Temp Pulse Resp B/P (MAP) Pulse Ox O2 Delivery O2 Flow Rate FiO2 11/12/17 05:06 97.3 63 22 125/78 (94) 93 BiPAP/CPAP 11/11/17 21:19 2.0 Intake and Output 11/12/17 07:00 Intake Total 200 ml Output Total 450 ml Balance -250 ml Intake Oral 0 ml Tube Feeding 200 ml Output Urine Total 450 ml # Voids 2 # Bowel Movements 1 Abdomen: Normal bowel sounds, Soft, No tenderness Heart: Regular rate, Normal S1, Normal S2 Extremities: No cyanosis, No edema General: Alert, Oriented X3, Cooperative, No acute distress HEENT: Atraumatic, EOMI Lungs: Other (decreased with occasional expiratory wheeze) Neuro: Normal speech, Strength at 5/5 X4 ext Psych/Mental Status: Mental status NL, Mood NL Review of Relevant I have reviewed the following items jessa (where applicable) has been applied. Labs Laboratory Tests Test 11/10/17 21:06 11/10/17 21:50 11/11/17 03:42 11/11/17 07:46 White Blood Count 3.5 x10^3/uL (4.0-11.0) Red Blood Count 5.32 x10^6/uL (4.30-5.70) Hemoglobin 16.5 g/dL (13.0-17.5) Hematocrit 47.7 % (39.0-53.0) Mean Corpuscular Volume 90 fL (79-100) Mean Corpuscular Hemoglobin 31 pg (25-35) Mean Corpuscular Hemoglobin Concent 35 g/dL (31-37) Red Cell Distribution Width 14.8 % (11.5-14.5) Platelet Count 127 x10^3/uL (140-400) Neutrophils (%) (Auto) 66 % (31-73) Lymphocytes (%) (Auto) 25 % (24-48) Monocytes (%) (Auto) 6 % (0-9) Eosinophils (%) (Auto) 2 % (0-3) Basophils (%) (Auto) 1 % (0-3) Neutrophils # (Auto) 2.3 x10^3uL (1.8-7.7) Lymphocytes # (Auto) 0.9 x10^3/uL (1.0-4.8) Monocytes # (Auto) 0.2 x10^3/uL (0.0-1.1) Eosinophils # (Auto) 0.1 x10^3/uL (0.0-0.7) Basophils # (Auto) 0.0 x10^3/uL (0.0-0.2) Prothrombin Time 10.5 SEC (9.4-11.4) Prothromb Time International Ratio 1.0 (0.9-1.1) Activated Partial Thromboplast Time 25 SEC (23-33) D-Dimer ([place]) 1.15 mg/L (0.00-0.50) Sodium Level 137 mmol/L (136-145) Potassium Level 4.3 mmol/L (3.5-5.1) Chloride Level 100 mmol/L (98-107) Carbon Dioxide Level 30 mmol/L (21-32) Anion Gap 7 (6-14) Blood Urea Nitrogen 19 mg/dL (8-26) Creatinine 1.2 mg/dL (0.7-1.3) Estimated GFR (Cockcroft-Gault) 58.1 Glucose Level 257 mg/dL (70-99) Calcium Level 8.8 mg/dL (8.5-10.1) Magnesium Level 2.1 mg/dL (1.8-2.4) Total Bilirubin 0.6 mg/dL (0.2-1.0) Direct Bilirubin 0.2 mg/dL (0.0-0.2) Aspartate Amino Transf (AST/SGOT) 32 U/L (15-37) Alanine Aminotransferase (ALT/SGPT) 52 U/L (16-63) Alkaline Phosphatase 89 U/L (46-116) Creatine Kinase 64 U/L (39-308) Creatine Kinase MB (Mass) 1.2 ng/mL (0.0-3.6) Creatine Kinase MB Relative Index 1.9 % (0-4) Troponin I Quantitative < 0.017 ng/mL (0-0.055) QJ-Phv-Q-Type Natriuretic Peptide 202 pg/mL (0-449) Total Protein 7.4 g/dL (6.4-8.2) Albumin 3.5 g/dL (3.4-5.0) Lipase 56 U/L (73-393) Thyroid Stimulating Hormone (TSH) 2.518 uIU/mL (0.358-3.740) Urine Collection Type Unknown Urine Color Straw Urine Clarity Clear Urine pH 5.5 Urine Specific Elizabeth 1.010 Urine Protein Neg (NEG-TRACE) Urine Glucose (UA) 250 mg/dL (NEG) Urine Ketones (Stick) 15 mg/dL (NEG) Urine Blood Neg (NEG) Urine Nitrite Neg (NEG) Urine Bilirubin Neg (NEG) Urine Urobilinogen Dipstick 0.2 mg/dL (0.2 mg/dL) Urine Leukocyte Esterase Neg (NEG) Urine RBC 0 /HPF (0-2) Urine WBC Occ /HPF (0-4) Urine Squamous Epithelial Cells Occ /LPF Urine Bacteria 0 /HPF (0-FEW) Urine Opiates Screen Neg (NEG) Urine Methadone Screen Neg (NEG) Urine Barbiturates Neg (NEG) Urine Phencyclidine Screen Neg (NEG) Urine Amphetamine/Methamphetamine Neg (NEG) Urine Benzodiazepines Screen Neg (NEG) Urine Cocaine Screen Neg (NEG) Urine Cannabinoids Screen Neg (NEG) Urine Ethyl Alcohol Neg (NEG) Glucose (Fingerstick) 238 mg/dL (70-99) 355 mg/dL (70-99) Test 11/11/17 12:01 11/11/17 15:00 11/11/17 16:56 11/11/17 20:00 Glucose (Fingerstick) 351 mg/dL (70-99) 303 mg/dL (70-99) Troponin I Quantitative < 0.017 ng/mL (0-0.055) < 0.017 ng/mL (0-0.055) Test 11/11/17 20:15 11/12/17 06:20 11/12/17 07:50 Glucose (Fingerstick) 253 mg/dL (70-99) 269 mg/dL (70-99) White Blood Count 3.6 x10^3/uL (4.0-11.0) Red Blood Count 4.81 x10^6/uL (4.30-5.70) Hemoglobin 14.7 g/dL (13.0-17.5) Hematocrit 43.2 % (39.0-53.0) Mean Corpuscular Volume 90 fL (79-100) Mean Corpuscular Hemoglobin 31 pg (25-35) Mean Corpuscular Hemoglobin Concent 34 g/dL (31-37) Red Cell Distribution Width 15.0 % (11.5-14.5) Platelet Count 129 x10^3/uL (140-400) Neutrophils (%) (Auto) 60 % (31-73) Lymphocytes (%) (Auto) 33 % (24-48) Monocytes (%) (Auto) 6 % (0-9) Eosinophils (%) (Auto) 1 % (0-3) Basophils (%) (Auto) 1 % (0-3) Neutrophils # (Auto) 2.2 x10^3uL (1.8-7.7) Lymphocytes # (Auto) 1.2 x10^3/uL (1.0-4.8) Monocytes # (Auto) 0.2 x10^3/uL (0.0-1.1) Eosinophils # (Auto) 0.0 x10^3/uL (0.0-0.7) Basophils # (Auto) 0.0 x10^3/uL (0.0-0.2) Sodium Level 138 mmol/L (136-145) Potassium Level 4.3 mmol/L (3.5-5.1) Chloride Level 102 mmol/L (98-107) Carbon Dioxide Level 31 mmol/L (21-32) Anion Gap 5 (6-14) Blood Urea Nitrogen 27 mg/dL (8-26) Creatinine 1.2 mg/dL (0.7-1.3) Estimated GFR (Cockcroft-Gault) 58.1 Glucose Level 304 mg/dL (70-99) Calcium Level 8.4 mg/dL (8.5-10.1) Magnesium Level 2.3 mg/dL (1.8-2.4) Medications Current Medications Iohexol (Omnipaque 300 Mg/ml) 75 ml 1X ONCE IV Last administered on 11/10/17at 23:30; Start 11/10/17 at 23:00; Stop 11/10/17 at 23:01; Status DC Info (Do NOT chart on this entry -- for MONITORING) 1 each PRN DAILY PRN MC SEE COMMENTS; Start 11/10/17 at 23:00; Stop 11/12/17 at 22:59 Azithromycin (Zithromax) 500 mg 1X ONCE PO Last administered on 11/11/17at 01:08 ; Start 11/11/17 at 00:30; Stop 11/11/17 at 00:33; Status DC Azithromycin (Zithromax) 250 mg DAILY PO Last administered on 11/11/17at 08:30; Start 11/11/17 at 09:00 Albuterol/ Ipratropium (Duoneb) 3 ml RTQID NEB Last administered on 11/11/17at 05 :23; Start 11/11/17 at 08:00; Stop 11/11/17 at 08:00; Status DC Methylprednisolone Sodium Succinate (SOLU-Medrol 125MG VIAL) 40 mg 1X ONCE IV ; Start 11/11/17 at 00:30; Stop 11/11/17 at 00:34; Status DC Enoxaparin Sodium (Lovenox 100mg Syringe) 90 mg 1X ONCE SQ ; Start 11/11/17 at 00:30; Stop 11/11/17 at 00:31; Status UNV Enoxaparin Sodium (Lovenox 100mg Syringe) 90 mg 1X ONCE SQ ; Start 11/11/17 at 00:30; Stop 11/11/17 at 00:33; Status DC Methylprednisolone Sodium Succinate (SOLU-Medrol 40MG VIAL) 40 mg 1X ONCE IV ; Start 11/11/17 at 00:30; Stop 11/11/17 at 00:34; Status DC Enoxaparin Sodium (Lovenox 100mg Syringe) 90 mg BID SQ Last administered on 11/11at 08:32; Start 11/11/17 at 02:30; Stop 11/11/17 at 14:48; Status DC Methylprednisolone Sodium Succinate (SOLU-Medrol 40MG VIAL) 40 mg 1X ONCE IV Last administered on 11/11/17at 03:09; Start 11/11/17 at 02:45; Stop 11/11/17 at 02: 46; Status DC Vitamin D (Vitamin D3) 2,000 unit DAILY PO Last administered on 11/11/17at 08:31 ; Start 11/11/17 at 09:00 Gabapentin (Neurontin) 300 mg TID PO Last administered on 11/11/17 20:25; Start 11/11/17 at 09:00 Insulin Human Lispro (HumaLOG) 10 units TIDAC SQ Last administered on 11/11/17 17:53; Start 11/11/17 at 07:30 Albuterol/ Ipratropium (Duoneb) 3 ml RTBID NEB Last administered on 11/11/17 20 :50; Start 11/11/17 at 08:00 Lisinopril (Prinivil) 10 mg DAILY PO Last administered on 11/11/17 08:30; Start 11/11/17 at 09:00 Simvastatin (Zocor) 10 mg QHS PO Last administered on 11/11/17 20:25; Start 11/11/17 at 21:00 Non-Formulary Medication (Albuterol Sulfate (Proair Respiclick)) 1 puff PRN Q6HRS PRN IH SHORTNESS OF BREATH; Start 11/11/17 at 05:30; Status UNV Aspirin (Children'S Aspirin) 81 mg DAILY PO Last administered on 11/11/17 08:31 ; Start 11/11/17 at 09:00 Donepezil HCl (Aricept) 10 mg DAILY PO Last administered on 11/11/17 08:29; Start 11/11/17 at 09:00 Insulin Glargine (Lantus) 30 units HS SQ Last administered on 11/11/17 20:28; Start 11/11/17 at 21:00 Pantoprazole Sodium (Protonix) 40 mg DAILYAC PO ; Start 11/11/17 at 07:30; Status Cancel Memantine (Namenda) 10 mg BID PO Last administered on 11/11/17 20:25; Start 11/11/17 at 09:00 Pantoprazole Sodium (Protonix Packet) 40 mg DAILYAC PEG Last administered on 08:25; Start 11/11/17 at 07:30 Metoclopramide HCl (Reglan) 5 mg TIDWMEALHC PEG Last administered on 11/11/17 20:25; Start 11/11/17 at 08:00 Albuterol Sulfate (Ventolin) 2.5 mg PRN Q6HRS PRN NEB SHORTNESS OF BREATH; Start 11/11/17 at 07:45 Enoxaparin Sodium (Lovenox 80mg Syringe) 80 mg Q12HR SQ Last administered on 11/11/17at 20:25; Start 11/11/17 at 21:00 Regadenoson (Lexiscan) 0.4 mg 1X ONCE IV ; Start 11/12/17 at 09:30; Stop at 09:31; Status DC Active Scripts Active Reported Duoneb 0.5-3(2.5) Mg/3 Ml (Albuterol/Ipratropium) 3 Ml Ampul.neb 3 Ml NEB BID Reglan (Metoclopramide Hcl) 10 Mg Tablet 5 Ml PEG TIDWMEALHC Prevacid (Lansoprazole) 30 Mg Capsule.dr 30 Mg PEG DAILY Humalog (Insulin Lispro) 100 Unit/1 Ml Insuln.pen 10 Unit SQ TIDAC Donepezil Hcl 10 Mg Tablet 10 Mg PEG DAILY Memantine HCl ER (Memantine HCl) 28 Mg Cap.spr.24 28 Mg PEG DAILY Levemir Flextouch (Insulin Detemir) 100 Unit/1 Ml Insuln.pen 30 Unit SQ HS Simvastatin 10 Mg Tablet 10 Mg PEG QHS LAST DOSE GIVEN: DATE: TODAY TIME: AM NEXT DOSE DUE: DATE: TOMORROW TIME: AM Ondansetron Odt (Ondansetron) 4 Mg Tab.rapdis 4 Mg PEG PRN Q8HRS PRN Lisinopril 10 Mg Tablet 10 Mg PEG DAILY LAST DOSE GIVEN: DATE: TODAY TIME: AM NEXT DOSE DUE: DATE: TOMORROW TIME: AM Gabapentin 300 Mg Capsule 300 Mg PEG TID LAST DOSE GIVEN: DATE: TODAY TIME: AM NEXT DOSE DUE: DATE: TODAY TIME: AFTERNOON Vitamin D3 (Cholecalciferol (Vitamin D3)) 1,000 Unit Tablet 2,000 Unit PEG DAILY LAST DOSE GIVEN: DATE: TODAY TIME: AM NEXT DOSE DUE: DATE: TOMORROW TIME: AM Aspirin 81 Mg Tab.chew 81 Mg PEG DAILY LAST DOSE GIVEN: DATE: TODAY TIME: AM NEXT DOSE DUE: DATE: TOMORROW TIME: AM Proair Respiclick (Albuterol Sulfate) 90 Mcg Aer.pow.ba 1 Puff IH PRN Q6HRS PRN Vitals/I & O Vital Sign - Last 24 Hours 6/611/11/17 11/11/17 11/11/17 11:00 15:00 19:20 20:50 Temp 97.5 97.5 Pulse 62 60 Resp 20 20 B/P (MAP) 104/53 (70) 125/67 (86) Pulse Ox 97 97 96 O2 Delivery Room Air Nasal Cannula Nasal Cannula Nasal Cannula O2 Flow Rate 2.0 2.0 2.0 2.0 11/11/17 11/11/17 11/12/17 21:19 23:24 05:06 Temp 97.5 98.4 97.3 Pulse 63 60 63 Resp 20 20 22 B/P (MAP) 96/56 (69) 104/60 (75) 125/78 (94) Pulse Ox 98 94 93 O2 Delivery Nasal Cannula BiPAP/CPAP BiPAP/CPAP O2 Flow Rate 2.0 Intake and Output 11/11/17 11/11/17 11/12/17 15:00 23:00 07:00 Intake Total 0 ml 200 ml Output Total 200 ml 250 ml Balance -200 ml 200 ml -250 ml 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
[2017-11-12] MEDS: IPRATRPIUM/ALBUTEROL 0.5/2.5MG 3 ML NEBU. NEB SCH (12:09)
[2017-11-12] MEDS: DONEPEZIL HCL 10 MG TABLET PO SCH (12:28)
[2017-11-12] MEDS: PANTOPRAZOLE 40 MG PACKET. PEG SCH (12:28)
[2017-11-12] MEDS: AZITHROMYCIN 250 MG TABLET. PO SCH (12:28)
[2017-11-12] MEDS: CHOLECALCIFEROL (VITAMIN D3) 1,000 UNIT TABLET PO SCH (12:28)
[2017-11-12] MEDS: GABAPENTIN 300 MG CAPSULE. PO SCH ×2 (12:28→15:03)
[2017-11-12] MEDS: LISINOPRIL 10 MG TABLET PO SCH (12:30)
[2017-11-12] MEDS: MEMANTINE 10 MG TABLET. PO SCH (12:31)
[2017-11-12] MEDS: ASPIRIN 81 MG TAB.CHEW PO SCH (12:31)
[2017-11-12] MEDS: ENOXAPARIN ** NOTE DOSE ** SYRINGE SQ SCH (12:32)
--- NOTE | 2017-11-12 13:42 | RAD ---
MR#: [id number] Date of Study: 11/12/2017 Ordering Physician: KATARINA GOEL, Referring Physician: EDWARD WOODRUFF Tech: RT Jack RochaR) (N) APPROVED REPORT Test Type: Pharmacological Stress Nurse/Tech: RT Aj (R) (N) Test Indications: shortness of breath Cardiac History: pacemaker, HTN, coronary calification on CT Medications: see EHR Medical History: see EHR Resting ECG: sinus rhythm long 1st degree no acute abnormality Resting Heart Rate: 60 bpm Resting Blood Pressure: 130/66mmHg Pretest Chest Pain: None Nurse/Tech Notes Consent: The procedure was explained to the patient in lay terms. Informed consent was witnessed. Onel eout was entered into [employer]. History and Stress Test performed by RT Aj (Carli) (N) Pharm. Details Pharmacologic stress testing was performed using 0.4mg per 5ml of regadenoson given intravenously ove r 7-10 seconds. POST EXERCISE Reason for Termination: Infusion complete Max HR: 74 bpm Max Blood Pressure: 112/46mmHg Chest Pain: No. INTERPRETATION Stress EKG Conclusion: No acute changes were noted. Imaging Protocol IMAGE PROTOCOL: Rest Tc-99m/stress Tc-99m 1 day Rest: Stress: Viability: Radiopharm.Tc99m RmzlpmcwaUx28g Sestamibi Mmpm25xCy 34.5mCi Duration 20min. 15min. Img Date 11/12/2017 11/12/2017 Inj-Img Fvgv75ope. 60min. Rest Admin Site:IV - Left AntecubitalAdministrator: RT Aj (Carli)(N) Stress Admin Site: IV - Left AntecubitalAdministrator: RT Cristobal Rocha)(N) STRESS DATA End Diast. Vol.88.0mlAv. Heart Rate61.0bpm LVEDV index BSA2.0mlCardiac Output0.1L/min End Syst. Vol.25.0mlCO Index BSA3.8L/min LVESV index BSA0.0mlMyocardial Pxto336.0g Eject. Fgfmfeoh63.0% Stress Rates Pk. Fill Rate2.51EDV/secLVtime Pk. Fill 292.67msec Pk. Empty Rate3.51ESV/secLVtime Pk. Jymlp276.31msec 1/3 Pk. Fill0.94EDV/sec Stress Scores Regional WT1.00Summed WT5.00 Regional WM0.00Summed WM1.00 The rest and stress images show normal perfusion, normal contraction and thickening. LV Perf. Quant 17 Seg. SSS2.00 17 Seg. SRS4.00 17 Seg. SDS0.00 Stress Defect Extent (% LAD)0.00Rest Defect Extent (% LAD)0.00Rev. Defect Extent (% LAD)0.00 Stress Defect Extent (% LCX) 2.50Rest Defect Extent (% LCX)17.50Rev. Defect Extent (% LCX)0.00 Stress Defect Extent (% RCA)0.00Rest Defect Extent (% RCA)3.30Rev. Defect Extent (% RCA)0.00 Stress Defect Extent (% TESHA)0.90Rest Defect Extent (% TESHA)6.50Rev. Defect Extent (% TESHA)0.00 Other Information Quality:Good Risk Assessment: Low Risk Conclusion 1. No evidence of EKG changes with stress testing. 2. Normal perfusion at stress/rest. 3. Low risk study. 4. EF > 60%. 5. Motion artifact. Signed by : Katarina Goel, Electronically Approved : 11/12/2017 13:41:17
[2017-11-12 13:55] VITALS: BP 129/81
--- NOTE | 2017-11-12 23:04 | DS ---
DATE OF DISCHARGE: 11/12/2017 HOSPITAL COURSE: The patient is an 81-year-old male patient who came to the Emergency Room with what seemed to be sudden onset of severe dyspnea. He was basically investigated with cardiac enzymes and EKG as well as CT angio of the chest as her D-dimer was slightly elevated and he has had 3 sets of cardiac enzymes, all of them showed the troponin to be less than 0.017. Her CT angio was negative for pulmonary embolism or pneumonia, but he has multiple bilateral pulmonary nodules measuring up to 1 cm and are indeterminate. He has aamw-da-kghzjbwr centrilobular emphysema, cardiomegaly, and we did consult the cardiology team who recommended doing a nuclear stress test, which was done and it basically showed that the patient has no evidence of EKG changes with stress testing, normal perfusion at stress and rest low risk study. Ejection fraction more than 60% given that there is no evidence of any myocardial ischemia. The patient had no further episodes of shortness of breath, remained stable; a decision was made to discharge him home. PHYSICAL EXAMINATION: GENERAL: When I saw him this afternoon, he was resting comfortably in his bed, propped up, in no apparent distress. There was no pallor, jaundice or cyanosis. No lymphadenopathy, no thyromegaly. No jugular venous distension. No lower limb edema. VITAL SIGNS: His heart rate was 63, blood pressure was 129/81, temperature was 97.4, respiratory rate was 16, and oxygen saturation was 99% on 2 liters of oxygen. HEAD, EYES, EARS, NOSE AND THROAT: Normocephalic, atraumatic. NECK: Supple. HEART: Showed normal first and second sounds. No gallop, rub or murmur. CHEST: Clear to auscultation. No crepitation or rhonchi. ABDOMEN: Distended, soft, and nontender. No guarding or rigidity. No organomegaly. Hernial orifice intact and bowel sounds normal. He has a gastrostomy tube in place. NEUROLOGIC: He is hard of hearing, but otherwise cranial nerves intact. He moves extremities without difficulty. He is mostly bedbound, chair bound. He does walk with a walker; however, has an unsteady gait. His intake and output are incompletely recorded. LABORATORY DATA: His lab work this morning showed a white cell count of 3,600, hemoglobin 14.7, hematocrit 43, MCV 90, and platelet count of 129,000. Serum sodium was 138, potassium 4.3, chloride 102, bicarbonate 31, anion gap of 5, BUN 27, creatinine 1.2, estimated GFR was 58 mL per minute. His glucose was 304, calcium was 8.4, magnesium was 2.3. His fasting lipid profile showed serum triglycerides to be 343, total cholesterol 105, LDL was 46, VLDL was 28, and HDL was 74, ratio was 3. FINAL DISCHARGE DIAGNOSES: Acute dyspnea. Negative for myocardial infarction. Other medical problems include hypertension, hyperlipidemia, type 2 diabetes, chronic obstructive pulmonary disease, dysphagia with recurrent aspiration pneumonia, status post percutaneous gastrostomy tube placement and chronic thrombocytopenia. JORGE BRAVO MD DR: SANDRA/ana maria JOB#: [id number] / [id number]
== END 2017-11-12 16:15 | disposition home health service (06) | DRG 177 ==
LOC: ER 20:26 → 1 SOUTH 11-11 02:31
PROVIDERS: ADMIT Internal Medicine; ATTEND Internal Medicine
DX: J69.0 Pneumonitis due to inhalation of food and vomit (principal); E11.00 Type 2 diabetes mellitus with hyperosmolarity without nonketotic hyperglycemic-hyperosmolar coma (NKHHC); J44.1 Chronic obstructive pulmonary disease with (acute) exacerbation; R06.09 Other forms of dyspnea; D69.6 Thrombocytopenia, unspecified; E11.9 Type 2 diabetes mellitus without complications; R07.89 Other chest pain; R79.1 Abnormal coagulation profile; M19.90 Unspecified osteoarthritis, unspecified site; E78.00 Pure hypercholesterolemia, unspecified; E78.5 Hyperlipidemia, unspecified; F03.90 Unspecified dementia, unspecified severity, without behavioral disturbance, psychotic disturbance, mood disturbance, and anxiety; I11.9 Hypertensive heart disease without heart failure; I25.10 Atherosclerotic heart disease of native coronary artery without angina pectoris; I49.5 Sick sinus syndrome; K21.9 Gastro-esophageal reflux disease without esophagitis; R13.10 Dysphagia, unspecified; Z87.891 Personal history of nicotine dependence; Z87.01 Personal history of pneumonia (recurrent); Z95.0 Presence of cardiac pacemaker; Z93.1 Gastrostomy status; Z91.030 Bee allergy status; Z79.899 Other long term (current) drug therapy; Z86.14 Personal history of Methicillin resistant Staphylococcus aureus infection; R09.02 Hypoxemia
CPT/HCPCS: 36415; 71045; 71275; 78452; 80048; 80061; 80076; 80307; 81001; 82553; 82947; 83690; 83735; 83880; 84443; 84484; 85025; 85379; 85610; 85730; 93005; 93017; 93306; 93970; 94640; 96374; 96375; 96376; A9500; G0238; J0456; J1650; J1815; J2785; J2920; J7620; J8597; Q9967; 99285-25; G0479

== ENCOUNTER 2017-11-17 10:54 | Inpatient (IN) | payer MEDICARE, OTHER ==
[~2017-11-17] VITALS: Ht 180.3 cm; Wt 81.4 kg
[~2017-11-17 10:54] MED LIST changes: +DONE10TA7 PEG; +INSU100I11 SQ; +IPRA3AMP NEB; -IPRA3AMP29 NEB; +LANS30CA66 PEG; +MEMA28CA5 PEG; +METO10TA81 PEG
[2017-11-17] MEDS ORDERED: IV NORMAL SALINE 1,000ML 1,000 ML IV ONE ×2 (11:15→12:15)
[2017-11-17] MEDS ORDERED: ONDANSETRON PF 4 MG/2 ML VIAL. IV ONE (11:45)
[2017-11-17 11:46] LABS: BASO % 1 % (0-3); EOS # 0.1 x10^3/uL (0.0-0.7); EOS % 1 % (0-3); HEMATOCRIT 46.7 % (39.0-53.0); HEMOGLOBIN 15.8 g/dL (13.0-17.5); LYMPH # 0.9 x10^3/uL (1.0-4.8); LYMPH % 18 % (24-48); MEAN CORPUSCULAR HEMOGLOBIN 30 pg (25-35); MEAN CORPUSCULAR HGB CONC 34 g/dL (31-37); MEAN CORPUSCULAR VOLUME 90 fL (79-100); MONO # 0.2 x10^3/uL (0.0-1.1); MONO % 4 % (0-9); NEUT % 77 % (31-73); PLATELET COUNT 125 x10^3/uL (140-400); RED BLOOD COUNT 5.21 x10^6/uL (4.30-5.70); RED CELL DISTRIBUTION WIDTH 14.7 % (11.5-14.5); WHITE BLOOD COUNT 5.2 x10^3/uL (4.0-11.0)
[2017-11-17 11:53] LABS: POTASSIUM ISTAT 4.5 mmol/L (3.5-5.0)
[2017-11-17 12:05] LABS: ALBUMIN 3.4 g/dL (3.4-5.0); DIRECT BILIRUBIN 0.1 mg/dL (0.0-0.2); TOTAL BILIRUBIN 0.4 mg/dL (0.2-1.0); TOTAL PROTEIN 6.5 g/dL (6.4-8.2)
[2017-11-17] MEDS ORDERED: INSULIN REGULAR 100 UNIT/ML 10ML VIAL. ONE ×2 (12:26→17:40)
--- NOTE | 2017-11-17 12:27 | EKG ---
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
--- NOTE | 2017-11-17 12:39 | RAD ---
CHEST AP ONLY History: COUGH. Comparison: November 10, 2017 Cardiomediastinal silhouette: Within normal limits. Lungs: No focal airspace consolidation. Pleura: No evidence of pleural effusion. Pneumothorax: None visualized Bones: Regional skeleton appears grossly intact. Miscellaneous: Pacemaker redemonstrated. Impression: No acute radiographic findings. Electronically signed by: Rojelio Melissa MD (11/17/2017 12:35 PM) [id number]
--- NOTE | 2017-11-17 12:43 | ED.ADGEN ---
Past History Past Medical History: COPD, Diabetes, Hypertension, Other Past Surgical History: Pacemaker Additional Past Surgical Histo: AICD and pacemaker placement Smoking: Non-smoker Alcohol Use: None Drug Use: None Adult General Chief Complaint Chief Complaint Nausea vomiting, hyperglycemia HPI HPI Patient is a 81-year-old male with history of insulin-dependent diabetes, chronic reflux disease with PEG tube placement presents with hyperglycemia and nausea vomiting following the tube feedings. Patient's symptoms began earlier this morning. Patient vomited multiple times. But sugar was greater than 480 prior to ED arrival. 12 units of insulin given acute prior to ED arrival. Patient also reports occasional cough. No fever chills, sweats. No diarrhea. No bloody stools. No dizziness lightheadedness. Recent hospitalization for the same. Additional history obtained from the patient's spouse.[] Review of Systems Review of Systems Review symptoms as per history of present illness. All other systems were reviewed and found to be within normal limits, except as documented in this note. Current Medications Current Medications Current Medications Medications (Trade) Dose Ordered Sig/Shira Start Time Stop Time Status Last Admin Dose Admin Insulin Human Regular (NovoLIN R) 100 unit STK-MED ONCE 11/17/17 12:26 11/17/17 12:27 DC Ondansetron HCl (Zofran) 4 mg 1X ONCE 11/17/17 11:45 11/17/17 11:46 DC 11/17/17 11:36 4 MG Sodium Chloride 1,000 ml @ 1,000 mls/hr 1X ONCE 11/17/17 12:15 11/17/17 13:14 Allergies Allergies Allergies Coded Allergies Type Severity Reaction Last Updated Verified No Known Drug Allergies 11/10/17 No Physical Exam Physical Exam Constitutional: Well developed, well nourished, no acute distress, non-toxic appearance. [] HENT: Normocephalic, atraumatic, bilateral external ears normal, oropharynx moist, no oral exudates, nose normal. [] Eyes: PERRLA, EOMI, conjunctiva normal, no discharge. [] Neck: Normal range of motion, no tenderness, supple, no stridor. [] Cardiovascular:Heart rate regular rhythm [] Lungs & Thorax: Bilateral breath sounds clear to auscultation. [] Abdomen: Bowel sounds normal, soft, no tenderness, PEG tube present[] Skin: Warm, dry. [] Back: No tenderness. [] Extremities: No tenderness. [] Neurologic: Alert and oriented X 3, normal motor function. [] Psychologic: Affect normal, judgement normal, mood normal. [] Current Patient Data Vital Signs Vital Signs Date Time Temp Pulse Resp B/P (MAP) Pulse Ox O2 Delivery O2 Flow Rate FiO2 11/17/17 11:25 97.9 64 20 Lab Results Laboratory Tests Test 11/17/17 11:20 11/17/17 11:50 White Blood Count 5.2 x10^3/uL (4.0-11.0) Red Blood Count 5.21 x10^6/uL (4.30-5.70) Hemoglobin 15.8 g/dL (13.0-17.5) POC Hemoglobin 16.0 gm/dL Hematocrit 46.7 % (39.0-53.0) POC Hematocrit 47 % Mean Corpuscular Volume 90 fL (79-100) Mean Corpuscular Hemoglobin 30 pg (25-35) Mean Corpuscular Hemoglobin Concent 34 g/dL (31-37) Red Cell Distribution Width 14.7 % (11.5-14.5) H Platelet Count 125 x10^3/uL (140-400) L Neutrophils (%) (Auto) 77 % (31-73) H Lymphocytes (%) (Auto) 18 % (24-48) L Monocytes (%) (Auto) 4 % (0-9) Eosinophils (%) (Auto) 1 % (0-3) Basophils (%) (Auto) 1 % (0-3) Neutrophils # (Auto) 4.0 x10^3uL (1.8-7.7) Lymphocytes # (Auto) 0.9 x10^3/uL (1.0-4.8) L Monocytes # (Auto) 0.2 x10^3/uL (0.0-1.1) Eosinophils # (Auto) 0.1 x10^3/uL (0.0-0.7) Basophils # (Auto) 0.0 x10^3/uL (0.0-0.2) POC Sodium 133 mmol/L (135-145) L POC Potassium 4.5 mmol/L (3.5-5.0) POC Chloride 92 mmol/L (98-110) L POC Total CO2 27 mmol/L (23-32) Anion Gap 20 mmol/L (6-14) H POC Blood Urea Nitrogen 25 mg/dL (8-26) POC Creatinine 0.9 mg/dL (0.5-1.4) Glucose Level 477 mg/dL (60-99) H POC Ionized Calcium (Chanel) 1.13 mmol/L (1.13-1.32) Total Bilirubin 0.4 mg/dL (0.2-1.0) Direct Bilirubin 0.1 mg/dL (0.0-0.2) Aspartate Amino Transferase (AST) 39 U/L (15-37) H Alanine Aminotransferase (ALT) 46 U/L (16-63) Alkaline Phosphatase 86 U/L (46-116) Total Protein 6.5 g/dL (6.4-8.2) Albumin 3.4 g/dL (3.4-5.0) Lipase 53 U/L (73-393) L Acetone Level Neg (NEG) EKG EKG [EKG: reviewed] Radiology/Procedures Radiology/Procedures [CXR: Acute cardiopulmonary disease per radiology report] Course & Med Decision Making Course & Med Decision Making Pertinent Labs and Imaging studies reviewed. (See chart for details) [UV fluids, insulin, and antiemetics given. Dr. Nuñez to admit.] Final Impression Final Impression [1. Intractable nausea and vomiting 2. Hyperglycemia] Dragon Disclaimer Dragon Disclaimer This electronic medical record was generated, in whole or in part, using a voice recognition dictation system. JENSEN MORRISON DO Nov 17, 2017 12:43
[2017-11-17] MEDS ORDERED: INSULIN REGULAR 100 UNIT/ML 10ML VIAL. SQ ONE (12:45)
[2017-11-17] MEDS ORDERED: ONDANSETRON PF 4 MG/2 ML VIAL. IV PRN (12:45)
[2017-11-17] MEDS: IV NORMAL SALINE 1,000ML 1,000 ML IV SCH ×2 (13:43→20:26)
[2017-11-17 14:07] LABS: CLARITY,URINE CLEAR; COLOR,URINE STRAW
[2017-11-17 14:08] LABS: BACTERIA,URINE 0 /HPF (0-FEW); BILIRUBIN,URINE NEG (NEG); GLUCOSE,URINE >=1000 mg/dL (NEG); NITRITE,URINE NEG (NEG); RBC,URINE 0 /HPF (0-2); SQUAMOUS EPITHELIAL CELL,UR OCC /LPF; UROBILINOGEN,URINE 0.2 mg/dL (0.2 mg/dL); WBC,URINE 0 /HPF (0-4)
[2017-11-17 14:37] VITALS: BP 98/58
--- NOTE | 2017-11-17 14:48 | NUR ---
The patient, MURIEL GOETZ, 81 y/o, M admitted by JORGE BRAVO MD, was given written information regarding hospital policies, unit procedures and contact persons. Valuables were checked and left in room. Vitals assessed and rechecked blood sugar. Patient and state they are concerned because they can not control blood sugars and they think they need to increase fluid intake due to dehydration. Will notify Dr. Bravo that patient is in room.
[2017-11-17] MEDS ORDERED: LANS30CA PO (14:59)
[2017-11-17] MEDS ORDERED: INSULIN LISPRO 300 UNITS/3 ML INSULN.PEN. SQ SCH (16:30)
[2017-11-17] MEDS ORDERED: NON FORMULARY ITEM (Albuterol Sulfate (Proair Respiclick) 1 PUFF) IH PRN (17:30)
[2017-11-17] MEDS ORDERED: ONDANSETRON ODT 4 MG TAB.RAPDIS PO PRN (17:45)
[2017-11-17] MEDS ORDERED: ALBUTEROL SULFATE 2.5 MG/3 ML NEBU. NEB PRN (18:00)
--- NOTE | 2017-11-17 19:42 | HP ---
ADMIT DATE: 11/17/2017 HISTORY OF PRESENT ILLNESS: This is an 81-year-old male patient who was brought to the Emergency Room with a complaint of nausea and vomiting. He vomited on multiple occasions this morning. His blood sugar was greater than 480 prior to Emergency Room Department arrival. He was given 12 units of insulin acutely prior to the Emergency Department arrival. He also reported occasional cough. No fever, chills, or sweats. No diarrhea, no bloody stools. He denied any dizziness or lightheadedness. He was discharged about 5 days ago when he was admitted with acute shortness of breath. He was investigated in the Emergency Room and was admitted for nausea, vomiting and poorly controlled type 2 diabetes. Apparently, he has had a gastric emptying study done on 11/06/2017, which showed that the patient has delayed gastric emptying with the following gastric retention values that were obtained, 1 hour 86%, 2 hours 66%., 3 hours 46% and 4 hours 21%, normal is considered to be less than 10%. His most recent hemoglobin A1c was also high and was 9.5% on 11/06/2017. PAST MEDICAL HISTORY: Significant for coronary artery disease, hypertension, hyperlipidemia, type 2 diabetes. He has also COPD, dysphagia with recurrent aspiration pneumonia, he is status post percutaneous gastrostomy tube placement. He also has chronic thrombocytopenia. PAST SURGICAL HISTORY: Significant for permanent pacemaker placement, multiple EGDs. He has also had gastrostomy tube placement. ALLERGIES: He is allergic to BEE STING. MEDICATIONS: He is currently on the following medications: Aricept 10 mg once a day, ipratropium bromide/albuterol sulfate 0.5/2.5 mg in 3 mL by nebulizer twice a day, albuterol sulfate 1 puff every 6 hours, simvastatin 10 mg at bedtime, lisinopril 10 mg per feeding tube daily, aspirin 81 mg per feeding tube daily, gabapentin 300 mg per feeding tube 3 times a day, Namenda extended release 28 mg per feeding tube once a day, ondansetron 4 mg sublingually every 8 hours as needed, lansoprazole 30 mg capsules feeding tube daily, metoclopramide 5 mg 3 times a day with meals and bedtime. He is on detemir insulin 30 units subcutaneously at bedtime and Humalog insulin 10 units before meals. He is also on cholecalciferol 2000 international unit per feeding tube daily. FAMILY HISTORY: Unremarkable. SOCIAL HISTORY: He is , lives with his . He is an ex-smoker, used to smoke up to 2-1/2 packs a day, smoked for more than 40 years. He does not drink alcohol. He has been in the service for 26 years. He worked in the [employer] for another 20 years and also worked for [employer] for about 8 years. REVIEW OF SYSTEMS: As per history of present illness. PHYSICAL EXAMINATION: GENERAL: On arrival to the Emergency Room, the patient was well developed and well-nourished 81-year-old male patient who apparently was in mild respiratory distress. There was no pallor, jaundice, cyanosis, or thyromegaly. No jugular venous distension. No limb edema. VITAL SIGNS: His heart rate was 75, blood pressure was 98/55. His temperature was 97.9, respiratory rate 20, and oxygen saturation was 99% on room air. HEAD, EYES, EARS, NOSE AND THROAT: Showed normocephalic, atraumatic. NECK: Supple. HEART: Showed normal first and second heart sounds with no gallop, rub or murmur. CHEST: Clear to auscultation. No crepitation or rhonchi. ABDOMEN: Distended, soft, nontender. No guarding or rigidity. No organomegaly. All hernial orifices are intact. Bowel sounds normal. NEUROLOGIC: He was awake, alert, responding appropriately. All cranial nerves are intact. He moves extremities without difficulty. LABORATORY DATA: On arrival to the Emergency Room showed a white cell count of 5200, hemoglobin 15.8, hematocrit 46.7, MCV was 90 and platelet count of 125,000 with normal manual differential. His chemistry showed a serum sodium 133, potassium 4.5, chloride 92, bicarbonate 27, anion gap of 20, BUN of 20, creatinine 0.9. His blood sugar was 477. Total bilirubin, AST, ALT, alkaline phosphatase were normal. Total protein 6.5, albumin 3.4. Urinalysis showed the urine was straw colored, clear with a pH of 5.5, specific gravity 1.005. The urine was negative for protein. There was large amount of glucose, trace of ketones. The urine was negative for blood, nitrite and leukocyte esterase. There are no rbc's, no wbc's, and no bacteria. His acetone in the urine was negative. IMAGING DATA: His chest x-ray showed the cardiomediastinal silhouette within normal limits. The lungs, no focal airspace consolidation, no evidence of pleural effusion or pneumothorax; regional skeleton appears grossly intact and the pacemaker was redemonstrated. IMPRESSION AND PLAN: The patient was admitted basically with recurrent bouts of nausea, vomiting as well as poorly controlled diabetes. He has received at least 2 liters of fluid. We will adjust his insulin to 15 units before meals and increase Lantus to 40 units at bedtime. We will get a Dietary consult and we will repeat all his labs tomorrow and decide on further management accordingly. JORGE BRAVO MD DR: SANDRA/ana maria JOB#: [id number] / [id number]
[2017-11-17 20:00] VITALS: BP 114/63
[2017-11-17] MEDS: IPRATRPIUM/ALBUTEROL 0.5/2.5MG 3 ML NEBU. NEB SCH (20:25)
[2017-11-17] MEDS: METOCLOPRAMIDE 5 MG TABLET PEG SCH (20:32)
[2017-11-17] MEDS: SIMVASTATIN 10 MG TABLET PEG SCH (20:32)
[2017-11-17] MEDS: GABAPENTIN 300 MG CAPSULE. PO SCH (20:32)
[2017-11-17 20:41] VITALS: BP 164/95
[2017-11-17] MEDS ORDERED: INSULIN GLARGINE 300 UNITS/3 ML INSULN.PEN. SQ SCH ×2 (21:00)
[2017-11-17 23:00] VITALS: BP 128/70
[2017-11-18] VITALS (7 sets, daily range): BP systolic 101–138; BP diastolic 61–73
[2017-11-18] MEDS: IV NORMAL SALINE 1,000ML 1,000 ML IV SCH ×2 (03:11→08:00)
[2017-11-18 06:52] LABS: HEMATOCRIT 41.8 % (39.0-53.0); HEMOGLOBIN 14.1 g/dL (13.0-17.5); RED BLOOD COUNT 4.64 x10^6/uL (4.30-5.70); RED CELL DISTRIBUTION WIDTH 14.9 % (11.5-14.5); WHITE BLOOD COUNT 3.2 x10^3/uL (4.0-11.0)
[2017-11-18 07:12] LABS: ALBUMIN 2.8 g/dL (3.4-5.0); ALBUMIN/GLOBULIN RATIO 0.9 (1.0-1.7); CALCIUM 8.1 mg/dL (8.5-10.1); CREATININE 0.9 mg/dL (0.7-1.3); POTASSIUM 3.6 mmol/L (3.5-5.1); TOTAL BILIRUBIN 0.3 mg/dL (0.2-1.0); TOTAL PROTEIN 5.8 g/dL (6.4-8.2)
[2017-11-18] MEDS: INSULIN LISPRO 300 UNITS/3 ML INSULN.PEN. SQ SCH ×3 (07:30→17:24)
[2017-11-18] MEDS: METOCLOPRAMIDE 5 MG TABLET PEG SCH ×4 (08:00→20:05)
[2017-11-18] MEDS: DONEPEZIL HCL 10 MG TABLET PEG SCH (08:00)
[2017-11-18] MEDS: ASPIRIN 81 MG TAB.CHEW PEG SCH (08:00)
[2017-11-18] MEDS: MEMANTINE 10 MG TABLET. PEG SCH ×2 (08:00→20:05)
[2017-11-18] MEDS: GABAPENTIN 300 MG CAPSULE. PO SCH ×3 (08:00→20:05)
[2017-11-18] MEDS: CHOLECALCIFEROL (VITAMIN D3) 1,000 UNIT TABLET PEG SCH (08:00)
[2017-11-18] MEDS: LANSOPRAZOLE 30 MG TAB.RAP.DR PEG SCH (08:00)
[2017-11-18] MEDS: LISINOPRIL 10 MG TABLET PEG SCH (08:00)
[2017-11-18] MEDS: IPRATRPIUM/ALBUTEROL 0.5/2.5MG 3 ML NEBU. NEB SCH ×2 (10:45→21:32)
[2017-11-18] MEDS: SIMVASTATIN 10 MG TABLET PEG SCH (20:05)
[2017-11-18] MEDS ORDERED: INSULIN GLARGINE 300 UNITS/3 ML INSULN.PEN. SQ SCH (21:00)
--- NOTE | 2017-11-18 23:35 | PN ---
DATE: 11/18/2017 SUBJECTIVE: The patient is resting, slightly propped up in bed, in no apparent distress. He denied any nausea or vomiting. His blood sugar has been much better controlled. He was seen by dietitian, who recommended to increase his tube feeding to 4 times a day and have snacks in between. We did increase his Lantus last night to 40 units, but his blood sugar was low this morning. PHYSICAL EXAMINATION: GENERAL: When I examined him this afternoon, he looked well and was clearly in no apparent respiratory distress, pale, but no jaundice, cyanosis, or thyromegaly. No jugular venous distention. No limb edema. VITAL SIGNS: His heart rate was 60, blood pressure 101/61, temperature was 98, respiratory rate was 20 and oxygen saturation was 96%. HEAD, EYES, EARS, NOSE AND THROAT: Showed normocephalic, atraumatic. NECK: Supple. HEART: Showed normal first and second heart sounds with no gallop, rub or murmur. CHEST: Clear to auscultation. No crepitation or rhonchi. ABDOMEN: Distended, soft, nontender. No guarding or rigidity. No organomegaly. Hernial orifice intact. Bowel sounds normal. NEUROLOGIC: He was awake, alert, responding appropriately. Cranial nerves intact. He moves extremities without difficulty. He ambulates with a walker. LABORATORY DATA: His white cell count was 3200, hemoglobin 14, hematocrit 42, MCV 90 and platelet count of 111,000. His serum sodium 145, potassium 3.6, chloride 109, bicarbonate 30, anion gap of 6, BUN 14, creatinine 0.9. Estimated GFR was 81 mL per minute. His glucose was 83. Calcium was 8.1. Total bilirubin, AST, ALT, alkaline phosphatase are normal. Total protein 5.8. Albumin 2.8. Toxic screen was acetone negative. ASSESSMENT AND PLAN: 1. The patient was admitted with recurrent bouts of nausea and vomiting. 2. Poorly controlled diabetes. He did receive 2 liters of fluid. We have adjusted his insulin; however, his blood sugar is low today, so we have to make more adjustments. I will cut back his Lantus insulin to 30 units and I will cut down also his NovoLog insulin and we will decide on further management accordingly. JORGE BRAVO MD DR: SANDRA/ana maria JOB#: [id number] / [id number]
[2017-11-19] MEDS: IPRATRPIUM/ALBUTEROL 0.5/2.5MG 3 ML NEBU. NEB SCH (05:08)
[2017-11-19 05:39] VITALS: BP 115/67
--- NOTE | 2017-11-19 08:00 | NUR ---
Patient doing well this morning, states she is ready to go home today. Will educate patient in regards to diabetes and tube feeding. states that he is eating food at home along with tube feedings. Will adjust insulin dosing.
[2017-11-19] MEDS: CHOLECALCIFEROL (VITAMIN D3) 1,000 UNIT TABLET PEG SCH (08:25)
[2017-11-19] MEDS: ASPIRIN 81 MG TAB.CHEW PEG SCH (08:25)
[2017-11-19 08:27] VITALS: BP 115/67
[2017-11-19] MEDS: LISINOPRIL 10 MG TABLET PEG SCH (08:27)
[2017-11-19] MEDS: METOCLOPRAMIDE 5 MG TABLET PEG SCH ×2 (08:32→13:14)
[2017-11-19] MEDS: GABAPENTIN 300 MG CAPSULE. PO SCH ×2 (08:32→13:14)
[2017-11-19] MEDS: MEMANTINE 10 MG TABLET. PEG SCH (08:32)
[2017-11-19] MEDS: DONEPEZIL HCL 10 MG TABLET PEG SCH (08:33)
[2017-11-19] MEDS: LANSOPRAZOLE 30 MG TAB.RAP.DR PEG SCH (08:35)
[2017-11-19] MEDS: INSULIN LISPRO 300 UNITS/3 ML INSULN.PEN. SQ SCH (13:13)
--- NOTE | 2017-11-19 15:00 | NUR ---
Patient discharged at this time, left via wheelchair with to personal vehicle. IV discontinued and belongings left with patient. Patient educated on Diabetes and tube feeding management. Spoke to patient and in regards to [facility] to [facility], states she would be interested in this due to patients decline. Patient states he wants to eat at home and have a quality of life. Case management notified.
--- NOTE | 2017-11-19 21:30 | DS ---
DATE OF DISCHARGE: 11/19/2017 HOSPITAL COURSE: The patient is an 81-year-old male patient, who was admitted again with recurrent bouts of nausea, vomiting and extremely poorly controlled diabetes. We in fact have increased his amount of tube feeding and cut down his insulin. In fact, his blood sugar now is extremely well controlled. He is on 5 units before meals and 30 units of Lantus at nighttime. It seems that he is actually eating food and snacking more than he admits to as per his . We have educated him about the importance of sticking to take his insulin as needed. In fact here, we have increased his tube feeding and it has already decreased his insulin and his blood sugar is extremely well controlled. PHYSICAL EXAMINATION: GENERAL: When I examined him this afternoon, he looked well and was clearly in no apparent respiratory distress, pale, but no jaundice, cyanosis, or thyromegaly. No jugular venous distension. No lower limb edema. VITAL SIGNS: His heart rate was 89, blood pressure was 115/67, temperature was 98.4, respiratory rate 20 and oxygen saturation was 97% on room air. HEAD, EYES, EARS, NOSE AND THROAT: Showed normocephalic, atraumatic. NECK: Supple. HEART: Showed normal first and second sounds. No gallop, rub or murmur. CHEST: Clear to auscultation. No crepitation or rhonchi. ABDOMEN: Distended, soft with gastrostomy tube in place. There is no guarding or rigidity. No organomegaly. Hernial orifice intact. Bowel sounds are normal. NEUROLOGIC: He was awake, alert, responding appropriately. All his cranial nerves are intact. He moves extremities without difficulty, ambulates with a walker. His intake hours was 5450, output was 1925. LABORATORY DATA: As of this morning showed serum sodium of 145, potassium 3.6, chloride 109, bicarbonate 30, anion gap of 6, BUN 14, creatinine 0.9. Estimated GFR was 81 mL per minute. His glucose was 83. Calcium was 8.1. Total bilirubin, AST, ALT, alkaline phosphatase were normal. Total protein was 5.8, albumin 3.8. His white cell count was 3200, hemoglobin 14, hematocrit 42, MCV 90 and platelet count of 111,000. Urinalysis was unremarkable. Tox screen was negative. DISCHARGE MEDICATIONS: The patient was discharged home to continue on insulin, Lispro, Humalog insulin 5 units before meals and Lantus insulin 30 units at bedtime, Namenda 10 mg twice a day, lansoprazole 30 mg once a day, Aricept 10 mg daily, aspirin 81 mg once a day, lisinopril 10 mg daily, vitamin D 2000 units per feeding tube daily, metoclopramide 5 mg 3 times a day with meals, simvastatin 10 mg at bedtime, gabapentin 300 mg 3 times a day, albuterol, Atrovent twice a day and albuterol sulfate 2.5 mg by nebulizer every 6 hours as well as ondansetron. FINAL DISCHARGE DIAGNOSES: Poorly controlled type 2 diabetes, seems to be much, much better, well controlled now, actually on a smaller doses of insulin, recurrent bouts of nausea and vomiting, resolved. Other medical problems include hypertension, hyperlipidemia, type 2 diabetes, chronic obstructive pulmonary disease, dysphagia, status post percutaneous gastrostomy tube placement and chronic thrombocytopenia. JORGE BRAVO MD DR: SANDRA/ana maria JOB#: [id number] / [id number]
== END 2017-11-19 15:00 | disposition home health service (06) | DRG 638 ==
LOC: ER 10:54 → ICU 12:00 → 1 SOUTH 11-18 10:01
PROVIDERS: ADMIT Internal Medicine; ATTEND Internal Medicine
DX: E11.00 Type 2 diabetes mellitus with hyperosmolarity without nonketotic hyperglycemic-hyperosmolar coma (NKHHC) (principal); E44.0 Moderate protein-calorie malnutrition; E78.5 Hyperlipidemia, unspecified; I10 Essential (primary) hypertension; J44.9 Chronic obstructive pulmonary disease, unspecified; I25.10 Atherosclerotic heart disease of native coronary artery without angina pectoris; K21.9 Gastro-esophageal reflux disease without esophagitis; D69.6 Thrombocytopenia, unspecified; R13.10 Dysphagia, unspecified; Z93.1 Gastrostomy status; Z79.4 Long term (current) use of insulin; Z87.891 Personal history of nicotine dependence; Z95.0 Presence of cardiac pacemaker; Z91.030 Bee allergy status; Z79.899 Other long term (current) drug therapy; Z68.25 Body mass index [BMI] 25.0-25.9, adult
CPT/HCPCS: 36415; 71045; 80047; 80053; 80076; 81001; 82010; 82947; 83615; 83690; 85025; 85027; 87641; 93005; 94640; 96361; 96374; J1815; J2405; J7620; J8597; 97110; 99285-25; J7030

== ENCOUNTER 2017-12-04 21:39 | Emergency (ER) | payer MEDICARE, OTHER ==
[~2017-12-04] VITALS: Ht 180.3 cm; Wt 81.8 kg
[~2017-12-04 21:39] MED LIST changes: -IPRA3AMP NEB; +IPRA3AMP29 NEB; +LANS30CA PO
--- NOTE | 2017-12-04 22:18 | PHYS DOC ---
Past History Past Medical History: COPD, Diabetes, Hypertension, Other Past Surgical History: Pacemaker Additional Past Surgical Histo: AICD and pacemaker placement Smoking: Non-smoker Alcohol Use: None Drug Use: None Adult General Chief Complaint Chief Complaint: HYPOGLYCEMIA HPI HPI 81-year-old male presents with concern for low blood sugar. Patient is diabetic and takes long-acting and short-acting insulin. He was at his PCPs office this morning and was told his blood sugar was in the 40s. He thought he felt fine, his says he was acting a little strange. They gave him juice and food and watched him for several hours. His blood sugar improved. The patient went home and had dinner around 6 PM. He p.m. he checked his blood sugar and it was 186. He checked it about 45 minutes later and it had dropped to 136. He was concerned that he would continue to drop so he came to the ED. On arrival to the ED was 131 at 10 PM. The patient does not complaining of any symptoms. He has no other complaints. Review of Systems Review of Systems Constitutional: Denies fever or chills [] Eyes: Denies change in visual acuity, redness, or eye pain [] HENT: Denies nasal congestion or sore throat [] Respiratory: Denies cough or shortness of breath [] Cardiovascular: No additional information not addressed in HPI [] GI: Denies abdominal pain, nausea, vomiting, bloody stools or diarrhea [] : Denies dysuria or hematuria [] Musculoskeletal: Denies back pain or joint pain [] Integument: Denies rash or skin lesions [] Neurologic: Denies headache, focal weakness or sensory changes [] Endocrine: Denies polyuria or polydipsia [] All other systems were reviewed and found to be within normal limits, except as documented in this note. Allergies Allergies Allergies Coded Allergies Type Severity Reaction Last Updated Verified No Known Drug Allergies 11/10/17 No Physical Exam Physical Exam Constitutional: Well developed, well nourished, no acute distress, non-toxic appearance. [] HENT: Normocephalic, atraumatic, bilateral external ears normal, oropharynx moist, no oral exudates, nose normal. [] Eyes: PERRLA, EOMI, conjunctiva normal, no discharge. [] Neck: Normal range of motion, no tenderness, supple, no stridor. [] Cardiovascular:Heart rate regular rhythm, no murmur [] Lungs & Thorax: Bilateral breath sounds clear to auscultation [] Abdomen: Bowel sounds normal, soft, no tenderness, no masses, no pulsatile masses. feeding tube in place.[] Skin: Warm, dry, no erythema, no rash. [] Back: No tenderness, no CVA tenderness. [] Extremities: No tenderness, no cyanosis, no clubbing, ROM intact, no edema. [] Neurologic: Alert and oriented X 3, normal motor function, normal sensory function, no focal deficits noted. [] Psychologic: Affect normal, judgement normal, mood normal. [] EKG EKG [] Radiology/Procedures Radiology/Procedures [] Course & Med Decision Making Course & Med Decision Making Pertinent Labs and Imaging studies reviewed. (See chart for details) I explained to the patient that his blood sugar is supposed to come down to around 100 to 120. It was likely continuing to fall after his meal which is a normal process. We will watch the patient for an hour and see if his blood sugar changes significantly. After an hour, the patient's blood sugar had dropped to 102. After an additional 45 minutes, it was 105. As it seems like the patient's blood sugar has steadied, he is able to be discharged at this time. I have reviewed with the patient and his symptoms to look for of hypoglycemia. When he gets up in the morning he will check his blood sugar and report the findings to his PCP if it is abnormal. He is stable for discharge at this time. [] Dragon Disclaimer Dragon Disclaimer This electronic medical record was generated, in whole or in part, using a voice recognition dictation system. Departure Departure: Referrals: JENNIFER RANKIN MD (PCP) JENSEN JIN DO Dec 04, 2017 22:18
[2017-12-04 23:26] VITALS: BP 130/69
== END 2017-12-04 23:48 | disposition home or self-care (01) ==
LOC: ER 21:39
DX: E11.649 Type 2 diabetes mellitus with hypoglycemia without coma (principal); J44.9 Chronic obstructive pulmonary disease, unspecified; I10 Essential (primary) hypertension; Z95.810 Presence of automatic (implantable) cardiac defibrillator
CPT/HCPCS: 82947; 99284

== ENCOUNTER 2017-12-08 14:04 | Emergency (ER) | payer MEDICARE, OTHER ==
[2017-12-08] MEDS ORDERED: LIDOCAINE 1% Multi-Dose 20 ML VIAL. IJ ONE (14:45)
[2017-12-08] MEDS ORDERED: LIDOCAINE 1% Multi-Dose 20 ML VIAL. ONE (14:45)
--- NOTE | 2017-12-08 16:04 | PHYS DOC ---
Past History Past Medical History: COPD, Diabetes, Hypertension, Other Past Surgical History: Pacemaker Additional Past Surgical Histo: AICD and pacemaker placement Smoking: Non-smoker Alcohol Use: None Drug Use: None Adult General Chief Complaint Chief Complaint: LACERATION/AVULSION HPI HPI 82-year-old male presents after fall at home. The patient was going toward the front door to let in a cast when he tripped and fell. He was not using his cane. He struck the coffee table on the way down and sustained 3 skin tears to the left elbow and lower arm. The area behind his elbow was rather large and he assumed it needed stitches and came to the ED. The patient denies hitting his head or losing consciousness. He has no other injuries or complaints of pain. Review of Systems Review of Systems Constitutional: Denies fever or chills [] Eyes: Denies change in visual acuity, redness, or eye pain [] HENT: Denies nasal congestion or sore throat [] Respiratory: Denies cough or shortness of breath [] Cardiovascular: No additional information not addressed in HPI [] GI: Denies abdominal pain, nausea, vomiting, bloody stools or diarrhea [] : Denies dysuria or hematuria [] Musculoskeletal: Denies back pain or joint pain [] Integument: skin tear/ lacerations[] Neurologic: Denies headache, focal weakness or sensory changes [] Endocrine: Denies polyuria or polydipsia [] All other systems were reviewed and found to be within normal limits, except as documented in this note. Current Medications Current Medications Current Medications Medications (Trade) Dose Ordered Sig/[facility] Start Time Stop Time Status Last Admin Dose Admin Lidocaine HCl 20 ml STK-MED ONCE 12/08/17 14:45 12/08/17 14:46 DC Allergies Allergies Allergies Coded Allergies Type Severity Reaction Last Updated Verified No Known Drug Allergies 11/10/17 No Physical Exam Physical Exam Constitutional: Well developed, well nourished, no acute distress, non-toxic appearance. [] HENT: Normocephalic, atraumatic, bilateral external ears normal, oropharynx moist, no oral exudates, nose normal. [] Eyes: PERRLA, EOMI, conjunctiva normal, no discharge. [] Neck: Normal range of motion, no tenderness, supple, no stridor. [] Cardiovascular:Heart rate regular rhythm, no murmur [] Lungs & Thorax: Bilateral breath sounds clear to auscultation [] Abdomen: Bowel sounds normal, soft, no tenderness, no masses, no pulsatile masses. [] Skin: Patient has a 4 cm x 5 cm skin tear to the posterior arm just above the elbow. He is to other 2 cm linear tears in the posterior forearm. All 3 have minimal bleeding.[] Back: No tenderness, no CVA tenderness. [] Extremities: No tenderness, no cyanosis, no clubbing, ROM intact, no edema. [] Neurologic: Alert and oriented X 3, normal motor function, normal sensory function, no focal deficits noted. [] Psychologic: Affect normal, judgement normal, mood normal. [] Current Patient Data Vital Signs Vital Signs Date Time Temp Pulse Resp B/P (MAP) Pulse Ox O2 Delivery O2 Flow Rate FiO2 12/08/17 14:25 98.5 60 22 97 Room Air EKG EKG [] Radiology/Procedures Radiology/Procedures [] Course & Med Decision Making Course & Med Decision Making Pertinent Labs and Imaging studies reviewed. (See chart for details) The patient's laceration above the elbow was a large complicated skin tear. I was only able to recover 80% of the wound with the skin that was available. The patient had no complications. He tolerated the procedure well. See laceration note below for more details. He has been advised to follow-up with his PCP at the end of the week for wound check. He should also consider using a walker instead of a cane for more stability. Laceration note: The patient's wounds were soaked in iodine water solution. The wounds were anesthetized with 1% lidocaine. Once adequate anesthesia was obtained, I repaired the large 4 cm x 5 cm laceration with 11 4-0 Ethilon sutures. I was able to close about 80%. The 2 smaller 1.5 cm laceration just distal to the elbow repaired with a total 4 4-0 Ethilon sutures with good approximation sensation and closure. Hemostasis was achieved in all 3 occasions. The larger area was covered in Xeroform and a puffy gauze dressing. The 2 smaller areas were also covered in Xeroform and puffy guaze. Patient tolerated the procedure well. There were no complications. [] Dragon Disclaimer Dragon Disclaimer This electronic medical record was generated, in whole or in part, using a voice recognition dictation system. Departure Departure: Referrals: JENNIFER RANKIN MD (PCP) JENSEN JIN DO Dec 08, 2017 16:04
[2017-12-08 16:49] VITALS: BP 124/64
== END 2017-12-08 16:33 | disposition home or self-care (01) ==
LOC: ER 14:04
DX: S51.012A Laceration without foreign body of left elbow, initial encounter (principal); S51.812A Laceration without foreign body of left forearm, initial encounter; J44.9 Chronic obstructive pulmonary disease, unspecified; I10 Essential (primary) hypertension; E11.9 Type 2 diabetes mellitus without complications; Z95.810 Presence of automatic (implantable) cardiac defibrillator; W01.198A Fall on same level from slipping, tripping and stumbling with subsequent striking against other object, initial encounter; Y93.89 Activity, other specified; Y99.8 Other external cause status; Y92.098 Other place in other non-institutional residence as the place of occurrence of the external cause
CPT/HCPCS: 12002; 99284

== ENCOUNTER 2017-12-09 22:53 | Emergency (ER) | payer MEDICARE, OTHER ==
[~2017-12-09] VITALS: Ht 180.3 cm; Wt 81.8 kg
[2017-12-09 23:00] VITALS: BP 124/64
--- NOTE | 2017-12-09 23:02 | ED.ADGEN ---
Past History Past Medical History: COPD, Diabetes, Hypertension, Other Past Surgical History: Pacemaker Additional Past Surgical Histo: AICD and pacemaker placement Smoking: Non-smoker Alcohol Use: None Drug Use: None Adult General Chief Complaint Chief Complaint ".. I fell and got my arm mess up.. I got sutured yesterday...".." But my dressing was getting messed up..." HPI HPI Patient is a 82 year old male who presents with above hx and complaints skin tear Lt forearm. See Dr. Cadena ED report. Pt. presents for dressing and wound re-check. Pt. wound no acute changes, dressing replaced. Pt. has follow up with Dr. Lucero tomorrow. Pt. instructed to continue current care recommendations. Review of Systems Review of Systems Constitutional: Denies fever or chills [] Eyes: Denies change in visual acuity, redness, or eye pain [] HENT: Denies nasal congestion or sore throat [] Respiratory: Denies cough or shortness of breath [] Cardiovascular: No additional information not addressed in HPI [] GI: Denies abdominal pain, nausea, vomiting, bloody stools or diarrhea [] : Denies dysuria or hematuria [] Musculoskeletal: Denies back pain or joint pain [] Integument: Denies rash or skin lesions [] Lt. forearm skin tear. Neurologic: Denies headache, focal weakness or sensory changes [] Endocrine: Denies polyuria or polydipsia [] All other systems were reviewed and found to be within normal limits, except as documented in this note. Family History Family History Non-contributory Current Medications Current Medications See Nursing for home meds Allergies Allergies Allergies Coded Allergies Type Severity Reaction Last Updated Verified No Known Drug Allergies 12/09/17 No Physical Exam Physical Exam Constitutional: , no acute distress, non-toxic appearance. [] HENT: Normocephalic, atraumatic, bilateral external ears normal, oropharynx moist, no oral exudates, nose normal. [] Eyes: PERRLA, EOMI, conjunctiva normal, no discharge. [] Neck: Normal range of motion, no tenderness, supple, no stridor. [] Cardiovascular:Heart rate regular rhythm, no murmur [] Lungs & Thorax: Bilateral breath sounds clear to auscultation [] Abdomen: Bowel sounds normal, soft, no tenderness, no masses, no pulsatile masses. [] Skin: Warm, dry, no erythema, no rash. [] Poor turgor. Back: No tenderness, no CVA tenderness. [] Extremities: No tenderness, no cyanosis, no clubbing, ROM intact, no edema. [] Lt. arm in new dressing. Neurologic: Alert and oriented X 3, normal motor function, normal sensory function, no focal deficits noted. [] Psychologic: Affect anxious, judgement normal, mood normal. [] EKG EKG [] Radiology/Procedures Radiology/Procedures [] Course & Med Decision Making Course & Med Decision Making Pertinent Labs and Imaging studies reviewed. (See chart for details). Keep laceration site clean and dry,. Keep follow up with Dr. Lucero. Return if any concerns. [] Final Impression Final Impression 1. Dressing change 2. Wound Recheck[] Dragon Disclaimer Dragon Disclaimer This electronic medical record was generated, in whole or in part, using a voice recognition dictation system. FATMATA REESE MD Dec 09, 2017 23:02
== END 2017-12-10 00:50 | disposition home or self-care (01) ==
LOC: ER 22:53
DX: S51.812D Laceration without foreign body of left forearm, subsequent encounter (principal); J44.9 Chronic obstructive pulmonary disease, unspecified; E11.9 Type 2 diabetes mellitus without complications; I10 Essential (primary) hypertension; Z95.810 Presence of automatic (implantable) cardiac defibrillator; W19.XXXD Unspecified fall, subsequent encounter
CPT/HCPCS: 99284

== ENCOUNTER 2017-12-11 18:47 | Emergency (ER) | payer MEDICARE, OTHER ==
[~2017-12-11] VITALS: Ht 180.3 cm; Wt 81.8 kg
[2017-12-11 18:59] VITALS: BP 148/79
--- NOTE | 2017-12-11 20:23 | PHYS DOC ---
Past History Past Medical History: COPD, Diabetes, Hypertension Past Surgical History: Pacemaker, Other Additional Past Surgical Histo: AICD and pacemaker placement Smoking: Non-smoker Alcohol Use: None Drug Use: None Adult General Chief Complaint Chief Complaint: GTUBE REPLACEMENT/MALFUNCTION HPI HPI 82-year-old male presents with PEG tube dysfunction. The patient noticed around 1700 that the end of his PEG tube was missing. He was able to find the clamp. The tube is in place. The bulb that allows for feeding is missing. Patient does not know what happened to it. He presents for replacement of this piece. He has no other complaints at this time. Review of Systems Review of Systems Constitutional: Denies fever or chills [] Eyes: Denies change in visual acuity, redness, or eye pain [] HENT: Denies nasal congestion or sore throat [] Respiratory: Denies cough or shortness of breath [] Cardiovascular: No additional information not addressed in HPI [] GI: PEG tube problem [] : Denies dysuria or hematuria [] Musculoskeletal: Denies back pain or joint pain [] Integument: Denies rash or skin lesions [] Neurologic: Denies headache, focal weakness or sensory changes [] Endocrine: Denies polyuria or polydipsia [] All other systems were reviewed and found to be within normal limits, except as documented in this note. Allergies Allergies Allergies Coded Allergies Type Severity Reaction Last Updated Verified No Known Drug Allergies 12/09/17 No Physical Exam Physical Exam Constitutional: Well developed, well nourished, no acute distress, non-toxic appearance. [] HENT: Normocephalic, atraumatic, bilateral external ears normal, oropharynx moist, no oral exudates, nose normal. [] Eyes: PERRLA, EOMI, conjunctiva normal, no discharge. [] Neck: Normal range of motion, no tenderness, supple, no stridor. [] Cardiovascular:Heart rate regular rhythm, no murmur [] Lungs & Thorax: Bilateral breath sounds clear to auscultation [] Abdomen: Bowel sounds normal, soft, no tenderness, no masses, no pulsatile masses. PEG tube in place with open end, feeding adapter appears to be missing.[ ] Skin: Warm, dry, no erythema, no rash. Sutures on left arm[] Back: No tenderness, no CVA tenderness. [] Extremities: No tenderness, no cyanosis, no clubbing, ROM intact, no edema. [] Neurologic: Alert and oriented X 3, normal motor function, normal sensory function, no focal deficits noted. [] Psychologic: Affect normal, judgement normal, mood normal. [] Current Patient Data Vital Signs Vital Signs Date Time Temp Pulse Resp B/P (MAP) Pulse Ox O2 Delivery O2 Flow Rate FiO2 12/11/17 18:59 98.2 70 19 97 Room Air EKG EKG [] Radiology/Procedures Radiology/Procedures [] Course & Med Decision Making Course & Med Decision Making Pertinent Labs and Imaging studies reviewed. (See chart for details) After discussing the patient's PEG tube dysfunction with several staff members at this hospital as well as [facility], it was determined that the appropriate replacement piece was available at [facility]. I discussed with the patient private vehicle transport to that facility for placement of the piece versus embolus transport. They have elected for private vehicle. They will be met by the charge nurse in the ER who will replace this piece if possible. [] Dragon Disclaimer Dragon Disclaimer This electronic medical record was generated, in whole or in part, using a voice recognition dictation system. Departure Departure: Impression: Primary Impression: PEG tube malfunction Disposition: HOME, SELF-CARE Condition: STABLE JENSEN JIN DO Dec 11, 2017 20:23
== END 2017-12-11 20:15 | disposition home or self-care (01) ==
LOC: ER 18:47
DX: K94.23 Gastrostomy malfunction (principal); I10 Essential (primary) hypertension; E11.9 Type 2 diabetes mellitus without complications; J44.9 Chronic obstructive pulmonary disease, unspecified; Z95.810 Presence of automatic (implantable) cardiac defibrillator
CPT/HCPCS: 99281

== ENCOUNTER 2017-12-14 09:44 | Emergency (ER) | payer MEDICARE, OTHER ==
[~2017-12-14] VITALS: Ht 180.3 cm; Wt 78.5 kg
[2017-12-14] MEDS ORDERED: SODIUM PHOSPHATES 19/7GM 133 ML ENEMA. PR ONE ×2 (10:15→11:30)
--- NOTE | 2017-12-14 10:15 | RAD ---
Examination: Frontal view of the abdomen HISTORY: History of constipation, abdominal pain COMPARISON: None available FINDINGS: The bowel gas pattern appears nonspecific. Moderate amount of feces and gas noted throughout the colon. There is a calcific density projecting in the left mid abdomen about the left kidney measuring 8.8 mm could be calculus in the left kidney or interval left in the colon. PEG tube balloon projects in the mid left epigastrium. There are multiple hyperdensities projecting in the pelvis probably due to residual contrast within the sigmoid colon diverticulosis. IMPRESSION: 1. Nonspecific bowel gas pattern. 2. Feces and gas noted throughout the colon likely constipation. 3. A 8.8 mm calcific density projecting in the left kidney region could be calculus or enterolith in the colon. 4. There are multiple hyperdensities projecting in the pelvis probably due to residual contrast within the sigmoid colon diverticulosis. Electronically signed by: Jose Underwood MD (12/14/2017 10:11 AM) [id number]
[2017-12-14] MEDS ORDERED: POLYETHYLENE GLYCOL 3350 17 GM PACKET. PO ONE (11:30)
[2017-12-14] MEDS ORDERED: POLY17PO5 PEG (11:55)
[2017-12-14 12:11] VITALS: BP 122/68
--- NOTE | 2017-12-14 12:12 | ED.ADGEN ---
Past History Past Medical History: COPD, Diabetes, Hypertension Past Surgical History: Pacemaker, Other Additional Past Surgical Histo: AICD and pacemaker placement Smoking: Non-smoker Alcohol Use: None Drug Use: None Adult General HPI HPI Patient is a 82 year old male who presents with constipation. Patient does have a known history of cancer. He is primarily fed through a gastric tube. He presents to the ER today complaining constipation. He has not been able to have a bowel movement over the last 7 days. Today, he began to experience some abdominal cramping as a result. He feels the urge to defecate but is unable to do so. Otherwise has been at baseline health which is generally poor. No fever or acute illness recently. Review of Systems Review of Systems Constitutional: Denies fever or chills Eyes: Denies change in visual acuity HENT: Denies nasal congestion or sore throat Respiratory: Denies cough Cardiovascular: No additional information not addressed in HPI GI: no significant abdominal pain Musculoskeletal: Denies back pain Integument: Denies rash or skin lesions All other systems were reviewed and found to be within normal limits, except as documented in this note. Current Medications Current Medications Current Medications Medications (Trade) Dose Ordered Sig/Shira Start Time Stop Time Status Last Admin Dose Admin Polyethylene Glycol (miraLAX) 17 gm 1X ONCE 12/14/17 11:30 12/14/17 11:31 DC 12/14/17 11:32 17 GM Sodium Biphosphate/ Sodium Phosphate (Fleet Adult) 133 ml 1X ONCE 12/14/17 11:30 12/14/17 11:31 DC Allergies Allergies Allergies Coded Allergies Type Severity Reaction Last Updated Verified No Known Drug Allergies 12/14/17 No Physical Exam Physical Exam Constitutional: Well developed, well nourished HENT: Normocephalic, atraumatic, bilateral external ears normal Eyes: PERRLA, EOMI, conjunctiva normal Neck: Normal range of motion, no tenderness Cardiovascular:Heart rate regular rhythm, no murmur Lungs & Thorax: Bilateral breath sounds clear to auscultation Abdomen: Bowel sounds normal, soft, no guarding or rebound Skin: Warm, dry, no erythema, no rash. Extremities: No edema Neurologic: Alert and oriented X 3 Current Patient Data Vital Signs Vital Signs Date Time Temp Pulse Resp B/P (MAP) Pulse Ox O2 Delivery O2 Flow Rate FiO2 12/14/17 09:45 98.0 60 18 100 Room Air EKG EKG [] Radiology/Procedures Radiology/Procedures IMPRESSION: 1. Nonspecific bowel gas pattern. 2. Feces and gas noted throughout the colon likely constipation. 3. A 8.8 mm calcific density projecting in the left kidney region could be calculus or enterolith in the colon. 4. There are multiple hyperdensities projecting in the pelvis probably due to residual contrast within the sigmoid colon diverticulosis. Course & Med Decision Making Course & Med Decision Making Pertinent Labs and Imaging studies reviewed. (See chart for details) Patient is seen and examined. He has subjective history consistent with constipation. His abdominal exam is benign. KUB was completed and documented above. In the emergency department, the patient was given 1 enema with a fleets kit. After some time, the patient did have a large bowel movement and felt subjectively improved. In the ER, he was also given a dose of MiraLAX through his feeding tube. This was given primarily to ensure that both he and his would know how to dose this medication and give it at home. He is discharged to home with liquid docusate to be placed in the tube twice daily. He also was given some MiraLAX to use as needed for constipation. Patient is agreeable to this plan. He will follow-up with his primary doctor or return to the ER for any new symptoms. Final Impression Final Impression Constipation Salvador Disclaimer Dragjaci Disclaimer This electronic medical record was generated, in whole or in part, using a voice recognition dictation system. MARCELO MANNING DO Dec 14, 2017 12:12
== END 2017-12-14 12:10 | disposition home or self-care (01) ==
LOC: ER 09:44
DX: K59.00 Constipation, unspecified (principal); J44.9 Chronic obstructive pulmonary disease, unspecified; E11.9 Type 2 diabetes mellitus without complications; I10 Essential (primary) hypertension; Z95.810 Presence of automatic (implantable) cardiac defibrillator
CPT/HCPCS: 74018; 99284

== ENCOUNTER 2017-12-17 23:10 | Inpatient (IN) | payer MEDICARE, OTHER ==
[~2017-12-17] VITALS: Ht 180.3 cm; Wt 78.5 kg
[~2017-12-17 23:10] MED LIST changes: +POLY17PO5 PEG
--- NOTE | 2017-12-18 01:15 | ED.ADGEN ---
Past History Past Medical History: COPD, Diabetes, Hypertension Past Surgical History: Pacemaker, Other Additional Past Surgical Histo: AICD and pacemaker placement Smoking: Non-smoker Alcohol Use: None Drug Use: None Adult General Chief Complaint Chief Complaint " . I ve been having low sugars.. It was a 100..." HPI HPI Patient is a 82 year old male who presents with recurrent episodes of hypoglycemia. Pt. recently change from gastric tube feedings to oral thicket intake.. Pt. has had poor oral intake resulting in episodes of hypoglycemia. Pt. Known diabetic. No changes in meds. for his DM Review of Systems Review of Systems Constitutional: Denies fever or chills [] Eyes: Denies change in visual acuity, redness, or eye pain [] HENT: Denies nasal congestion or sore throat [] Respiratory: Denies cough or shortness of breath [] Cardiovascular: No additional information not addressed in HPI [] GI: Denies abdominal pain, vomiting, bloody stools or diarrhea [] Hx. nausea and dysphagia : Denies dysuria or hematuria [] Musculoskeletal: Denies back pain or joint pain [] Integument: Denies rash or skin lesions [] Neurologic: Denies headache, focal weakness or sensory changes [] Endocrine: Denies polyuria or polydipsia [] - Episodes of Hypoglycemia All other systems were reviewed and found to be within normal limits, except as documented in this note. Family History Family History Non-contributory Current Medications Current Medications Current Medications Medications (Trade) Dose Ordered Sig/Shira Start Time Stop Time Status Last Admin Dose Admin Dextrose (Dextrose 25% Syringe) 10 ml 1X ONCE 12/18/17 03:30 12/18/17 04:13 DC 12/18/17 03:39 10 ML Allergies Allergies Allergies Coded Allergies Type Severity Reaction Last Updated Verified No Known Drug Allergies 12/14/17 No Physical Exam Physical Exam Constitutional: moderately acute distress, non-toxic appearance. [] HENT: Normocephalic, atraumatic, bilateral external ears normal, oropharynx moist, no oral exudates, nose normal. [] Eyes: PERRLA, EOMI, conjunctiva normal, no discharge. [] Arcus Neck: Normal range of motion, no tenderness, supple, no stridor. [] Cardiovascular:Tachycardia Heart rate regular rhythm, no murmur []p.m. I to left Lungs & Thorax: Bilateral breath sounds clear to auscultation [] Abdomen: Bowel sounds decreased, soft, mild generalized tenderness, no masses, no pulsatile masses. [] Multiple scars. Gastric feeding tube. Skin: Warm, dry, no erythema, no rash. [] Poor turgor Back: No tenderness, no CVA tenderness. [] Extremities: No tenderness, no cyanosis, no clubbing, ROM intact, no edema. [] Arthritic changes. Shuffled gait. Neurologic: Alert and oriented X 3, normal motor function, normal sensory function, no focal deficits noted. [] Psychologic: Affect anxious., judgement normal, mood depressed Current Patient Data Vital Signs Vital Signs Date Time Temp Pulse Resp B/P (MAP) Pulse Ox O2 Delivery O2 Flow Rate FiO2 12/18/17 04:00 60 18 138/77 (97) 98 Room Air 12/17/17 23:10 98.1 Lab Results Laboratory Tests Test 12/18/17 00:33 12/18/17 01:18 12/18/17 01:46 12/18/17 02:56 Glucose (Fingerstick) 95 mg/dL (70-99) 78 mg/dL (70-99) 82 mg/dL (70-99) White Blood Count 4.9 x10^3/uL (4.0-11.0) Red Blood Count 5.28 x10^6/uL (4.30-5.70) Hemoglobin 16.2 g/dL (13.0-17.5) Hematocrit 48.1 % (39.0-53.0) Mean Corpuscular Volume 91 fL (79-100) Mean Corpuscular Hemoglobin 31 pg (25-35) Mean Corpuscular Hemoglobin Concent 34 g/dL (31-37) Red Cell Distribution Width 14.3 % (11.5-14.5) Platelet Count 157 x10^3/uL (140-400) Neutrophils (%) (Auto) 62 % (31-73) Lymphocytes (%) (Auto) 30 % (24-48) Monocytes (%) (Auto) 4 % (0-9) Eosinophils (%) (Auto) 3 % (0-3) Basophils (%) (Auto) 1 % (0-3) Neutrophils # (Auto) 3.1 x10^3uL (1.8-7.7) Lymphocytes # (Auto) 1.5 x10^3/uL (1.0-4.8) Monocytes # (Auto) 0.2 x10^3/uL (0.0-1.1) Eosinophils # (Auto) 0.1 x10^3/uL (0.0-0.7) Basophils # (Auto) 0.0 x10^3/uL (0.0-0.2) Sodium Level 143 mmol/L (136-145) Potassium Level 3.3 mmol/L (3.5-5.1) L Chloride Level 106 mmol/L (98-107) Carbon Dioxide Level 32 mmol/L (21-32) Anion Gap 5 (6-14) L Blood Urea Nitrogen 13 mg/dL (8-26) Creatinine 1.0 mg/dL (0.7-1.3) Estimated GFR (Cockcroft-Gault) 71.5 Glucose Level 69 mg/dL (70-99) L Calcium Level 8.9 mg/dL (8.5-10.1) EKG EKG [] Radiology/Procedures Radiology/Procedures [] Course & Med Decision Making Course & Med Decision Making Pertinent Labs and Imaging studies reviewed. (See chart for details) Recurrent episodes of hypoglycemia in emergency department eventually requiring D10 glucose drip Discussed presentation, testing and tx plan with Dr. Nuñez- Will admit for further tx. and eval. [] Final Impression Final Impression 1. DM- Hx. 2. Hx. of episodic Low glucose. [] 3. Dysphagia 4. Hypertension 5. Hypokalemia Dragon Disclaimer Dragon Disclaimer This electronic medical record was generated, in whole or in part, using a voice recognition dictation system. FATMATA REESE MD Dec 18, 2017 01:15
[2017-12-18] MEDS ORDERED: DEXTROSE 25% 10 ML DISP.SYRIN. IV ONE ×2 (01:45→03:30)
[2017-12-18 02:08] LABS: BASO % 1 % (0-3); EOS # 0.1 x10^3/uL (0.0-0.7); EOS % 3 % (0-3); HEMATOCRIT 48.1 % (39.0-53.0); HEMOGLOBIN 16.2 g/dL (13.0-17.5); LYMPH # 1.5 x10^3/uL (1.0-4.8); LYMPH % 30 % (24-48); MEAN CORPUSCULAR HEMOGLOBIN 31 pg (25-35); MEAN CORPUSCULAR HGB CONC 34 g/dL (31-37); MEAN CORPUSCULAR VOLUME 91 fL (79-100); MONO # 0.2 x10^3/uL (0.0-1.1); MONO % 4 % (0-9); NEUT # 3.1 x10^3uL (1.8-7.7); NEUT % 62 % (31-73); PLATELET COUNT 157 x10^3/uL (140-400); RED BLOOD COUNT 5.28 x10^6/uL (4.30-5.70); RED CELL DISTRIBUTION WIDTH 14.3 % (11.5-14.5); WHITE BLOOD COUNT 4.9 x10^3/uL (4.0-11.0)
[2017-12-18 02:18] LABS: CALCIUM 8.9 mg/dL (8.5-10.1); GFR 71.5; POTASSIUM 3.3 mmol/L (3.5-5.1)
[2017-12-18] MEDS ORDERED: POTASSIUM CHLORIDE 20 MEQ/15 ML ORAL LIQUID. PO ONE (04:15)
[2017-12-18] MEDS ORDERED: IV DEXTROSE 10% 1,000 ML IV ONE (05:00)
[2017-12-18] MEDS ORDERED: ONDANSETRON PF 4 MG/2 ML VIAL. IV PRN (05:00)
[2017-12-18] MEDS ORDERED: DEXTROSE 50% 25 GM / 50ML DISP.SYRIN. IV PRN (05:00)
[2017-12-18 05:10] VITALS: BP 157/90
[2017-12-18 10:33] VITALS: BP 128/70
[2017-12-18 14:31] VITALS: BP 127/71
[2017-12-18] MEDS ORDERED: INSU100I27 SQ (16:45)
[2017-12-18] MEDS ORDERED: INSU100C SQ (16:46)
--- NOTE | 2017-12-18 17:34 | SSS ---
ADMIT DATE: 12/18/2017 HISTORY OF PRESENT ILLNESS: The patient is an 82-year-old male patient who came to the Emergency Room with recurrent episodes of hypoglycemia. The patient has recently changed from tube feeding to oral thickened liquid diet and the patient has had poor oral intake, resulting the episodes of hypoglycemia. He is known to have diabetes. His intake is poor and he is adjusting his own insulin and sometimes he takes more than one time, although his tried to remind him. He gets confused and he continued to aspirate all liquid consistencies and given how many times the patient was admitted and that he would benefit from hospice care, a decision was made to consult hospice and he was evaluated and we are going to discharge him home with hospice for palliative care. When I saw him today, he was actually well and his blood sugar has been stable. He has eaten his breakfast and lunch without requiring any insulin. PAST MEDICAL HISTORY: Significant for coronary artery disease, hypertension, hyperlipidemia, type 2 diabetes. He also has COPD, dysphagia with recurrent aspiration pneumonia. He is status post percutaneous gastrostomy tube placement. He also has chronic thrombocytopenia. PAST SURGICAL HISTORY: Significant for permanent pacemaker placement, multiple EGDs and also had gastrostomy tube placement. ALLERGIES: Allergic to BEE STING. FAMILY HISTORY: Unremarkable. SOCIAL HISTORY: He is , lives with his . He is an ex-smoker, used to smoke up to 2-1/2 packs a day and smoked for more than 40 years. He does not drink alcohol. He had been in the service for 26 years. 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 REVIEW OF SYSTEMS: As per history of present illness. MEDICATIONS: He is currently on following medications: He is on Aricept 10 mg daily, ipratropium bromide, albuterol inhaler by nebulizer twice a day, albuterol sulfate for ProAir 1 puff every 6 hours, simvastatin 10 mg at bedtime, lisinopril 10 mg daily, aspirin 81 mg once a day, gabapentin 300 mg 3 times a day, Namenda extended release 28 mg daily, polyethylene glycol 17 grams twice a day, ondansetron 4 mg every 8 hours, lansoprazole 30 mg once a day, metoclopramide 5 mg before meals and bedtime. He is on Levemir insulin 30 units at bedtime and Humalog 10 units before meals. He is also on cholecalciferol vitamin D 2000 units per feeding tube daily. PHYSICAL EXAMINATION: GENERAL: On examining him, he looked well and was clearly in no apparent respiratory distress. Pale, but no jaundice, cyanosis, or thyromegaly. No jugular venous distention. No limb edema. VITAL SIGNS: His heart rate was 60, blood pressure was 128/70, temperature was 98, respiratory rate was 18, and oxygen saturation was 96%. HEAD, EYES, EARS, NOSE, AND THROAT: Showed normocephalic, atraumatic. NECK: Supple. HEART: Showed normal first and second heart sounds. No gallop, rub, or murmur. CHEST: Clear to auscultation. No crepitation or rhonchi. ABDOMEN: Distended, soft, nontender. No guarding or rigidity. No organomegaly. Hernial orifice intact. Bowel sounds normal. NEUROLOGIC: He was awake, alert, responding appropriately. He is forgetful, but he has no obvious lateralizing sign. LABORATORY DATA: His lab work showed a white cell count of 4900, hemoglobin 16, hematocrit 48, MCV 91, and platelet count of 157,000. His chemistry showed that his serum sodium 143, potassium 3.3, chloride 106, bicarbonate 32, anion gap of 5, BUN 13, creatinine 1. Estimated GFR was 71 mL per minute. His glucose was 69, calcium was 8.9. He will be discharged home to go on albuterol sulfate 1 puff every 6 hours, aspirin 81 mg once a day, cholecalciferol vitamin D3 2000 units per feeding tube daily, Aricept 10 mg per feeding tube daily, gabapentin 300 mg 3 times a day, Levemir insulin 30 units at bedtime, Humalog insulin 10 units before meals, ipratropium bromide, albuterol sulfate, DuoNeb twice a day, lansoprazole 30 mg daily, lisinopril 10 mg daily, Namenda 28 mg once a day, polyethylene glycol 17 grams twice a day, simvastatin 10 mg at bedtime, and ondansetron ODT 4 mg sublingually every 8 hours. FINAL DISCHARGE DIAGNOSIS: Recurrent hypoglycemia because of poor oral intake. The patient was advised to adjust his insulin down. He is now on hospice care. Continue with his bronchodilator. The patient will be on hospice for palliative and end-of-life care. JORGE BRAVO MD DR: Guerda JOB#: [id number] / [id number]
== END 2017-12-18 17:30 | disposition hospice, home (50) | DRG 639 ==
LOC: ER 23:10 → 1 SOUTH 12-18 04:00
PROVIDERS: ADMIT Internal Medicine; ATTEND Internal Medicine
DX: E11.649 Type 2 diabetes mellitus with hypoglycemia without coma (principal); E78.5 Hyperlipidemia, unspecified; I25.10 Atherosclerotic heart disease of native coronary artery without angina pectoris; R13.10 Dysphagia, unspecified; I10 Essential (primary) hypertension; E87.6 Hypokalemia; J44.9 Chronic obstructive pulmonary disease, unspecified; Z51.5 Encounter for palliative care; Z87.891 Personal history of nicotine dependence; Z95.0 Presence of cardiac pacemaker; Z79.899 Other long term (current) drug therapy; Z93.1 Gastrostomy status; Z91.030 Bee allergy status
CPT/HCPCS: 36415; 80048; 82947; 85025; 96374; 96376; J7060; 99285-25

== ENCOUNTER 2018-01-13 23:04 | Inpatient (IN) | payer MEDICARE, OTHER ==
[~2018-01-13] VITALS: Ht 180.3 cm; Wt 81.8 kg
[~2018-01-13 23:04] MED LIST changes: -ASPI-630 PEG; +ASPI-630 PO; -GABA-586 PEG; +GABA-586 PO; +INSU100C SQ
--- NOTE | 2018-01-13 23:12 | ED.ADGEN ---
Past History Past Medical History: CAD, COPD, Diabetes, Hypertension, Other Past Surgical History: Pacemaker, Other Additional Past Surgical Histo: AICD and pacemaker placement Smoking: Non-smoker Alcohol Use: None Drug Use: None Adult General Chief Complaint Chief Complaint " He been vomiting at home tonight since 9 pm...per family- Family states he had hx of aspiration. Pt. 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 He 's been doing good... except for elevated sugars... they been up in 400's.... but I know he cheats on his diet...but he has been eating solid foods.. and only using his G-tube for fluids... but all sudden he developed a fever about 9 (PM).. then he started vomiting.. and getting really short of breath...He usually does not even need oxygen... I think he aspirated again..." ( .) HPI HPI Patient is a 82 year old male who presents with above hx and in acute dyspnea after vomiting what appears to be partially digested food. .. Pt. currently maintaining saturation in 92% on 6 L per nasal. Patient obviously in respiratory distress. Pt. episodes of dry heaves and vomiting food material. Pt. upper airway gurgling and rhonchi upper lung chen. Pt. has scattered wheezing throughout. No recent changes in meds. No hx of recent travel or specific ill contacts. Pt. has extensive medical hx., DM, Aspiration Pneumonitis, Pneumonia, CADz, Afib, Dysrhythmia, Deconditioning, Dysphagia, HTN , COPD, Falls. Pt. normally follows with Dr. Pérez. Review of Systems Review of Systems Constitutional: Hx. fever or chills [] Eyes: Denies change in visual acuity, redness, or eye pain [] HENT: Denies nasal congestion or sore throat [] Respiratory: Hx. of cough and shortness of breath [] Cardiovascular: No additional information not addressed in HPI [] GI: Hx of nausea, vomiting, . Denies bloody stools or diarrhea [] : Denies dysuria or hematuria [] Musculoskeletal: Denies back pain or joint pain [] Integument: Denies rash or skin lesions [] Neurologic: Denies headache, focal weakness or sensory changes [] Endocrine: Denies polyuria or polydipsia [] All other systems were reviewed and found to be within normal limits, except as documented in this note. Family History Family History Non-contributory Current Medications Current Medications Current Medications Medications (Trade) Dose Ordered Sig/Shira Start Time Stop Time Status Last Admin Dose Admin Albuterol/ Ipratropium (Duoneb) 3 ml 1X ONCE 01/13/18 23:15 01/13/18 23:50 DC 01/13/18 23:39 3 ML Lactated Ringer's 1,000 ml @ 100 mls/hr Q10H 01/13/18 23:45 01/14/18 09:44 01/14/18 00:02 100 MLS/HR Ondansetron HCl (Zofran) 8 mg 1X ONCE 01/13/18 23:45 01/13/18 23:50 DC 01/14/18 00:02 8 MG Allergies Allergies Allergies Coded Allergies Type Severity Reaction Last Updated Verified No Known Drug Allergies 12/14/17 No Physical Exam Physical Exam Constitutional: in acute distress, ill in appearance. [] HENT: Normocephalic, atraumatic, bilateral external ears normal, oropharynx moist, no oral exudates, nose normal. [] Eyes: PERRLA, EOMI, conjunctiva normal, no discharge. [] Neck: Normal range of motion, no tenderness, supple, no stridor. [] Cardiovascular: Bradycarida, Heart rate, ill regular rhythm, PMI to Lt. Lungs & Thorax: Bilateral breath sounds rhonchi and wheezing auscultation [] Pacer on lt. Abdomen: Bowel sounds decreased, soft, epigastric tenderness, no masses, no pulsatile masses. []G- tube Skin: Warm, dry, no erythema, no rash. Poor turgor. Back: No tenderness, no CVA tenderness. [] Extremities: No tenderness, no cyanosis, no clubbing, ROM intact, no edema. [] Arthritic changes Neurologic: Alert and oriented X 3, moves all ext. on request, No gross focal deficits noted from his baseline per Pt. and . Psychologic: Affect anxious, mood depressed. Current Patient Data Vital Signs Vital Signs Date Time Temp Pulse Resp B/P (MAP) Pulse Ox O2 Delivery O2 Flow Rate FiO2 01/13/18 23:49 99.1 84 18 96 Nasal Cannula 3.0 Lab Results Laboratory Tests Test 01/13/18 23:25 White Blood Count 8.0 x10^3/uL (4.0-11.0) Red Blood Count 5.06 x10^6/uL (4.30-5.70) Hemoglobin 15.8 g/dL (13.0-17.5) Hematocrit 46.5 % (39.0-53.0) Mean Corpuscular Volume 92 fL (79-100) Mean Corpuscular Hemoglobin 31 pg (25-35) Mean Corpuscular Hemoglobin Concent 34 g/dL (31-37) Red Cell Distribution Width 14.2 % (11.5-14.5) Platelet Count 131 x10^3/uL (140-400) L Neutrophils (%) (Auto) 84 % (31-73) H Lymphocytes (%) (Auto) 10 % (24-48) L Monocytes (%) (Auto) 4 % (0-9) Eosinophils (%) (Auto) 1 % (0-3) Basophils (%) (Auto) 1 % (0-3) Neutrophils # (Auto) 6.7 x10^3uL (1.8-7.7) Lymphocytes # (Auto) 0.8 x10^3/uL (1.0-4.8) L Monocytes # (Auto) 0.3 x10^3/uL (0.0-1.1) Eosinophils # (Auto) 0.1 x10^3/uL (0.0-0.7) Basophils # (Auto) 0.1 x10^3/uL (0.0-0.2) Prothrombin Time 9.9 SEC (9.4-11.4) Prothrombin Time INR 1.0 (0.9-1.1) PTT < 21 SEC (23-33) L D-Dimer ([place]) 3.67 mg/L (0.00-0.50) H Sodium Level 137 mmol/L (136-145) Potassium Level 4.6 mmol/L (3.5-5.1) Chloride Level 100 mmol/L (98-107) Carbon Dioxide Level 31 mmol/L (21-32) Anion Gap 6 (6-14) Blood Urea Nitrogen 18 mg/dL (8-26) Creatinine 1.2 mg/dL (0.7-1.3) Estimated GFR (Cockcroft-Gault) 58.0 Glucose Level 462 mg/dL (70-99) H Lactic Acid Level 2.7 mmol/L (0.4-2.0) H Calcium Level 9.2 mg/dL (8.5-10.1) Magnesium Level 1.8 mg/dL (1.8-2.4) Total Bilirubin 0.7 mg/dL (0.2-1.0) Direct Bilirubin 0.1 mg/dL (0.0-0.2) Aspartate Amino Transferase (AST) 38 U/L (15-37) H Alanine Aminotransferase (ALT) 34 U/L (16-63) Alkaline Phosphatase 101 U/L (46-116) Creatine Kinase 74 U/L (39-308) Creatine Kinase MB (Mass) 1.5 ng/mL (0.0-3.6) Creatine Kinase MB Relative Index 2.0 % (0-4) Troponin I Quantitative < 0.017 ng/mL (0-0.055) BB-Dhi-T-Type Natriuretic Peptide 186 pg/mL (0-449) Total Protein 7.3 g/dL (6.4-8.2) Albumin 3.4 g/dL (3.4-5.0) Amylase Level 47 U/L (25-115) Lipase 69 U/L (73-393) L EKG EKG My interpretation of EKG shows a Vent. rate 76, irregulary. Intra ventricular block. [] Radiology/Procedures Radiology/Procedures My interpretation of CXR shows cardiomegaly, patchy infiltrates, COPD changes, pacer, DJD. My interpretation of Abd.- pending at time of admit. Repeat CXR - shows adequate placement of NG. []Non-specific bowel gas pattern. Gastric tube appears well placed. Course & Med Decision Making Course & Med Decision Making Pertinent Labs and Imaging studies reviewed. (See chart for details) Discussed options tx, and evaluation with Pt. and . She advised he is to get support- such as antibiotics and tests. No intubation, No CPR, No electrical shocks. Pt. reportedly had been doing well, tolerated po solids and was getting only water via his peg. Pt. recently had spikes in his glucose. Pt. had developed a fever tonight. Pt. normally does not need oxygen, but after he started vomiting, he became hypoxic. Pt. to be admitted to Dr. Nuñez- ( Re-establish Hospice on discharge. ) Discussed presentation, testing and tx. plan with Dr. Nuñez. [] Final Impression Final Impression 1. Respiratory failure 2. Aspiration-pneumonitis / pneumonia 3. Fever 4. Nausea and vomiting 5. Chronic Dysphagia 6. Hypoxia 7. Elev. D-dimer 8. DM- Hyperglycemia 9. Thrombocytopenia [] Dragon Disclaimer Dragon Disclaimer This electronic medical record was generated, in whole or in part, using a voice recognition dictation system. FTAMATA REESE MD Jan 13, 2018 23:12
[2018-01-13] MEDS ORDERED: IPRATRPIUM/ALBUTEROL 0.5/2.5MG 3 ML NEBU. NEB ONE (23:15)
[2018-01-13] MEDS ORDERED: ONDANSETRON PF 4 MG/2 ML VIAL. IV ONE (23:45)
[2018-01-13] MEDS ORDERED: IV RINGERS SOLUTION,LACTATED 1,000 ML IV SCH (23:45)
[2018-01-13 23:53] LABS: BASO # 0.1 x10^3/uL (0.0-0.2); BASO % 1 % (0-3); EOS # 0.1 x10^3/uL (0.0-0.7); EOS % 1 % (0-3); HEMATOCRIT 46.5 % (39.0-53.0); HEMOGLOBIN 15.8 g/dL (13.0-17.5); LYMPH # 0.8 x10^3/uL (1.0-4.8); LYMPH % 10 % (24-48); MEAN CORPUSCULAR HEMOGLOBIN 31 pg (25-35); MEAN CORPUSCULAR HGB CONC 34 g/dL (31-37); MEAN CORPUSCULAR VOLUME 92 fL (79-100); MONO # 0.3 x10^3/uL (0.0-1.1); MONO % 4 % (0-9); NEUT # 6.7 x10^3uL (1.8-7.7); NEUT % 84 % (31-73); PLATELET COUNT 131 x10^3/uL (140-400); RED BLOOD COUNT 5.06 x10^6/uL (4.30-5.70); RED CELL DISTRIBUTION WIDTH 14.2 % (11.5-14.5)
--- NOTE | 2018-01-14 00:06 | RAD ---
AP portable chest radiograph 01/13/2018 Clinical History: Shortness of breath. An AP erect portable digital radiograph of the chest was obtained. Comparison study is dated 11/17/2017. A pacemaker is unchanged position. The cardiac silhouette is mildly enlarged. The thoracic aorta is tortuous. Atherosclerotic calcification thoracic aorta is seen. No acute pulmonary infiltrate is seen. No pleural effusion or pneumothorax is noted. The osseous structures are unchanged. Impression: No acute pulmonary infiltrate is seen. Electronically signed by: Jacek Cotton MD (01/14/2018 12:02 AM) [facility]
[2018-01-14 00:28] LABS: ALBUMIN 3.4 g/dL (3.4-5.0); CALCIUM 9.2 mg/dL (8.5-10.1); CREATININE 1.2 mg/dL (0.7-1.3); DIRECT BILIRUBIN 0.1 mg/dL (0.0-0.2); MAGNESIUM 1.8 mg/dL (1.8-2.4); TOTAL BILIRUBIN 0.7 mg/dL (0.2-1.0); TOTAL PROTEIN 7.3 g/dL (6.4-8.2)
[2018-01-14 00:30] LABS: POTASSIUM 4.6 mmol/L (3.5-5.1)
[2018-01-14 00:44] LABS: BILIRUBIN,URINE NEG (NEG); CLARITY,URINE CLEAR; COLOR,URINE YELLOW; GLUCOSE,URINE >=1000 mg/dL (NEG); NITRITE,URINE NEG (NEG); UROBILINOGEN,URINE 0.2 mg/dL (0.2 mg/dL)
[2018-01-14 00:45] LABS: BACTERIA,URINE 0 /HPF (0-FEW); RBC,URINE 0 /HPF (0-2); SQUAMOUS EPITHELIAL CELL,UR OCC /LPF; WBC,URINE RARE /HPF (0-4)
[2018-01-14] MEDS ORDERED: ONDANSETRON PF 4 MG/2 ML VIAL. IV PRN (01:00)
[2018-01-14] MEDS ORDERED: cefTRIAXone IV Push 1 GM VIAL. IVP ONE (01:00)
[2018-01-14] MEDS ORDERED: ENOXAPARIN ** NOTE DOSE ** SYRINGE SQ ONE (01:00)
[2018-01-14] MEDS ORDERED: ACETAMINOPHEN 325 MG TABLET PO PRN (01:00)
[2018-01-14] MEDS ORDERED: IV RINGERS SOLUTION,LACTATED 1,000 ML IV STA (01:00)
[2018-01-14 02:00] VITALS: BP 116/60
[2018-01-14] MEDS: IV RINGERS SOLUTION,LACTATED 1,000 ML IV SCH ×4 (02:16→21:22)
[2018-01-14 05:30] VITALS: BP 121/67
[2018-01-14] MEDS ORDERED: DOCU-109 PO (05:51)
[2018-01-14] MEDS ORDERED: LORA2ORA2 PO (05:51)
[2018-01-14] MEDS ORDERED: PROM25TA10 PO (05:51)
[2018-01-14] MEDS ORDERED: MAGN2400 PO (05:51)
[2018-01-14] MEDS ORDERED: INSU100I13 SQ (05:51)
[2018-01-14] MEDS ORDERED: IPRATRPIUM/ALBUTEROL 0.5/2.5MG 3 ML NEBU. ONE (06:07)
[2018-01-14] MEDS: IPRATRPIUM/ALBUTEROL 0.5/2.5MG 3 ML NEBU. NEB SCH ×4 (06:10→20:52)
--- NOTE | 2018-01-14 06:41 | EKG ---
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
[2018-01-14] MEDS: AZITHROMYCIN 250 MG TABLET. PEG SCH (07:34)
--- NOTE | 2018-01-14 07:41 | RAD ---
Abdomen, 2 views, 01/14/2018: HISTORY: Nausea and vomiting A gastrostomy tube is projected over left upper quadrant. An NG tube extends into the body of the stomach. Gas is present in large and small bowel in a nonspecific pattern. No free air is seen in the abdomen. Surgical clips are present in the right upper quadrant. There is no evidence organomegaly. Several small pelvic radiopacities are compatible with radiopaque material within colonic diverticula. IMPRESSION: 1. An NG tube and a gastrostomy tube are in place. 2. No acute abdominal abnormality is detected. Electronically signed by: Curry Perales MD (01/14/2018 7:37 AM) [facility]
[2018-01-14] MEDS: INSULIN LISPRO 300 UNITS/3 ML INSULN.PEN. SQ SCH ×3 (08:19→17:36)
[2018-01-14] MEDS: LACTOBACILLUS RHAMNOSUS GG 1 CAPSULE. PO SCH ×2 (09:00→21:21)
[2018-01-14] MEDS ORDERED: NICOTINE 21MG PATCH. TD SCH (09:00)
[2018-01-14] MEDS ORDERED: LORazepam 2 MG/ML VIAL IV PRN (09:15)
[2018-01-14] MEDS ORDERED: MORPHINE SULFATE 4 MG/ML DISP.SYRIN. IV PRN (09:30)
[2018-01-14 11:11] VITALS: BP 98/58
[2018-01-14 15:00] VITALS: BP 101/61
--- NOTE | 2018-01-14 18:28 | HP ---
ADMIT DATE: 01/14/2018 HISTORY OF PRESENT ILLNESS: The patient is an 82-year-old male patient who was brought to the Emergency Room by ambulance, as he has been complaining of recurrent bouts of nausea and vomiting. He is known to have dysphagia and recurrent episode of aspiration and he was reportedly on hospice. His stated that she had come to the hospital, as she called the hospice and they told her that it takes him about 30 minutes to come and see him. He also started felt weak, shaky and started vomiting nonstop and also getting short of breath. He was extensively investigated for the intractable nausea and vomiting. He had an NG tube placed and was given IV fluid and IV antibiotic, and was admitted for further evaluation and treatment and to discuss with his and the rest of his family the option of going back on hospice. PAST MEDICAL HISTORY: Significant for coronary artery disease, hypertension, hyperlipidemia, type 2 diabetes. He is also known to have COPD, dysphagia with recurrent aspiration pneumonia, status post percutaneous gastrostomy tube placement. He also has chronic thrombocytopenia. He apparently has had another video swallowing evaluation, was started on mechanically a soft diet, thickened liquid. So, he mostly eats his food, but uses gastrostomy tube to get more water. PAST SURGICAL HISTORY: Significant for permanent pacemaker placement, multiple EGDs and also gastrostomy tube placement. ALLERGIES: HE IS ALLERGIC TO BEE STING. FAMILY HISTORY: Unremarkable. SOCIAL HISTORY: He is , lives with his . He is an ex-smoker, used to smoke up to 2-1/2 pack a day, he smoked for more than 40 years. He does not drink alcohol. He has been in [employer] mellitus for 26 years. He worked in the [employer] another 20 years and has worked for [employer] for about 8 years. REVIEW OF SYSTEMS: As per history of present illness. MEDICATIONS: He is currently on following medications: He is on promethazine 25 mg every 8 hours, aspirin 81 mg once a day, gabapentin 300 mg 3 times a day, lorazepam 0.25 mg 3 times a day, Colace 100 mg twice a day, milk of magnesia 30 mL p.o. daily, polyethylene glycol 17 grams through feeding tube twice a day. He is on ondansetron 4 mg every 4 hours. He is on Lantus 36 units at bedtime and Humalog 5 units before meals. PHYSICAL EXAMINATION: GENERAL: On arrival to the Emergency Room, the patient was somewhat tachypneic, but there was no pallor, jaundice or cyanosis. No lymphadenopathy, no thyromegaly. No jugular venous distension. No lower limb edema. VITAL SIGNS: His heart rate was 84, blood pressure was 116/60, temperature was 99.1, respiratory rate was 18 and oxygen saturation was 93% on 4 liters of oxygen. HEAD, EYES, EARS, NOSE AND THROAT: Showed normocephalic, atraumatic. NECK: Supple. HEART: Showed normal first and second heart sounds with no gallop, rub or murmur. CHEST: Clear to auscultation. No crepitation or rhonchi. ABDOMEN: Distended, soft, and nontender. No guarding or rigidity. No organomegaly. Hernial orifices intact. Bowel sounds normal. He has a gastrostomy tube in place. NEUROLOGIC: He was somewhat lethargic, but arousable. All cranial nerves intact. EXTREMITIES: He moves extremities without difficulty. LABORATORY DATA: While in the Emergency Room, he has had lab work done that showed a white cell count of 8000, hemoglobin 16, hematocrit 46, MCV 92, and platelet count of 131,000. Chemistry showed a serum sodium 137, potassium 4.6, chloride 100, bicarbonate 31, anion gap of 6, BUN 18, creatinine 1.2, estimated GFR was 58 mL per minute. His glucose was 462 mg/dL. His calcium was 9.2, magnesium was 1.8. Total bilirubin, AST, ALT, alkaline phosphatase were normal. Total protein was 7.3, albumin 3.4. Amylase and lipase were normal. TSH was 1.971. His lactic acid was 2.7. His prothrombin time was 9.9, INR of 1, aPTT was less than 21 and D-dimer was 3.67. Urinalysis showed the urine was yellow, clear with a pH of 7, specific gravity of 1.015. The urine was negative for protein to large amount of glucose; negative for ketones, blood, nitrite, bilirubin and leukocyte esterase. There were no rbc's, very few wbc's and no bacteria. DIAGNOSTIC DATA: His chest x-ray showed no acute pulmonary infiltrate was seen and KUB showed that the patient has a gastrostomy tube, projected over the left upper quadrant. An NG tube extends into the body of the stomach, gas is present in large and small bowel in a nonspecific pattern. No free air is seen in the abdomen, surgical clips are present in the right upper quadrant. There is no evidence of organomegaly. Several small pelvic radio opacities are compatible with radiopaque material within colonic diverticula. ASSESSMENT AND PLAN: The patient was treated with IV fluid. He was also treated with a therapeutic dose of Lovenox, IV ceftriaxone and continued on all his other medications including ceftriaxone and Zithromax. Plan is to basically consult our social welfare research worker to discuss with the family the option of returning back on hospice, probably in the setting of penitent[facility] facility. JORGE BRAVO MD DR: SANDRA/ana maria JOB#: [id number] / [id number]
[2018-01-14 19:11] VITALS: BP 130/64
[2018-01-14] MEDS ORDERED: INSULIN GLARGINE 300 UNITS/3 ML INSULN.PEN. SQ SCH (21:00)
[2018-01-14] MEDS ORDERED: cefTRIAXone IV Push 1 GM VIAL. IVP SCH (22:00)
[2018-01-14 22:54] VITALS: BP 135/59
[2018-01-15] MEDS: IV RINGERS SOLUTION,LACTATED 1,000 ML IV SCH ×2 (03:39→08:15)
[2018-01-15 05:23] VITALS: BP 154/73
[2018-01-15] MEDS: IPRATRPIUM/ALBUTEROL 0.5/2.5MG 3 ML NEBU. NEB SCH (06:09)
[2018-01-15 06:39] LABS: BASO % 0 % (0-3); EOS # 0.1 x10^3/uL (0.0-0.7); EOS % 1 % (0-3); HEMATOCRIT 41.1 % (39.0-53.0); HEMOGLOBIN 13.9 g/dL (13.0-17.5); LYMPH # 0.9 x10^3/uL (1.0-4.8); LYMPH % 15 % (24-48); MEAN CORPUSCULAR HEMOGLOBIN 31 pg (25-35); MEAN CORPUSCULAR HGB CONC 34 g/dL (31-37); MEAN CORPUSCULAR VOLUME 92 fL (79-100); MONO # 0.3 x10^3/uL (0.0-1.1); MONO % 5 % (0-9); NEUT % 79 % (31-73); PLATELET COUNT 126 x10^3/uL (140-400); RED BLOOD COUNT 4.45 x10^6/uL (4.30-5.70); RED CELL DISTRIBUTION WIDTH 14.5 % (11.5-14.5); WHITE BLOOD COUNT 6.3 x10^3/uL (4.0-11.0)
[2018-01-15 06:45] LABS: CALCIUM 8.8 mg/dL (8.5-10.1); CREATININE 1.1 mg/dL (0.7-1.3); GFR 64.1; POTASSIUM 4.2 mmol/L (3.5-5.1)
[2018-01-15] MEDS: INSULIN LISPRO 300 UNITS/3 ML INSULN.PEN. SQ SCH ×2 (08:00→12:00)
[2018-01-15] MEDS: AZITHROMYCIN 250 MG TABLET. PEG SCH (08:33)
[2018-01-15] MEDS: LACTOBACILLUS RHAMNOSUS GG 1 CAPSULE. PO SCH (08:33)
[2018-01-15] MEDS ORDERED: IPRATRPIUM/ALBUTEROL 0.5/2.5MG 3 ML NEBU. NEB SCH (12:00)
--- NOTE | 2018-01-15 14:54 | PN ---
DATE: 01/15/2018 SUBJECTIVE: The patient is resting slightly propped up in bed, continued to be lethargic, refusing to eat and drink. Arrangement is made for him to go to [facility] after contract is signed with the [place] to go on hospice there. PHYSICAL EXAMINATION: GENERAL: When I saw him of this morning, he was resting slightly propped up in bed, in no apparent respiratory distress. VITAL SIGNS: Her heart rate was 62, blood pressure was 154/73, temperature was 98.5, respiratory rate 20, and oxygen saturation was 95% on 2 liters of oxygen. HEAD, EYES, EARS, NOSE AND THROAT: Showed normocephalic, atraumatic. NECK: Supple. HEART: Showed normal first and second sounds. No gallop, rub or murmur. CHEST: Clear to auscultation. No crepitation or rhonchi. ABDOMEN: Distended, soft with gastrostomy tube in place. NEUROLOGIC: He was lethargic, but arousable. All cranial nerves intact. He moves extremities without difficulty, though he is mostly bedbound. LABORATORY DATA: Lab work this morning showed a serum sodium 143, potassium 4.2, chloride 105, bicarbonate 33, anion gap of 5, BUN 16, creatinine 1.1, estimated GFR was 64 mL per minute, glucose 185, calcium was 8.8. His white cell count was 6300, hemoglobin 14, hematocrit 41, MCV 92, and platelet count of 126,000. ASSESSMENT: 1. Recurrent episodes of nausea, vomiting, likely due to diabetic gastroparesis. 2. Dysphagia with recurrent aspiration pneumonia, for which he underwent gastrostomy tube placement. 3. Chronic obstructive pulmonary disease. 4. Hypertension. 5. Chronic thrombocytopenia. PLAN: To await placement at [facility], to go on hospice. JORGE BRAVO MD DR: SANDRA/ana maria JOB#: [id number] / [id number]
--- NOTE | 2018-01-16 14:24 | DS ---
DATE OF DISCHARGE: 01/15/2018 HOSPITAL COURSE: The patient is an 82-year-old male patient who was admitted with recurrent bouts of nausea, vomiting, required placement of an NG tube, was subsequently removed. He has multiple medical problems including dysphagia with recurrent aspiration pneumonia, type 2 diabetes, chronic obstructive pulmonary disease. We have had a lengthy discussion with his and his children and he was actually on hospice and arrangement has been made for him to be admitted to [facility] under hospice care. PHYSICAL EXAMINATION: GENERAL: On the day of discharge, he was resting slightly propped up in bed, in no apparent respiratory distress. No pallor, jaundice, cyanosis, or thyromegaly. No jugular venous distension. No limb edema. VITAL SIGNS: His heart rate was 62, blood pressure 154/73, temperature was 98.5, respiratory rate 20, and oxygen saturation was 92% on 2 liters of oxygen. HEAD, EYES, EARS, NOSE AND THROAT: Normocephalic, atraumatic. NECK: Supple. HEART: Showed normal first and second sounds. No gallop, rub or murmur. CHEST: Clear to auscultation. No crepitation or rhonchi. ABDOMEN: Distended, soft, nontender. NEUROLOGIC: He was very lethargic, but arousable. All cranial nerves intact. He moves extremities without difficulty, although he is mostly bedbound, chair bound. LABORATORY DATA: His lab work showed a white cell count 6300, hemoglobin 13, hematocrit 41, MCV 92, and platelet count of 126,000. Chemistry showed a serum sodium 143, potassium 3.2, chloride 105, bicarbonate 33, anion gap of 5, BUN 16, creatinine 1.1, estimated GFR was 64 mL per minute. His glucose was in 185, calcium was 8.2. DISCHARGE MEDICATIONS: He was discharged to continue on following medications: Aspirin 81 mg once a day, Colace 100 mg twice a day, gabapentin 300 mg 3 times a day, Lantus insulin 36 units at bedtime, NovoLog insulin 5 units 3 times a day before meals, lorazepam 2 mg/mL and takes 0.25 mL 3 times a day for anxiety, magnesium hydroxide for milk of magnesia 30 mL p.o. daily p.r.n. for constipation, Zofran 4 mg sublingually every 6 hours, polyethylene glycol 17 grams daily p.r.n. for constipation, promethazine 25 mg every 8 hours. FINAL DISCHARGE DIAGNOSES: 1. Recurrent episode of nausea and vomiting, likely due to diabetic gastroparesis. 2. Dysphagia with recurrent aspiration pneumonia for which he underwent gastrostomy tube placement. 3. Chronic obstructive pulmonary disease. 4. Hypertension. 5. Chronic thrombocytopenia. JORGE BRAVO MD DR: SANDRA/ana maria JOB#: [id number] / [id number]
== END 2018-01-15 15:25 | disposition hospice, inpatient (51) | DRG 177 ==
LOC: ER 23:04 → 1 SOUTH 01-14 00:15
PROVIDERS: ADMIT Internal Medicine; ATTEND Internal Medicine
DX: J69.0 Pneumonitis due to inhalation of food and vomit (principal); J96.91 Respiratory failure, unspecified with hypoxia; E11.43 Type 2 diabetes mellitus with diabetic autonomic (poly)neuropathy; D69.6 Thrombocytopenia, unspecified; I25.10 Atherosclerotic heart disease of native coronary artery without angina pectoris; I10 Essential (primary) hypertension; E78.5 Hyperlipidemia, unspecified; E11.65 Type 2 diabetes mellitus with hyperglycemia; I48.91 Unspecified atrial fibrillation; K31.84 Gastroparesis; R13.10 Dysphagia, unspecified; J44.9 Chronic obstructive pulmonary disease, unspecified; Z51.5 Encounter for palliative care; Z87.891 Personal history of nicotine dependence; Z95.0 Presence of cardiac pacemaker; Z87.01 Personal history of pneumonia (recurrent); Z91.030 Bee allergy status; Z93.1 Gastrostomy status; Z79.899 Other long term (current) drug therapy
CPT/HCPCS: 36415; 51702; 71045; 74021; 80048; 80076; 81001; 82150; 82553; 82947; 83605; 83690; 83735; 83880; 84443; 84484; 85025; 85379; 85610; 85730; 87040; 87205; 93005; 94640; 94760; 96361; 96372; 96374; 96375; J0456; J0696; J1650; J1815; J2270; J2405; J7120; J7620; 99285-25